=== PATIENT | male | born 1950 | race Caucasian/White ===

== ENCOUNTER → 2021-08-05 | Outpatient (CLI) | payer MEDICARE, OTHER, SELFPAY ==
--- NOTE | 2021-08-05 | IMM_PTH ---
PATIENT: CHRISTOPHER BAGLEY LOC: [facility] U#:[id number] AGE/SX: 71/M ROOM: RE08/05/[address]: Dr. Chi Lowery MD : 1950 BED: DIS: 08/05/2021 SPEC #: [id number] RECD: 08/07/21 13:48 STATUS: BELEN REQ #: [id number] AUBREE: 08/05/21 00:[address]: Chi Lowery DEPT: IMMUNOHISTOCHEMISTRY RECD BY: Heather Jacques ENTERED: 08/07/21 13:48 SP TYPE: IMMUNO OTHR DR: Dr. Corina Li MD Tissues: B - PROSTATE RIGHT C - PROSTATE RIGHT Procedures: 34BE12 (add) P40 (add) 34BE12 (initial) PHYSICIAN & INSTITUTION [place] [id number] SPECIMEN INFORMATION: Tissue Source: B - Right prostate, mid, core biopsy, C - Right prostate, base, core biopsy Clinical Info: Elevated PSA Specimen Number: [id number] B & C CPT code: 27041, 71710 x3 METHODOLOGY: Deparaffinized sections of prefer/formalin-fixed tissue or PAP/DQ stained slides are incubated with monoclonal/polyclonal antibodies/oligonucleotide probes. Localization is made via biotin free immunoperoxidase method. Appropriate controls are performed and reacted as expected. Results on target cell population are indicated in the following table: RESULTS: ANTIBODY / CLONE RESULT Block B P40 (BC28) negative 34BE12 (34BE12) negative Block C P40 (BC28) negative 34BE12 (34BE12) negative These tests were developed and their performance characteristics determined by [facility]. They may not have been cleared or approved by the [place]. Food and Drug Administration. The FDA has determined that such clearance or approval is not necessary. The above immunohistochemical/dualISH markers are ordered and reviewed by the Pathologist. INTERPRETATION: B. Right prostate, mid, core biopsy: Adenocarcinoma. C. Right prostate, base, core biopsy: A minute focus of adenocarcinoma. SJ:rosa 08/08/2021
--- NOTE | 2021-08-05 08:00 | PROSBIL_PTH ---
PATIENT: CHRISTOPHER BAGLEY LOC: [facility] U#:[id number] AGE/SX: 71/M ROOM: RE08/05/[address]: Dr. Chi Lowery MD : 1950 BED: DIS: 08/05/2021 SPEC #: [id number] RECD: 08/05/21 16:32 STATUS: BELEN LEONID #: [id number] AUBREE: 08/05/21 08:[address]: Chi Lowery DEPT: SURGICAL PATHOLOGY RECD BY: Ansley Antonio ENTERED: 08/06/21 09:49 SP TYPE: PROST BX VENESSA DR: Dr. Corina Li MD Tissues: A - PROSTATE RIGHT B - PROSTATE RIGHT C - PROSTATE RIGHT D - PROSTATE LEFT E - PROSTATE LEFT F - PROSTATE LEFT Procedures: PROSTATE BX HEADER OPERATION: Prostate biopsy PRE-OP DIAGNOSIS: Elevated PSA TISSUE SUBMITTED: A - Right apex, B - Right mid, C - Right base, D - Left apex, E - Left mid, F - Left base MICROSCOPIC DIAGNOSIS A. Right prostate, apex, core biopsy: Prostatic adenocarcinoma. [place] grade: 3+3=6 Number of cores involved: 1/2 Proportion of tissue involved: ~20% Perineural invasion: Not identified. Greatest tumor length: 0.8 cm, discontinuous B. Right prostate, mid, core biopsy: Prostatic adenocarcinoma. [place] grade: 3+3=6 Number of cores involved: 1/2 Proportion of tissue involved: ~5-10% Perineural invasion: Not identified. Greatest tumor length: 0.2 cm, discontinuous See comment. C. Right prostate, base, core biopsy: A minute focus of prostatic adenocarcinoma. [place] grade: 3+3=6 Number of cores involved: 1/2 Proportion of tissue involved: <5% Perineural invasion: Not identified. Greatest tumor length: <0.1 cm See comment. D. Left prostate, apex, core biopsy: Prostatic adenocarcinoma. [place] grade: 3+4=7 Number of cores involved: 2/2 Proportion of tissue involved: ~80% Perineural invasion: Not identified. Greatest tumor length: 0.5 cm E. Left prostate, mid, core biopsy: Prostatic adenocarcinoma. [place] grade: 3+3=6 Number of cores involved: 2/2 Proportion of tissue involved: ~40% Perineural invasion: Not identified. 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 F. Left prostate, base, core biopsy: A minute focus of prostatic adenocarcinoma. [place] grade: 3+3=6 Number of cores involved: 1/2 Proportion of tissue involved: ~15% Perineural invasion: Not identified. Greatest tumor length: 0.3 cm Chronic inflammation. SJ:rosa 08/07/2021 COMMENT B & C. Immunohistochemistry ([id number]) supports the above diagnosis. Case has been reviewed in consultation with Dr. Carmichael who concurs with the above diagnosis. IDC:AM MICROSCOPIC DESCRIPTION Slides are reviewed. GROSS DESCRIPTION A - Received is one container designated prostate, right apex. The specimen consists of two elongated fragments of light monte-white soft tissue measuring 0.8 and 1.5 cm in length and 0.1 cm in diameter. The specimen is totally submitted in one cassette. B - Received is one container designated prostate, right mid. The specimen consists of two elongated fragments of light monte-white soft tissue measuring 1 and 1.5 cm in length and 0.1 cm in diameter. The specimen is totally submitted in one cassette. C - Received is one container designated prostate, right base. The specimen consists of two elongated fragments of light monte-white soft tissue each measuring 1.5 cm in length and 0.1 cm in diameter. The specimen is totally submitted in one cassette. D - Received is one container designated prostate, left apex. The specimen consists of two elongated fragments of light monte-white soft tissue measuring 0.7 and 1 cm in length and 0.1 cm in diameter. The specimen is totally submitted in one cassette. E - Received is one container designated prostate, left mid. The specimen consists of two elongated fragments of light monte-white soft tissue measuring 1.5 and 1.8 cm in length and 0.1 cm in diameter. The specimen is totally submitted in one cassette. F - Received is one container designated prostate, left base. The specimen consists of two elongated fragments of light monte-white soft tissue each measuring 1.2 cm in length and 0.1 cm in diameter. The specimen is totally submitted in one cassette. / SJ:rosa 08/06/2021 TC:0 CPT: G0146
== END | disposition home or self-care (01) ==
LOC: LABSPEC 16:46
PROVIDERS: PCP Internal Medicine; Referring Provider Urology; Visit Provider Urology
DX: R97.20 Elevated prostate specific antigen [PSA] (principal)
CPT/HCPCS: 88305; 88341; 88342; G0416

== ENCOUNTER 2024-09-15 07:28 | Outpatient (CLI) | payer MEDICARE, OTHER, SELFPAY ==
--- OUTSIDE RECORDS SUMMARY | 2024-09-15 07:38 | XMS RPT_ITS | CCD ---
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 Alonso Bryan Unavailable GRANT Blackmon LPN Unavailable Unavailable Stuart Durand MD Unavailable Dr. Rohan Mahmood Unavailable Wilder Fitzgerald LPN Unavailable Unavailable Unavailable Unavailable Stuart Durand MD Primary Care Provider Chi Cool Unavailable Stuart Durand MD Primary Care Provider Chi Cool Unavailable Stuart Durand Primary Care Unavailable Chi Cool Attending Unavailable Chi Cool Referring Unavailable Chi Cool Attending Unavailable Stuart Durand Primary Care Unavailable Chi Cool Unavailable Jennifer DEPUTY SHERIFF LIEUTENANT, Marylu Unavailable Unavailable Robert LAMLupe Unavailable Stuart Durand MD Primary Care Provider Chi Cool MD Unavailable Robert LAMLupe Unavailable Stuart Durand MD Primary Care Provider [phone] Stuart Durand MD Attending Unavailable Stuart Durand MD Consulting Unavailable Slarb SILK SCREEN REPAIRER, Deisi Unavailable Unavailable Ticoras, Trevin Unavailable Jm SILK SCREEN REPAIRER, Shari Unavailable Unavailable Chi Cool MD Unavailable [phone] Stuart Durand MD Primary Care Provider [phone] Stuart Durand MD Primary Care Provider [phone] KARRI ENGEL Attending Unavailable BONEZZI, STUART M Primary Care Unavailable URADUKARRI Attending Unavailable BONEZZI, STUART M Primary Care Unavailable URADKARRI Mckeon Attending Unavailable BONEZZI, STUART M Primary Care Unavailable URKARRI ESCOBEDO Attending Unavailable MARTHA BANKS Primary Care Unavail able KARRI ENGEL Attending Unavailable BONEZZI, STUART M Primary Care Unavailable BONEZZI, STUART M Primary Care Unavailable DEVIN MARISCAL Attending Unavailable DEVIN MARISCAL Referring Unavailable DEVIN MARISCAL Referring Unavailable BONEZZI, STUART M Primary Care Unavailable RACHITSKAYA V, IVANNA Referring Unavai lable BONEERANI, STUART M Primary Care Unavailable RACGAMATSGWEN V, IVANNA Attending Unavai lable BONEANTHONY, STUART M Primary Care Unavailable DEVIN MARISCAL Attending Unavailable BONEZZI, STUART M Primary Care Unavailable RACHITSKAYA V, IVANNA Referring Unavai labRADHA Darden Attending Unavailable BONEZZI, STUART M Primary Care Unavailable SELF Referring Unavailable BONEZZI, STUART M Primary Care Unavailable RACHITSKAYA V, IVANNA Attending Unavai labIVANNA Nicholas Attending STUART Esquivel Primary Care Unavailable BONEANTHONY, STUART Mukherjee Primary Care Unavailable BONEANTHONY, STUART M Primary Care Unavailable HARRISON MASON Attending Unavailable BONEANTHONY, STUART Mukherjee Primary Care Unavailable IVANNA CALVERT Attending Salvador menchaca DAY, WENDY STEARNS Attending Unavailable BONEANTHONY, STUART Mukherjee Primary Care Unavailable RAFI ROLLINS Attending Unavailab le DAY, WENDY STEARNS Referring Unavailable DAY, WENDY STEARNS Admitting Unavailable BONEANTHONY, STUART M Primary Care Unavailable BONEANTHONY, STUART Mukherjee Primary Care Unavailable SOURAV HORTON Attending Unavailable BONESTUART CRUZ Primary Care Unavailable Allergies Allergy Classification Reported Allergen(s) Allergy Type Date of Onset Reaction(s) Facility (4 sources) Seasonal allergy; Translations: [SEASONAL ALLERGIES] Allergy to substance Other: See Comments [facility] Medications Current Medications Medication Drug Class(es) Dates Sig (Normalized) Sig (Original) acetaminophen 325 mg oral tablet (3 sources) Start: 11-24-2019 End: 12-04-2019 take 2 tablets by mouth every four hours as needed acetaminophen (TYLENOL) 325 MG tablet Take 2 (two) tablets (650 mg total) by mouth every 4 (four) hours as needed . 30 tablet 0 11/24/2019 12/04/2019 Active Start: 11-23-2019 End: 11-24-2019 take 1 tablet by mouth every four hours as needed 650 mg, Oral, Every 4 hours PRN, mild pain, Starting Elizabeth 11/23/19 at 1054 amLODIPine 10 mg oral tablet (20 sources) Dihydropyridine Calcium Channel Adriana Start: 06-14-2024 amLODIPine (NORVASC) 10 MG tablet Take 1 (one) tablet (10 mg total) by mouth . 06/14/2024 Active Start: 09-07-2022 take 1 tablet by leonora th in the morning amLODIPine 10 mg oral tablet 1 (one) Tablet in am for 0 days Quantity: 90 {Tablet} Refills: 3 Ordered: 07-Sep-2022 Stuart Durand MD, MD, Dana M Start : 07-Sep-2022 Active Start: 09-01-2021 take 1 tablet by leonora th in the morning amLODIPine Besylate 10 MG Oral Tablet 1 (one) Tablet in am for 0 days Quantity: 90 {Tablet} Refills: 3 Ordered: 01-Sep-2021 Guillermo CAPPS, Stuart Durand MD, Stuart Mukherjee Start : 01-Sep-2021 Active Start: 05-21-2020 End: 08-27-2020 take 1 tablet by mouth once daily amLODIPine 10 MG tablet Indications: Essential hypertension Take 1 tablet by mouth daily. 90 tablet 3 08/27/2020 Active Start: 11-23-2019 End: 11-24-2019 take 10 mg by mouth once daily 10 mg, Oral, Daily, Fir st dose on Elizabeth 11/23/19 at 1300 Start: 04-29-2019 End: 02-05-2020 take 1 tablet by mouth once daily amLODIPine 10 MG tablet Take 1 tablet by mouth daily. 90 tablet 2 11/07/2019 11/13/2019 Discontinued End: 09-01-2024 take 2 tablets by mouth once daily amLODIPine (NORVASC) 5 MG tablet Take 2 (two) tablets (10 mg total) by mouth daily . 09/01/2024 Discontinued (Dose adjustment) AMLODIPINE BESYL ATE (AMLODIPINE ORAL) Take by mouth. Active AMLODIPINE BESYL ATE (AMLODIPINE ORAL) Take by mouth. 0 Active End: 11-13-2019 take 5 mg by mouth once daily amLODIPine (NORVASC) 10 MG tablet Take 5 mg by mouth daily . 0 11/13/2019 Discontinued (Stop Taking at Discharge) Comment on above: Take by mouth. B-complex with vitamin C (VITAMIN B COMPLEX-C ORAL) (20 sources) Start: 07-29-2021 B-complex with vitamin C (VITAMIN B COMPLEX-C ORAL) Take by mouth q 24 HR. 07/29/2021 Active Start: 07-29-2021 B-complex with vitamin C (VITAMIN B COMPLEX-C ORAL) Take by mouth q 24 HR. 0 07/29/2021 Active Comment on above: Take by mouth q 24 H R. B-complex with vitamin C tablet (7 sources) Start: 07-29-2021 take 1 tablet by mouth every twenty-four hours B-complex with vitamin C tablet Take 1 Unspecified by mouth daily . 07/29/2021 Active Start: 07-29-2021 take 1 tablet by leonora th every twenty-four hours B-complex with vitamin C tablet Take 1 Unspecified by mouth daily . 0 07/29/2021 Active benazepril hydrochloride 40 mg oral tablet (20 sources) Angiotensin Converting Enzyme Inhibitor Start: 04-29-2019 End: 11-25-2020 take 1 tablet by mouth once daily benazepriL (LOTENSIN) 40 MG tablet Take 1 (one) tablet (40 mg total) by mouth daily . 11/22/2020 Active BENAZEPRIL HCL ( BENAZEPRIL ORAL) Take by mouth. Active BENAZEPRIL HCL ( BENAZEPRIL ORAL) Take by mouth. 0 Active End: 11-24-2019 benazepriL (LOTENSIN) 40 MG tablet Take 20 mg by mouth daily . 0 11/24/2019 Discontinued (Stop Taking at Discharge) Comment on above: Take by mouth. benoxinate hydrochloride 4 mg/ml / fluorescein sodium 3 mg/ml ophthalmic solution (10 sources) Diagnostic Dye Start: 07-07-2024 End: 07-07-2024 fluorescein-benoxinat e 0.3-0.4 % 1 drop (FLURESS) Start: 07-07-2024 End: 07-07-2024 1 drop, LEFT EYE, DIRECTE D, Starting on Wed07/07/24 at 0730, Until Wed07/07/24 at 1929, Administer for applanation tonometry. In the event of a Fluress shortage, administer [place]-Fluor 1 drop into the left eye as directed for applanation tonometry, [facility] MED ORDERS Start: 02-04-2024 End: 02-04-2024 fluorescein-benoxinate 0.3-0 .4 % 1 Drop (FLURESS) Start: 02-04-2024 End: 02-04-2024 1 Drop, BOTH EYES, DIRECT ED, Starting on Wed02/04/24 at 0730, Until Wed02/04/24 at 1929, Administer for applanation tonometry. In the event of a Fluress shortage, administer 1 drop of [place]-Fluor into both eyes as directed for applanation tonometry., [facility]HT [facility]INIC MED ORDERS Start: 11-05-2023 End: 11-06-2023 fluorescein-benoxinate 0.3-0 .4 % 1 Drop (FLURESS) Start: 09-22-2023 End: 09-23-2023 fluorescein-benoxinate 0.3-0 .4 % 1 Drop (FLURESS) Start: 09-14-2023 End: 09-15-2023 fluorescein-benoxinate 0.3-0 .4 % 1 Drop (FLURESS) cholecalciferol 0.025 mg ora l capsule (20 sources) Vitamin D cholecalciferol, vitamin D3, 25 mcg (1,000 unit) capsule Take by mouth daily . Active Cholecalciferol, Vitamin D3, 25 mcg (1,000 unit) cap Take by mouth every 24 hours. Active enteric contrast (will be provided with radiology test) (3 sources) Start: 09-10-2021 End: 09-11-2021 enteric contrast (will be provided with radiology test) For CT ABD/PEL W IVCON Routine order Administer, As Directed One Time Only, via Oral, Rectal, both Oral and Rectal, Enteric Tube, Stoma or Indwelling Catheter, Enteric Contrast as designated per enteric contrast guidelines 1 Each 0 09/10/2021 09/11/2021 Active Comment on above: For CT ABD/PEL W IVC ON Routine order Administer, As Directed One Time Only, via Oral, Rectal, both Oral and Rectal, Enteric Tube, Stoma or Indwelling Catheter, Enteric Contrast as designated per enteric contrast guidelines iv contrast (will be provided with radiology test) (6 sources) Start: 09-10-2021 End: 09-11-2021 iv contrast (will be provided with radiology test) MRI Prostate Inject, intravenously, once for 1 dose. No IV access, insert saline lock prior to the beginning of sedation, infusion, injection of imaging exam. Discontinue saline lock post exam. If Pt. has a central line or IVAD, may access for administration according to line specific nursing protocol. Once exam is complete flush line and de-access according to line specific nursing protocol in the MR contrast administration guidelines link. 1 Each 0 09/10/2021 09/11/2021 Active Start: 09-10-2021 End: 09-11-2021 iv contrast (will be provide d with radiology test) CT ABD/PEL -Inject, intravenously, once for 1 dose.No IV access, insert saline lock prior to the beginning of sedation, infusion, injection of imaging exam. Discontinue saline lock post exam. If Pt. has a central line or IVAD, may access for administration according to line specific nursing protocol. Once exam is complete flush line and de-access according to line specific nursing protocol in the CT contrast administration guidelines link. 1 Each 0 09/10/2021 09/11/2021 Active Comment on above: MRI Prostate Inject, intravenously, once for 1 dose. No IV access, insert saline lock prior to the beginning of sedation, infusion, injection of imaging exam. Discontinue saline lock post exam. If Pt. has a central line or IVAD, may access for administration according to line specific nursing protocol. Once exam is complete flush line and de-access according to line specific nursing protocol in the MR contrast administration guidelines link. CT ABD/PEL -Inject, intravenously, once for 1 dose.No IV access, insert saline lock prior to the beginning of sedation, infusion, injection of imaging exam. Discontinue saline lock post exam. If Pt. has a central line or IVAD, may access for administration according to line specific nursing protocol. Once exam is complete flush line and de-access according to line specific nursing protocol in the CT contrast administration guidelines link. Multiple Vitamin (Multi-Vitamin) tablet (1 source) take 1 tablet by mouth once daily Multiple Vitamin (Multi-Vitamin) tablet Take 1 tablet by mouth daily. 0 Active multivitamin (THERAGRAN) per tablet (18 sources) take 1 tablet by mouth once daily multivitamin (THERAGRAN) per tablet Take 1 (one) tablet by mouth daily . Active take 1 tablet by mouth once paulina y multivitamin (THERAGRAN) per tablet Take 1 (one) tablet by mouth daily . 0 Active take 1 tablet by mouth once paulina y multivitamin (THERAGRAN) per tablet Take 1 tablet by mouth daily . 0 Active phenylephrine hydrochloride 25 mg/ml ophthalmic solution (8 sources) alpha-1 Adrenergic Agonist Start: 07-07-2024 End: 07-07-2024 PHENYLephrine 2.5 % 1 drop (AK-DILATE, CRISTO-SYNEPHRINE) Start: 07-07-2024 End: 07-07-2024 1 drop, LEFT EYE, DIRECTE D, Starting on Wed07/07/24 at 0730, Until Wed07/07/24 at 1929, Administer for dilation PROT[facility] FROM LIGHT, [facility] Start: 02-04-2024 End: 02-04-2024 PHENYLephrine 2.5 % 1 Drop ( AK-DILATE, CRISTO-SYNEPHRINE) Start: 02-04-2024 End: 02-04-2024 1 Drop, BOTH EYES, DIRECT ED, Starting on Wed02/04/24 at 0730, Until Wed02/04/24 at 1929, Administer for dilation PROTECT FROM LIGHT, [facility] CLINIC MED ORDERS Start: 11-05-2023 End: 11-06-2023 PHENYLephrine 2.5 % 1 Drop ( AK-DILATE, CRISTO-SYNEPHRINE) Start: 09-22-2023 End: 09-23-2023 PHENYLephrine 2.5 % 1 Drop ( AK-DILATE, CRISTO-SYNEPHRINE) proparacaine hydrochloride 5 mg/ml ophthalmic solution (5 sources) Local Anesthetic Start: 07-07-2024 End: 07-07-2024 proparacaine 0.5 % 1 drop (ALCAINE) Start: 02-04-2024 End: 02-04-2024 proparacaine 0.5 % 1 Drop (A LCAINE) Start: 11-05-2023 End: 11-06-2023 proparacaine 0.5 % 1 Drop (A LCAINE) Start: 09-22-2023 End: 09-23-2023 proparacaine 0.5 % 1 Drop (A LCAINE) red yeast rice 600 mg oral capsule (20 sources) take 2 capsules by m outh every twenty-four hours red yeast rice 600 mg cap Take 2 (two) capsules (1,200 mg total) by mouth daily . Active take 2 capsules by m outh every twenty-four hours Red Yeast Rice Extract 600 mg cap Take 1,200 mg by mouth every 24 hours. Active relugolix (ORGOVYX) 120 mg tablet (4 sources) Start: 10-16-2021 End: 11-18-2021 relugolix (ORGOVYX) 120 mg tablet Indications: Malignant neoplasm of prostate (HCC) Take 1 tablet by mouth once daily. Take 3 pills day one and then one pill daily from day 2 onwards. 33 tablet 0 10/16/2021 11/18/2021 Active Comment on above: Take 1 tablet by leonora once daily. Take 3 pills day one and then one pill daily from day 2 onwards. rosuvastatin calcium 5 mg oral tablet (1 source) HMG-CoA Reductase Inhibitor Start: 08-30-2024 take 1 tablet by mouth once daily rosuvastatin (CRESTOR) 5 MG tablet Take 1 (one) tablet (5 mg total) by mouth daily . 08/30/2024 Active triamcinolone acetonide 1 mg/ml topical cream (1 source) Corticosteroid Start: 06-30-2024 triamcinolone acetonide (KENALOG) 0.1 % cream Apply to affected area. 06/30/2024 Active tropicamide 10 mg/ml ophthalmic solution (11 sources) Anticholinergic Start: 07-07-2024 End: 07-07-2024 tropicamide 1 % 1 drop (MYDRIACYL) Start: 07-07-2024 End: 07-07-2024 1 drop, LEFT EYE, DIRECTE D, Starting on Wed07/07/24 at 0730, Until Wed07/07/24 at 1929, Administer for dilation, [facility] MED ORDERS Start: 02-04-2024 End: 02-04-2024 tropicamide 1 % 1 Drop (MYDR IACYL) Start: 02-04-2024 End: 02-04-2024 1 Drop, BOTH EYES, DIRECT ED, Starting on Wed02/04/24 at 0730, Until Wed02/04/24 at 1929, Administer for dilation, [facility] MED ORDERS Start: 11-05-2023 End: 11-06-2023 tropicamide 1 % 1 Drop (MYDR IACYL) Start: 09-22-2023 End: 09-23-2023 tropicamide 1 % 1 Drop (MYDR IACYL) Start: 09-14-2023 End: 09-15-2023 tropicamide 1 % 1 Drop (MYDR IACYL) Completed/Discontinued Medications Medication Drug Class(es) Dates Sig (Normalized) Sig (Original) amoxicillin 875 mg / clavulanate 125 mg oral tablet (20 sources) Penicillin-class Antibacterial Start: 08-18-2021 End: 12-19-2021 take 1 tablet by mouth twice daily Amoxicillin-Pot Clavulanate 875-125 MG Oral Tablet 1 (one) Tablet bid for 0 days Quantity: 20 {Tablet} Refills: 0 Ordered: 19-Dec-2021 Wilder Fitzgerald LPN Start : 18-Aug-2021 End : 19-Dec-2021 Inactive Start: 11-13-2019 End: 11-24-2019 take 1 tablet by mouth twice daily amoxicillin-clavulanate (AUGMENTIN) 875-125 mg per tablet Take 1 (one) tablet by mouth 2 (two) times a day . 10 tablet 0 11/13/2019 11/24/2019 Discontinued (Stop Taking at Discharge) azithromycin 250 mg oral tablet (20 sources) Macrolide Antimicrobial Start: 08-12-2021 End: 12-19-2021 Zithromax Z-Ruddy 250 MG Oral Tablet 1 (one) Tablet uad for 0 days Quantity: 1 {Packet} Refills: 0 Ordered: 19-Dec-2021 Wilder Fitzgerald LPN Start : 12-Aug-2021 End : 19-Dec-2021 Inactive B-complex with vitamin C oral tablet (10 sources) Start: 12-19-2021 End: 08-18-2022 take 1 capsule by mouth once daily B-complex with vitamin C oral tablet 1 (one) Capsule daily for 0 days Quantity: 30 {Capsule} Refills: 2 Ordered: 18-Aug-2022 Shari Oneal LPN Start : 19-Dec-2021 End : 18-Aug-2022 Inactive Carboxymethylcellulose (20 sources) CARBOXYMETHYLCEL LULOSE SODIUM (REFRESH OPHTHALMIC) Use in eyes as directed. 0 Active Comment on above: Use in eyes as direc [place]. folic acid 1 mg oral tablet (20 sources) Start: 07-29-2021 End: 08-18-2022 take 1 tablet by mouth once daily folic acid 1 mg oral tablet 1 (one) Tablet daily for 0 days Quantity: 30 {Tablet} Refills: 3 Ordered: 18-Aug-2022 Shari Oneal LPN Start : 19-Dec-2021 End : 18-Aug-2022 Inactive Comment on above: TAKE 1 TABLET BY LEONORA TH EVERY DAY NOT COVERED 1 ml heparin sodium, porcine 5000 unt/ml injection (1 source) Unfractionated Heparin, Anti-coagulant Start: 11-11-2019 End: 11-13-2019 inject 5000 [IU] by subcutaneous injection every eight hours 5,000 Units, Subcutaneous, Every 8 hours scheduled, First dose on 11/11/19 at 2200 Notify physician if patient refuses. ammonium lactate 120 mg/ml topical lotion (20 sources) Start: 07-29-2021 End: 12-19-2021 Amlactin Daily 12 % External Lotion 1 (one) Application daily on trunk for 0 days Quantity: 1 {Each} Refills: 0 Ordered: 19-Dec-2021 Amilcar CORDONWilder Start : 29-Jul-2021 End : 19-Dec-2021 Inactive lisinopril 20 mg oral tablet (1 source) Angiotensin Converting Enzyme Inhibitor Start: 11-12-2019 End: 11-13-2019 take 40 mg by mouth once daily at lunch 40 mg, Oral, Daily with lunch, First dose on 11/12/19 at 1200 olopatadine 1 mg/ml ophthalmic solution (20 sources) Histamine-1 Receptor Inhibitor Start: 07-22-2016 take 1 drop(s) into the eye(s) twice daily olopatadine (PATANOL) 0.1 % ophthalmic solution Use 1 Drop in both eyes twice daily. 1 Bottle 0 07/22/2016 Active Start: 07-22-2016 take 1 drop(s) into the eye(s) twice daily olopatadine (PATANOL) 0.1 % ophthalmic solution Use 1 Drop in both eyes twice daily. 1 Bottle 0 07/22/2016 Active Comment on above: Use 1 Drop in both e yes twice daily. 2 ml ondansetron 2 mg/ml injection (2 sources) Serotonin-3 Receptor Antagonist Start: 0 End: 0 take 4 mg intravenous route every six hours as needed 4 mg, Intravenous, Every 6 hours PRN, nausea, Starting Elizabeth 11/23/19 at 1054 Start: 11-11-2019 End: 11-13-2019 take 4 mg intravenous route every six hours as needed 4 mg, Intravenous, Every 6 hours PRN, nausea, vomiting, Starting 11/11/19 at 1827 Orgovyx 120 MG Oral Tablet (6 sources) Start: 12-19-2021 take 1 tablet by mouth once daily Orgovyx 120 MG Oral Tablet 1 (one) Tablet daily for 0 days Quantity: 30 {Tablet} Refills: 0 Ordered: 19-Dec-2021 Guillermo CAPPS, Stuart Durand MD, Stuart Mukherjee Start : 19-Dec-2021 Active Comments: Rx by Dr Mariscal Comment on above: Rx by Dr Mariscal Orgovyx 120 mg oral tablet (10 sources) Start: 12-19-2021 End: 08-18-2022 take 1 tablet by mouth once daily Orgovyx 120 mg oral tablet 1 (one) Tablet daily for 0 days Quantity: 30 {Tablet} Refills: 0 Ordered: 18-Aug-2022 Jm CORDON Shari Start : 19-Dec-2021 End : 18-Aug-2022 Inactive Comments: Rx by Dr Mariscal Comment on above: Rx by Dr Mariscal perfluttoni lipid microspheres (DEFINITY) 0.143 mg/mL solution 0-10 mL of mixture (1 source) Start: 11-11-2019 End: 11-13-2019 0-10 mL of mixture, Intravenous, Once in imaging, contrast, IF suboptimal echo, Starting 11/11/19 at 1827, For 48 hours Prepare syringe by withdrawing 1.3 mL of perflutren (DEFINITY) from the 2ml vial. Further dilute the 1.3 mL of perflutren with Sodium Chloride (NS) 0.9% to total volume of 10 ml. Chart total ML OF MIXTURE given to patient. predniSONE 20 mg oral tablet (20 sources) Start: 08-12-2021 End: 12-19-2021 predniSONE 20 MG Oral Tablet 1 (one) Tablet bid for 3 days for 0 days Quantity: 6 {Tablet} Refills: 0 Ordered: 19-Dec-2021 Wilder Fitzgerald LPN Start : 12-Aug-2021 End : 19-Dec-2021 Inactive relugolix (ORGOVYX) 120 mg tablet (10 sources) Start: 12-19-2021 take 1 tablet by mouth every twenty-four hours relugolix (ORGOVYX) 120 mg tablet Take by mouth q 24 HR. 0 12/19/2021 Active Comment on above: Take by mouth q 24 H R. 1000 ml sodium chloride 9 mg/ml injection (1 source) Start: 11-23-2019 End: 11-23-2019 sodium chloride 0.9% (NS) tamsulosin hydrochloride 0.4 mg oral capsule (7 sources) alpha-Adrenergic Adriana Start: 02-02-2022 End: 05-03-2022 take 1 capsule by mouth once daily at bedtime tamsulosin (FLOMAX) 0.4 mg Indications: Malignant neoplasm of prostate (HCC) Take 1 capsule by mouth daily at bedtime. 30 capsule 2 02/02/2022 Active Comment on above: Take 1 capsule by mo uth daily at bedtime. 200 ml vancomycin 5 mg/ml injection (1 source) Glycopeptide Antibacterial Start: 11-23-2019 End: 11-23-2019 vancomycin (VANCOCIN) 1000 mg in sodium chloride 0.9% (NS) 200 mL IVPB vancomycin (VANCOCIN) 1,000 mg in sodium chloride (NS) 0.9 % 1,000 mL irrigation (Bottle) (1 source) Start: 11-23-2019 End: 11-23-2019 vancomycin (VANCOCIN) 1,000 mg in sodium chloride (NS) 0.9 % 1,000 mL irrigation (Bottle) Vitamin B Complex-C Oral Capsule (15 sources) Start: 12-19-2021 take 1 capsule by mouth once daily Vitamin B Complex-C Oral Capsule 1 (one) Capsule daily for 0 days Quantity: 30 {Capsule} Refills: 2 Ordered: 19-Dec-2021 Wilder Fitzgerald LPN Start : 19-Dec-2021 Active Start: 07-29-2021 take 1 capsule by mo ut once daily Vitamin B Complex-C Oral Capsule 1 (one) Capsule daily for 0 days Quantity: 30 {Capsule} Refills: 2 Ordered: 29-Jul-2021 Guillermo CAPPS, Stuart Durand MD, Stuart Mukherjee Start : 29-Jul-2021 Active vitamin B complex-vitamin C- folic acid 0.3mg-1 mg tablet (oral) (10 sources) vitamin B comple x-vitamin C-folic acid 0.3mg-1 mg tablet (oral) daily (0.3-1 mg) Active Problems Active Problems Problem Classification Problem Date Documented Date Episodic/Chronic Allergic reactions (20 sources) Environmental allergy; Translations: [Environmental allergies] 07-29-2021 Episodic Comment on above: OTC saline rinses an d flonse not antihistamine with dry eyes Cancer of prostate (20 sources) Malignant tumor of prostate; Translations: [Malignant neoplasm of prostate] Onset: 09-10-2021 Chronic Comment on above: Dr. cool, see Dr. lewis mariscal rad/onc Dr. cool, see Dr. lewis mariscal rad/onc doing well Cardiac dysrhythmias (20 sources) Bradycardia; Translations: [Sick sinus syndrome] Onset: 11-11-2019 11-11-2019 Chronic Comment on above: boy 10-[address] eleno stearns [facility] Cataract (8 sources) Pseudophakia of right eye; Translations: [Presence of intraocular lens] Onset: 11-23-2023 09-14-2023 Chronic Conduction disorders (12 sources) Complete atrioventricular block; Translations: [Heart block ] Onset: 04-18-2024 Chronic Developmental disorders (20 sources) Dyslexia; Translations: [Dyslexia] 07-29-2021 Chronic Diabetes mellitus without complication (20 sources) Abnormal glucose level; Translations: [Abnormal glucose] 06-02-2021 Episodic Comment on above: 6.4 5-19 was 180 t and down to 140 Disorders of lipid metabolism (20 sources) Hyperlipidemia; Translations: [Hyperlipidemia, unspecified] Chronic Comment on above: apo B92 with LDL 115 . he did red yeast rice and niacin and help. he was off it and will restart. Essential hypertension (20 sources) Essential hypertension; Translations: [Essential (primary) hypertension] Chronic Hyperplasia of prostate (1 source) Benign prostatic hyperplasia; Translations: [Benign prostatic hyperplasia without lower urinary tract symptoms] Chronic Immunizations and screening for infectious disease (20 sources) Patient encounter status; Translations: [Encounter for hepatitis C virus screening test for high risk patient] 07-29-2021 Episodic Other and unspecified benign neoplasm (20 sources) Melanocytic nevus; Translations: [Atypical mole] 07-29-2021 Episodic Comment on above: right inner calf wit h pigmented mole that is asymetrical Other eye disorders (1 source) Posterior vitreous detachment of left eye; Translations: [Vitreous degeneration, left eye] 09-14-2023 Chronic Other eye disorders (5 sources) Hemorrhage of left vitreous body; Translations: [Vitreous hemorrhage, left eye] 09-14-2023 Chronic Other eye disorders (1 source) Meibomian gland dysfunction of bilateral eyes; Translations: [Meibomian gland dysfunction right eye, upper and lower eyelids] 11-23-2023 Episodic Other eye disorders (1 source) Disorder of lacrimal gland; Translations: [Dry eye syndrome of bilateral lacrimal glands] 11-23-2023 Episodic Other hematologic conditions (20 sources) Erythrocytosis; Translations: [Polycythemia] 06-18-2020 Episodic Comment on above: felt related to WICHO by hematology. wear mask for months and not change. before pacer. testosterone good felt related to WICHO and before pacer and less bradycardia now by hematology. wear mask for months and not change. before pacer. testosterone good Other lower respiratory disease (2 sources) Bilateral lung opacities on chest X-ray; Translations: [Other nonspecific abnormal finding of lung field] Episodic Other lower respiratory disease (2 sources) Multiple nodules of lung; Translations: [Other nonspecific abnormal finding of lung field] Episodic Other nervous system disorders (6 sources) H/O: retinal detachment; Translations: [Personal history of other diseases of the nervous system and sense organs] 09-14-2023 Episodic Other non-epithelial cancer of skin (20 sources) History of malignant basal cell neoplasm of skin; Translations: [History of basal cell carcinoma] 06-02-2021 Episodic Comment on above: each forearm with wh at look like BCC will get back to derm. he willcall with the name of derm. Other nutritional; endocrine; and metabolic disorders (1 source) Weight loss; Translations: [Weight loss] Episodic Other nutritional; endocrine; and metabolic disorders (2 sources) Body mass index 25-29 - overweight; Translations: [BMI 25.0-25.9,adult] 12-19-2021 Episodic Other nutritional; endocrine; and metabolic disorders (20 sources) Overweight in adulthood with body mass index of 25 or more but less than 30; Translations: [BMI 25.0-25.9,adult] 12-19-2021 Episodic Other screening for suspected conditions (not mental disorders or infectious disease) (20 sources) ECG: bradycardia; Translations: [Raised prostate specific antigen] Onset: 09-08-2021 Resolved: 08-18-2022 06-02-2021 Episodic Comment on above: 6.8 5.5 5-19 Other skin disorders (20 sources) Eruption; Translations: [Rash] Resolved: 08-18-2022 07-29-2021 Episodic Comment on above: red raised on trunk mainly at follicles not folliculitis had for years. some itch Other upper respiratory infections (20 sources) Acute sinusitis; Translations: [Sinusitis, acute] 08-18-2021 Episodic Comment on above: post covid Residual codes; unclassified (20 sources) Obstructive sleep apnea syndrome; Translations: [WICHO (obstructive sleep apnea)] 06-18-2020 Chronic Comment on above: has nasal cpap but m outh open not get full face mask so not do anymore lost weight no have the hypersomnia signs and symptoms, now has pacemaker lost weight. consider redo sleep study if polycythemia is stillthere.has nasal cpap but mouth open not get full face mask so not do anymore lost weight no have the hypersomnia signs and symptoms, now has pacemaker lost weight. consider redo sleep study if polycythemia if worsen againhas nasal cpap but mouth open not get full face mask so not do anymore lost weight no have the hypersomnia signs and symptoms, now has pacemaker lost weight. consider redo sleep study if polycythemia if worsen again.has nasal cpap but mouth open not get full face mask so not do anymore Residual codes; unclassified (20 sources) Body mass index 20-24 - normal; Translations: [BMI 24.0-24.9, adult] 06-02-2021 Episodic Residual codes; unclassified (20 sources) Non-smoker; Translations: [Non-smoker] 06-02-2021 Episodic Residual codes; unclassified (20 sources) Disturbance in sleep behavior; Translations: [Sleep disturbance] 07-29-2021 Episodic Comment on above: sleep 8-3 am wake up dreaming has premature awakening. 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, bilateral] 09-14-2023 Chronic Retinal detachments; defects; vascular occlusion; and retinopathy (20 sources) Detachment of retina of right eye; Translations: [Retinal detachment, right] 06-02-2021 Episodic Comment on above: [facility] Unclassified (20 sources) Viral infection (20 sources) Disease caused by 2019-nCoV; Translations: [COVID] 08-12-2021 Episodic Past or Other Problems Problem Classification Problem Date Documented Date Episodic/Chronic Cardiac dysrhythmias (20 sources) Bradycardia; Translations: [Bradycardia, unspecified] Onset: 0 11-13-2019 Episodic Comment on above: he does pacer checks . not seen regular cardiology only 13 % of time.boy 9-20 dx of dizziness. he does pacer checks . not seen regular cardiology only 13 % of time. see [employer] at [facility] cardiology yearly.boy 9-20 dx of dizziness. Retinal detachments; defects; vascular occlusion; and retinopathy (1 source) Detachment of retina of right eye; Translations: [Retinal detachment, right] 06-18-2020 Comment on above: [facility] Unclassified (19 sources) Elevated PSA Unclassified (19 sources) Non-smoker Unclassified (19 sources) BMI 24.0-24.9, adult Unclassified (10 sources) Encounter for screening colonoscopy Unclassified (19 sources) History of basal cell carcinoma Unclassified (19 sources) Polycythemia Unclassified (19 sources) WICHO (obstructive sleep apnea) Unclassified (19 sources) Encounter for well adult exam with abnormal findings (Renamed from Encounter for general adult medical examination with abnormal findings) Unclassified (19 sources) Mild hypercholesterolemia Unclassified (9 sources) Environmental allergies Unclassified (9 sources) Sleep disturbance Unclassified (9 sources) Dyslexia Unclassified (9 sources) Elevated homocysteine Unclassified (9 sources) Skin cancer, basal cell Unclassified (9 sources) Atypical mole Unclassified (9 sources) Rash Unclassified (18 sources) Encounter for hepatitis C virus screening test for high risk patient Unclassified (12 sources) Hypertension, benign Unclassified (9 sources) Need for Tdap vaccination Unclassified (4 sources) Sinusitis, acute Viral infection (6 sources) Disease caused by 2019-nCoV Results Test Name Value Interpretation Reference Range Facility OCT MACULA CIRRUS OU (BOTH E YES)on 07-07-2024 [facility] Radiology Study observation (narrative) [facility] CARDIAC REMOTE DEVICE CHECKo n 06-20-2024 Remote Interrogation of Pacemaker Notes/Summary: Stable Device function Est. Battery: 5.5 years Presenting EGM: /VS rate 60s bpm WELT SLASHER: 0% AT/AF [place]: <1% since 03/20/2024 AHR: 78; available EGMs appears FFRW over-sensing VHR: 0 Histograms: Appropriate rate distribution Next remote: 09/19/2024, Next In-clinic due: 02/2025 Signature: Caitie BADILLO, RN I have reviewed the device function, programmed parameters, and heart rhythm. Patient will return to the Device Clinic &/or remote follow up and provider visit per protocol. Matthew Morris MD - 06/20/2024 Remote Interrogation of Pacemaker Notes/Summary: Stable Device function Est. Battery: 5.5 years Presenting EGM: /VS rate 60s bpm WELT SLASHER: 0% AT/AF [place]: <1% since 03/20/2024 AHR: 78; available EGMs appears FFRW over-sensing VHR: 0 Histograms: Appropriate rate distribution Next remote: 09/19/2024, Next In-clinic due: 02/2025 Signature: Caitie BADILLO, RN I have reviewed the device function, programmed parameters, and heart rhythm. Patient will return to the Device Clinic &/or remote follow up and provider visit per protocol. [facility] CARDIAC REMOTE DEVICE CHECKO rdered By: Matthew Colunga on 06-20-2024 [facility] Work Phone: CNOVon 06-07-2024 CNOV Office Visit (RADTMS ) -- CHRISTOPHER BAGLEY ([id number]) 1950 M Date Time Provider Department 06/07/24 10:00 AM DEVIN MARSICAL RADTMS During your visit today, we recorded the following information about you: Temperature Pulse Blood pressure Weight 97.7 degrees 66/minute 137/84 76.4 kg Devin Mariscal MD 06/07/2024 10:14 AM Signed Radiation Oncology - Follow Up Note PATIENT NAME: Christopher Bagley PATIENT DIAGNOSIS: 73 year old male with prostate adenocarcinoma, initial PSA 7.3 (06/02/2021), biopsy [place] score 3 + 4 = 7 (grade group 2), 8/12 cores involved, clinical stage T1c, N0, M0, stage IIB [T1-T2, N0, M0, PSA <20, GG 2] (AJCC 8th ed.) (AJCC 8th ed.), s/p TRUS Random biopsy 08/05/2021. He compleetd radiation treatment 7000 cGy in 28 fractions to prostate, SV, pelvic LN on 02/04/2022. On Relugolix since 11/02/2021, completed 6 months. INTERVAL HISTORY: The patient presents for routine follow-up 6 months after having last been seen. He denies or GI issues. PSA HISTORY: 05/31/2024: 0.1 ng/ml, T:422 11/25/2023: 0.21 ng/ml, T: 408 05/13/2023: 0.18 ng/ml, T:419 11/05/2022: 0.13 ng/ml, T:378 05/08/2022: <0.02 ng/ml, T: <12 11/02/2021-04/2022: 6 months of Relugolix, 02/04/2022: completed radiation tx : 8.01 ng/ml, T: 593 AUA: 7 today, nocturia: 2x. ALLERGIES Allergen Reactions Seasonal Allergies Other: See Comments Itchy eyes etc. Red Yeast Rice Extract 600 mg cap Take 1,200 mg by mouth every 24 hours. Cholecalciferol, Vitamin D3, 25 mcg (1,000 unit) cap Take by mouth every 24 hours. B-complex with vitamin C (VITAMIN B COMPLEX-C ORAL) Take by mouth q 24 HR. AMLODIPINE BESYLATE (AMLODIPINE ORAL) Take by mouth. BENAZEPRIL HCL (BENAZEPRIL ORAL) Take by mouth. REVIEW OF SYSTEMS: Hematuria: No Dysuria: No Incontinence: No Urgency: none Catheter use: No Medications to aid urination: N/A Bowel movement frequency: 1x/day Bowel movement quality: normal Blood per rectum: No Sexual activity: Not sexually active PHYSICAL EXAM: BP 137/84 (BP Position: Sitting) Pulse 66 Temp 36.5 ?C (97.7 ?F) Wt 76.4 kg (168 lb 6.9 oz) SpO2 97% BMI 24.17 kg/m? KPS: 100 General Appearance: Alert and oriented. No acute distress. ASSESSMENT/PLAN: Clinically doing well. Follow up in 6 months with a PSA level. Devin Mariscal MD cc: Stuart Durand ([facility]) [id number] [facility] [address] [place] [address] Referring Provider: DEVIN MARISCAL [[id number]] Allergies As of Date: 06/07/2024 Noted Allergy Reaction SEASONAL ALLERGIES 02/04/2024 14 - Other: See Comments Comments: Itchy eyes etc. Date Reviewed: 06/07/2024 Reviewed by: Devin Mariscal MD - Fully Assessed Reason for Visit: Recheck [92] Cmt: Malignant neoplasm of prostate (HCC) Primary Visit Diagnosis:Malignant neoplasm of prostate (HCC) [C61] Order(s):PROSTATE-SPECIFIC ANTIGEN DIAGNOSTIC [SQPSA] Order #: [id number] FUTURE Prescriptions as of 06/07/2024 - Red Yeast Rice Extract 600 mg cap Take 1,200 mg by mouth every 24 hours. - Cholecalciferol, Vitamin D3, 25 mcg (1,000 unit) cap Take by mouth every 24 hours. - B-complex with vitamin C (VITAMIN B COMPLEX-C ORAL) Take by mouth q 24 HR. - AMLODIPINE BESYLATE (AMLODIPINE ORAL) Take by mouth. - BENAZEPRIL HCL (BENAZEPRIL ORAL) Take by mouth. Problem List As Of Date 06/07/2024 Noted Resolved Malignant neoplasm of prostate (HCC) [C61] 09/10/2021 Disposition: Return in about 6 months (around 12/08/2024). Follow-up and Disposition History for Encounter Date Provider Department Center 06/07/2024 [id number], SHIB[facility] Encounter Status:Closed by DEVIN MARISCAL on 06/07/24 Normal [facility] PSA SerPl-mCncon 05-31-2024 Prostate specific Ag [Mass/Vol] 0.10 ng/mL Normal <2.60 [facility] Comment on above: Order Comment: Speci men Type: BLOOD SPECIMENOrdering Facility: [facility] Address: [address] [place] [id number] Result Comment: Tota l PSA test methodology used is the Electrochemiluminescence Immunoassay by [employer]. Total PSA values by differing methodologies cannot be interchanged. Performed By: #### 2 857-1 ####[facility] LABCLIA [id number] [place] [id number] [place] Testost Christl-mCncon 025 Testosterone [Mass/Vol] 442 ng/dL Normal 193-824 [facility] Comment on above: Order Comment: Speci men Type: BLOOD SPECIMENOrdering Facility: [facility] Address: [address] [place] [address] Result Comment: A te stosterone level in the 193-320 ng/dL range with associated clinical symptoms is considered low and may indicate hypogonadism (from [facility] 2010 363:123-135). Results >320 ng/dL are considered normal. Performed By: #### 2 986-8 ####[facility] LABIA [id number] [place] [id number] [place] ECG 12 Leadon 04-19-2024 Atrial Rate [facility] P Ursa [facility] P-R Interval [facility] Q-T Interval [facility] Q-T Interval (corrected) [facility] QRS Duration [facility] QTC Calculation (Bezet) [facility] R Ursa [facility] T Ursa [facility] Ventricular Rate [facility] Sinus Rhythm -MO prolongation -PACs -Atrially paced beats [facility] Result approved by Rafi Rollins DO on 04/19/24 [facility] OCT MACULA BAMS OU (BOTH E YES)on 02-04-2024 [facility] Radiology Study observation (narrative) [facility] CARDIAC REMOTE DEVICE CHECKo n 12-21-2023 Remote Interrogation of Pacemaker Notes/Summary: Stable Device function Presenting EGM: Ap/VS 60's bpm AT/AF [place]: <1% no true AF identified AHR: 15, review of egms appear as FFRW oversensing, no true AF identified VHR: 0 Histograms: 50-100 bpm Signature: Mariam LUGON RN I have reviewed the device function, programmed parameters, and heart rhythm. Patient will return to the Device Clinic &/or remote follow up and provider visit per protocol. Matthew Morris MD - 12/21/2023 Remote Interrogation of Pacemaker Notes/Summary: Stable Device function Presenting EGM: Ap/VS 60's bpm AT/AF [place]: <1% no true AF identified AHR: 15, review of egms appear as FFRW oversensing, no true AF identified VHR: 0 Histograms: 50-100 bpm Signature: Mariam LUGON RN I have reviewed the device function, programmed parameters, and heart rhythm. Patient will return to the Device Clinic &/or remote follow up and provider visit per protocol. [facility] Radiology Study observation (narrative) [facility] CARDIAC REMOTE DEVICE CHECKO rdered By: Matthew Colunga on 12-21-2023 [facility] Work Phone: CNOVon 12-17-2023 CNOV Office Visit (RADTMS ) -- CHRISTOPHER BAGLEY ([id number]) 1950 M Date Time Provider Department 12/17/23 10:00 AM DEVIN MARISCAL RADTMYane During your visit today, we recorded the following information about you: Temperature Pulse Blood pressure Weight 98.1 degrees 66/minute 138/73 77.5 kg Devin Mariscal MD 12/17/2023 10:23 AM Signed Radiation Oncology - Follow Up Note PATIENT NAME: Christopher Bagley PATIENT DIAGNOSIS: 73 year old male with prostate adenocarcinoma, initial PSA 7.3 (06/02/2021), biopsy [place] score 3 + 4 = 7 (grade group 2), 8/12 cores involved, clinical stage T1c, N0, M0, stage IIB [T1-T2, N0, M0, PSA <20, GG 2] (AJCC 8th ed.) (AJCC 8th ed.), s/p TRUS Random biopsy 08/05/2021. He compleetd radiation treatment 7000 cGy in 28 fractions to prostate, SV, pelvic LN on 02/04/2022. On Relugolix since 11/02/2021, completed 6 months. INTERVAL HISTORY: The patient presents for routine follow-up 6 months after having last been seen. He is doing well. No new or GI issues. He continues to work at the [employer] center in [place]. PSA HISTORY: 11/25/2023: 0.21 ng/ml, T: 408 05/13/2023: 0.18 ng/ml, T:419 11/05/2022: 0.13 ng/ml, T:378 05/08/2022: <0.02 ng/ml, T: <12 11/02/2021-04/2022: 6 months of Relugolix, 02/04/2022: completed radiation tx : 8.01 ng/ml, T: 593 AUA: 4 today. ALLERGIES No Known Allergies Cholecalciferol, Vitamin D3, 25 mcg (1,000 unit) cap Take by mouth every 24 hours. B-complex with vitamin C (VITAMIN B COMPLEX-C ORAL) Take by mouth q 24 HR. AMLODIPINE BESYLATE (AMLODIPINE ORAL) Take by mouth. BENAZEPRIL HCL (BENAZEPRIL ORAL) Take by mouth. REVIEW OF SYSTEMS: Hematuria: No Dysuria: No Incontinence: No Urgency: none Catheter use: No Medications to aid urination: none Bowel movement frequency: 1/day Bowel movement quality: normal Blood per rectum: No Sexual activity: Not sexually active PHYSICAL EXAM: BP 138/73 Pulse 66 Temp 36.7 ?C (98.1 ?F) (Temporal) Wt 77.5 kg (170 lb 13.7 oz) SpO2 98% BMI 24.52 kg/m? KPS: 100 General Appearance: Alert and oriented. No acute distress. ASSESSMENT/PLAN: Clinically doing well. Good PSA response. Follow up in 6 months with a PSA level. Devin Mariscal MD cc: Stuart Durand ([facility]) [address] [address] Allergies As of Date: 12/17/2023 (No Known Allergies) Date Reviewed: 12/17/2023 Reviewed by: Devin Mariscal MD - Fully Assessed Reason for Visit: Recheck [92] Cmt: Prostate Primary Visit Diagnosis:Malignant neoplasm of prostate (HCC) [C61] Order(s):PROSTATE-SPECIFIC ANTIGEN DIAGNOSTIC [SQPSA] Order #: [id number] FUTURE TESTOSTERONE, TOTAL [SQTESTO] Order #: [id number] FUTURE Prescriptions as of 12/17/2023 - Cholecalciferol, Vitamin D3, 25 mcg (1,000 unit) cap Take by mouth every 24 hours. - B-complex with vitamin C (VITAMIN B COMPLEX-C ORAL) Take by mouth q 24 HR. - AMLODIPINE BESYLATE (AMLODIPINE ORAL) Take by mouth. - BENAZEPRIL HCL (BENAZEPRIL ORAL) Take by mouth. Problem List As Of Date 12/17/2023 Noted Resolved Malignant neoplasm of prostate (HCC) [C61] 09/10/2021 Encounter Status:Closed by DEVIN MARISCAL on [facility]17[facility]23 [facility] C[facility] (OPHTCR) -- CHRISTOPHER BAGLEY ([id number]) 1950 M Date Time Provider Department 11/25/23 [facility] During your visit today, we recorded the following information about you: Malena Tracy 11/25/2023 2:00 PM Signed LM for patient to call me back to forward this information from Dr. Rosen: Can you please contact the pt and let him know I talked with his retina provider and they would prefer he have his surgery date set for after his 01/2024 retina appt to ensure he's safe to continue. He can still schedule with Lynnette, but make sure to pick a date AFTER his retina 01/2024 appt Malena Hairston November 25, 2023 1:59 PM Cherry Tracyfer Harsha 12/02/2023 10:02 AM Signed Patient called back and he will call Lynnette to set up an appointment some time after his Nov appt. Malena Hairston December 02, 2023 10:02 AM Allergies As of Date: 11/25/2023 (No Known Allergies) Date Reviewed: 11/23/2023 Reviewed by: Jose F Lagos COT - Fully Assessed Reason for Visit: Message for patient [Other] Prescriptions as of 12/02/2023 - Cholecalciferol, Vitamin D3, 25 mcg (1,000 unit) cap Take by mouth every 24 hours. - B-complex with vitamin C (VITAMIN B COMPLEX-C ORAL) Take by mouth q 24 HR. - AMLODIPINE BESYLATE (AMLODIPINE ORAL) Take by mouth. - BENAZEPRIL HCL (BENAZEPRIL ORAL) Take by mouth. Problem List As Of Date 11/25/2023 Noted Resolved Malignant neoplasm of prostate (HCC) [C61] 09/10/2021 Encounter Status:Closed by MALENA TRACY on 11/25/23 Normal [facility] PSA SerPl-ncon 11-25-2023 Prostate specific Ag [Mass/Vol] 0.21 ng/mL Normal <2.60 [facility] Comment on above: Order Comment: Speci men Type: BLOOD SPECIMENOrdering Facility: [facility] Address: [address] [place] [address] Result Comment: Tota l PSA test methodology used is the Electrochemiluminescence Immunoassay by [employer]. Total PSA values by differing methodologies cannot be interchanged. Performed By: #### 2 857-1 ####[facility] LABCLIA [id number] [facility] [id number] [place] Testost SerPl-mCncon 024 Testosterone [Mass/Vol] 408 ng/dL Normal 193-824 [facility] Comment on above: Order Comment: Speci men Type: BLOOD SPECIMENOrdering Facility: [facility] Address: [address] [place] [address] Result Comment: A te stosterone level in the 193-320 ng/dL range with associated clinical symptoms is considered low and may indicate hypogonadism (from [facility] 2010 363:123-135). Results >320 ng/dL are considered normal. Performed By: #### 2 986-8 ####[facility] LABCLIA [id number] [place] [address] [place] CORNEAL TOPOGRAPHY PENTACAM OU (BOTH EYES)on 11-23-2023 [facility] Radiology Study observation (narrative) [facility] OCT MACULA CIRRUS OU (BOTH E YES)on 11-23-2023 [facility] Radiology Study observation (narrative) [facility] OCT MACULA CIRRUS OU (BOTH E YES)on 11-05-2023 [facility] Radiology Study observation (narrative) [facility] CNCOon 11-03-2023 CNCO Letter Text Normal [facility] FUNDUS PHOTOS OU (BOTH EYES) on 09-22-2023 [facility] Radiology Study observation (narrative) [facility] OCT MACULA CIRRUS OU (BOTH E YES)on 09-22-2023 [facility] Radiology Study observation (narrative) [facility] RETINOPEXY LASER PROPHYLAXIS BREAK(S) OS (LEFT EYE)Ordered By: Ian Benítez on 09-22-2023 [facility] Work Phone: OCT MACULA CIRRUS OS (LEFT E YE)on 09-14-2023 [facility] Radiology Study observation (narrative) [facility] RETINOPEXY LASER PROPHYLAXIS BREAK(S) OS (LEFT EYE)on 09-14-2023 [facility] Homocysteine, Plasma ([id number]) Ordered By: Car Icer on 08-18-2022 Homocysteine [Moles/Vol] 11.6 umol/L Normal 0.0-19.2 [facility]; [facility] Work Phone: Comment on above: PATIENT NOT FASTINGP ERFORMED BY: [facility] [id number] [facility] [id number] PSA (PROSTATE SPECIFIC ANTIG EN) ([id number])Ordered By: Car Icer on 08-04-2022 Prostate specific Ag [Mass/Vol] 0.1 ng/mL Normal 0.0-4.0 [facility]; [facility] Work Phone: Comment on above: [employer] method[employer]. .According to the [place] [employer], Serum PSA shoulddecrease and remain at undetectable levels after radicalprostatectomy. The AUA defines biochemical recurrence as an initialPSA value 0.2 ng/mL or greater followed by a subsequent confirmatoryPSA value 0.2 ng/mL or greater.Values obtained with different assay methods or kits cannot be usedinterchangeably. Results cannot be interpreted as absolute evidenceof the presence or absence of malignant disease. PATIENT NOT FASTINGP ERFORMED BY: LORENA [facility] [id number] [place] [id number] CT Chest WO contraston 07-27 IMPRESSION: 1. Chronic in appearance bilateral areas of reticular opacities, mucous plugging, partially calcified reticular opacities, likely related to a postinfectious/postinflamm atory etiology. These findings are stable in appearance from prior study of 01/15/2022. 2. Subtle bilateral 7 mm or less pulmonary nodules are identified, several which appear improved, several appear stable, as above. 2. Mildly prominent mediastinal, AP window lymph node, stable. Transcribe Date/Time: Jul 27 2022 11:00A Dictated by: MOHINI CHICAS MD This examination was interpreted and the report reviewed and electronically signed by: MOHINI CHICAS MD on Jul 27 2022 11:16AM EST Thank you for allowing us to participate in the care of your patient. DIVISION OF RADIOLOGY * * *Final Report* * * DATE OF EXAM: Jul 27 2022 9:44AM OCC 0541 - CT CHEST WO IVCON / PROCEDURE REASON: Lung nodules * * * * Physician Interpretation * * * * RESULT: EXAMINATION: CHEST CT WITHOUT CONTRAST CLINICAL HISTORY: Prostate carcinoma, lung opacities Technique: Spiral CT acquisition of the chest from the thoracic inlet to the upper abdomen without contrast. MQ: CTCWO_6 CT Radiation dose: Integrated Dose-length product (DLP) for this visit = 344 mGy*cm CT Dose Reduction Employed: Automated exposure control (AEC) Comparison: CT chest 01/20/2022 RESULT: Limitations: None. Lines, tubes, and devices: Left-sided pacer device remains in place. Lung parenchyma , airways, and pleural space: No new consolidative process or pleural effusion is appreciated. Bilateral patchy opacities, right greater than left are again identified, stable. Subcentimeter nodularity and partially calcified reticular opacities are again appreciated, not substantially changed. Again, these findings are likely postinfectious/postinflamm atory in nature. 7 mm right middle lobe nodule, image 151, series 3, stable. 6 mm right upper lobe nodule described on the prior study is no longer appreciated. Several additional subcentimeter pulmonary nodules, either stable or less conspicuous, for example, within the posterior left lower lobe, image 168, series 3. No suspicious enlarging nodule is appreciated. Lower neck, lymph nodes, and mediastinum: The visualized thyroid gland is unremarkable. No substantial supraclavicular or axillary lymphadenopathy is identified. No substantial mediastinal or hilar adenopathy is appreciated. Mildly prominent AP window lymph node measuring approximately 1.2 x 1.1 cm, image 92, series 2 is stable. No substantial hilar adenopathy is appreciated on these unenhanced images. Heart, pericardium, and thoracic vessels: The thoracic aorta is normal in caliber. No substantial pericardial effusion. Bones/Soft Tissues: Mild degenerative change within the thoracic spine is again appreciated. No osseous destructive process is identified. Upper Abdomen: Limited unenhanced images through the upper abdomen are stable. Diffuse hepatic steatosis is again noted. No adrenal mass. Final Assembly And Packing Supervisor (topogram) images: No additional findings. DIVISION OF RADIOLOGY Provider, [facility] - 07/27/2022 * * *Final Report* * * DATE OF EXAM: Jul 27 2022 9:44AM [facility] 0541 - CT CHEST WO IVCON / PROCEDURE REASON: Lung nodules * * * * Physician Interpretation * * * * RESULT: EXAMINATION: CHEST CT WITHOUT CONTRAST CLINICAL HISTORY: Prostate carcinoma, lung opacities Technique: Spiral CT acquisition of the chest from the thoracic inlet to the upper abdomen without contrast. MQ: CTCWO_6 CT Radiation dose: Integrated Dose-length product (DLP) for this visit = 344 mGy*cm CT Dose Reduction Employed: Automated exposure control (AEC) Comparison: CT chest 01/20/2022 RESULT: Limitations: None. Lines, tubes, and devices: Left-sided pacer device remains in place. Lung parenchyma , airways, and pleural space: No new consolidative process or pleural effusion is appreciated. Bilateral patchy opacities, right greater than left are again identified, stable. Subcentimeter nodularity and partially calcified reticular opacities are again appreciated, not substantially changed. Again, these findings are likely postinfectious/postinflamm atory in nature. 7 mm right middle lobe nodule, image 151, series 3, stable. 6 mm right upper lobe nodule described on the prior study is no longer appreciated. Several additional subcentimeter pulmonary nodules, either stable or less conspicuous, for example, within the posterior left lower lobe, image 168, series 3. No suspicious enlarging nodule is appreciated. Lower neck, lymph nodes, and mediastinum: The visualized thyroid gland is unremarkable. No substantial supraclavicular or axillary lymphadenopathy is identified. No substantial mediastinal or hilar adenopathy is appreciated. Mildly prominent AP window lymph node measuring approximately 1.2 x 1.1 cm, image 92, series 2 is stable. No substantial hilar adenopathy is appreciated on these unenhanced images. Heart, pericardium, and thoracic vessels: The thoracic aorta is normal in caliber. No substantial pericardial effusion. Bones/Soft Tissues: Mild degenerative change within the thoracic spine is again appreciated. No osseous destructive process is identified. Upper Abdomen: Limited unenhanced images through the upper abdomen are stable. Diffuse hepatic steatosis is again noted. No adrenal mass. Final Assembly And Packing Supervisor (topogram) images: No additional findings. IMPRESSION IMPRESSION: 1. Chronic in appearance bilateral areas of reticular opacities, mucous plugging, partially calcified reticular opacities, likely related to a postinfectious/postinflamm atory etiology. These findings are stable in appearance from prior study of 01/15/2022. 2. Subtle bilateral 7 mm or less pulmonary nodules are identified, several which appear improved, several appear stable, as above. 2. Mildly prominent mediastinal, AP window lymph node, stable. Transcribe Date/Time: Jul 27 2022 11:00A Dictated by: MOHINI CHICAS MD This examination was interpreted and the report reviewed and electronically signed by: MOHINI CHICAS MD on Jul 27 2022 11:16AM EST Thank you for allowing us to participate in the care of your patient. [facility] Radiology Study observation (narrative) [facility] CT Chest WO contrastOrdered By: Ccf Provider on 07-27-2022 [facility] CT Chest WO contraston 01-20 IMPRESSION: 1. Bilateral calcified reticular opacities in the pulmonary parenchyma right greater than left. Differential considerations include chronic aspiration, post infectious/inflammatory, or idiopathic (dendritic ossification) in nature. 2. Chronic in appearance bilateral areas of reticular opacities and mucous plugging. 3. Several bilateral, 7 mm or less noncalcified pulmonary nodules are identified. Given the patient's history, correlation with follow-up examinations is recommended to assess for stability. 4. Minimally prominent AP window lymph node is appreciated within the mediastinum. This can also be further assessed on follow-up studies. Transcribe Date/Time: Jan 20 2022 3:09P Dictated by: MOHINI CHICAS MD This examination was interpreted and the report reviewed and electronically signed by: MOHINI CHICAS MD on Jan 20 2022 3:36PM EST Thank you for allowing us to participate in the care of your patient. DIVISION OF RADIOLOGY * * *Final Report* * * DATE OF EXAM: Jan 20 2022 9:57AM OCC 0541 - CT CHEST WO IVCON / PROCEDURE REASON: Opacities of both lungs present on chest x-ray * * * * Physician Interpretation * * * * RESULT: EXAMINATION: CHEST CT WITHOUT CONTRAST CLINICAL HISTORY: Prostate carcinoma, lung opacities Technique: Spiral CT acquisition of the chest from the thoracic inlet to the upper abdomen without contrast. MQ: CTCWOR_4 CT Dose-Length Product: 270.52 mGy*cm CT Dose Reduction Employed: Automated exposure control (AEC) Comparison: None. Correlation is made to prior CT abdominal examination dated 09/16/2021, prior chest x-ray dated 10/14/2021 RESULT: Limitations: None. Lines, tubes, and devices: None. Lung parenchyma , airways, and pleural space: No consolidative process or pleural effusion. The trachea and major airways appear patent. Bilateral scattered calcified granulomata are appreciated. Additional bilateral areas of partially calcified reticular opacities are appreciated, right greater than left, likely post infectious/inflammatory, related to chronic aspiration, or idiopathic in nature. Scattered bilateral areas of mucous plugging are noted. Numerous, 7 mm or less noncalcified pulmonary nodules are identified, nonspecific in appearance, however, several may relate to mucous plugging: For example, on the right, 79, 92, 123, 148, series 3. On the left, for example, images 164 and 196, series 3. Lower neck, lymph nodes, and mediastinum: The visualized thyroid gland appears unremarkable. No substantial supraclavicular or axillary lymphadenopathy. Minimally prominent AP window lymph node measures 1.3 x 0.8 cm. Additional subcentimeter mediastinal lymph nodes elsewhere. No substantial hilar adenopathy is definitively identified on these unenhanced images. Small hiatal hernia is noted. Heart, pericardium, and thoracic vessels: The thoracic aorta is normal in caliber. Coronary artery calcification is noted. No substantial pericardial effusion. Bones/Soft Tissues: Degenerative change involving the thoracic spine. No osseous destructive process is appreciated. Upper Abdomen: Limited unenhanced images through the upper abdomen appears stable. Mild, diffuse hepatic steatosis is suspected. Final Assembly And Packing Supervisor (topogram) images: No additional findings. DIVISION OF RADIOLOGY Provider, [facility] - 01/20/2022 * * *Final Report* * * DATE OF EXAM: Jan 20 2022 9:57AM OCC 0541 - CT CHEST WO IVCON / PROCEDURE REASON: Opacities of both lungs present on chest x-ray * * * * Physician Interpretation * * * * RESULT: EXAMINATION: CHEST CT WITHOUT CONTRAST CLINICAL HISTORY: Prostate carcinoma, lung opacities Technique: Spiral CT acquisition of the chest from the thoracic inlet to the upper abdomen without contrast. MQ: CTCWOR_4 CT Dose-Length Product: 270.52 mGy*cm CT Dose Reduction Employed: Automated exposure control (AEC) Comparison: None. Correlation is made to prior CT abdominal examination dated 09/16/2021, prior chest x-ray dated 10/14/2021 RESULT: Limitations: None. Lines, tubes, and devices: None. Lung parenchyma , airways, and pleural space: No consolidative process or pleural effusion. The trachea and major airways appear patent. Bilateral scattered calcified granulomata are appreciated. Additional bilateral areas of partially calcified reticular opacities are appreciated, right greater than left, likely post infectious/inflammatory, related to chronic aspiration, or idiopathic in nature. Scattered bilateral areas of mucous plugging are noted. Numerous, 7 mm or less noncalcified pulmonary nodules are identified, nonspecific in appearance, however, several may relate to mucous plugging: For example, on the right, 79, 92, 123, 148, series 3. On the left, for example, images 164 and 196, series 3. Lower neck, lymph nodes, and mediastinum: The visualized thyroid gland appears unremarkable. No substantial supraclavicular or axillary lymphadenopathy. Minimally prominent AP window lymph node measures 1.3 x 0.8 cm. Additional subcentimeter mediastinal lymph nodes elsewhere. No substantial hilar adenopathy is definitively identified on these unenhanced images. Small hiatal hernia is noted. Heart, pericardium, and thoracic vessels: The thoracic aorta is normal in caliber. Coronary artery calcification is noted. No substantial pericardial effusion. Bones/Soft Tissues: Degenerative change involving the thoracic spine. No osseous destructive process is appreciated. Upper Abdomen: Limited unenhanced images through the upper abdomen appears stable. Mild, diffuse hepatic steatosis is suspected. Final Assembly And Packing Supervisor (topogram) images: No additional findings. IMPRESSION IMPRESSION: 1. Bilateral calcified reticular opacities in the pulmonary parenchyma right greater than left. Differential considerations include chronic aspiration, post infectious/inflammatory, or idiopathic (dendritic ossification) in nature. 2. Chronic in appearance bilateral areas of reticular opacities and mucous plugging. 3. Several bilateral, 7 mm or less noncalcified pulmonary nodules are identified. Given the patient's history, correlation with follow-up examinations is recommended to assess for stability. 4. Minimally prominent AP window lymph node is appreciated within the mediastinum. This can also be further assessed on follow-up studies. Transcribe Date/Time: Jan 20 2022 3:09P Dictated by: MOHINI CHICAS MD This examination was interpreted and the report reviewed and electronically signed by: MOHINI CHICAS MD on Jan 20 2022 3:36PM EST Thank you for allowing us to participate in the care of your patient. [facility] Radiology Study observation (narrative) [facility] CT Chest WO contrastOrdered By: Ccf Provider on 01-20-2022 [facility] CBC with auto diff (10595)Or dered By: Car Icer on 12-19-2021 Basophils (Bld) [#/Vol] 0.1 10*3/uL Normal 0.0-0.2 [facility]; [facility] Work Phone: Comment on above: PATIENT WAS FASTINGP ERFORMED BY: LORENA I-lighting70 [facility] [id number] Basophils/100 WBC (Bld) 1 % Normal [facility]; [facility] Work Phone: Comment on above: PATIENT WAS FASTINGP ERFORMED BY: Showkicker Duong CodementorFormerly [facility] [id number] Eosinophils (Bld) [#/Vol] 0.3 10*3/uL Normal 0.0-0.4 [facility]; [facility] Work Phone: Comment on above: PATIENT WAS FASTINGP ERFORMED BY: LORENA Labcobushra RichardToibwu6572 Duong RoadDublin [place] [id number] Eosinophils/100 WBC (Bld) 3 % Normal [facility]; [facility] Work Phone: Comment on above: PATIENT WAS FASTINGP ERFORMED BY: CB [facility] Hibunn9376 [address] RoadAtrium Health Pinevillein [place] [id number] Erythrocyte distribution width (RBC) [Ratio] 12.2 % Normal 11.6-15.4 [facility]; [facility] Work Phone: Comment on above: PATIENT WAS FASTINGP ERFORMED BY: LORENA [facility] Qtyglf4412 [address] RoadAtrium Health Pinevillein [place] [id number] Hematocrit (Bld) [Volume fraction] 50.2 % Normal 37.5-51.0 [facility]; [facility] Work Phone: Comment on above: PATIENT WAS FASTINGP ERFORMED BY: LORENA [facility] Xumssr0565 Duong RoadDuin [place] [id number] Hemoglobin (Bld) [Mass/Vol] 16.8 g/dL Normal 13.0-17.7 [facility]; [facility] Work Phone: Comment on above: PATIENT WAS FASTINGP ERFORMED BY: CB [facility] Kfsihj3060 [address] RoadAtrium Health Pinevillein [place] [id number] Immature granulocytes (Bld) [#/Vol] 0.0 10*3/uL Normal 0.0-0.1 [facility]; [facility] Work Phone: Comment on above: PATIENT WAS FASTINGP ERFORMED BY: CB [facility] Iimevn9883 [address] RoadDublin [place] [id number] Immature granulocytes/100 WBC (Bld) 0 % Normal [facility]; [facility] Work Phone: Comment on above: PATIENT WAS FASTINGP ERFORMED BY: CB [facility] Fpmxad9827 [address] RoadDublin [place] [id number] Lymphocytes (Bld) [#/Vol] 1.1 10*3/uL Normal 0.7-3.1 [facility]; [facility] Work Phone: Comment on above: PATIENT WAS FASTINGP ERFORMED BY: LORENA Esadrian RichardYnzopo4559 [facility] [id number] Lymphocytes/100 WBC (Bld) 11 % Normal [facility]; [facility] Work Phone: Comment on above: PATIENT WAS FASTINGP ERFORMED BY: LORENA [facility] Ibbvtx6006 [facility] [id number] MCH (RBC) [Entitic mass] 29.6 pg Normal 26.6-33.0 [facility]; [facility] Work Phone: Comment on above: PATIENT WAS FASTINGP ERFORMED BY: LORENA [facility] Gfqbfi0002 [facility] [id number] MCHC (RBC) [Mass/Vol] 33.5 g/dL Normal 31.5-35.7 [facility]; [facility] Work Phone: Comment on above: PATIENT WAS FASTINGP ERFORMED BY: LORENA Richardlin6370 [facility] [id number] MCV (RBC) [Entitic vol] 88 fL Normal 79-97 [facility]; [facility] Work Phone: Comment on above: PATIENT WAS FASTINGP ERFORMED BY: [facility] Qirjak8758 [facility] [id number] Monocytes (Bld) [#/Vol] 0.8 10*3/uL Normal 0.1-0.9 [facility]; [facility] Work Phone: Comment on above: PATIENT WAS FASTINGP ERFORMED BY: LORENA [facility] Gesgfb[address] [facility] [id number] Monocytes/100 WBC (Bld) 9 % Normal [facility]; [facility] Work Phone: Comment on above: PATIENT WAS FASTINGP ERFORMED BY: LabUP Health System6370 [address] RoadDublin [place] [id number] Neutrophils (Bld) [#/Vol] 7.0 10*3/uL Normal 1.4-7.0 [facility]; [facility] Work Phone: Comment on above: PATIENT WAS FASTINGP ERFORMED BY: CB [facility] Tfgkyu8614 [address] RoadDublin [place] [id number] Neutrophils/100 WBC (Bld) 76 % Normal [facility]; [facility] Work Phone: Comment on above: PATIENT WAS FASTINGP ERFORMED BY: CB [facility] Zvqxpt5128 [address] RoadDublin [place] [id number] Platelets (Bld) [#/Vol] 133 10*3/uL Abnormal 150-450 [facility]; [facility] Work Phone: Comment on above: PATIENT WAS FASTINGP ERFORMED BY: CB [facility] Fxrrbk8284 [address] RoadDublin [place] [id number] RBC (Bld) [#/Vol] 5.68 10*6/uL Normal 4.14-5.80 [facility]pr [facility]; [facility] Work Phone: Comment on above: PATIENT WAS FASTINGP ERFORMED BY: CB [facility] Wrsrdx3830 [address] RoadDublin [place] [id number] WBC (Bld) [#/Vol] 9.3 10*3/uL Normal 3.4-10.8 Compre [facility]; [facility] Work Phone: Comment on above: PATIENT WAS FASTINGP ERFORMED BY: CB [facility] Cslhpf2542 [address] RoadDublin [place] [id number] HgA1C , Office ([id number])Ordere d By: Stuart Durand on 12-19-2021 HbA1c (Bld) [Mass fraction] 6.1 % Normal 4.6 - 7.1 [facility]; [facility] Work Phone: Homocysteine, Plasma (52341) Ordered By: Car Icer on 12-19-2021 Homocysteine [Moles/Vol] 11.0 umol/L Normal 0.0-19.2 [facility]; [facility] Work Phone: Comment on above: PATIENT WAS FASTINGP ERFORMED BY: LORENA [facility] Fzokce1537 [address] RoadDublin [place] [id number] LIPID PANEL (10649)Ordered B y: Car Icer on 12-19-2021 Cholesterol [Mass/Vol] 198 mg/dL Normal 100-199 [facility]; [facility] Work Phone: Comment on above: PATIENT WAS FASTINGP ERFORMED BY: LORENA [facility] Ftbrca8091 [address] RoadDublin [place] [id number] Cholesterol in HDL [Mass/Vol] 65 mg/dL Normal [facility]; [facility] Work Phone: Comment on above: PATIENT WAS FASTINGP ERFORMED BY: LORENA [facility] Znlgys2583 [address] RoadDublin [place] [id number] Triglyceride [Mass/Vol] 98 mg/dL Normal 0-149 [facility]; [facility] Work Phone: Comment on above: PATIENT WAS FASTINGP ERFORMED BY: LORENA [facility] Mysynd2684 [address] RoadDublin [place] [id number] LIPID PANEL (49326) 17 mg/dL Normal 5-40 [facility]; [facility] Work Phone: Comment on above: PATIENT WAS FASTINGP ERFORMED BY: LORENA [facility] Obqymq1688 [address] RoadDublin [place] [id number] LIPID PANEL (82211) 116 mg/dL Abnormal 0-99 [facility]; [facility] Work Phone: Comment on above: PATIENT WAS FASTINGP ERFORMED BY: CB [facility] Pltfly0206 [address] RoadDublin [place] [id number] LIPID PANEL (59405) 1.8 {ratio} Normal 0.0-3.6 [facility]; [facility] Work Phone: Comment on above: LDL/HDL Ratio Men Wo men 1/2 Avg.Risk 1.0 1.5 Avg.Risk 3.6 3.2 2X Avg.Risk 6.2 5.0 3X Avg.Risk 8.0 6.1 PATIENT WAS FASTINGP ERFORMED BY: CB [facility] Oiutxe0010 [address] RoadDublin [place] [id number] METABOLIC PANEL, COMPREHENSI VE ([id number])Ordered By: Car Icer on 12-19-2021 Albumin [Mass/Vol] 4.7 g/dL Normal 3.7-4.7 [facility] Internal [facility]; [facility] Work Phone: Comment on above: PATIENT WAS FASTINGP ERFORMED BY: CB [facility] Sooqqa8223 [address] RoadDublin [place] [id number] Albumin/Globulin [Mass ratio] 2.0 {ratio} Normal 1.2-2.2 [facility]; [facility] Work Phone: Comment on above: PATIENT WAS FASTINGP ERFORMED BY: CB [facility] Wxdrgs1348 [address] RoadDublin [place] [id number] ALP [Catalytic activity/Vol] 91 U/L Normal 44-121 [facility]; [facility] Work Phone: Comment on above: PATIENT WAS FASTINGP ERFORMED BY: CB [facility] Nhuuor0728 [address] RoadDublin [place] [id number] ALT [Catalytic activity/Vol] 32 U/L Normal 0-44 [facility]; [facility] Work Phone: Comment on above: PATIENT WAS FASTINGP ERFORMED BY: [facility] Pxwqyk8861 [address] RoadDublin [place] [id number] AST [Catalytic activity/Vol] 28 U/L Normal 0-40 [facility]; [facility] Work Phone: Comment on above: PATIENT WAS FASTINGP ERFORMED BY: CB [facility] Itqguy7476 [address] RoadDublin [place] [id number] Bilirubin [Mass/Vol] 0.4 mg/dL Normal 0.0-1.2 [facility]; [facility] Work Phone: Comment on above: PATIENT WAS FASTINGP ERFORMED BY: CB [facility] Cgxuei5201 [address] RoadDublin [place] [id number] Calcium [Mass/Vol] 10.0 mg/dL Normal 8.6-10.2 [facility]ive [facility]; [facility] Work Phone: Comment on above: PATIENT WAS FASTINGP ERFORMED BY: CB [facility] Vydkhb5361 [address] RoadDublin [place] [id number] Chloride [Moles/Vol] 99 mmol/L Normal 96-106 [facility]; [facility] Work Phone: Comment on above: PATIENT WAS FASTINGP ERFORMED BY: CB [facility] Pdbogb5273 [address] Roadblin [place] [id number] CO2 [Moles/Vol] 25 mmol/L Normal 20-29 [facility]pre[facility]; [facility] Work Phone: Comment on above: PATIENT WAS FASTINGP ERFORMED BY: CB [facility] Qhdkti[address] [facility] [id number] Creatinine [Mass/Vol] 1.08 mg/dL Normal 0.76-1.27 [facility]; [facility] Work Phone: Comment on above: PATIENT WAS FASTINGP ERFORMED BY: [facility] Wflsdi5588 [address] [facility]in [place] [id number] GFR/1.73 sq M.predicted among non-blacks MDRD (S/P/Bld) [Vol rate/Area] 72 mL/min/{1.73_m2} Normal Comprehensiv e Internal [facility]; [facility] Work Phone: Comment on above: PATIENT WAS FASTINGP ERFORMED BY: CB [facility] Xzqnki3450 [address] [facility]in [place] [id number] Globulin (S) [Mass/Vol] 2.3 g/dL Normal 1.5-4.5 [facility]; [facility] Work Phone: Comment on above: PATIENT WAS FASTINGP ERFORMED BY: CB [facility] Ixhpcf[address]67 [address] [facility] HospitalD[facility] [place] [id number] Glucose [Mass/Vol] 99 mg/dL Normal 65-99 [facility]; [facility] Work Phone: Comment on above: Effective Novembe r 2021 Glucose reference interval will be changing to: 70 - 99 PATIENT WAS FASTINGP ERFORMED BY: [facility] Qhivqz4555 [address] RoadDublin [place] [id number] Potassium [Moles/Vol] 5.0 mmol/L Normal 3.5-5.2 [facility]; [facility] Work Phone: Comment on above: PATIENT WAS FASTINGP ERFORMED BY: [facility] Pcgvuo9111 [address] [facility]blin [place] [id number] Protein [Mass/Vol] 7.0 g/dL Normal 6.0-8.5 [facility]; [facility] Work Phone: Comment on above: PATIENT WAS FASTINGP ERFORMED BY: [facility] Ubbztd3850 [address] Roadblin [place] [id number] Sodium [Moles/Vol] 137 mmol/L Normal 134-144 [facility]; [facility] Work Phone: Comment on above: PATIENT WAS FASTINGP ERFORMED BY: [facility] Xxkcaf7390 [facility] [place] [id number] Urea nitrogen [Mass/Vol] 24 mg/dL Normal 8-27 [facility]; [facility] Work Phone: Comment on above: PATIENT WAS FASTINGP ERFORMED BY: [facility] Evmogu9362 [facility] [place] [id number] Urea nitrogen/Creatinin e [Mass ratio] 22 mg/mg Normal 10-24 [facility]; [facility] Work Phone: Comment on above: PATIENT WAS FASTINGP ERFORMED BY: [facility] Xdrrnz4837 [facility] [place] [id number] No Panel Informationon 10-14 BLANK _ [facility] Implant Date 11/23/2019 [facility] PACEMAKER CLINIC CHECKon AV Delay Adaptive Paced Minimum (ms) [address] [facility] AV Delay Adaptive Sensed Minimum (ms) [address] [facility] AV Delay Paced (ms) [address] [facility] AV Delay Sensed (ms) [address] [facility] Balta RA Pacing Amplitude (volts) [address] [facility] Balta RA Pacing Polarity BI [facility] Balta RA Pacing Pulse Width (ms) 0.[address] [facility] Balta RA Sensing Amplitude (mvolts) 0.[address] [facility] Balta RA Sensing Polarity BI [facility] Balta RV Pacing Amplitude (volts) 2.[address] [facility] Balta RV Pacing Polarity BI [facility] Balta RV Pacing Pulse Width (ms) 0.[address] [facility] Balta RV Sensing Amplitude (mvolts) 0.[address] [facility] Balta RV Sensing Polarity BI [facility] Demand Interval (ms) 880 [facility] Lead1 Mfg BSX [facility] Lead2 Mfg BSX [facility] Location RV [facility] Location RA [facility] Lower Rate (bpm) 60 {beats}/min [facility] Max Sensor Rate (bmp) 130 {beats}/min [facility] Model L311 ACCOLADE MRI [facility] Model 7842 Ingevity + MRI [facility] Model 7841 Ingevity + MRI [facility] Pacemaker Dependent? NO [facility] Pacing Mode DDD [facility] PM-Device Mfg BSX [facility] PM-Percent Pacing (A) 11 % [facility] PM-Percent Pacing (V) 0 % [facility] RA Bipolar Impedance ohms [address] [facility] Rhythm Sinus Rhythm [facility] RV Bipolar Impedance ohms [address] [facility] Serial Number [id number] [facility] Serial Number [id number] [facility] Serial Number [id number] [facility] Thresh RA Capture Amplitude (volts) 0.[address] [facility] Thresh RA Capture Duration (ms) 0.[address] [facility] Thresh RA Sensing Amplitude (mvolts) 3.[address] [facility] Thresh RV Capture Amplitude (volts) 0.[address] [facility] Thresh RV Capture Duration (ms) 0.[address] [facility] Thresh RV Sensing Amplitude (mvolts) 22.[address] [facility] Tracking Rate (bpm) 130 {beats}/min [facility] WHOLE BODY SCAN INJECTIONon 09-22-2021 WHOLE BODY SCAN INJECTION Patient Name: CHRISTOPHER BAGLEY STUDY: WHOLE BODY SCAN INJECTION; BONE SCAN/ WHOLE BODY; 09/22/2021 10:55 am INDICATION: PROSTATE CA. COMPARISON: None. ACCESSION NUMBER(S): [id number]; [id number] ORDERING CLINICIAN: SHIBY DAVEY TECHNIQUE: DIVISION OF NUCLEAR MEDICINE BONE SCAN, WHOLE BODY plus REGIONAL VIEWS The patient received an intravenous dose of 27.5 mCi of Tc-99m MDP. Anterior and posterior images of the skeleton from skull vertex to feet were then acquired. Additional regional skeletal images were also obtained. FINDINGS: There is heterogeneous radiotracer uptake at the left sacroiliac joint, which is nonspecific and may represent degenerative changes. However, osseous metastatic involvement cannot be definitively excluded. There is increased radiotracer uptake at the right shoulder, left 1st carpometacarpal joint, bilateral elbows, and bilateral hips consistent with degenerative/arthritic changes. Note is made of the vague soft tissue activity in the region of the right chest wall/shoulder. There is physiologic radiotracer activity within the bilateral kidneys and urinary bladder. IMPRESSION: 1. Heterogeneous radiotracer uptake at the left sacroiliac joint, which is nonspecific and may represent degenerative changes. However, osseous metastatic involvement cannot be definitively excluded. Correlation with current anatomic imaging is recommended. 2. Note is made of the vague soft tissue activity in the region of the right chest wall/shoulder. Again, clinical correlation and/or correlation with current anatomic imaging may be of value. 3. Arthritic/degenerative changes described above. I personally reviewed the images/study and I agree with vice president client services Dr. Cha Rousseau's findings as stated. This study was interpreted at [facility], [place], [place]. Electronically signed by: UZMA MERCADO MD [facility] CT ABD/PEL W IVCONon 022 Radiology Result ACTIONABLE Abnormal [facility] - Chemistry and C hemistry - challengeon 09-10-2021 Creatinine [Mass/Vol] 0.97 mg/dL 0.73 - 1.22 mg/dL [facility] No Panel Informationon 09-10 Estimated Glomerular Filtration Rate 82 mL/min/1.73m >=60 mL/min/1.[address] [facility] 34BE12 (initial)on 2 34BE12 (initial) PHYSICIAN SUAD [place] [phone] SPECIMEN INFORMATION: Tissue Source: B - Right prostate, mid, core biopsy, C - Right prostate, base, core biopsy Clinical Info: Elevated PSA Specimen Number: [id number] B C CPT code: 32363, 19111 x3 METHODOLOGY: Deparaffinized sections of prefer/formalin-fixed tissue or PAP/DQ stained slides are incubated with monoclonal/polyclonal antibodies/oligonucleotide probes. Localization is made via biotin free immunoperoxidase method. Appropriate controls are performed and reacted as expected. Results on target cell population are indicated in the following table: RESULTS: ANTIBODY / CLONE RESULT Block B P40 (BC28) negative 34BE12 (34BE12) negative Block C P40 (BC28) negative 34BE12 (34BE12) negative These tests were developed and their performance characteristics determined by [facility]. They may not have been cleared or approved by the U.S. Food and Drug Administration. The FDA has determined that such clearance or approval is not necessary. The above immunohistochemical/dualIS H markers are ordered and reviewed by the Pathologist. INTERPRETATION: B. Right prostate, mid, core biopsy: Adenocarcinoma. C. Right prostate, base, core biopsy: A minute focus of adenocarcinoma. SJ:rosa 08/08/2021 Signed (signature on file) Dr. Pradip Abraham MD 08/08/21 1123 Normal [facility] Comment on above: Performed By: #### P 34BE12 #### [facility] [address] [place], [place], [address] PROSTATE BXon 08-05-2021 PROSTATE BX OPERATION: Prostate biopsy PRE-OP DIAGNOSIS: Elevated PSA TISSUE SUBMITTED: A - Right apex, B - Right mid, C - Right base, D - Left apex, E - Left mid, F - Left base A. Right prostate, apex, core biopsy: Prostatic adenocarcinoma. [place] grade: 3+3=6 Number of cores involved: 1/2 Proportion of tissue involved: 20% Perineural invasion: Not identified. Greatest tumor length: 0.8 cm, discontinuous B. Right prostate, mid, core biopsy: Prostatic adenocarcinoma. [place] grade: 3+3=6 Number of cores involved: 1/2 Proportion of tissue involved: 5-10% Perineural invasion: Not identified. Greatest tumor length: 0.2 cm, discontinuous See comment. C. Right prostate, base, core biopsy: A minute focus of prostatic adenocarcinoma. [place] grade: 3+3=6 Number of cores involved: 1/2 Proportion of tissue involved: <5% Perineural invasion: Not identified. Greatest tumor length: <0.1 cm See comment. D. Left prostate, apex, core biopsy: Prostatic adenocarcinoma. [place] grade: 3+4=7 Number of cores involved: 2/2 Proportion of tissue involved: 80% Perineural invasion: Not identified. Greatest tumor length: 0.5 cm E. Left prostate, mid, core biopsy: Prostatic adenocarcinoma. [place] grade: 3+3=6 Number of cores involved: 2/2 Proportion of tissue involved: 40% Perineural invasion: Not identified. 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 F. Left prostate, base, core biopsy: A minute focus of prostatic adenocarcinoma. [place] grade: 3+3=6 Number of cores involved: 1/2 Proportion of tissue involved: 15% Perineural invasion: Not identified. Greatest tumor length: 0.3 cm Chronic inflammation. SJ:rosa 08/07/2021 B C. Immunohistochemistry ([id number]) supports the above diagnosis. Case has been reviewed in consultation with Dr. Carmichael who concurs with the above diagnosis. IDC:AM Slides are reviewed. A - Received is one container designated prostate, right apex. The specimen consists of two elongated fragments of light monte-white soft tissue measuring 0.8 and 1.5 cm in length and 0.1 cm in diameter. The specimen is totally submitted in one cassette. B - Received is one container designated prostate, right mid. The specimen consists of two elongated fragments of light monte-white soft tissue measuring 1 and 1.5 cm in length and 0.1 cm in diameter. The specimen is totally submitted in one cassette. C - Received is one container designated prostate, right base. The specimen consists of two elongated fragments of light monte-white soft tissue each measuring 1.5 cm in length and 0.1 cm in diameter. The specimen is totally submitted in one cassette. D - Received is one container designated prostate, left apex. The specimen consists of two elongated fragments of light monte-white soft tissue measuring 0.7 and 1 cm in length and 0.1 cm in diameter. The specimen is totally submitted in one cassette. E - Received is one container designated prostate, left mid. The specimen consists of two elongated fragments of light monte-white soft tissue measuring 1.5 and 1.8 cm in length and 0.1 cm in diameter. The specimen is totally submitted in one cassette. F - Received is one container designated prostate, left base. The specimen consists of two elongated fragments of light monte-white soft tissue each measuring 1.2 cm in length and 0.1 cm in diameter. The specimen is totally submitted in one cassette. / SJ:rg 08/06/2021 TC:0 CPT: G0146 Signed (signature on file) Dr. Pradip Abraham MD 08/08/21 0925 [facility] Comment on above: Performed By: #### P PROSB #### [facility] [place], [address] CBC WITH MANUAL DIFF ([id number]) Ordered By: Car Icer on 07-08-2021 Basophils (Bld) [#/Vol] 0.1 10*3/uL Normal 0.0-0.2 [facility]; [facility] Work Phone: Comment on above: PATIENT WAS FASTINGP ERFORMED BY: LORENA [address] [id number] Information: NURSE DRAW Basophils/100 WBC (Bld) 1 % Normal [facility]; [facility] Work Phone: Comment on above: PATIENT WAS FASTINGP ERFORMED BY: [address] [id number] Information: NURSE DRAW Eosinophils (Bld) [#/Vol] 0.3 10*3/uL Normal 0.0-0.4 [facility]; [facility] Work Phone: Comment on above: PATIENT WAS FASTINGP ERFORMED BY: LORENA [address] [id number] Information: NURSE DRAW Eosinophils/100 WBC (Bld) 4 % Normal [facility]; [facility] Work Phone: Comment on above: PATIENT WAS FASTINGP ERFORMED BY: [address] [id number] Information: NURSE DRAW Erythrocyte distribution width (RBC) [Ratio] 12.8 % Normal 11.6-15.4 [facility]; [facility] Work Phone: Comment on above: PATIENT WAS FASTINGP ERFORMED BY: [address] [id number] Information: NURSE DRAW Hematocrit (Bld) [Volume fraction] 53.5 % Abnormal 37.5-51.0 [facility]; [facility] Work Phone: Comment on above: PATIENT WAS FASTINGP ERFORMED BY: [place] [id number] [facility] [id number] Information: NURSE DRAW Hemoglobin (Bld) [Mass/Vol] 17.4 g/dL Normal 13.0-17.7 [facility]; [facility] Work Phone: Comment on above: PATIENT WAS FASTINGP ERFORMED BY: [address] [id number] Information: NURSE DRAW Immature granulocytes (Bld) [#/Vol] 0.0 10*3/uL Normal 0.0-0.1 [facility]; [facility] Work Phone: Comment on above: PATIENT WAS FASTINGP ERFORMED BY: [address] [id number] Information: NURSE DRAW Immature granulocytes/100 WBC (Bld) 0 % Normal [facility]; [facility] Work Phone: Comment on above: PATIENT WAS FASTINGP ERFORMED BY: [address] [id number] Information: NURSE DRAW Lymphocytes (Bld) [#/Vol] 1.3 10*3/uL Normal 0.7-3.1 [facility]; [facility] Work Phone: Comment on above: PATIENT WAS FASTINGP ERFORMED BY: [address] [id number] Information: NURSE DRAW Lymphocytes/100 WBC (Bld) 17 % Normal [facility]; [facility] Work Phone: Comment on above: PATIENT WAS FASTINGP ERFORMED BY: [address] [id number] Information: NURSE DRAW MCH (RBC) [Entitic mass] 29.1 pg Normal 26.6-33.0 [facility]; [facility] Work Phone: Comment on above: PATIENT WAS FASTINGP ERFORMED BY: [address] [id number] Information: NURSE DRAW MCHC (RBC) [Mass/Vol] 32.5 g/dL Normal 31.5-35.7 [facility]; [facility] Work Phone: Comment on above: PATIENT WAS FASTINGP ERFORMED BY: LORENA Richardlin6370 [facility] [id number] Information: NURSE DRAW MCV (RBC) [Entitic vol] 90 fL Normal 79-97 [facility]; [facility] Work Phone: Comment on above: PATIENT WAS FASTINGP ERFORMED BY: [address] [id number] Information: NURSE DRAW Monocytes (Bld) [#/Vol] 0.6 10*3/uL Normal 0.1-0.9 [facility]; [facility] Work Phone: Comment on above: PATIENT WAS FASTINGP ERFORMED BY: Es[address] [id number] Information: NURSE DRAW Monocytes/100 WBC (Bld) 7 % Normal [facility]; [facility] Work Phone: Comment on above: PATIENT WAS FASTINGP ERFORMED BY: [facility] Etqqdz[address] [id number] Information: NURSE DRAW Neutrophils (Bld) [#/Vol] 5.5 10*3/uL Normal 1.4-7.0 [facility]; [facility] Work Phone: Comment on above: PATIENT WAS FASTINGP ERFORMED BY: [place] [id number] [facility] [id number] Information: NURSE DRAW Neutrophils/100 WBC (Bld) 71 % Normal [facility]; [facility] Work Phone: Comment on above: PATIENT WAS FASTINGP ERFORMED BY: [facility] Qceasx1187 [facility] [id number] Information: NURSE DRAW Platelets (Bld) [#/Vol] 173 10*3/uL Normal 150-450 [facility]; [facility] Work Phone: Comment on above: PATIENT WAS FASTINGP ERFORMED BY: [facility] Lluhwo1622 [facility] [id number] Information: NURSE DRAW RBC (Bld) [#/Vol] 5.97 10*6/uL Abnormal 4.14-5.80 [facility] Internal Medicine; [facility] Work Phone: Comment on above: PATIENT WAS FASTINGP ERFORMED BY: [facility]6370 [facility] [id number] Information: NURSE DRAW WBC (Bld) [#/Vol] 7.8 10*3/uL Normal 3.4-10.8 [facility]; [facility] Work Phone: Comment on above: PATIENT WAS FASTINGP ERFORMED BY: [facility]6370 [facility] [id number] Information: NURSE DRAW HEPATITIS C ANTIBODY (45780) Ordered By: Car Icer on 07-08-2021 HCV Ab Signal/Cutoff IA [Rel units/Vol] {ratio} Normal 0.0-0.9 [facility]; [facility] Work Phone: Comment on above: Negative: < 0.8 Inde terminate: 0.8 - 0.9 Positive: > 0.9 . The CDC recommends that a positive HCV antibody result be followed up with a HCV Nucleic Acid Amplification test (325648). PATIENT WAS FASTINGP ERFORMED BY: AdultSpaceUP [facility] System6370 [facility] [id number] HGB A1C (60647)Ordered By: S ystem Cash Grain Grower on 07-08-2021 HbA1c (Bld) [Mass fraction] 5.9 % Abnormal 4.8-5.6 [facility]; [facility] Work Phone: Comment on above: . Prediabetes: 5.7 - 6.4 Diabetes: >6.4 Glycemic control for adults with diabetes: <7.0 PATIENT WAS FASTINGP ERFORMED BY: [facility] Rhvyhr3414 [facility] [id number]; fu 5-3 db Metabolic Panel, Comprehensi ve (07174)Ordered By: Car Icer on 07-08-2021 Albumin [Mass/Vol] 4.6 g/dL Normal 3.7-4.7 [facility]; [facility] Work Phone: Comment on above: PATIENT WAS FASTINGP ERFORMED BY: CB [facility] Ybopnq4658 [address] RoadDublin [place] [id number] Albumin/Globulin [Mass ratio] 2.1 {ratio} Normal 1.2-2.2 [facility]; [facility] Work Phone: Comment on above: PATIENT WAS FASTINGP ERFORMED BY: CB [facility] Coykrh0856 [address] RoadDublin [place] [id number] ALP [Catalytic activity/Vol] 104 U/L Normal 44-121 [facility]; [facility] Work Phone: Comment on above: PATIENT WAS FASTINGP ERFORMED BY: CB [facility] Bukvnt9109 [address] RoadDublin [place] [id number] ALT [Catalytic activity/Vol] 22 U/L Normal 0-44 [facility]; [facility] Work Phone: Comment on above: PATIENT WAS FASTINGP ERFORMED BY: CB [facility] Ncgjyv0550 [address] RoadDublin [place] [id number] AST [Catalytic activity/Vol] 23 U/L Normal 0-40 [facility]; [facility] Work Phone: Comment on above: PATIENT WAS FASTINGP ERFORMED BY: CB [facility] Vwjulh9163 [address] RoadDublin [place] [id number] Bilirubin [Mass/Vol] 0.4 mg/dL Normal 0.0-1.2 [facility]; [facility] Work Phone: Comment on above: PATIENT WAS FASTINGP ERFORMED BY: CB [facility] Absahi7836 [address] RoadDublin [place] [id number] Calcium [Mass/Vol] 9.7 mg/dL Normal 8.6-10.2 [facility]; [facility] Work Phone: Comment on above: PATIENT WAS FASTINGP ERFORMED BY: LORENA [facility] Ivfeqo7394 [address] RoadDublin [place] [id number] Chloride [Moles/Vol] 102 mmol/L Normal 96-106 [facility]; [facility] Work Phone: Comment on above: PATIENT WAS FASTINGP ERFORMED BY: CB [facility] Qawgag6211 [address] RoadDublin [place] [id number] CO2 [Moles/Vol] 22 mmol/L Normal 20-29 [facility]; [facility] Work Phone: Comment on above: PATIENT WAS FASTINGP ERFORMED BY: [facility] Smyvov4205 [address] RoadDublin [place] [id number] Creatinine [Mass/Vol] 1.06 mg/dL Normal 0.76-1.27 [facility]; [facility] Work Phone: Comment on above: PATIENT WAS FASTINGP ERFORMED BY: [facility] Osnfnl6159 [address] Roadblin [place] [id number] GFR/1.73 sq M.predicted among non-blacks MDRD (S/P/Bld) [Vol rate/Area] 74 mL/min/{1.73_m2} Normal [facility]; [facility] Work Phone: Comment on above: PATIENT WAS FASTINGP ERFORMED BY: LORENA [facility] Ncvxak8503 [address] RoadDublin [place] [id number] Globulin (S) [Mass/Vol] 2.2 g/dL Normal 1.5-4.5 [facility]; [facility] Work Phone: Comment on above: PATIENT WAS FASTINGP ERFORMED BY: [facility] Nkuiol0022 [address] RoadDublin [place] [id number] Glucose [Mass/Vol] 95 mg/dL Normal 65-99 [facility]; [facility] Work Phone: Comment on above: PATIENT WAS FASTINGP ERFORMED BY: [facility] Oiqyvs4733 [address] RoadDublin [place] [id number] Potassium [Moles/Vol] 4.7 mmol/L Normal 3.5-5.2 [facility]; [facility] Work Phone: Comment on above: PATIENT WAS FASTINGP ERFORMED BY: LORENA [facility] Plfrgk4344 [address] RoadDublin [place] [id number] Protein [Mass/Vol] 6.8 g/dL Normal 6.0-8.5 [facility]; [facility] Work Phone: Comment on above: PATIENT WAS FASTINGP ERFORMED BY: [facility] Jlnemv6478 [address] Roadblin [place] [id number] Sodium [Moles/Vol] 140 mmol/L Normal 134-144 [facility]; [facility] Work Phone: Comment on above: PATIENT WAS FASTINGP ERFORMED BY: [facility] Xbalhm3122 [address] RoadDublin [place] [id number] Urea nitrogen [Mass/Vol] 20 mg/dL Normal 8-27 [facility]; [facility] Work Phone: Comment on above: PATIENT WAS FASTINGP ERFORMED BY: [facility] Cgtojm3801 [address] RoadAtrium Health Pinevillein [place] [id number] Urea nitrogen/Creatinin e [Mass ratio] 19 mg/mg Normal 10-24 [facility]; [facility] Work Phone: Comment on above: PATIENT WAS FASTINGP ERFORMED BY: [facility] Xqxayp3541 [facility] [place] [id number] PSA TOTAL +%FREE [id number] ([id number])Ordered By: Car Icer on 07-08-2021 Free PSA [Mass/Vol] 1.02 ng/mL Normal [facility]; [facility] Work Phone: Comment on above: [employer] ECLIA methodol ogy. PATIENT WAS FASTINGP ERFORMED BY: [facility] Jfkavj7273 [address] [facility] Hospitalblin [place] [id number] Information: NURSE DRAW Free PSA/Total PSA [Mass fraction] 14.0 % Normal [facility]; [facility] Work Phone: Comment on above: The table below list s the probability of prostate cancer formen with non-suspicious EVANGELINA results and total PSA between4 and 10 ng/mL, by patient age (Judi et al, LUIS 1998,279:1542). % Free PSA 50-64 yr 65-75 yr 0.00-10.00% 56% 55% 10.01-15.00% 24% 35% 15.01-20.00% 17% 23% 20.01-25.00% 10% 20% >25.00% 5% 9%Please note: Judi et al did not make specific recommendations regarding the use of percent free PSA for any other population of men. PATIENT WAS FASTINGP ERFORMED BY: [address] [place] [id number] Information: NURSE DRAW Prostate specific Ag [Mass/Vol] 7.3 ng/mL Abnormal 0.0-4.0 [facility]; [facility] Work Phone: Comment on above: [employer] ECLIA methodol ogy. .According to the [employer], Serum PSA shoulddecrease and remain at undetectable levels after radicalprostatectomy. The AUA defines biochemical recurrence as an initialPSA value 0.2 ng/mL or greater followed by a subsequent confirmatoryPSA value 0.2 ng/mL or greater.Values obtained with different assay methods or kits cannot be usedinterchangeably. Results cannot be interpreted as absolute evidenceof the presence or absence of malignant disease. PATIENT WAS FASTINGP ERFORMED BY: [employer]6370 [place] incNovant Health/[facility] [id number] Information: NURSE DRAW TSH ([id number])Ordered By: Syste m Cash Grain Grower on 07-08-2021 TSH Qn 1.480 {uIU/mL} Normal 0.450-4.500 Comprehen sive [facility]; [facility] Work Phone: Comment on above: PATIENT WAS FASTINGP ERFORMED BY: [employer]6370 ReclutecFormerly [facility] [id number] URINALYSIS ([id number])Ordered By : Car Icer on 07-08-2021 Appearance (U) Clear Normal Comprehens [facility]; [facility] Work Phone: Comment on above: PATIENT WAS FASTINGP ERFORMED BY: LORENA [facility] [id number] Duong RoadDublin [place] [id number] Bilirubin Ql (U) Negative Normal Comprehe nsive Internal Medicine; [facility] Work Phone: Comment on above: PATIENT WAS FASTINGP ERFORMED BY: LORENA [facility] Utgeax0290 Duong RoadDublin [place] [id number] Color (U) Yellow Normal [facility]; [facility] Work Phone: Comment on above: PATIENT WAS FASTINGP ERFORMED BY: LORENA [facility] [id number] Duong RoadDublin [place] [id number] Glucose Ql (U) Negative Normal Comprehens [facility]; [facility] Work Phone: Comment on above: PATIENT WAS FASTINGP ERFORMED BY: LORENA [facility] [id number] Duong RoadDublin [place] [id number] Hemoglobin Ql (U) Negative Normal Compreh ensive Internal Medicine; [facility] Work Phone: Comment on above: PATIENT WAS FASTINGP ERFORMED BY: LORENA [facility] [id number] [address]ong RoadDublin [place] [id number] Ketones Ql (U) Negative Normal Comprehens [facility]; [facility] Work Phone: Comment on above: PATIENT WAS FASTINGP ERFORMED BY: LORENA [facility] [id number] Duong RoadDublin [place] [id number] Leukocyte esterase Test strip Ql (U) Negative Normal [facility]; [facility] Work Phone: Comment on above: PATIENT WAS FASTINGP ERFORMED BY: LORENA [facility] Ayqsmh8639 Duong RoadDublin [place] [id number] Microscopic observation LM Nom (Urine sed) MICNIP Normal [facility]; [facility] Work Phone: Comment on above: Microscopic not talha cated and not performed. PATIENT WAS FASTINGP ERFORMED BY: LORENA [facility] [id number] Duong RoadDublin [place] [id number] Nitrite Ql (U) Negative Normal Comprehens [facility]; [facility] Work Phone: Comment on above: PATIENT WAS FASTINGP ERFORMED BY: LORENA [facility] [id number] [facility] [id number] pH (U) 6.5 [pH] Normal 5.0-7.5 [facility]; [facility] Work Phone: Comment on above: PATIENT WAS FASTINGP ERFORMED BY: [facility] [id number] [facility] [id number] Protein Ql (U) Negative Normal Comprehens [facility]; [facility] Work Phone: Comment on above: PATIENT WAS FASTINGP ERFORMED BY: [facility] [id number] [facility] [id number] Specific gravity (U) [Rel density] 1.013 1 Normal 1.005-1.030 [facility]; [facility] Work Phone: Comment on above: PATIENT WAS FASTINGP ERFORMED BY: [facility]6370 [facility] [id number] Urobilinogen (U) [Mass/Vol] 0.2 mg/dL Normal 0.2-1.0 [facility]; [facility] Work Phone: Comment on above: PATIENT WAS FASTINGP ERFORMED BY: [facility] [id number] [facility] [id number] ECG 12-LEADOrdered By: Arianne Shoulders on 12-25-2020 Atrial Rate [facility] P Ursa [facility] P-R Interval [facility] Q-T Interval [facility] Q-T Interval (corrected) [facility] QRS Duration [facility] QTC Calculation (Bezet) [facility] R Ursa [facility] T Ursa [facility] Ventricular Rate [facility] XR Chest 1 Viewon 11-24-2019 1. No pneumothorax. 2. Patchy density in the right lung base appears decreased. Workstation ID: [id number] [facility] EXAMINATION: XR CHES T PA/AP HISTORY: ORDERING SYSTEM PROVIDED HISTORY: pacemaker, TECHNOLOGIST PROVIDED HISTORY: Illness/Other Reason for exam: PACEMAKER Cancer History: u Surgery, RadiationHistory: u Encounter Type: Initial Additional signs and symptoms: . ORDERING SYSTEM PROVIDED DIAGNOSIS CODES: COMPARISON: 11/23/2019, 11/11/2019 TECHNIQUE: Portable AP upright view of the chest. FINDINGS: A left-sided cardiac device is noted. Mild patchy density in the right lung base appears decreased. The cardiomediastinal configuration is within normal limits. No acute bony abnormalities. [facility] Mariya, Rad In Haider ji Speechq - 11/24/2019 11:35 AM EDT EXAMINATION: XR CHEST PA/AP HISTORY: ORDERING SYSTEM PROVIDED HISTORY: pacemaker, TECHNOLOGIST PROVIDED HISTORY: Illness/Other Reason for exam: PACEMAKER Cancer History: u Surgery, RadiationHistory: u Encounter Type: Initial Additional signs and symptoms: . ORDERING SYSTEM PROVIDED DIAGNOSIS CODES: COMPARISON: 11/23/2019, 11/11/2019 TECHNIQUE: Portable AP upright view of the chest. FINDINGS: A left-sided cardiac device is noted. Mild patchy density in the right lung base appears decreased. The cardiomediastinal configuration is within normal limits. No acute bony abnormalities. IMPRESSION: 1. No pneumothorax. 2. Patchy density in the right lung base appears decreased. Workstation ID: [id number] [facility] EP - Deviceon 11-23-2019 Procedure: Dual Rhianna nevin Pacemaker Implantation Indication: sick sinus syndrome, tachybrady sydrome Comments: Follow-up in the device clinic Sedation: Moderate. Sedation plan completed and reviewed with team prior to sedation. ASA status unchanged immediately prior to sedation administration. Heart, lungs and airway assessed prior to sedation. ASA Classification: II Device Procedure Details: The patient received Vancomycin for antibiotic prophylaxis. A time out was called and the patient was properly identified. The left chest and neck were prepped and draped in the usual sterile fashion. The skin and subcutaneous tissue was anesthetized with 1% lidocaine. An incision was made inferior to the clavicle with a scalpel. Using Bovie, sharp and blunt dissection, the plane of incision was extended through the subcutaneous tissue until the pectoral fascia was visualized. A pocket was then created to accommodate the pulse generator. Subclavian venous access was obtained and two guidewires were fluoroscopically advanced into the right heart. A peel-away sheath was inserted into the vein over the a guidewire. A right ventricular ventricular lead was then placed on the right ventricular septum under fluoroscopic guidance. Ventricular lead impedance, electrogram amplitude, and pacing threshold were measured and found to be satisfactory. Pacing at 10V was performed to ensure no diaphragmatic capture and none was noted. The lead was then anchored to the prepectoral fascia with two ties. The atrial lead was then placed in the right atrial appendage under fluoroscopic guidance. Atrial lead impedance, electrogram amplitude, and pacing threshold were measured and found to be satisfactory. Pacing at 10V was performed to ensure no diaphragmatic capture and none was noted. The lead was then anchored to the prepectoral fascia with two ties. The leads were then connected to the pulse generator. The leads and pulse generator were placed in the pre-pectoral pocket. The pocket was then closed with three layers of 2-0 & 3-0 Vicryl suture. Estimated Blood Loss: <10ml Complications: No immediate complications. [facility] XR Chest 1 Viewon 11-23-2019 No pneumothorax foll owing a dual lead left pectoral transvenous pacer placement. Stable right lung base infiltrate. [facility] Workstation ID: [id number] [facility] EXAMINATION: XR CHES T PA/AP 11/23/2019 11:28 am HISTORY: ORDERING SYSTEM PROVIDED HISTORY: status post device implant, TECHNOLOGIST PROVIDED HISTORY: Illness/Other Reason for exam: s/p pacemaker Cancer History: u Surgery, RadiationHistory: u Encounter Type: Initial Additional signs and symptoms: . ORDERING SYSTEM PROVIDED DIAGNOSIS CODES: COMPARISON: Chest x-ray November 11, 2019. TECHNIQUE: Portable upright view of the chest. FINDINGS: There has been interval placement of a dual lead left pectoral transvenous pacer. No pneumothorax is visible. Cardiac silhouette and mediastinal contours are stable. Patient's hand overlies the right lung base partially obscuring the reticular airspace opacity in the right lung base on the prior study corresponding to bronchiolitis or aspiration on previous CT. This is grossly stable. No new airspace consolidation. [facility] Interface, Rad In Fu ji Speechq - 11/23/2019 1:31 PM EDT EXAMINATION: XR CHEST PA/AP 11/23/2019 11:28 am HISTORY: ORDERING SYSTEM PROVIDED HISTORY: status post device implant, TECHNOLOGIST PROVIDED HISTORY: Illness/Other Reason for exam: s/p pacemaker Cancer History: u Surgery, RadiationHistory: u Encounter Type: Initial Additional signs and symptoms: . ORDERING SYSTEM PROVIDED DIAGNOSIS CODES: COMPARISON: Chest x-ray November 11, 2019. TECHNIQUE: Portable upright view of the chest. FINDINGS: There has been interval placement of a dual lead left pectoral transvenous pacer. No pneumothorax is visible. Cardiac silhouette and mediastinal contours are stable. Patient's hand overlies the right lung base partially obscuring the reticular airspace opacity in the right lung base on the prior study corresponding to bronchiolitis or aspiration on previous CT. This is grossly stable. No new airspace consolidation. IMPRESSION: No pneumothorax following a dual lead left pectoral transvenous pacer placement. Stable right lung base infiltrate. [facility] Workstation ID: [id number] [facility] COVID-19, MOLECULARon 2019 SARS-COV-2 RNA (MINERVA) Not Detected Normal Not Detected [facility] Comment on above: Result Comment: This test was performed under the FDA's Emergency Use Authorization (EUA). Testing was performed using the Stacie SARS-CoV-2 assay on the Minerva Stacie 6800 System. This test has not been approved for use in asymptomatic patients and its performance in this patient population has not been evaluated. Negative results do not rule out the presence of SARS-CoV-2/COVID-19. Fact sheets for this EUA can be found at the following links: For Healthcare Providers: https://www.fda.gov/media/849202/download For Patients: https://www.fda.gov/media/798707/download Performed By: #### L [id number] #### [facility] [address] [place] [address] Abhinav Vazquez M.D. [id number] Basic Metabolic Panel 10-27 Anion gap [Moles/Vol] 11 mmol/L 10 - 20 mmol/L [facility] Calcium [Mass/Vol] 8.7 mg/dL 8.4 - 10. 2 mg/dL [facility] Chloride [Moles/Vol] 107 mmol/L 98 - 108 mmol/L [facility] Creatinine [Mass/Vol] 1.19 mg/dL 0.80 - 1.30 [facility] GFR/1.73 sq M predicted among non-blacks MDRD (S/P/Bld) [Vol rate/Area] The eGFR should be used for monitoring renal function only and not for medication dosing. [facility] GFR/1.73 sq M.predicted CKD-EPI (S/P/Bld) [Vol rate/Area] 61 >=60 mL/min/1.73 m2 [facility] Glucose [Mass/Vol] 103 mg/dL High 65 - 99 mg/dL [facility] HCO3 [Moles/Vol] 26 mmol/L 21 - 32 mmol/L [facility] Interpretation and review of laboratory results Abnormal [facility] Potassium [Moles/Vol] 4.8 mmol/L 3.5 - 5.1 mmol/L [facility] Sodium [Moles/Vol] 139 mmol/L 135 - 145 mmol/L [facility] Urea nitrogen [Mass/Vol] 26 mg/dL High 8 - 25 mg/dL [facility] Urea nitrogen/Creatinin e [Mass ratio] 21.8 mg/mg High [facility] CBC WITH AUTO DIFFERENTIALon 11-13-2019 Basophils (Bld) [#/Vol] 0.09 10*3/uL [facility] Basophils/100 WBC (Bld) 1.3 % [facility] Eosinophils (Bld) [#/Vol] 0.33 10*3/uL [facility] Eosinophils/100 WBC (Bld) 4.7 % [facility] Erythrocyte distribution width (RBC) [Entitic vol] 12.7 % 11.6 - 14.8 % [facility] Hematocrit (Bld) [Volume fraction] 51.0 % 41 - 53 % [facility] Hemoglobin (Bld) [Mass/Vol] 16.6 g/dL 13.5 - 17.5 g/dL [facility] Immature granulocytes (Bld) [#/Vol] 0.02 10*3/uL [facility] Immature granulocytes/100 WBC (Bld) 0.30 % [facility] Comment on above: The IG parameter is the percentage of metamyelocytes, myelocytes and promyelocytes. An immature granulocyte count (IG) of 1% or more suggests the possibility of infection, an IG count of 3% is very likely related to an infection. Lymphocytes (Bld) [#/Vol] 1.25 10*3/uL [facility] Lymphocytes/100 WBC (Bld) 17.9 % [facility] MCH (RBC) [Entitic mass] 29.9 pg 26 - 34 pg [facility] MCHC (RBC) [Mass/Vol] 32.5 g/dL 31 - 37 g/dL [facility] MCV (RBC) [Entitic vol] 91.9 fL 80 - 100 fL [facility] Monocytes (Bld) [#/Vol] 0.50 10*3/uL [facility] Monocytes/100 WBC (Bld) 7.2 % [facility] Neutrophils (Bld) [#/Vol] 4.80 10*3/uL [facility] Neutrophils/100 WBC (Bld) 68.6 % [facility] Nucleated RBC (Bld) [#/Vol] 0.00 10*3/uL [facility] Nucleated RBC/100 WBC (Bld) [Ratio] 0.0 % [facility] Platelet mean volume (Bld) [Entitic vol] 11.0 fL 9.4 - 12.4 fL [facility] Platelets (Bld) [#/Vol] 151 10*3/uL [facility] RBC (Bld) [#/Vol] 5.55 10*6/uL [facility] WBC (Bld) [#/Vol] 6.99 10*3/uL [facility] CT ANGIOGRAM CHESTon 020 1. Thoracic aorta an d branch vessels have a normal appearance. 2. No acute PE is identified. Main pulmonary artery is normal caliber size. Normal heart size. 3. Infectious bronchiolitis in the lower lobes bilaterally, right greater than left and to less extent in the right middle lobe and right upper lobe. 4. Some pleural-parenchymal scarring or linear atelectasis seen in the lower lobes bilaterally, right greater than left. Some distal mucoid impaction is also suspected in the posterior basal segment of the right lower lobe. No pleural effusion. GJT/r Workstation ID: [id number] [facility] EXAMINATION: CT SCAN OF THE CHEST WITHOUT AND WITH CONTRAST FOR CT ANGIOGRAPHY, 11/13/2019 COMPARISON: Chest radiograph, 11/11/2019. HISTORY: Dx: I44.2 (Third degree AV block (HCC)) Having intermittent thoracic spine pain radiating to left axilla Injury/Trauma or Illness?:Illness/Other Pectus excavatum TECHNIQUE: 2.5 mm mm axial images performed through the chest upper abdomen without contrast. Following the intravenous administration of 75 mL of Isovue-370, 2.5 mm axial images were repeated through the same location during early arterial enhancement of the aorta. 3 mm coronal and sagittal MPR reconstructions and 10 mm sagittal and coronal MIP CTA reconstructions preformed. 3-D coronal reconstructions performed on a separate workstation for CT angiography. Dose reduction techniques were achieved by using automated exposure control and/or adjustment of mA and/or kV according to patient size and/or use of iterative reconstruction technique. FINDINGS: THORACIC AORTIC CTA FINDINGS Thoracic aorta is normal in caliber size with no dissection identified. Great vessels of the aortic arch and celiac artery and superior mesenteric artery have a normal patent appearance. CHEST CT FINDINGS Normal heart size with no pericardial effusion. The main pulmonary artery is normal caliber size with no acute PE identified. No adenopathy identified. Some infectious bronchiolitis seen in the lower lobes bilaterally, right greater than left to less extent in the right middle lobe and right upper lobe. Some pleural-parenchymal scarring or linear atelectasis also seen in the right lower lobe and to less extent in the left lower lobe. Some mild distal mucoid impaction posterior basal segment of the right lower lobe is also suspected. No pleural effusion. Visualized upper abdomen is unremarkable. No acute osseous abnormality. Mild degenerative changes of the thoracic spine. [facility] Interface, Rad In Fu ji Speechq - 11/13/2019 5:13 PM EDT EXAMINATION: CT SCAN OF THE CHEST WITHOUT AND WITH CONTRAST FOR CT ANGIOGRAPHY, 11/13/2019 COMPARISON: Chest radiograph, 11/11/2019. HISTORY: Dx: I44.2 (Third degree AV block (HCC)) Having intermittent thoracic spine pain radiating to left axilla Injury/Trauma or Illness?:Illness/Other Pectus excavatum TECHNIQUE: 2.5 mm mm axial images performed through the chest upper abdomen without contrast. Following the intravenous administration of 75 mL of Isovue-370, 2.5 mm axial images were repeated through the same location during early arterial enhancement of the aorta. 3 mm coronal and sagittal MPR reconstructions and 10 mm sagittal and coronal MIP CTA reconstructions preformed. 3-D coronal reconstructions performed on a separate workstation for CT angiography. Dose reduction techniques were achieved by using automated exposure control and/or adjustment of mA and/or kV according to patient size and/or use of iterative reconstruction technique. FINDINGS: THORACIC AORTIC CTA FINDINGS Thoracic aorta is normal in caliber size with no dissection identified. Great vessels of the aortic arch and celiac artery and superior mesenteric artery have a normal patent appearance. CHEST CT FINDINGS Normal heart size with no pericardial effusion. The main pulmonary artery is normal caliber size with no acute PE identified. No adenopathy identified. Some infectious bronchiolitis seen in the lower lobes bilaterally, right greater than left to less extent in the right middle lobe and right upper lobe. Some pleural-parenchymal scarring or linear atelectasis also seen in the right lower lobe and to less extent in the left lower lobe. Some mild distal mucoid impaction posterior basal segment of the right lower lobe is also suspected. No pleural effusion. Visualized upper abdomen is unremarkable. No acute osseous abnormality. Mild degenerative changes of the thoracic spine. IMPRESSION: 1. Thoracic aorta and branch vessels have a normal appearance. 2. No acute PE is identified. Main pulmonary artery is normal caliber size. Normal heart size. 3. Infectious bronchiolitis in the lower lobes bilaterally, right greater than left and to less extent in the right middle lobe and right upper lobe. 4. Some pleural-parenchymal scarring or linear atelectasis seen in the lower lobes bilaterally, right greater than left. Some distal mucoid impaction is also suspected in the posterior basal segment of the right lower lobe. No pleural effusion. GJT/mjr Workstation ID: [id number] [facility] ECG 12-LEADon 11-13-2019 Atrial Rate 92 BPM [facility] P-R Interval 288 ms [facility] Q-T Interval 348 ms [facility] QRS Duration 84 ms [facility] QTC Calculation (Bezet) 430 ms [facility] R Ursa -4 degrees [facility] T Ursa 68 degrees [facility] Ventricular Rate 92 BPM [facility] th possible junctional rhythm Nonspecific ST abnormality Abnormal ECG Confirmed by MARI CAPPS JEANNINE ([id number]) on 11/13/2019 9:04:02 AM [facility] ECHOCARDIOGRAM COMPLETEon Patient Info Name: Markus BAGLEY Age: 69 years : 1950 Gender: Male Ht: 178 cm Wt: 64 kg BSA: 1.78 m2 HR: 79 bpm BP: 140 / 80 mmHg Heart Rhythm: Sinus Rhythm Technical Quality: Limited views., Fair quality study; technically difficult due to pectus excavatum. Exam Date: 11/12/2019 7:02 AM Patient Status: Inpatient Finish Saw Operator: Nuria Fields RCDS Exam Type: ECHOCARDIOGRAM COMPLETE Study Info Indications - Abnormal electrocardiogram [ECG] [EKG] Referring Physician: BLADIMIR Jean; [id number] BMI: 20.37 kg/m2 Summary 1. Apical views off axis and nondiagnostic due to pectus excavatum.. 2. No obvious wall motion abnormalities are identified. Ejection fraction approximately 55% based on available views. 3. No obvious valvular heart disease is identified. History/Risk Factors Hypertension: Yes Tobacco Use: Never Procedure(s): Complete two-dimensional, color flow and Doppler transthoracic echocardiogram is performed. Left Ventricle Cannot assess diastole. Normal left ventricular size. No obvious wall motion abnormalities are identified. Ejection fraction approximately 55% based on available views. Right Ventricle Not sufficiently visualized. Left Atria Left atrium was not well visualized. Right Atria Right atrium was not well visualized. Chiari network. Aortic Valve Probably trileaflet, nonrestricted with mild thickening present. No obvious insufficiency is identified. Pulmonic Valve Grossly normal. Mitral Valve No obvious insufficiency identified. Normal-appearing. Tricuspid Valve Probably normal appearance no obvious insufficiency identified. Pericardium/Pleural Pericardium is normal in appearance with no evidence for significant pericardial effusion. Inferior Vena Cava Normal inferior vena cava with <50% collapse upon inspiration consistent with normal right atrial pressure. Aorta Aortic root size 3.6 cm borderline enlarged. Left Ventricular Outflow Tract Name Value Normal LVOT 2D LVOT Diameter 2.02 cm Pulmonic Valve Name Value Normal PV Doppler PV Peak Velocity 1.03 m/s PV Peak Gradient 4 mmHg Mitral Valve Name Value Normal MV Doppler MV Peak Velocity 1.21 m/s MV Peak Gradient 6 mmHg MV Mean Gradient 1 mmHg MV VTI 22.17 cm MV Decel Lajas 493.19 cm/s2 MV PHT 44 ms MV Area (PHT) 5.05 cm2 4.00-5.00 MV Diastolic Function MV E Peak Velocity 0.74 m/s MV A Peak Velocity 0.45 m/s MV E/A 1.64 MV Decel Time 150 ms MV Annular TDI MV Septal e' Velocity 18.02 cm/s >=8.00 MV E/e' (Septal) 4.11 <=8.00 MV Lateral e' Velocity 16.85 cm/s >=10.00 MV E/e' (Lateral) 4.40 <=8.00 MV e' Average 17.44 MV E/e' (Average) 4.25 Tricuspid Valve Name Value Normal Estimated PAP/RSVP RA Pressure 3 mmHg <=5 Aorta Name Value Normal Ascending Aorta Ao Root Diameter (2D) 3.61 cm 3.10-3.70 Ao Root Diam Index (2D) 2.03 cm/m2 1.50-1.90 Venous Name Value Normal IVC/SVC IVC Diameter (Exp 2D) 1.23 cm <=2.10 Aortic Valve Name Value Normal AV Regurgitation 2D LVOT Area 3.22 cm2 Ventricles Name Value Normal LV Dimensions 2D/MM IVS Diastolic Thickness (2D) 0.89 cm 0.60-1.00 LVID Diastole (2D) 4.41 cm 4.20-5.80 LVIW Diastolic Thickness (2D) 0.88 cm 0.60-1.00 LVID Systole (2D) 2.93 cm 2.50-4.00 LVOT Diameter 2.02 cm LV Mass (2D Cubed) 126 g 88-224 LV Mass Index (2D Cubed) 71 g/m2 49-115 Relative Wall Thickness (2D) 0.40 <=0.42 LV Fractional Shortening/Ejection Fraction 2D/MM LV Fractional Shortening (2D) 34 % 25-43 LV EF (2D Teicholz) 63 % 52-72 LV Diastolic Volume (4C MOD) 103 ml LV Systolic Volume (4C MOD) 50 ml LV EF (4C MOD) 51 % LV Diastolic Length (4C) 8.94 cm LV Systolic Length (4C) 6.73 cm LV Stroke Volume (4C MOD) 52.32 ml Report Signatures Finalized by Jeannine Gee MD on 11/13/2019 07:33 AM [facility], Rad In He [employer] [facility] [employer] - 11/13/2019 7:33 AM EDT Patient Info Name: CHRISTOPHER BAGLEY Age: 69 years : 1950 Gender: Male Ht: 178 cm Wt: 64 kg BSA: 1.78 m2 HR: 79 bpm BP: 140 / 80 mmHg Heart Rhythm: Sinus Rhythm Technical Quality: Limited views., Fair quality study; technically difficult due to pectus excavatum. Exam Date: 11/12/2019 7:02 AM Patient Status: Inpatient Finish Saw Operator: Nuria Fields RCDS Exam Type: ECHOCARDIOGRAM COMPLETE Study Info Indications - Abnormal electrocardiogram [ECG] [EKG] Referring Physician: BLADIMIR Jean; [id number] BMI: 20.37 kg/m2 Summary 1. Apical views off axis and nondiagnostic due to pectus excavatum.. 2. No obvious wall motion abnormalities are identified. Ejection fraction approximately 55% based on available views. 3. No obvious valvular heart disease is identified. History/Risk Factors Hypertension: Yes Tobacco Use: Never Procedure(s): Complete two-dimensional, color flow and Doppler transthoracic echocardiogram is performed. Left Ventricle Cannot assess diastole. Normal left ventricular size. No obvious wall motion abnormalities are identified. Ejection fraction approximately 55% based on available views. Right Ventricle Not sufficiently visualized. Left Atria Left atrium was not well visualized. Right Atria Right atrium was not well visualized. Chiari network. Aortic Valve Probably trileaflet, nonrestricted with mild thickening present. No obvious insufficiency is identified. Pulmonic Valve Grossly normal. Mitral Valve No obvious insufficiency identified. Normal-appearing. Tricuspid Valve Probably normal appearance no obvious insufficiency identified. Pericardium/Pleural Pericardium is normal in appearance with no evidence for significant pericardial effusion. Inferior Vena Cava Normal inferior vena cava with <50% collapse upon inspiration consistent with normal right atrial pressure. Aorta Aortic root size 3.6 cm borderline enlarged. Left Ventricular Outflow Tract Name Value Normal LVOT 2D LVOT Diameter 2.02 cm Pulmonic Valve Name Value Normal PV Doppler PV Peak Velocity 1.03 m/s PV Peak Gradient 4 mmHg Mitral Valve Name Value Normal MV Doppler MV Peak Velocity 1.21 m/s MV Peak Gradient 6 mmHg MV Mean Gradient 1 mmHg MV VTI 22.17 cm MV Decel Lajas 493.19 cm/s2 MV PHT 44 ms MV Area (PHT) 5.05 cm2 4.00-5.00 MV Diastolic Function MV E Peak Velocity 0.74 m/s MV A Peak Velocity 0.45 m/s MV E/A 1.64 MV Decel Time 150 ms MV Annular TDI MV Septal e' Velocity 18.02 cm/s >=8.00 MV E/e' (Septal) 4.11 <=8.00 MV Lateral e' Velocity 16.85 cm/s >=10.00 MV E/e' (Lateral) 4.40 <=8.00 MV e' Average 17.44 MV E/e' (Average) 4.25 Tricuspid Valve Name Value Normal Estimated PAP/RSVP RA Pressure 3 mmHg <=5 Aorta Name Value Normal Ascending Aorta Ao Root Diameter (2D) 3.61 cm 3.10-3.70 Ao Root Diam Index (2D) 2.03 cm/m2 1.50-1.90 Venous Name Value Normal IVC/SVC IVC Diameter (Exp 2D) 1.23 cm <=2.10 Aortic Valve Name Value Normal AV Regurgitation 2D LVOT Area 3.22 cm2 Ventricles Name Value Normal LV Dimensions 2D/MM IVS Diastolic Thickness (2D) 0.89 cm 0.60-1.00 LVID Diastole (2D) 4.41 cm 4.20-5.80 LVIW Diastolic Thickness (2D) 0.88 cm 0.60-1.00 LVID Systole (2D) 2.93 cm 2.50-4.00 LVOT Diameter 2.02 cm LV Mass (2D Cubed) 126 g 88-224 LV Mass Index (2D Cubed) 71 g/m2 49-115 Relative Wall Thickness (2D) 0.40 <=0.42 LV Fractional Shortening/Ejection Fraction 2D/MM LV Fractional Shortening (2D) 34 % 25-43 LV EF (2D Teicholz) 63 % 52-72 LV Diastolic Volume (4C MOD) 103 ml LV Systolic Volume (4C MOD) 50 ml LV EF (4C MOD) 51 % LV Diastolic Length (4C) 8.94 cm LV Systolic Length (4C) 6.73 cm LV Stroke Volume (4C MOD) 52.32 ml Report Signatures Finalized by Jeannine Gee MD on 11/13/2019 07:33 AM [facility] EKGon 11-13-2019 Ordered by an unspec ified provider. [facility] Magnesium Levelon 11-13-2019 Interpretation and review of laboratory results Normal [facility] Magnesium [Mass/Vol] 2.3 mg/dL 1.6 - 2.4 mg/dL [facility] CBC WITH AUTO DIFFERENTIALon 11-12-2019 Basophils (Bld) [#/Vol] 0.10 10*3/uL [facility] Basophils/100 WBC (Bld) 1.4 % [facility] Eosinophils (Bld) [#/Vol] 0.30 10*3/uL [facility] Eosinophils/100 WBC (Bld) 4.1 % [facility] Erythrocyte distribution width (RBC) [Entitic vol] 12.9 % 11.6 - 14.8 % [facility] Hematocrit (Bld) [Volume fraction] 49.2 % 41 - 53 % [facility] Hemoglobin (Bld) [Mass/Vol] 16.2 g/dL 13.5 - 17.5 g/dL [facility] Immature granulocytes (Bld) [#/Vol] 0.01 10*3/uL [facility] Immature granulocytes/100 WBC (Bld) 0.10 % [facility] Comment on above: The IG parameter is the percentage of metamyelocytes, myelocytes and promyelocytes. An immature granulocyte count (IG) of 1% or more suggests the possibility of infection, an IG count of 3% is very likely related to an infection. Lymphocytes (Bld) [#/Vol] 1.31 10*3/uL [facility] Lymphocytes/100 WBC (Bld) 17.7 % [facility] MCH (RBC) [Entitic mass] 30.1 pg 26 - 34 pg [facility] MCHC (RBC) [Mass/Vol] 32.9 g/dL 31 - 37 g/dL [facility] MCV (RBC) [Entitic vol] 91.3 fL 80 - 100 fL [facility] Monocytes (Bld) [#/Vol] 0.61 10*3/uL [facility] Monocytes/100 WBC (Bld) 8.2 % [facility] Neutrophils (Bld) [#/Vol] 5.07 10*3/uL [facility] Neutrophils/100 WBC (Bld) 68.5 % [facility] Nucleated RBC (Bld) [#/Vol] 0.00 10*3/uL [facility] Nucleated RBC/100 WBC (Bld) [Ratio] 0.0 % [facility] Platelet mean volume (Bld) [Entitic vol] 11.2 fL 9.4 - 12.4 fL [facility] Platelets (Bld) [#/Vol] 161 10*3/uL [facility] RBC (Bld) [#/Vol] 5.39 10*6/uL [facility] WBC (Bld) [#/Vol] 7.40 10*3/uL [facility] Hemoglobin A1con 11-12-2019 Average glucose Estimated from glycated hemoglobin mass conc (Bld) 111 mg/dL 68 - 114 mg/dL [facility] HbA1c (Bld) [Mass fraction] 5.5 % 4 - 5.6 % [facility] Interpretation and review of laboratory results Normal [facility] Normal: 4.0% - 5.6% Increased risk for diabetes: 5.7% - 6.4% Diabetes: >= 6.5% Pediatrics: No established reference range Estimated average glucose: 68-114 mg/dL [facility] LYME DISEASE ANTIBODY, BLOOD on 11-12-2019 B. burgdorferi Ab Ql (S) Negative Negative [facility] Interpretation and review of laboratory results Normal [facility] Assay performed usin g [employer] CLIA methodology. [facility] Lipid Panelon 11-12-2019 Cholesterol [Mass/Vol] 163 mg/dL 100 - 199 mg/dL [facility] Comment on above: National Cholesterol Education Program Guidelines: Cholesterol Desirable: <200 mg/dL Borderline High: 200-239 mg/dL High: greater than or equal to 240 mg/dL Cholesterol in HDL [Mass/Vol] 60 mg/dL 40 - 59 [facility] Comment on above: National Cholesterol Education Program Guidelines: HDL Cholesterol Low: <40 mg/dL Near Optimal: 40-59 mg/dL High: greater than or equal to 60 mg/dL Cholesterol in LDL [Mass/Vol] 82 mg/dL 10 - 130 mg/dL [facility] Comment on above: National Cholesterol Education Program Guidelines: LDL Cholesterol Optimal: <100 mg/dL Near Optimal/above Optimal: 100-129 mg/dL Borderline High: 130-159 mg/dL High: 160-189 mg/dL Very High: greater than or equal to 190 mg/dL Cholesterol non HDL [Mass/Vol] 103 mg/dL [facility] Comment on above: National Cholesterol Education Program Guidelines: NON HDL Cholesterol Desirable: <130 mg/dL Borderline High: 130-159 mg/dL High: 160-189 mg/dL Very High: > or = 190 mg/dL Cholesterol.total/ Cholesterol in HDL [Mass ratio] 2.7 {ratio} ratio [facility] Comment on above: Males Cholesterol/HD L Ratio: Average risk: 5.0 1/2 average risk: 3.4 2 x average risk: 9.6 Triglyceride [Mass/Vol] 103 mg/dL 30 - 150 mg/dL [facility] Comment on above: National Cholesterol Education Program Guidelines: Triglyceride Normal: <150 mg/dL Borderline High: 150-199 mg/dL High: 200-499 mg/dL Very High: greater than or equal to 500 mg/dL Magnesiumon 11-12-2019 Magnesium [Mass/Vol] 2.4 mg/dL 1.6 - 2.4 mg/dL [facility] Other 11-12-2019 Interpretation and review of laboratory results Normal [facility] Renal Function Panelon 11-11 Albumin [Mass/Vol] 3.4 g/dL 3.2 - 5.2 g/dL [facility] Anion gap [Moles/Vol] 12 mmol/L 10 - 20 mmol/L [facility] Calcium [Mass/Vol] 8.8 mg/dL 8.4 - 10. 2 mg/dL [facility] Chloride [Moles/Vol] 109 mmol/L High 98 - 108 mmol/L [facility] Creatinine [Mass/Vol] 1.03 mg/dL 0.80 - 1.30 [facility] GFR/1.73 sq M predicted among non-blacks MDRD (S/P/Bld) [Vol rate/Area] The eGFR should be used for monitoring renal function only and not for medication dosing. [facility] GFR/1.73 sq M.predicted CKD-EPI (S/P/Bld) [Vol rate/Area] 73 >=60 mL/min/1.73 m2 [facility] Glucose [Mass/Vol] 100 mg/dL High 65 - 99 mg/dL [facility] HCO3 [Moles/Vol] 25 mmol/L 21 - 32 mmol/L [facility] Interpretation and review of laboratory results Abnormal [facility] Phosphate [Mass/Vol] 4.0 mg/dL High 2.3 - 3.7 mg/dL [facility] Potassium [Moles/Vol] 4.5 mmol/L 3.5 - 5.1 mmol/L [facility] Sodium [Moles/Vol] 141 mmol/L 135 - 145 mmol/L [facility] Urea nitrogen [Mass/Vol] 18 mg/dL 8 - 25 mg/dL [facility] Urea nitrogen/Creatinin e [Mass ratio] 17.5 mg/mg [facility] TSHon 11-12-2019 TSH Qn 0.90 m[IU]/L [facility] CBC WITH AUTO DIFFERENTIALon 11-11-2019 Basophils (Bld) [#/Vol] 0.11 10*3/uL [facility] Basophils/100 WBC (Bld) 1.2 % [facility] Eosinophils (Bld) [#/Vol] 0.20 10*3/uL [facility] Eosinophils/100 WBC (Bld) 2.3 % [facility] Erythrocyte distribution width (RBC) [Entitic vol] 12.8 % 11.6 - 14.8 % [facility] Hematocrit (Bld) [Volume fraction] 54.6 % High 41 - 53 % [facility] Hemoglobin (Bld) [Mass/Vol] 18.0 g/dL High 13.5 - 17.5 g/dL [facility] Immature granulocytes (Bld) [#/Vol] 0.03 10*3/uL [facility] Immature granulocytes/100 WBC (Bld) 0.30 % [facility] Comment on above: The IG parameter is the percentage of metamyelocytes, myelocytes and promyelocytes. An immature granulocyte count (IG) of 1% or more suggests the possibility of infection, an IG count of 3% is very likely related to an infection. Interpretation and review of laboratory results Abnormal [facility] Lymphocytes (Bld) [#/Vol] 1.30 10*3/uL [facility] Lymphocytes/100 WBC (Bld) 14.7 % [facility] MCH (RBC) [Entitic mass] 30.1 pg 26 - 34 pg [facility] MCHC (RBC) [Mass/Vol] 33.0 g/dL 31 - 37 g/dL [facility] MCV (RBC) [Entitic vol] 91.3 fL 80 - 100 fL [facility] Monocytes (Bld) [#/Vol] 0.62 10*3/uL [facility] Monocytes/100 WBC (Bld) 7.0 % [facility] Neutrophils (Bld) [#/Vol] 6.56 10*3/uL [facility] Neutrophils/100 WBC (Bld) 74.5 % [facility] Nucleated RBC (Bld) [#/Vol] 0.00 10*3/uL [facility] Nucleated RBC/100 WBC (Bld) [Ratio] 0.0 % [facility] Platelet mean volume (Bld) [Entitic vol] 11.2 fL 9.4 - 12.4 fL [facility] Platelets (Bld) [#/Vol] 165 10*3/uL [facility] RBC (Bld) [#/Vol] 5.98 10*6/uL High [facility] WBC (Bld) [#/Vol] 8.82 10*3/uL [facility] CMPon 11-11-2019 Albumin [Mass/Vol] 4.5 g/dL 3.2 - 5.2 g/dL [facility] ALP [Catalytic activity/Vol] 98 U/L 40 - 150 U/L [facility] ALT [Catalytic activity/Vol] 25 U/L 14 - 65 U/L [facility] Anion gap [Moles/Vol] 13 mmol/L 10 - 20 mmol/L [facility] AST [Catalytic activity/Vol] 20 U/L 0 - 45 U/L [facility] Bilirubin [Mass/Vol] 0.6 mg/dL 0 - 1.3 mg/dL [facility] Calcium [Mass/Vol] 9.7 mg/dL 8.4 - 10. 2 mg/dL [facility] Chloride [Moles/Vol] 103 mmol/L 98 - 108 mmol/L [facility] Creatinine [Mass/Vol] 1.17 mg/dL 0.80 - 1.30 [facility] GFR/1.73 sq M predicted among non-blacks MDRD (S/P/Bld) [Vol rate/Area] The eGFR should be used for monitoring renal function only and not for medication dosing. [facility] GFR/1.73 sq M.predicted CKD-EPI (S/P/Bld) [Vol rate/Area] 62 >=60 mL/min/1.73 m2 [facility] Glucose [Mass/Vol] 110 mg/dL High 65 - 99 mg/dL [facility] HCO3 [Moles/Vol] 27 mmol/L 21 - 32 mmol/L [facility] Interpretation and review of laboratory results Abnormal [facility] Potassium [Moles/Vol] 4.0 mmol/L 3.5 - 5.1 mmol/L [facility] Protein [Mass/Vol] 8.3 g/dL High 6 - 8 g/dL [facility] Sodium [Moles/Vol] 139 mmol/L 135 - 145 mmol/L [facility] Urea nitrogen [Mass/Vol] 19 mg/dL 8 - 25 mg/dL [facility] Urea nitrogen/Creatinin e [Mass ratio] 16.2 mg/mg [facility] COVID-19, Molecularon 2019 Interpretation and review of laboratory results Normal [facility] SARS-CoV-2 Not Detected Not Detected [facility] Comment on above: This test was perfor med under the FDA's Emergency Use Authorization (EUA). Testing was performed using the [employer] ID NOW COVID-19 assay on the ID NOW platform. This test has not been approved for use in asymptomatic patients and its performance in this patient population has not been evaluated. Negative results do not rule out the presence of SARS-CoV-2/COVID-19. Fact sheets for the EUA can be found at the following links: For Healthcare Providers: https://www.fda.gov/media/124438/download For Patients: https://www.fda.gov/media/934083/download ECG 12-LEADon 11-11-2019 Atrial Rate 79 BPM [facility] P Ursa 67 degrees [facility] Q-T Interval 446 ms [facility] QRS Duration 98 ms [facility] QTC Calculation (Bezet) 367 ms [facility] R Ursa -18 degrees [facility] T Ursa 54 degrees [facility] Ventricular Rate 41 BPM [facility] Sinus rhythm with 2n d degree AV block with 2:1 AV conduction with Premature supraventricular complexes Abnormal ECG ECG Cart Interpretation see physician note for interpretation. Confirmed by Betzy Espinal ([id number]) on 11/11/2019 5:15:33 PM [facility] Atrial Rate 37 BPM [facility] P Ursa 69 degrees [facility] Q-T Interval 460 ms [facility] QRS Duration 102 ms [facility] QTC Calculation (Bezet) 361 ms [facility] R Ursa -33 degrees [facility] T Ursa 49 degrees [facility] Ventricular Rate 37 BPM [facility] Marked sinus bradyca rdia with AV dissociation and Junctional bradycardia with Sinus/atrial capture Left axis deviation Incomplete right bundle branch block Abnormal ECG ECG Cart Interpretation see physician note for interpretation. Confirmed by Betzy Espinal ([id number]) on 11/11/2019 5:14:22 PM [facility] Magnesium Levelon 11-11-2019 Magnesium [Mass/Vol] 2.4 mg/dL 1.6 - 2.4 mg/dL [facility] Otheron 11-11-2019 Interpretation and review of laboratory results Normal [facility] PT/INRon 11-11-2019 INR Coag (PPP) [Relative time] 1.1 {INR} [facility] Interpretation and review of laboratory results Normal [facility] PT Coag (PPP) [Time] 13.7 s [facility] During the induction phase of oral anticoagulation, the INR may not reflect the anticoagulation status of the patient. Therapeutic ranges for INR's are: Most clinical situations: INR 2.0-3.0 Mechanical Prosthetic Valve: INR 2.5-3.5 Critical: INR >5.0 [facility] TROPONINon 11-11-2019 Troponin I.cardiac [Mass/Vol] No biomarker evidence of cardiac injury. [facility] Troponin I.cardiac [Mass/Vol] ng/mL <=45 ng/L [facility] Troponin I.cardiac [Mass/Vol] ng/mL <=45 ng/L [facility] Troponin I.cardiac [Mass/Vol] No biomarker evidence of cardiac injury. [facility] Troponin I.cardiac [Mass/Vol] Normal [facility] Troponin I.cardiac [Mass/Vol] ng/mL <=45 ng/L [facility] TSH with Reflex Free T4on TSH Qn 1.52 m[IU]/L [facility] XR Chest 1 Viewon 11-11-2019 Findings are concern ing for right lower lung zone pneumonia. [email or web address] Workstation ID: [id number] [facility] EXAMINATION: XR CHES T PA/AP 11/11/2019 12:37 PM HISTORY: ORDERING SYSTEM PROVIDED HISTORY: bradycardia, TECHNOLOGIST PROVIDED HISTORY: Illness/Other Reason for exam: bradycardia Cancer History: u Surgery, RadiationHistory: u Encounter Type: Initial Additional signs and symptoms: . ORDERING SYSTEM PROVIDED DIAGNOSIS CODES: I44.1 AV block, Mobitz 1 COMPARISON: None. FINDINGS: Portable AP upright chest radiograph. The cardiomediastinal contour is within normal limits. There are moderate upper zone predominant emphysematous changes. There are ill-defined reticulonodular opacities in the right lower lung zone. No pleural effusion. No pneumothorax. No gross abnormalities of the visualized osseous structures. [facility] Interface, Rad In Fu ji Speechq - 11/11/2019 4:20 PM EDT EXAMINATION: XR CHEST PA/AP 11/11/2019 12:37 PM HISTORY: ORDERING SYSTEM PROVIDED HISTORY: bradycardia, TECHNOLOGIST PROVIDED HISTORY: Illness/Other Reason for exam: bradycardia Cancer History: u Surgery, RadiationHistory: u Encounter Type: Initial Additional signs and symptoms: . ORDERING SYSTEM PROVIDED DIAGNOSIS CODES: I44.1 AV block, Mobitz 1 COMPARISON: None. FINDINGS: Portable AP upright chest radiograph. The cardiomediastinal contour is within normal limits. There are moderate upper zone predominant emphysematous changes. There are ill-defined reticulonodular opacities in the right lower lung zone. No pleural effusion. No pneumothorax. No gross abnormalities of the visualized osseous structures. IMPRESSION: Findings are concerning for right lower lung zone pneumonia. [employer] Workstation ID: [id number] [facility] SURGon 01-05-2018 SURG Name: CHRISTOPHER BAGLEY A. Skin, Left Medial Cheek, excision B. Skin, Central Chest Clinical History A. BCC and B. SCC ([place]) Diagnosis A. Basal cell carcinoma, nodular type. Deep and peripheral margins clear in the planes of examined sections. B. Invasive squamous cell carcinoma, moderately-differentiated. Deep margin extensively positive for carcinoma. Peripheral margin negative for carcinoma. Gross Description A. The specimen received in formalin is a monte fragment measuring 1.8 x 0.8 x 0.7 cm. There is a raised, monte lesion measuring 0.7 cm in the greatest dimension. A suture vargas the inferior tip which is further designated as 12 o'clock. The 12-6 o'clock edge is tagged with red ink and the 6-12 o'clock edge is tagged with blue ink. The deep margin is tagged with black ink. Serially sectioned and totally submitted in one block. B. The specimen received in formalin is a monte-brown fragment, already inked blue on the surface, measuring 1.4 x 1.2 x 0.4 cm. There is a raised, monte-brown lesion measuring 0.9 cm in the greatest dimension. Margins are inked black. Serially sectioned. Totally submitted in one cassette. LM/arj (ICT/arj) Electronically Signed By Cruz Hickman DO , Pathologist (Case signed 01/07/2018) Normal [facility] Vital Signs Date Time Vital Sign Value Performing Clinician Facility 09-01-2024 09:27-0400 Body height 177.8 cm Wendy Diop MD Work Phone: [place] [id number] 09:27-0400 Body mass index (BMI) [Ratio] 23.96 kg/m2 Wendy Diop MD Work Phone: [facility] 09-01-2024 09:27-0400 Body weight 75.75 kg Wendy Diop MD Work Phone: [facility] 09-01-2024 09:27-0400 Diastolic blood pressure 73 mm[Hg] Wendy Diop MD Work Phone: [facility] 09-01-2024 09:27-0400 Heart rate 63 /min Wendy Diop MD Work Phone: [facility] 09-01-2024 09:27-0400 SaO2% (BldA) [Mass fraction] 95 % Wendy Diop MD Work Phone: [facility] 09-01-2024 09:27-0400 Systolic blood pressure 130 mm[Hg] Wendy Diop MD Work Phone: [facility] 06-07-2024 09:46-0400 Body mass index (BMI) [Ratio] 24.17 kg/m2 Devin Mariscal MD Work Phone: [facility] 06-07-2024 09:46-0400 Body temperature 97.7 [degF] Devin Mariscal MD Work Phone: [facility] 06-07-2024 09:46-0400 Body weight 76.4 kg Devin Mariscal MD Work Phone: [facility] 06-07-2024 09:46-0400 Diastolic blood pressure 84 mm[Hg] Devin Mariscal MD Work Phone: [facility] 06-07-2024 09:46-0400 Heart rate 66 /min Devin Mariscal MD Work Phone: [facility] 06-07-2024 09:46-0400 SaO2% (BldA) [Mass fraction] 97 % Devin Mariscal MD Work Phone: [facility] 06-07-2024 09:46-0400 Systolic blood pressure 137 mm[Hg] Devin Mariscal MD Work Phone: [facility] 04-18-2024 08:55-0500 Diastolic blood pressure 80 mm[Hg] Rafi Stelzer DO Work Phone: [facility] 04-18-2024 08:55-0500 Heart rate 63 /min Rafi Stelzer DO Work Phone: [facility] 04-18-2024 08:55-0500 Systolic blood pressure 142 mm[Hg] Rafi Stelzer DO Work Phone: [facility] 04-18-2024 08:45-0500 Body height 177.8 cm Rafi Stelzer DO Work Phone: [facility] 04-18-2024 08:45-0500 Body mass index (BMI) [Ratio] 24.68 kg/m2 Rafi Stelzer DO Work Phone: [facility] 04-18-2024 08:45-0500 Body weight 78.02 kg Rafi Stelzer DO Work Phone: [facility] 04-18-2024 08:45-0500 SaO2% (BldA) [Mass fraction] 96 % Rafi Stelzer DO Work Phone: [facility] 12-17-2023 09:55-0400 Body mass index (BMI) [Ratio] 24.52 kg/m2 Devin Mariscal MD Work Phone: [facility] 12-17-2023 09:55-0400 Body temperature 98.1 [degF] Devin Mariscal MD Work Phone: [facility] 12-17-2023 09:55-0400 Body weight 77.5 kg Devin Mariscal MD Work Phone: [facility] 12-17-2023 09:55-0400 Diastolic blood pressure 73 mm[Hg] Devin Mariscal MD Work Phone: [facility] 12-17-2023 09:55-0400 Heart rate 66 /min Devin Mariscal MD Work Phone: [facility] 12-17-2023 09:55-0400 SaO2% (BldA) [Mass fraction] 98 % Devin Mariscal MD Work Phone: [facility] 12-17-2023 09:55-0400 Systolic blood pressure 138 mm[Hg] Devin Mariscal MD Work Phone: [facility] 12-11-2022 09:20-0400 Diastolic blood pressure 76 mm[Hg] Wendy Diop MD Work Phone: [facility] 12-11-2022 09:20-0400 Heart rate 59 /min Wendy Diop MD Work Phone: [facility] 12-11-2022 09:20-0400 SaO2% (BldA) [Mass fraction] 97 % Wendy Diop MD Work Phone: [facility] 12-11-2022 09:20-0400 Systolic blood pressure 138 mm[Hg] Wendy Diop MD Work Phone: [facility] 12-11-2022 09:09-0400 Body height 177.8 cm Wendy Diop MD Work Phone: [facility] 12-11-2022 09:09-0400 Body mass index (BMI) [Ratio] 25.25 kg/m2 Wendy Diop MD Work Phone: [facility] 12-11-2022 09:09-0400 Body weight 79.83 kg Wendy Diop MD Work Phone: [facility] 11-11-2022 09:24-0400 Body temperature 97.39 [degF] Devin Mariscal MD Work Phone: [facility] 11-11-2022 09:24-0400 Body weight 78.65 kg Devin Mariscal MD Work Phone: [facility] 11-11-2022 09:24-0400 Diastolic blood pressure 89 mm[Hg] Devin Mariscal MD Work Phone: [facility] 11-11-2022 09:24-0400 Heart rate 67 /min Devin Mariscal MD Work Phone: [facility] 11-11-2022 09:24-0400 SaO2% (BldA) [Mass fraction] 99 % Devin Mariscal MD Work Phone: [facility] 11-11-2022 09:24-0400 Systolic blood pressure 142 mm[Hg] Devin Mariscal MD Work Phone: [facility] 08-18-2022 08:14-0400 Body height 176.02 cm Shari Oneal LPN [facility] Work Phone: 08-18-2022 08:14-0400 Body mass index (BMI) [Ratio] 26.15 kg/m2 Shari Oneal LPN [facility]; [facility] Work Phone: 08-18-2022 08:14-0400 Body surface area Derived from formula 1.98 m2 Shari Oneal LPN [facility]; [facility] Work Phone: 08-18-2022 08:14-0400 Body temperature 98.1 [degF] Shari Oneal LPN [facility]; [facility] Work Phone: 08-18-2022 08:14-0400 Body weight 81.01 kg Shari Oneal LPN [facility]; [facility] Work Phone: 08-18-2022 08:14-0400 Diastolic blood pressure 62 mm[Hg] Shari Oneal LPN [facility]; [facility] Work Phone: Comment on above: Patient Position: Sitting; Cuff Location : Left Arm; Cuff Size: Standard 08-18-2022 08:14-0400 Heart rate 64 /min Shari Oneal LPN [facility]; [facility] Work Phone: Comment on above: Pattern: Regular 08-18-2022 08:14-0400 Respiratory rate 16 /min Shari Oneal LPN [facility]; [facility] Work Phone: Comment on above: Pattern: Unlabored 08-18-2022 08:14-0400 SaO2% (BldA) [Mass fraction] 96 % Shari Oneal LPN [facility]; [facility] Work Phone: Comment on above: Room air 08-18-2022 08:14-0400 Systolic blood pressure 130 mm[Hg] Shari Oneal BRAVO [facility]; [facility] Work Phone: Comment on above: Patient Position: Sitting; Cuff Location : Left Arm; Cuff Size: Standard 05-14-2022 08:48-0500 Body temperature 97.59 [degF] Devin Mariscal MD Work Phone: [facility] 05-14-2022 08:48-0500 Body weight 78.34 kg Devin Mariscal MD Work Phone: [facility] 05-14-2022 08:48-0500 Diastolic blood pressure 68 mm[Hg] Devin Mariscal MD Work Phone: [facility] 05-14-2022 08:48-0500 Heart rate 67 /min Devin Mariscal MD Work Phone: [facility] 05-14-2022 08:48-0500 SaO2% (BldA) [Mass fraction] 97 % Devin Mariscal MD Work Phone: [facility] 05-14-2022 08:48-0500 Systolic blood pressure 127 mm[Hg] Devin Mariscal MD Work Phone: [facility] 02-02-2022 10:02-0500 Body temperature 97.81 [degF] Devin Mariscal MD Work Phone: [facility] 02-02-2022 10:02-0500 Body weight 76.97 kg Devin Mariscal MD Work Phone: [facility] 02-02-2022 10:02-0500 Diastolic blood pressure 68 mm[Hg] Devin Mariscal MD Work Phone: [facility] 02-02-2022 10:02-0500 Heart rate 65 /min Devin Mariscal MD Work Phone: [facility] 02-02-2022 10:02-0500 SaO2% (BldA) [Mass fraction] 98 % Devin Mariscal MD Work Phone: [facility] 02-02-2022 10:02-0500 Systolic blood pressure 143 mm[Hg] Devin Mariscal MD Work Phone: [facility] 01-26-2022 09:46-0400 Body temperature 97.59 [degF] Devin Mariscal MD Work Phone: [facility] 01-26-2022 09:46-0400 Body weight 78.43 kg Devin Mariscal MD Work Phone: [facility] 01-26-2022 09:46-0400 Diastolic blood pressure 76 mm[Hg] Devin Mariscal MD Work Phone: [facility] 01-26-2022 09:46-0400 Heart rate 68 /min Devin Mariscal MD Work Phone: [facility] 01-26-2022 09:46-0400 SaO2% (BldA) [Mass fraction] 98 % Devin Mariscal MD Work Phone: [facility] 01-26-2022 09:46-0400 Systolic blood pressure 148 mm[Hg] Devin Mariscal MD Work Phone: [facility] 01-19-2022 10:13-0400 Body temperature 97.7 [degF] Devin Mariscal MD Work Phone: [facility] 01-19-2022 10:13-0400 Body weight 77.56 kg Devin Mariscal MD Work Phone: [facility] 01-19-2022 10:13-0400 Diastolic blood pressure 73 mm[Hg] Devin Mariscal MD Work Phone: [facility] 01-19-2022 10:13-0400 Heart rate 67 /min Devin Mariscal MD Work Phone: [facility] 01-19-2022 10:13-0400 Respiratory rate 16 /min Devin Mariscal MD Work Phone: [facility] 01-19-2022 10:13-0400 SaO2% (BldA) [Mass fraction] 98 % Devin Mariscal MD Work Phone: [facility] 01-19-2022 10:13-0400 Systolic blood pressure 132 mm[Hg] Devin Mariscal MD Work Phone: [facility] 01-12-2022 09:52-0400 Body temperature 97.9 [degF] Devin Mariscal MD Work Phone: [facility] 01-12-2022 09:52-0400 Body weight 79.11 kg Devin Mariscal MD Work Phone: [facility] 01-12-2022 09:52-0400 Diastolic blood pressure 74 mm[Hg] Devin Mariscal MD Work Phone: [facility] 01-12-2022 09:52-0400 Heart rate 70 /min Devin Mariscal MD Work Phone: [facility] 01-12-2022 09:52-0400 SaO2% (BldA) [Mass fraction] 97 % Devin Mariscal MD Work Phone: [facility] 01-12-2022 09:52-0400 Systolic blood pressure 154 mm[Hg] Devin Mariscal MD Work Phone: [facility] 01-05-2022 09:51-0400 Body temperature 97.59 [degF] Devin Mariscal MD Work Phone: [facility] 01-05-2022 09:51-0400 Body weight 79.88 kg Devin Mariscal MD Work Phone: [facility] 01-05-2022 09:51-0400 Diastolic blood pressure 77 mm[Hg] Devin Mariscal MD Work Phone: [facility] 01-05-2022 09:51-0400 Heart rate 65 /min Devin Mariscal MD Work Phone: [facility] 01-05-2022 09:51-0400 Respiratory rate 16 /min Devin Mariscal MD Work Phone: [facility] 01-05-2022 09:51-0400 SaO2% (BldA) [Mass fraction] 96 % Devin Mariscal MD Work Phone: [facility] 01-05-2022 09:51-0400 Systolic blood pressure 165 mm[Hg] Devin Mariscal MD Work Phone: [facility] 12-29-2021 13:41-0400 Body temperature 97.7 [degF] Devin Mariscal MD Work Phone: [facility] 12-29-2021 13:41-0400 Body weight 78.61 kg Devin Mariscal MD Work Phone: [facility] 12-29-2021 13:41-0400 Diastolic blood pressure 74 mm[Hg] Devin Mariscal MD Work Phone: [facility] 12-29-2021 13:41-0400 Heart rate 64 /min Devin Mariscal MD Work Phone: [facility] 12-29-2021 13:41-0400 SaO2% (BldA) [Mass fraction] 98 % Devin Mariscal MD Work Phone: [facility] 12-29-2021 13:41-0400 Systolic blood pressure 152 mm[Hg] Devin Mariscal MD Work Phone: [facility] 12-19-2021 07:34-0400 Body height 176.02 cm Wilder Fitzgerald LPN [facility]; [facility] Work Phone: 12-19-2021 07:34-0400 Body mass index (BMI) [Ratio] 25.12 kg/m2 Wilder Fitzgerald LPN [facility]; [facility] Work Phone: 12-19-2021 07:34-0400 Body surface area Derived from formula 1.94 m2 Wilder Fitzgerald LPN [facility]; [facility] Work Phone: 12-19-2021 07:34-0400 Body temperature 96.9 [degF] Wilder Fitzgerald LPN [facility]; [facility] Work Phone: Comment on above: Method: Infrared 12-19-2021 07:34-0400 Body weight 77.84 kg Wilder Fitzgerald LPN [facility]; [facility] Work Phone: 12-19-2021 07:34-0400 Diastolic blood pressure 78 mm[Hg] Wilder Fitzgerald LPN [facility]; [facility] Work Phone: Comment on above: Patient Position: Sitting; Cuff Location : Left Arm; Cuff Size: Standard 12-19-2021 07:34-0400 Heart rate 61 /min Wilder Fitzgerald LPN [facility]; [facility] Work Phone: Comment on above: Pattern: Regular 12-19-2021 07:34-0400 Respiratory rate 17 /min Wilder Fitzgerald LPN [facility]; [facility] Work Phone: Comment on above: Pattern: Unlabored 12-19-2021 07:34-0400 SaO2% (BldA) [Mass fraction] 97 % Wilder Fitzgerald LPN [facility]; [facility] Work Phone: Comment on above: Room air 12-19-2021 07:34-0400 Systolic blood pressure 118 mm[Hg] Wilder Fitzgerald LPN [facility]; [facility] Work Phone: Comment on above: Patient Position: Sitting; Cuff Location : Left Arm; Cuff Size: Standard 10-14-2021 16:37-0400 Diastolic blood pressure 71 mm[Hg] Mri (I-Stat/1.5t/3t) Work Phone: [facility] 10-14-2021 16:37-0400 Heart rate 64 /min Mri (I-Stat/1.5t/3t) Work Phone: [facility] 10-14-2021 16:37-0400 SaO2% (BldA) [Mass fraction] 96 % Mri (I-Stat/1.5t/3t) Work Phone: [facility] 10-14-2021 16:37-0400 Systolic blood pressure 147 mm[Hg] Mri (I-Stat/1.5t/3t) Work Phone: [facility] 10-14-2021 15:30-0400 Respiratory rate 18 /min Mri (I-Stat/1.5t/3t) Work Phone: [facility] 09-10-2021 10:04-0400 Body height 177.8 cm Devin Mariscal MD Work Phone: [facility] 09-10-2021 10:04-0400 Body temperature 98.2 [degF] Devin Mariscal MD Work Phone: [facility] 09-10-2021 10:04-0400 Body weight 75.12 kg Devin Mariscal MD Work Phone: [facility] 09-10-2021 10:04-0400 Diastolic blood pressure 77 mm[Hg] Devin Mariscal MD Work Phone: [facility] 09-10-2021 10:04-0400 Heart rate 61 /min Devin Mariscal MD Work Phone: [facility] 09-10-2021 10:04-0400 SaO2% (BldA) [Mass fraction] 95 % Devin Mariscal MD Work Phone: [facility] 09-10-2021 10:04-0400 Systolic blood pressure 136 mm[Hg] Devin Mariscal MD Work Phone: [facility] 07-29-2021 07:09-0400 Body height 176.02 cm GRANT Blackmon LPN [facility]; [facility] Work Phone: 07-29-2021 07:09-0400 Body mass index (BMI) [Ratio] 23.77 kg/m2 GRANT Blackmon LPN [facility]; [facility] Work Phone: 07-29-2021 07:09-0400 Body surface area Derived from formula 1.9 m2 GRANT Blackmon LPN [facility]; [facility] Work Phone: 07-29-2021 07:09-0400 Body temperature 97.9 [degF] GRANT Blackmon LPN [facility]; [facility] Work Phone: Comment on above: Method: Temporal 07-29-2021 07:09-0400 Body weight 73.66 kg GRANT Blackmon BRAVO [facility]; [facility] Work Phone: 07-29-2021 07:09-0400 Diastolic blood pressure 70 mm[Hg] GRANT Blackmon BRAVO [facility]; [facility] Work Phone: Comment on above: Patient Position: Sitting; Cuff Location : Left Arm; Cuff Size: Standard 07-29-2021 07:09-0400 Heart rate 69 /min GRANT Blackmon BRAVO [facility]; [facility] Work Phone: Comment on above: Pattern: Regular 07-29-2021 07:09-0400 Respiratory rate 18 /min GRANT Blackmon BRAVO [facility]; [facility] Work Phone: Comment on above: Pattern: Unlabored 07-29-2021 07:09-0400 SaO2% (BldA) [Mass fraction] 97 % GRANT Blackmon BRAVO [facility]; [facility] Work Phone: Comment on above: Room air 07-29-2021 07:09-0400 Systolic blood pressure 114 mm[Hg] GRANT Blackmon BRAVO [facility]; [facility] Work Phone: Comment on above: Patient Position: Sitting; Cuff Location : Left Arm; Cuff Size: Standard 06-02-2021 11:42-0500 Body height 175.9 cm GRANT Blackmon BRAVO [facility]; [facility] Work Phone: 06-02-2021 11:42-0500 Body mass index (BMI) [Ratio] 23.9 kg/m2 GRANT Blackmon BRAVO [facility]; [facility] Work Phone: 06-02-2021 11:42-0500 Body surface area Derived from formula 1.9 m2 GRANTWILLEM Blackmon LPN [facility]; [facility] Work Phone: 06-02-2021 11:42-0500 Body temperature 97.9 [degF] GRANT Blackmon BRAVO [facility]; [facility] Work Phone: Comment on above: Method: Temporal 06-02-2021 11:42-0500 Body weight 73.94 kg GRANT Blackmon LPN [facility]; [facility] Work Phone: 06-02-2021 11:42-0500 Diastolic blood pressure 70 mm[Hg] GRANT Blackmon LPN [facility]; [facility] Work Phone: Comment on above: Patient Position: Sitting; Cuff Location : Left Arm; Cuff Size: Standard 06-02-2021 11:42-0500 Heart rate 74 /min GRANT Blackmon LPN [facility]; [facility] Work Phone: Comment on above: Pattern: Regular 06-02-2021 11:42-0500 Respiratory rate 20 /min GRANT Blackmon LPN [facility]; [facility] Work Phone: Comment on above: Pattern: Unlabored 06-02-2021 11:42-0500 SaO2% (BldA) [Mass fraction] 98 % GRANT Blackmon LPN [facility]; [facility] Work Phone: Comment on above: Room air 06-02-2021 11:42-0500 Systolic blood pressure 114 mm[Hg] GRANTWILLEM Blackmon LPN [facility]; [facility] Work Phone: Comment on above: Patient Position: Sitting; Cuff Location : Left Arm; Cuff Size: Standard 12-25-2020 10:29-0400 Body height 177.8 cm [facility] Work Phone: [facility] 12-25-2020 10:29-0400 Body mass index (BMI) [Ratio] 23.57 kg/m2 [facility] Work Phone: [facility] 12-25-2020 10:29-0400 Body weight 74.53 kg [facility] Work Phone: [facility] 12-25-2020 10:29-0400 Diastolic blood pressure 84 mm[Hg] [facility] Work Phone: [facility] 12-25-2020 10:29-0400 Heart rate 71 /min [facility] Work Phone: [facility] 12-25-2020 10:29-0400 SaO2% (BldA) [Mass fraction] 95 % Kierra Hernandez [employer] Work Phone: [facility] 12-25-2020 10:29-0400 Systolic blood pressure 155 mm[Hg] Kierra Hernandez CNP Work Phone: [facility] 08-27-2020 15:06-0400 Body temperature 97 [degF] Martha Banks MD Work Phone: [facility] 08-27-2020 15:06-0400 Body weight 72.67 kg Martha Banks MD Work Phone: [facility] 08-27-2020 15:06-0400 Diastolic blood pressure 81 mm[Hg] Martha Banks MD Work Phone: [facility] 08-27-2020 15:06-0400 Heart rate 63 /min Martha Banks MD Work Phone: [facility] 08-27-2020 15:06-0400 SaO2% (BldA) [Mass fraction] 97 % Martha Banks MD Work Phone: [facility] 08-27-2020 15:06-0400 Systolic blood pressure 147 mm[Hg] Martha Banks MD Work Phone: [facility] 11-24-2019 08:00-0400 Respiratory Rate 16 /min [facility] 11-24-2019 05:00-0400 Body Temperature 97.59 [degF] [facility] 11-24-2019 05:00-0400 BP Diastolic 66 mm[Hg] [facility] Damiont[facility] 11-24-2019 05:00-0400 BP Systolic 108 mm[Hg] [facility] 11-24-2019 05:00-0400 Pulse (Heart Rate) 60 /min [facility] 11-24-2019 05:00-0400 Pulse Oximetry 96 % [facility] 11-23-2019 06:35-0400 BMI (Body Mass Index) 20.37 kg/m2 [facility] 11-23-2019 06:35-0400 Body weight 64.41 kg [facility] 11-23-2019 06:35-0400 Height 177.8 cm [facility] 11-13-2019 11:52-0400 Body Temperature 98.49 [degF] [facility] 11-13-2019 11:52-0400 Pulse Oximetry 96 % [facility] 11-13-2019 11:52-0400 Respiratory Rate 14 /min [facility] 11-13-2019 07:59-0400 BP Diastolic 72 mm[Hg] [facility] 11-13-2019 07:59-0400 BP Systolic 117 mm[Hg] [facility] 11-13-2019 07:59-0400 Pulse (Heart Rate) 65 /min [facility] 11-12-2019 23:55-0400 BMI (Body Mass Index) 20.21 kg/m2 [facility] 11-12-2019 23:55-0400 Body weight 64.8 kg [facility] 11-11-2019 18:46-0400 Height 179.1 cm [facility] 11-10-2019 13:04-0400 Body Temperature 97.7 [degF] [facility] 11-10-2019 13:04-0400 Body weight 67.59 kg [facility] 11-10-2019 13:04-0400 BP Diastolic 64 mm[Hg] [facility] 11-10-2019 13:04-0400 BP Systolic 142 mm[Hg] [facility] 11-10-2019 13:04-0400 Pulse (Heart Rate) 47 /min [facility] 11-10-2019 13:04-0400 Pulse Oximetry 96 % [facility] 11-10-2019 13:04-0400 Respiratory Rate 16 /min [facility] 11-07-2019 08:43-0400 Body Temperature 98.4 [degF] [facility] 11-07-2019 08:43-0400 Body weight 67.86 kg [facility] 11-07-2019 08:43-0400 BP Diastolic 80 mm[Hg] Martha [facility] 11-07-2019 08:43-0400 BP Systolic 136 mm[Hg] Martha [facility] 11-07-2019 08:43-0400 Pulse (Heart Rate) 69 /min Martha [facility] [employer] [facility] 06-06-2019 14:40-0400 Body Temperature 97.39 [degF] [facility] 06-06-2019 14:40-0400 Body weight 75.3 kg [facility] 06-06-2019 14:40-0400 BP Diastolic 78 mm[Hg] [facility] 06-06-2019 14:40-0400 BP Systolic 141 mm[Hg] [facility] 06-06-2019 14:40-0400 Pulse (Heart Rate) 76 /min [facility] 06-06-2019 14:40-0400 Pulse Oximetry 96 % [facility] 06-06-2019 14:40-0400 Respiratory Rate 16 /min [facility] Encounters Encounter Date Encounter Type Care Provider Facility Start: 09-04-2024 ambulatory SOURAV HORTON [facility] Ambulatory Start: 09-01-2024 End: 09-01-2024 ambulatory WENDY DIOP [facility] Ambulato ry Start: 09-01-2024 End: 09-01-2024 Office outpatient visit 25 minutes Wendy Diop MD Work Phone: [facility] Comment on above: History of cardiac p acemaker in situ (Primary Dx); Dyslipidemia Start: 07-07-2024 End: 07-07-2024 ambulatory STUART DURAND Facility:[facility] Start: 07-07-2024 End: 07-07-2024 Patient encounter procedure Ivanna Garduno MD Work Phone: Ophthalmology Comment on above: History of retinal d etachment; Lattice degeneration of retina, left eye; Combined forms of age-related cataract of left eye; Pseudophakia of right eye Start: 06-20-2024 End: 06-20-2024 Cardiac Device Check Wendy Diop MD Work Phone: [facility] Start: 06-20-2024 End: 06-20-2024 Cardiac Device Check Wendy Diop MD Work Phone: [facility] Start: 06-07-2024 End: 06-07-2024 ambulatory [facility] Facility:[facility] Start: 06-07-2024 End: 06-07-2024 Patient encounter procedure Devin Mariscal MD Work Phone: Radiation Oncology Comment on above: Malignant neoplasm o f prostate (HCC) (Primary Dx) Start: 05-31-2024 End: 05-31-2024 ambulatory DEVIN MARISCAL Facility:[facility] Start: 04-18-2024 End: 04-18-2024 Office outpatient new 45 minutes Wendy Diop MD Work Phone: [facility] Comment on above: History of cardiac p acemaker in situ; Bradycardia; Sick sinus syndrome (HCC) Start: 04-18-2024 End: 04-18-2024 ambulatory RAFI ROLLINS [facility] Ambulatory Start: 04-14-2024 End: 04-14-2024 Orders Only Rafi Rollins DO Work Phone: [facility] Comment on above: History of cardiac p acemaker in situ (Primary Dx); Bradycardia Start: 03-20-2024 End: [facility] Start: 03-08-2024 End: 03-08-2024 Orders Only Bren Rutherford RN [facility] Comment on above: Sick sinus syndrome (HCC) (Primary Dx); History of cardiac pacemaker in situ Start: 02-04-2024 End: 02-04-2024 ambulatory IVANNA GARDUNO V Facility:[facility] Start: 02-04-2024 End: 02-04-2024 Patient encounter procedure Ivanna Garduno MD Work Phone: Ophthalmology Comment on above: History of retinal d etachment (Primary Dx); Vitreous hemorrhage of left eye (HCC); Lattice degeneration of retina, left eye; Horseshoe retinal tear of left eye; Combined forms of age-related cataract of left eye; Pseudophakia of right eye Start: 12-21-2023 End: 12-21-2023 Cardiac Device Check Wendy Diop MD Work Phone: [facility] Start: 12-21-2023 End: 12-21-2023 Cardiac Device Check Wendy Diop MD Work Phone: [facility] Start: 12-17-2023 End: 12-17-2023 Patient encounter procedure Devin Mariscal MD Work Phone: Radiation Oncology Comment on above: Malignant neoplasm o f prostate (HCC) (Primary Dx) Start: 12-17-2023 End: 12-17-2023 ambulatory [facility] Facility:[facility] Start: 11-25-2023 End: 11-25-2023 Telephone encounter Radha Rosen MD Work Phone: Ophthalmology Comment on above: Message for patient Start: 11-25-2023 End: 11-[facility] Start: 11-23-2023 End: 11-23-2023 ambulatory IVANNA GARDUNO V Facility:[facility] Start: 11-23-2023 End: 11-23-2023 Patient encounter procedure Radha Rosen MD Work Phone: Ophthalmology Comment on above: Combined forms of ag e-related cataract of left eye (Primary Dx); 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 eyes; Dry eye syndrome of bilateral lacrimal glands Start: 11-05-2023 End: 11-05-2023 ambulatory SELF Facility:[facility] Start: 11-05-2023 End: 11-05-2023 Patient encounter procedure Ivanna Garduno MD Work Phone: Ophthalmology Comment on above: History of retinal d etachment; Vitreous hemorrhage of left eye (HCC); Lattice degeneration of retina, left eye; Horseshoe retinal tear of left eye Start: 09-22-2023 End: 09-22-2023 ambulatory IVANNA GARDUNO V Facility:[facility] Start: 09-22-2023 End: 09-22-2023 Patient encounter procedure Ivanna Garduno MD Work Phone: Ophthalmology Comment on above: Vitreous hemorrhage of left eye (HCC) (Primary Dx); History of retinal detachment; Lattice degeneration of retina, left eye; Horseshoe retinal tear of left eye Start: 09-21-2023 Orders Only Arianna Crowe art Research Coordinator Ophthalmology Comment on above: Vitreous hemorrhage of left eye (HCC) (Primary Dx); Lattice degeneration of retina, left eye; Horseshoe retinal tear of left eye Start: 09-20-2023 End: 09-21-2023 [facility] Start: 09-14-2023 End: 09-14-2023 Office outpatient visit 15 minutes Jennifer Fuentes MD Work Phone: Ophthalmology Comment on above: Vitreous hemorrhage of left eye (HCC) (Primary Dx); History of retinal detachment; Lattice degeneration of retina, left eye; Horseshoe retinal tear of left eye Start: 09-14-2023 End: 09-14-2023 ambulatory STUART DURAND Facility:[facility] Start: 09-14-2023 End: 09-14-2023 Patient encounter procedure Harrison Mason OD Work Phone: Ophthalmology Comment on above: Posterior vitreous d etachment of left eye (Primary Dx); History of retinal detachment; Horseshoe retinal tear of left eye; Retinal hole, left; Lattice degeneration of retina, bilateral; Pseudophakia of right eye; Combined forms of age-related cataract of left eye Start: 06-14-2023 End: 06-15-2023 ambulatory [facility] Start: 05-12-2023 Telephone encounter Devin Mariscal MD Work Phone: Radiation Oncology Start: 03-08-2023 End: 03-09-2023 ambulatory [facility] Start: 12-29-2022 End: 12-29-2022 Historical Summary Stuart Durand MD Work Phone: [facility] Start: 12-11-2022 Documentation procedure Latanya vazquez RN [facility] Start: 12-11-2022 End: 12-11-2022 Office outpatient visit 25 minutes Wendy Diop MD Work Phone: [facility] Comment on above: Sick sinus syndrome (HCC) (Primary Dx); History of cardiac pacemaker in situ Start: 12-11-2022 End: 12-11-2022 ambulatory [facility] Start: 11-27-2022 End: 11-27-2022 ambulatory [facility] Start: 11-11-2022 End: 11-11-2022 Patient encounter procedure Devin Mariscal MD Work Phone: Radiation Oncology Comment on above: Malignant neoplasm o f prostate (HCC) (Primary Dx) Start: 08-18-2022 End: 08-18-2022 Patient encounter procedure Stuart Durand MD Work Phone: [facility] Start: 08-18-2022 End: 08-18-2022 Patient encounter status Stuart Durand MD Work Phone: [facility]; [facility] Work Phone: Comment on above: 08-18-22 [facility]: PSA , colonscopy 08-17 Dr Irvin MAC , cognivue sees dentist see eye doctor at [facility] [place] Start: 07-31-2022 End: 07-31-2022 Lab Order Stuart Durand MD Work Phone: [facility] Start: 07-28-2022 Telephone encounter Devin Mariscal MD Work Phone: Radiation Oncology Comment on above: Results Start: 07-27-2022 End: 07-27-2022 Subsequent hospital visit by physician Radio Pet [facility] Work Phone: Radiology Pet CT Comment on above: Lung nodules [R91.8] Start: 05-18-2022 ambulatory Stuart Durand MD [facility] Internal Med Start: 05-14-2022 End: 05-14-2022 Patient encounter procedure Devin Mariscal MD Work Phone: Radiation Oncology Comment on above: Malignant neoplasm o f prostate (HCC) (Primary Dx) Start: 03-04-2022 Telephone encounter Devin Mariscal MD Work Phone: Radiation Oncology Comment on above: Recheck Start: 02-06-2022 Patient encounter procedure Devin Mariscal MD Work Phone: [facility] Start: 02-06-2022 Radiation Oncology Note Devin Mariscal MD Work Phone: Radiation Oncology Comment on above: Completion Note Start: 02-02-2022 End: 02-02-2022 Patient encounter procedure Devin Mariscal MD Work Phone: Radiation Oncology Comment on above: Malignant neoplasm o f prostate (HCC) (Primary Dx) Start: 01-26-2022 End: 01-26-2022 Patient encounter procedure Devin Mariscal MD Work Phone: Radiation Oncology Comment on above: Malignant neoplasm o f prostate (HCC) (Primary Dx); Lung nodules Start: 01-20-2022 End: 01-20-2022 Subsequent hospital visit by physician Radio [facility] Work Phone: Radiology Pet CT Comment on above: Opacities of both linda ngs present on chest x-ray [R91.8] Start: 01-19-2022 End: 01-19-2022 Patient encounter procedure Devin Mariscal MD Work Phone: Radiation Oncology Comment on above: Malignant neoplasm o f prostate (HCC) (Primary Dx) Start: 01-12-2022 End: 01-12-2022 Patient encounter procedure Devin Mariscal MD Work Phone: Radiation Oncology Comment on above: Malignant neoplasm o f prostate (HCC) (Primary Dx) Start: 01-05-2022 End: 01-05-2022 Patient encounter procedure Devin Mariscal MD Work Phone: Radiation Oncology Comment on above: Opacities of both linda ngs present on chest x-ray (Primary Dx); Malignant neoplasm of prostate (HCC) Start: 12-29-2021 End: 12-29-2021 Patient encounter procedure Devin Mariscal MD Work Phone: Radiation Oncology Comment on above: Malignant neoplasm o f prostate (HCC) (Primary Dx) Start: 12-22-2021 End: 02-09-2022 Phone Encounter Stuart Durand MD Work Phone: [facility] Start: 12-22-2021 Review Stuart Melton Work Phone: [facility] Start: 12-19-2021 End: 12-19-2021 Office outpatient visit 25 minutes Stuart Durand MD Work Phone: [facility] Start: 12-17-2021 Patient encounter procedure Devin Mariscal MD Work Phone: [facility] Start: 12-17-2021 Radiation Oncology Note Devin Mariscal MD Work Phone: Radiation Oncology Comment on above: Simulation Note Treatment Planning Start: 12-17-2021 Telephone encounter Devin Mariscal MD Work Phone: Radiation Oncology Comment on above: Orders (Labs needed ) Start: 12-17-2021 End: 12-17-2021 Subsequent hospital visit by physician Devin Mariscal MD Work Phone: Radiology Pet CT Start: 12-03-2021 ambulatory Chi Cool [facility] lity:[facility] Start: 11-04-2021 Telephone encounter Devin Mariscal MD Work Phone: Radiation Oncology Comment on above: Patient Update Start: 10-30-2021 Telephone encounter Devin Mariscal MD Work Phone: Radiation Oncology Comment on above: Consult (spoke with Dr Cool's office. Patient is scheduled for Spacer OAR -Prisca 11/19/21) Start: 10-17-2021 ambulatory Denisse Vegas [facility] Hemato logy/Oncology Comment on above: Medication Authoriza tion (Orgovyx Prior Auth) Start: 10-16-2021 Orders Only Devin Mariscal MD Work Phone: Radiation Oncology Comment on above: Malignant neoplasm o f prostate (HCC) (Primary Dx) Start: 10-14-2021 End: 10-14-2021 Subsequent hospital visit by physician Mri 2 Radio Main Q (I-Stat/1.5t/3t) Work Phone: MRI Q Comment on above: Malignant neoplasm o f prostate (HCC) [C61] Start: 10-14-2021 Follow-up encounter Justus rehman MD Work Phone: [facility] Start: 10-14-2021 Patient encounter procedure Justus Jewell MD Work Phone: [facility] Department Start: 09-25-2021 End: 09-25-2021 Office outpatient visit 25 minutes Stuart Durand MD Work Phone: [facility] Start: 09-16-2021 End: 09-16-2021 Subsequent hospital visit by physician Arrival Time Radiology Work Phone: Radiology Pet CT Comment on above: Malignant neoplasm o f prostate (HCC) [C61] Start: 09-11-2021 Orders Only Devin Mariscal MD Work Phone: Radiation Oncology Comment on above: Malignant neoplasm o f prostate (HCC) (Primary Dx) Start: 09-10-2021 Telephone encounter Devin Mariscal MD Work Phone: Radiation Oncology Comment on above: Future Appointment ( called to schedule MRI prosate at [facility]. patient has a pace maker so a message was sent to the team and they will review his information and call patient to set up appt) Start: 09-10-2021 End: 09-10-2021 Nursing evaluation of patient and report Nurse Fantasma Galloway Work Phone: Radiation Oncology Comment on above: Malignant neoplasm o f prostate (HCC) Start: 09-10-2021 End: 09-10-2021 Patient encounter procedure Devin Mariscal MD Work Phone: Radiation Oncology Comment on above: Malignant neoplasm o f prostate (HCC) (Primary Dx) Start: 09-01-2021 End: 09-01-2021 Phone Encounter Stuart Durand MD Work Phone: [facility] Start: 08-18-2021 End: 08-18-2021 Office outpatient visit 15 minutes Stuart Durand MD Work Phone: [facility] Start: 08-12-2021 End: 08-12-2021 Office outpatient visit 25 minutes Stuart Durand MD Work Phone: [facility] Start: 08-05-2021 End: 08-05-2021 ambulatory Stuart Durand Facility:[facility] Start: 07-29-2021 End: 07-29-2021 Office outpatient visit 5 minutes Stuart Durand MD Work Phone: [facility] Start: 07-29-2021 End: 07-29-2021 Patient encounter status Stuart Durand MD Work Phone: [facility] Start: 07-04-2021 End: 07-04-2021 Lab Order Stuart Durand MD Work Phone: [facility] Start: 06-10-2021 End: 06-12-2021 Phone Encounter Stuart Durand MD Work Phone: [facility] Start: 06-02-2021 End: 06-02-2021 Office outpatient visit 15 minutes Stuart Durand MD Work Phone: [facility] Start: 06-02-2021 End: 06-02-2021 Patient encounter status Stuart Durand MD Work Phone: [facility]; [facility] Work Phone: Comment on above: sees dentist see eye doctor at [facility] [place] needs colonscopy needs prostate rechecked Start: 12-25-2020 Documentation procedure Davida cheema RN [facility] Start: 12-25-2020 End: 12-25-2020 Office outpatient visit 25 minutes Kierra Hernandez CNP Work Phone: [facility] Comment on above: Sick sinus syndrome (HCC) (Primary Dx); History of cardiac pacemaker in situ Start: 12-16-2020 Orders Only Stephanie Guthrie RN [facility] Comment on above: Sick sinus syndrome (HCC) (Primary Dx) Start: 08-27-2020 End: 08-27-2020 Office outpatient visit 15 minutes Martha Banks MD Work Phone: [facility] Internal Medicine [place] Comment on above: Essential hypertensi on (Primary Dx); Hyperlipidemia, unspecified hyperlipidemia type Start: 06-18-2020 End: 06-18-2020 Office outpatient visit 15 minutes Stuart Durand [facility] Internal Medicine Start: 05-16-2020 End: 05-16-2020 Orders Only Crys Gay Work Phone: [facility] Start: 02-27-2020 End: 02-27-2020 Subsequent hospital visit by physician Zeke Cruz Work Phone: [facility] Comment on above: Arrived Start: 12-01-2019 End: 12-01-2019 Subsequent hospital visit by physician Zeke Cruz Work Phone: [facility] Start: 11-30-2019 End: 11-30-2019 Clinical Support Dyllan Curry [facility] Comment on above: Arrived Start: 11-23-2019 End: 11-24-2019 Subsequent hospital visit by physician Zeke Cruz Work Phone: [facility] Cardiovascular ICU Start: 11-20-2019 End: 11-20-2019 Patient encounter procedure ZEKE CRUZ [facility] Start: 11-14-2019 End: 11-14-2019 Subsequent hospital visit by physician Zeke Cruz Work Phone: [facility] Comment on above: Bradycardia Start: 11-11-2019 End: 11-13-2019 Evaluation and management of inpatient Aris Martinez Work Phone: [facility] Cardiovascular ICU Comment on above: 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) Start: 11-10-2019 End: 11-10-2019 Subsequent hospital visit by physician Martha Banks Work Phone: [facility] Comment on above: Arrived Start: 11-10-2019 End: 11-10-2019 Office outpatient visit 40 minutes Denisse Patterson Work Phone: [facility] Comment on above: Heart block (Primary Dx); Bradycardia on ECG Start: 11-07-2019 End: 11-07-2019 Office outpatient visit 15 minutes Martha Banks Work Phone: [facility] Comment on above: Essential hypertensi on (Primary Dx); Hyperlipidemia, unspecified hyperlipidemia type; Weight loss; Benign prostatic hyperplasia without lower urinary tract symptoms Start: 06-06-2019 End: 06-06-2019 Office outpatient new 30 minutes Denisse Patterson Work Phone: [facility] Comment on above: CPAP (continuous pos itive airway pressure) dependence (Primary Dx) Start: 01-05-2018 Patient encounter Zuhair English Fac ility:[place] Start: 01-05-2018 End: 01-05-2018 Patient encounter Zuhair Adam English Work Phone: [facility] Start: 12-04-2016 End: 12-04-2016 Patient encounter procedure Zuhairrosa maria English Work Phone: [facility] Patient encounter status Stuart Durand MD Work Phone: [facility]; [facility] Work Phone: Comment on above: 07-29-21 [facility]: PSA 4- 12 Beverley, MOCA 26/30, cognivue 84sees dentist see eye doctor at [facility] [place] needs colonscopy needs prostate rechecked Patient encounter status Wilder Fitzgerald LPN [facility]; [facility] Work Phone: Comment on above: 07-29-21 [facility]: PSA 4- 12 Beverley, MOCA 26/30, cognivue 84sees dentist see eye doctor at [facility] [place] needs colonscopy needs prostate rechecked Procedures Date Procedure Procedure Detail Performing Clinician Start: 09-01-2024 Follow-up visit Follow-up WENDY DIOP Start: 07-07-2024 Computerized ophthalmic imaging retina Ivanna Garduno MD Work Phone: Start: 06-20-2024 CARDIAC REMOTE DEVICE CHECK Wendy Diop MD Work Phone: Start: 04-19-2024 Ecg routine ecg w/least 12 lds w/i&r Rafi Marcus Rollins DO Work Phone: Start: 02-04-2024 Computerized ophthalmic imaging retina Ivanna Garduno MD Work Phone: Start: 12-21-2023 CARDIAC REMOTE DEVICE CHECK Wendy Diop MD Work Phone: Start: 11-23-2023 End: 11-23-2023 Computerized ophthalmic imaging retina Radha Rosen MD Work Phone: Start: 11-05-2023 Computerized ophthalmic imaging retina Ivanna Garduno MD Work Phone: Start: 09-22-2023 Proph rta dtchmnt w/o drg 1/> sess Ivanna Garduno MD Work Phone: Start: 09-22-2023 End: 09-22-2023 Computerized ophthalmic imaging retina Ivanna Garduno MD Work Phone: Start: 09-14-2023 Proph rta dtchmnt w/o drg 1/> sess Jennifer Fuentes MD Work Phone: Start: 09-14-2023 Computerized ophthalmic imaging retina Jennifer Fuentes MD Work Phone: Start: 07-27-2022 Ct thorax w/o contrast material Devin Mariscal MD Work Phone: Start: 01-20-2022 Ct thorax w/o contrast material Devin Mariscal MD Work Phone: Start: 12-17-2021 Adult depression screening assessment Devin Mariscal MD Work Phone: Start: 10-14-2021 Mri pelvis w/o & w/contrast material Devin Mariscal MD Work Phone: Start: 10-14-2021 PACEMAKER CLINIC CHECK Justus Jewell MD Work Phone: Start: 09-16-2021 Ct abdomen & pelvis w/contrast material Devin Mariscal MD Work Phone: Start: 09-10-2021 Creatinine blood Devin Mariscal MD Work Phone: Start: 12-25-2020 Ecg routine ecg w/least 12 lds w/i&r Karri Engel MD Work Phone: Start: 11-24-2019 Radiologic exam chest single view [facility] Work Phone: Start: 11-23-2019 Radiologic exam chest single view Zeke Brunotrey Work Phone: Start: 11-23-2019 Ins new/rplcmt prm pm w/transv eltrd atrial&vent [facility] Work Phone: Start: 11-13-2019 CT angiography of thorax [facility] Work Phone: Start: 11-13-2019 Electrocardiogram Provider Not In Syst em Start: 11-13-2019 Basic metabolic 2000 panel - Serum or Plasma Rama Velásquez Work Phone: Start: 11-13-2019 Complete blood count with white cell differential, automated Rama Velásquez Work Phone: Start: 11-13-2019 Complete blood count with white cell differential, manual Rama Velásquez Work Phone: Start: 11-13-2019 Magnesium [Mass/volume] in Serum or Plasma Rama Velásquez Work Phone: Start: 11-12-2019 Echocardiography Yaniv Avendanoa [facility] Work Phone: Start: 11-12-2019 12 lead ECG Michelecary Martinez Work Phone: Start: 11-12-2019 Complete blood count with white cell differential, automated Sole Junior Work Phone: Start: 11-12-2019 Complete blood count with white cell differential, manual Sole Junior Work Phone: Start: 11-12-2019 Hemoglobin A1c/Hemoglobin.total in Blood Sole Junior Work Phone: Start: 11-12-2019 End: 11-12-2019 Lipid 1996 panel - Serum or Plasma Rama Velásquez Work Phone: Start: 11-12-2019 Magnesium [Mass/volume] in Serum or Plasma Sole Junior Work Phone: Start: 11-12-2019 Renal function 2000 panel - Serum or Plasma Sole Junior Work Phone: Start: 11-12-2019 Thyrotropin [Units/volume] in Serum or Plasma by Detection limit <= 0.005 mIU/L Sole Junior Work Phone: Start: 11-11-2019 Troponin measurement Sole evangelista Work Phone: Start: 11-11-2019 Troponin measurement Sole evangelista Work Phone: Start: 11-11-2019 Measurement of Borrelia burgdorferi antibody Rama Velásquez Work Phone: Start: 11-11-2019 12 lead ECG Rama Velásquez Work Phone: Start: 11-11-2019 COVID-19, MOLECULAR Delbert Jose Egal Work Phone: Start: 11-11-2019 RAINBOW DRAW Delbert Jose Egal Work Phone: Start: 11-11-2019 URINE CONTAINER Delbert Jose Egal Work Phone: Start: 11-11-2019 Radiologic exam chest single view Delbert Jose Egal Work Phone: Start: 11-11-2019 Complete blood count with white cell differential, automated Delbert Reynolds Work Phone: Start: 11-11-2019 Complete blood count with white cell differential, manual Delbert Reynolds Work Phone: Start: 11-11-2019 Comprehensive metabolic 2000 panel - Serum or Plasma Delbert Reynolds Work Phone: Start: 11-11-2019 INR in Platelet poor plasma by Coagulation assay Delbert Reynolds Work Phone: Start: 11-11-2019 Magnesium [Mass/volume] in Serum or Plasma Rama Betzy Didier Work Phone: Start: 11-11-2019 Thyrotropin [Units/volume] in Serum or Plasma by Detection limit <= 0.005 mIU/L Rama Velásquez Work Phone: Start: 11-11-2019 Troponin measurement Delbert trejo Work Phone: Start: 11-11-2019 12 lead ECG Aris Martinez Work Phone: Start: 11-10-2019 Standard ECG Martha Banks Work Phone: Plan of Treatment Date Care Activity Detail Author Start: 07-22-2025 End: 12-29-2025 OCT MACULA CIRRUS OU (BOTH EYES) OCT MACULA CIRRUS OU (BOTH EYES) [facility] Imaging Routine History of retinal detachment Lattice degeneration of retina, 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 eye Pseudophakia of right eye Expected: 07/22/2025, Expires: 12/29/2025 [facility] Work Phone: Comment on above: Expected: 07/22/2025, Expires: Start: 02-18-2025 End: 07-28-2025 OCT MACULA CIRRUS OS (LEFT EYE) OCT MACULA CIRRUS OS (LEFT EYE) [facility] Imaging Routine History of retinal detachment Vitreous hemorrhage of left eye (HCC) Lattice degeneration of retina, 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 eye Pseudophakia of right eye Expected: 02/18/2025, Expires: 07/28/2025 [facility] Work Phone: Comment on above: Expected: 02/18/2025, Expires: Start: 12-08-2024 End: 03-09-2025 Prostate specific Ag [Mass/volume] in Serum or Plasma PROSTATE-SPECIFIC ANTIGEN DIAGNOSTIC Lab Routine Malignant neoplasm of prostate (HCC) Expected: 12/08/2024, Expires: 03/09/2025 [facility] Work Phone: Comment on above: Expected: 12/08/2024, Expires: Start: 12-06-2024 End: 12-06-2024 Patient encounter procedure 12/06/2024 10:00 AM EDT Office Visit Radiation Oncology [address] [place] [address] Devin Mariscal MD [address] [place] [address] 6 month follow up Radiation Oncology Comment on above: 6 month follow up Start: 11-29-2024 End: 11-29-2024 ambulatory 11/29/2024 9:00 AM EDT Results Only [facility] [address] [place] [address] labs [facility] Comment on above: labs Start: 11-27-2024 Influenza vaccination Influenza Vaccine (Season Ended) [facility] Start: 11-19-2024 End: 04-28-2025 OCT MACULA CIRRUS OU (BOTH EYES) OCT MACULA CIRRUS OU (BOTH EYES) [facility] Imaging Routine History of retinal detachment Vitreous hemorrhage of left eye (HCC) Lattice degeneration of retina, 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 Expected: 10/06/2024, Expires: 03/15/2025 [facility] Work Phone: Comment on above: Expected: 10/06/2024, Expires: Start: 10-05-2024 End: 03-14-2025 Camera fundoscopy FUNDUS PHOTOS OU (BOTH EYES) [facility] Imaging Routine Vitreous hemorrhage of left eye (HCC) Horseshoe retinal tear of left eye Expected: 10/05/2024, Expires: 03/14/2025 [facility] Work Phone: Comment on above: Expected: 10/05/2024, Expires: Start: 10-05-2024 End: 03-14-2025 OCT MACULA CIRRUS OU (BOTH EYES) OCT MACULA CIRRUS OU (BOTH EYES) [facility] Imaging Routine Vitreous hemorrhage of left eye (HCC) Horseshoe retinal tear of left eye Expected: 10/05/2024, Expires: 03/14/2025 [facility] Comment on above: Expected: 10/05/2024, Expires: Start: 09-01-2024 End: 09-01-2024 Patient encounter procedure [facility] Start: 07-07-2024 End: 07-07-2024 Patient encounter procedure Ophthalmology Comment on above: Return in about 6 months (around ). ( per patient request to come back in june) Start: 06-07-2024 End: 09-06-2024 Prostate specific Ag [Mass/volume] in Serum or Plasma PROSTATE-SPECIFIC ANTIGEN DIAGNOSTIC Lab Routine Malignant neoplasm of prostate (HCC) Expected: 06/07/2024, Expires: 09/06/2024 [facility] Work Phone: Comment on above: Expected: 06/07/2024, Expires: Start: 06-07-2024 End: 09-06-2024 Testosterone [Mass/volume] in Serum or Plasma TESTOSTERONE, TOTAL Lab Routine Malignant neoplasm of prostate (HCC) Expected: 06/07/2024, Expires: 09/06/2024 [facility] Comment on above: Expected: 06/07/2024, Expires: Start: 06-07-2024 End: 06-07-2024 Patient encounter procedure 06/07/2024 10:00 AM EDT Office Visit Radiation Oncology [address] [place] [address] Devin Mariscal MD [address] [place] [address] 6 month f/u Radiation Oncology Comment on above: 6 month f/u Start: 05-31-2024 End: 05-31-2024 ambulatory 05/31/2024 11:00 AM EST Results Only [facility] [address] [place] [address] labs [facility] Comment on above: labs Start: 04-18-2024 End: 04-18-2024 Patient encounter procedure 04/18/2024 8:40 AM EST Office Visit [facility] [address] [place] [address] DayWendy MD [address] [place] [address] Rafi Rollins DO [address] [place], [place] [id number] [facility] Start: 04-11-2024 End: 04-11-2024 Patient encounter procedure 04/11/2024 9:50 AM EST Office Visit [facility] [address] [facility] [place] [address] Wendy Diop MD [address] [place] [address] Rafi Rollins DO [address] [place] [address] [facility] Start: 03-29-2024 Advance Directive Discussion Advance Directive Discussion [facility] Start: 03-10-2024 End: 03-10-2024 ambulatory 03/10/2024 10:00 AM EST Device Check OP [facility] [address] 3rd [place] [address] [facility] Start: 02-04-2024 End: 02-04-2024 Patient encounter procedure 02/04/2024 7:30 AM EST Office Visit [facility] Ophthalmology [address] [address] Ivanna Garduno V, MD [address] [place] [address] Return in about 3 months (around 02/05/2024) for marissa Ophthalmology Comment on above: Return in about 3 months (around 02/05/20) for marissa Start: 12-17-2023 End: 12-17-2023 Patient encounter procedure 12/17/2023 10:00 AM EDT Office Visit Radiation Oncology [address] [place] [address] Devin Mariscal MD [address] [place] [address] 6 mo fu -moved x1 -11/22- left message about move from 11/30 Radiation Oncology Comment on above: 6 mo fu -moved x1 -11/22- left message ab out move from 11/30 Start: 12-02-2023 End: 12-02-2023 Patient encounter procedure 12/02/2023 9:30 AM EDT Office Visit Radiation Oncology [address] [place] [address] Devin Mariscal MD [address] [place] [address] 6 mo fu Radiation Oncology Comment on above: 6 mo fu Start: 11-28-2023 Covid-19 Vaccine ( season) Covid-19 Vaccine ( season) [facility] Start: 11-28-2023 Covid-19 Vaccine ( season) Covid-19 Vaccine () [facility] Start: 11-28-[address] [facility] Start: 11-25-2023 End: 11-25-2023 ambulatory 11/25/2023 9:30 AM EDT Results Only [facility] [address] [place] [address] psa [facility] Comment on above: psa Start: 11-23-2023 End: 11-23-2023 Patient encounter procedure 11/23/2023 9:45 AM EDT Office Visit [facility] Ophthalmology [address] [facility] [address] [place] [id number] Radha Rosen MD [address] [place] [address] radha rosen for cat eval. Ophthalmology Comment on above: radha rosen for cat eval. Start: 11-03-2023 End: 11-03-2023 Patient encounter procedure 11/03/2023 10:15 AM EDT Office Visit [facility] Ophthalmology [address] [address] Ivnana Garduno V, MD [address] [place] [address] Return for 4-6 weeks any open slot. Ophthalmology Comment on above: Return for 4-6 weeks any open slot. Start: 09-22-2023 End: 09-22-2023 Patient encounter procedure 09/22/2023 1:00 PM EDT Office Visit [facility] Ophthalmology [address] [address] Ivanna Garduno V, MD [address] [place] [address] FADUMO with AR 2018/HST OS - s/p laser by Dr. Fuentes; Dilate OU, OCT OU, Optos photos OU Ophthalmology Comment on above: FADUMO with AR 2018/HST OS - s/p laser by Geronimo Fuentes; Dilate OU, OCT OU, Optos photos OU Start: 06-25-2023 Respiratory Syncytial Virus Immunization: Risk, 60-74 Risk, or 75+ (1 - 1-dose 75+ series) Respiratory Syncytial Virus Immunization: Risk, 60-74 Risk, or 75+ (1 - 1-dose 75+ series) [facility] Start: 06-25-2023 RSV Vaccine (1 - 1-dose 75+ series) RSV Vaccine (1 - 1-dose 75+ series) [facility] Start: 05-06-2023 End: 07-06-2023 Prostate specific Ag [Mass/volume] in Serum or Plasma PSA/PROSTSPECAG DIAG Lab Routine Malignant neoplasm of prostate (HCC) Expected: 05/06/2023, Expires: 07/06/2023 [facility] Work Phone: Comment on above: Expected: 05/06/2023, Expires: 4 Start: 05-06-2023 End: 07-06-2023 Testosterone [Mass/volume] in Serum or Plasma TESTOSTERONE TOTAL Lab Routine Malignant neoplasm of prostate (HCC) Expected: 05/06/2023, Expires: 07/06/2023 [facility] Work Phone: Comment on above: Expected: 05/06/2023, Expires: 4 Start: 03-29-2023 Advance Directive Discussion Advance Directive Discussion [facility] Start: 03-29-2023 Behavioral Health Screening Behavioral Health Screening [facility] Start: 03-29-2023 Depression Assessment Depression Assessment [facility] Start: 03-08-2023 End: 03-08-2023 Patient encounter procedure 03/08/2023 5:30 AM EST Appointment [facility] [address] [facility] [place] [address] Karri Engel MD [address] [place] [id number] [facility] Start: 12-17-2022 Adult depression screening assessment DEPRESSION SCREENING [facility] Start: 11-27-2022 Covid-19 Vaccine ( season) Covid-19 Vaccine () [facility] Start: 11-27-[address] [facility] Start: 11-12-2022 Diabetes Screening Diabetes Screening [facility] Start: 11-11-2022 End: 01-11-2023 Prostate specific Ag [Mass/volume] in Serum or Plasma PSA/PROSTSPECAG DIAG Lab Routine Malignant neoplasm of prostate (HCC) Expected: 11/11/2022, Expires: 01/11/2023 [facility] Work Phone: Comment on above: Expected: 11/11/2022, Expires: 3 Start: 11-11-2022 End: 01-11-2023 Testosterone [Mass/volume] in Serum or Plasma TESTOSTERONE TOTAL Lab Routine Malignant neoplasm of prostate (HCC) Expected: 11/11/2022, Expires: 01/11/2023 [facility] Work Phone: Comment on above: Expected: 11/11/2022, Expires: 3 Start: 08-18-2022 Procedure Education Eprescribed prescriptions (G8553) [facility] Work Phone: Start: 07-31-2022 Assay of prostate specific antigen total PSA (PROSTATE SPECIFIC ANTIGEN) ([id number]) [facility] Work Phone: Start: 07-26-2022 End: 02-25-2023 Ct thorax w/o contrast material CT CHEST WO IVCON Radiology Routine Lung nodules Expected: 07/26/2022, Expires: 02/25/2023 [facility] Work Phone: Comment on above: Expected: 07/26/2022, Expires: 3 Start: 05-05-2022 End: 07-05-2022 Prostate specific Ag [Mass/volume] in Serum or Plasma PSA/PROSTSPECAG DIAG Lab Routine Malignant neoplasm of prostate (HCC) Expected: 05/05/2022, Expires: 07/05/2022 [facility] Work Phone: Comment on above: Expected: 05/05/2022, Expires: 3 Start: 05-05-2022 End: 07-05-2022 Testosterone [Mass/volume] in Serum or Plasma TESTOSTERONE TOTAL Lab Routine Malignant neoplasm of prostate (HCC) Expected: 05/05/2022, Expires: 07/05/2022 [facility] Work Phone: Comment on above: Expected: 05/05/2022, Expires: 3 Start: 03-29-2022 ADVANCE DIRECTIVE DISCUSSION ADVANCE DIRECTIVE DISCUSSION [facility] Start: 03-29-2022 DEPRESSION ASSESSMENT DEPRESSION ASSESSMENT [facility] Start: 01-20-2022 End: 02-04-2023 Ct thorax w/o contrast material CT CHEST WO IVCON Radiology Routine Opacities of both lungs present on chest x-ray Expected: 01/20/2022, Expires: 02/04/2023 [facility] Work Phone: Comment on above: Expected: 01/20/2022, Expires: 3 Start: 12-29-2021 End: 02-28-2022 Prostate specific Ag [Mass/volume] in Serum or Plasma PSA/PROSTSPECAG DIAG Lab Routine Malignant neoplasm of prostate (HCC) Expected: 12/29/2021, Expires: 02/28/2022 [facility] Work Phone: Comment on above: Expected: 12/29/2021, Expires: 2 Start: 12-29-2021 End: 02-28-2022 Testosterone [Mass/volume] in Serum or Plasma TESTOSTERONE TOTAL Lab Routine Malignant neoplasm of prostate (HCC) Expected: 12/29/2021, Expires: 02/28/2022 [facility] Work Phone: Comment on above: Expected: 12/29/2021, Expires: 2 Start: 12-22-2021 Assay of prostate specific antigen total PSA, TOTAL - DIAGNOSTIC (74204) [facility]; [facility] Work Phone: Start: 12-19-2021 Procedure Education Eprescribed prescriptions ([id number]) [facility]; [facility] Work Phone: Start: 11-27-[address] [facility] Start: 09-10-2021 End: 11-10-2021 Prostate specific Ag [Mass/volume] in Serum or Plasma [facility] Work Phone: Comment on above: Expected: 09/10/2021, Expires: 2 Start: 09-10-2021 End: 11-10-2021 Testosterone [Mass/volume] in Serum or Plasma [facility] Work Phone: Comment on above: Expected: 09/10/2021, Expires: 2 Start: 07-29-2021 Provider Instructions for Treatment Punch Biopsy with Epi [facility]; [facility] Work Phone: Start: 07-29-2021 Urine albumin quantitative MICROALBUMIN: CREATININE RATIO (32717) AND (96039) [facility]; [facility] Work Phone: Start: 07-29-2021 Comprehensive metabolic panel METABOLIC PANEL, COMPREHENSIVE (49497) [facility]; [facility] Work Phone: Start: 07-29-2021 Lipid panel LIPID PANEL (06622) [facility]; [facility] Work Phone: Start: 07-29-2021 Blood count manual cell count each CBC with auto diff (21445) [facility]; [facility] Work Phone: Start: 07-29-2021 Cyanocobalamin vitamin b-12 VITAMIN B12 AND FOLATES (66631) [facility]; [facility] Work Phone: Start: 07-29-2021 Assay of homocysteine Homocysteine, Plasma (69202) [facility]; [facility] Work Phone: Start: 06-02-2021 PSA TOTAL +%FREE 316325 (09634) PSA TOTAL +%FREE 451986 (47390) [facility]; [facility] Work Phone: Start: 06-02-2021 Blood count manual cell count each CBC with auto diff (00171) [facility]; [facility] Work Phone: Start: 05-02-2021 COVID-19 VACCINE (4 - Booster for Pfizer series) COVID-19 VACCINE (4 - Booster for Pfizer series) [facility] Start: 03-31-2021 End: 03-31-2021 Patient encounter procedure 03/31/2021 Appointment Cardiology Karri Engel MD [address] [place] [address] [facility] Start: 03-29-2021 ADVANCE DIRECTIVE DISCUSSION ADVANCE DIRECTIVE DISCUSSION [facility] Start: 03-29-2021 DEPRESSION ASSESSMENT DEPRESSION ASSESSMENT [facility] Start: 02-24-2021 COVID-19 VACCINE (4 - Booster for Pfizer series) COVID-19 VACCINE (4 - Booster for Pfizer series) [facility] Start: 02-24-2021 COVID-19 VACCINE (4 - Pfizer series) COVID-19 VACCINE (4 - Pfizer series) [facility] Start: 12-25-2020 End: 12-25-2020 Patient encounter procedure [facility] Start: 12-23-2020 End: 12-23-2020 Patient encounter procedure 12/23/2020 Appointment Cardiology Zeke Cruz MD [address] [place] [address] [facility] Start: 11-27-2020 Influenza vaccination [facility] Start: 11-12-2020 Pneumococcal vaccination Pneumococcal Vaccine Age 65+ (2 of 2 - PPSV23) [facility] Start: 11-12-2020 Pneumococcal Vaccine: 50+ (2 of 2 - PPSV23) Pneumococcal Vaccine: 50+ (2 of 2 - PPSV23) [facility] Start: 11-12-2020 Pneumococcal Vaccine: 65+ (2 of 2 - PPSV23 or PCV20) Pneumococcal Vaccine: 65+ (2 of 2 - PPSV23 or PCV20) [facility] Start: 11-12-2020 Pneumococcal Vaccine: Age 50+ (2 of 2 - PCV20 or PCV21) Pneumococcal Vaccine: Age 50+ (2 of 2 - PCV20 or PCV21) [facility] Start: 11-12-2020 Pneumococcal Vaccine: Age 50+ (2 of 2 - PPSV23) Pneumococcal Vaccine: Age 50+ (2 of 2 - PPSV23) [facility] Start: 11-12-2020 Pneumococcal Vaccine: Age 65+ (2 - PPSV23 or PCV20) Pneumococcal Vaccine: Age 65+ (2 - PPSV23 or PCV20) [facility] Start: 11-12-2020 Pneumococcal Vaccine: Age 65+ (2 of 2 - PPSV23 or PCV20) Pneumococcal Vaccine: Age 65+ (2 of 2 - PPSV23 or PCV20) [facility] Start: 11-12-2020 Pneumococcal Vaccine: Age 65+ (2 of 2 - PPSV23) Pneumococcal Vaccine: Age 65+ (2 of 2 - PPSV23) [facility] Start: 06-04-2020 End: 06-04-2020 Appointment 06/04/2020 Appointment Cardiology Zeke Cruz MD [address] [facility] [place] [address] [phone] [facility] Start: 03-18-2020 End: 03-18-2020 Appointment 03/18/2020 Appointment Cardiology Zeke Cruz MD [address] [facility] [place] [address] [phone] [facility] Start: 02-27-2020 End: 02-27-2020 Appointment 02/27/2020 Appointment Cardiology [facility] Start: 12-12-2019 End: 12-12-2019 Office Visit 12/12/2019 Office Visit Cardiology Zeke Cruz MD [address] [facility] [place] [address] [phone] [facility] Start: 11-30-2019 End: 11-30-2019 Clinical Support 11/30/2019 Clinical Support Cardiology [facility] Start: 11-28-2019 Influenza vaccination INFLUENZA VACCINE (#1) [facility] Start: 11-28-2019 Influenza vaccination given Sequential Influenza Vaccine (#1) [facility] Start: 11-19-2019 End: 11-19-2019 Office Visit 11/19/2019 Office Visit Lab Zeke Cruz MD [address] [place] [address] [phone] [facility] Start: 11-14-2019 End: 11-14-2019 Clinical Support Encounter [facility] [place] Start: 11-10-2019 End: 11-09-2020 Standard ECG ECG ECG Routine Bradycardia on ECG Heart block Expected: 11/10/2019, Expires: 11/09/2020 [facility] Comment on above: Expected: 11/10/2019, Expires: 1 Start: 11-07-2019 End: 11-06-2020 ALT [Catalytic activity/Vol] ALT Lab Routine Hyperlipidemia, unspecified hyperlipidemia type Expected: 11/07/2019, Expires: 11/06/2020 [facility] Comment on above: Expected: 11/07/2019, Expires: 1 Start: 11-07-2019 End: 11-06-2020 Basic metabolic 2000 panel BASIC METABOLIC PANEL Lab Routine Essential hypertension Expected: 11/07/2019, Expires: 11/06/2020 [facility] Comment on above: Expected: 11/07/2019, Expires: 1 Start: 11-07-2019 End: 11-06-2020 CBC,PLATELETS CBC,PLATELETS Lab Routine Essential hypertension Expected: 11/07/2019, Expires: 11/06/2020 [facility] Comment on above: Expected: 11/07/2019, Expires: Start: 11-07-2019 End: 11-06-2020 LIPID PANEL W CALCULATED LDL LIPID PANEL W CALCULATED LDL Lab Routine Hyperlipidemia, unspecified hyperlipidemia type Expected: 11/07/2019, Expires: 11/06/2020 [facility] Comment on above: Expected: 11/07/2019, Expires: Start: 11-07-2019 End: 11-06-2020 PSA - DIAGNOSTIC/TUMOR MARKER PSA - DIAGNOSTIC/TUMOR MARKER Lab Routine Benign prostatic hyperplasia without lower urinary tract symptoms Expected: 11/07/2019, Expires: 11/06/2020 [facility] Comment on above: Expected: 11/07/2019, Expires: 1 Start: 11-07-2019 End: 11-06-2020 TSH Qn TSH Lab Routine Weight loss Expected: 11/07/2019, Expires: 11/06/2020 [facility] Comment on above: Expected: 11/07/2019, Expires: 1 Start: 11-27-2018 Influenza vaccination INFLUENZA VACCINE (#1) [facility] Start: 2013 Abdominal aortic aneurysm screening ABDOMINAL AORTIC ANEURYSM HIGH RISK SCREEN [facility] Start: 2013 Fall risk assessment Falls Risk Assessment [facility] Start: 2013 Pneumococcal vaccination [facility] Start: 2013 PNEUMOCOCCAL: 65+ (1 - PCV) PNEUMOCOCCAL: 65+ (1 - PCV) [facility] Start: 2008 RSV Vaccine (1 - 1-dose 60+ series) RSV Vaccine (1 - 1-dose 60+ series) [facility] Start: 05-12-2008 Urine microalbumin profile DTaP,Tdap,Td Vaccine (1 - Tdap) [facility] Start: 1998 Administration of herpes zoster vaccine Zoster Vaccines (1 of 2) [facility] Start: 1998 Colonoscopy COLORECTAL CANCER SCREENING DISCUSSION [facility] Start: 1998 Prostate specific antigen measurement PROSTATE CANCER SCREENING DISCUSSION [facility] Start: 1998 Screening for malignant neoplasm of colon [facility] Start: 1998 SHINGRIX VACCINE (1 of 2) SHINGRIX VACCINE (1 of 2) [facility] Start: 1998 Zoster vaccine hzv live for subcutaneous use ZOSTER (SHINGLES) VACCINE (1 of 2) [facility] Start: 1993 COLOGUARD (FIT-DNA) COLOGUARD (FIT-DNA) [facility] Start: [address] [facility] Start: 1993 COLORECTAL CANCER SCREENING COLORECTAL CANCER SCREENING [facility] Start: [address] [facility] Start: 1993 DIABETES SCREEN DIABETES SCREEN [facility] Start: 1993 FECAL OCCULT BLOOD FECAL OCCULT BLOOD [facility] Start: 1993 Screening for malignant neoplasm of colon [facility] Start: [address] [facility] Start: 1988 Fasting lipid profile LIPID SCREENING [facility] Start: 06-25-1983 LIPID SCREEN LIPID SCREEN [facility] Start: 06-25-1967 SHINGRIX VACCINE (1 of 2) SHINGRIX VACCINE (1 of 2) [facility] Start: 06-25-1967 Third diphtheria, tetanus and acellular pertussis (DTaP) vaccination TDAP (ADULT) [facility] Start: 06-25-1967 Urine microalbumin profile DTAP,TDAP,TD (1 - Tdap) [facility] Start: 1966 Anxiety Screening Anxiety Screening [facility] Start: 1966 Depression Screening Depression Screening [facility] Start: 1966 Hepatitis C antibody, confirmatory test Hepatitis C Screening [facility] Start: 1966 Hepatitis C screening Hepatitis C Screening [facility] Start: 1966 HEPATITIS C SCREENING HEPATITIS C SCREENING [facility] Start: 1966 Tetanus vaccination TETANUS [facility] Start: 1964 COVID-19 Vaccine (1 of 2) COVID-19 Vaccine (1 of 2) [facility] Start: 1960 Adolescent depression screening assessment [facility] Start: 1960 COVID-19 VACCINE (1) COVID-19 VACCINE (1) [facility] Start: 1960 Depression screening using PHQ-9 (Patient Health Questionnaire 9) score [facility] Start: 1954 PNEUMOCOCCAL: 65+ (1 - PCV) PNEUMOCOCCAL: 65+ (1 - PCV) [facility] Start: 06-25-1951 History and physical examination, annual for health maintenance Wellness Visit [facility] Start: 06-25-1951 Medicare Wellness Visit Medicare Wellness Visit [facility] Start: 1948 Fall risk assessment Falls Risk Assessment [facility] Start: 1948 Hepatitis C antibody, confirmatory test HEPATITIS C VIRUS SCREENING [facility] Start: 1948 Prostate specific antigen measurement PSA Level [facility] Start: 1948 Screening for malignant neoplasm of colon [facility] Start: 1948 Tetanus vaccination Tetanus: Every 10yrs [facility] End: 12-16-2021 12 lead ECG ECG 12 Lead ECG Routine Sick sinus syndrome (HCC) 15 Occurrences starting 12/16/2020 until 12/16/2021 [employer] Work Phone: Comment on above: 15 Occurrences starting 12/16/2020 until 12/16/2021 12 lead ECG ECG 12 Lead ECG Routine Sick sinus syndrome (HCC) 12/25/2020 10:55 AM EDT [facility] Work Phone: End: 04-14-2026 12 lead ECG ECG 12 Lead ECG Routine History of cardiac pacemaker in situ Bradycardia 4 Occurrences starting 04/14/2024 until 04/14/2026 [facility] Work Phone: Comment on above: 4 Occurrences starting 04/14/2024 until 04/14/2026 End: 10-10-2022 Bone &/joint imaging whole body NM BONE WHOLE BODY Radiology Routine Malignant neoplasm of prostate (HCC) 1 Occurrences starting 09/10/2021 until 10/10/2022 [facility] Work Phone: Comment on above: 1 Occurrences starting 09/10/2021 until 10/10/2022 End: 10-10-2022 Ct abdomen & pelvis w/contrast material CT ABD/PEL W IVCON Radiology Routine Malignant neoplasm of prostate (HCC) 1 Occurrences starting 09/10/2021 until 10/10/2022 [facility] Work Phone: Comment on above: 1 Occurrences starting 09/10/2021 until 10/10/2022 CT SIM PLANNING RADIATION ONCOLOGY CT SIM PLANNING RADIATION ONCOLOGY Radiology Routine Malignant neoplasm of prostate (HCC) Ordered: 09/10/2021 [facility] Work Phone: Comment on above: Ordered: 09/10/2021 End: 05-16-2025 IOL BIOMETRY W/ IOL CALC OU (BOTH EYES) IOL BIOMETRY W/ IOL CALC OU (BOTH EYES) [facility] Imaging Routine Combined forms of age-related cataract of left eye 1 Occurrences starting 11/23/2023 until 05/16/2025 [facility] Work Phone: Comment on above: 1 Occurrences starting 11/23/2023 until 05/16/2025 End: 11-14-2019 MCT-Cardiac Event Monitor MCT-Cardiac Event Monitor Cardiac Services Routine Bradycardia Once for 1 Occurrences starting 11/14/2019 until 11/14/2019 [facility] Comment on above: Once for 1 Occurrences starting 11/14/19 20 until 11/14/2019 End: 10-10-2022 Mri pelvis w/o & w/contrast material MRI PROSTATE WO/W IVCON Radiology Routine Malignant neoplasm of prostate (HCC) 1 Occurrences starting 09/10/2021 until 10/10/2022 [facility] Work Phone: Comment on above: 1 Occurrences starting 09/10/2021 until 10/10/2022 Mri pelvis w/o & w/contrast material MRI PROSTATE WO/W IVCON Radiology Routine Malignant neoplasm of prostate (HCC) 10/14/2021 4:31 PM EDT [facility] Work Phone: Oph bmtry prtl coher intrfrmtry io lens pwr rich OPHTHALMIC BIOMETRY BY PARTIAL COHERENCE INTERFEROMETRY W/INTRAOCULAR LENS POWER CALCULATION Combined forms of age-related cataract of left eye [facility] End: 10-11-2022 Radiologic exam chest 2 views XR CHEST 2V FRONTAL/LAT Radiology Routine Malignant neoplasm of prostate (HCC) 1 Occurrences starting 09/11/2021 until 10/11/2022 [facility] Work Phone: Comment on above: 1 Occurrences starting 09/11/2021 until 10/11/2022 Xcapsl ctrc rmvl ins j io lens prosth w/o ecp PHACOEMULSIFICATION CATARACT IMPLANT INTRAOCULAR LENS W/O ENDOSCOPIC CYCLOPHOTOCOAGULATION Combined forms of age-related cataract of left eye [facility] Work Phone: [facility] Work Phone: [facility] Immunizations Immunization Date Immunization Notes Care Provider [facility] 12-27-2020 COVID-Pfizer (30 MCG/0.3 ML) Stuart Durand MD Work Phone: [facility]; [facility] Work Phone: 11-13-2019 pneumococcal conjuga te vaccine, 13 valent Aris Martinez [facility] 11-11-2019 pneumococcal vaccine , unspecified formulation Aris Martinez [facility] 01-08-2014 influenza virus vaccine, unspecified formulation Devin Mariscal MD Work Phone: [facility] Payers Date Payer Category Payer Self-pay 2019 Unknown GENERIC PAYOR ME DICARE SUPPLEMENT [id number] 2019-Present [id number] 2019 Private Health Insurance [facility] GENERIC xxxxxxxxx 2019-2019 xxxxxxxxx [id number] 2019 Managed Care (unspecified) [employer] OTHER AFTER MEDICARE [id number] 2019 Private Health Insurance [id number] 2019 Unknown [id number] 2013 Private Health Insurance [id number] 2013 Private Health Insurance [id number] 2013 Medicare MEDICARE MEDICAR E A AND B xxxxxxxxxxx 2013-Present [place], [place] xxxxxxxxxxx [id number] 2013 Medicare [id number] 2013 Medicare [id number] 2013 Medicare [id number] 1948 Unknown [id number] .900 1948 Unknown [id number] .716 1948 Unknown [id number] .903 1948 Unknown [id number] .903 1948 Unknown [id number] [id number] .903 1948 Unknown [id number] [id number] .903 1948 Unknown [id number] [id number] .903 1948 Unknown [id number] [id number] .903 1948 Unknown [id number] [id number] .903 1948 Unknown [id number] [id number] .903 1948 Unknown [id number] [id number] .903 Unknown Unknown [id number] .462 Unknown [id number] .462 Social History Date Type Detail Facility Tobacco smoking stat [facility] Unknown if ever smoked [facility] Start: 1950 Sex Assigned At Not on file [facility] Work Phone: Start: 12-05-2016 Tobacco [facility] [facility] Unknown if ever smoked [facility] Work Phone: Start: 06-06-2019 End: 12-11-2022 Tobacco smoking status NHIS Never smoker [facility] Start: 06-06-2019 End: 07-07-2024 Alcohol intake Current drinker of alcohol (finding) [facility] Start: 06-06-2019 End: 11-10-2019 History SDOH Alcohol Frequency 3 [facility] Start: 11-07-2019 End: 12-11-2022 Tobacco use and exposure Never used [facility] Start: 11-13-2019 End: 09-01-2024 Alcohol intake Lifetime non-drinker (finding) [facility] Start: 11-11-2019 End: 11-23-2019 History SDOH Alcohol Frequency 1 [facility] Start: 08-31-2021 End: 02-03-2022 Exposure to SARS-CoV-2 (event) Not sure [facility] Alcohol Use: Alcohol Use: [facility] Work Phone: Start: 11-11-2022 End: 09-01-2024 Caffeine Use Caffeine Use [facility]; [facility] Work Phone: 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 Start: 09-10-[address] [facility] Start: 03-29-1951 Sex Assigned At [facility] Start: 11-11-2022 End: 09-01-[address] [facility] Adult Depression Screening Assessment 0 [facility] Start: 09-10-2021 Gender identity Identifies as male gender (finding) [facility] Start: 09-10-2021 Sexual orientation Heterosexual (norman lucero) [facility] How often to you hav e a drink containing alcohol? Never [facility] Medical Equipment Procedure Code Equipment Code Equipment Origin al Text Equipment Identifier Dates Pacer Mri L[address] Self [id number] FDA Start: 11-23-2019 Lead Pacing 7842 Mri Ingevity Plus - [id number] FDA Start: 11-23-2019 Lead Pacing 7841 Mri Ingevity Plus - [id number] FDA Start: 11-23-2019 Biomet Sport L31 1 Accolade Mri [id number] Start: 11-22-2019 Biomet Sport 784 1 Ingevity+ [id number] Start: 11-22-2019 Biomet Sport 784 2 Ingevity+ [id number] Start: 11-22-2019 Gas Io Ispan Vsn Sys 125gm Sf6 - [id number] Start: 01-11-2015 Gas Io Ispan Bilingual Customer Service tl 125gm C3f8 - [id number] Start: 01-26-2015 Lens Iol +15.5 D iop 13mm 6mm - [id number] Start: 01-26-2015 Biomet Spo 7842 Ingevity + Mri [id number] Start: 11-22-2019 Pacemaker-L311 Accolade [id number] Start: 11-23-2019 Biomet Spo 7841 Ingevity + Mri [id number] Start: 11-22-2019 Clinical Notes 08-27-2020 to 09-01-2024 Patient InstructionsWendy Diop MD - 09/01/2024 9:20 AM EDTRaIvanna taveras V, MD - 07/07/2024 8:01 AM EDTPatient Devin Bynum MD - 06/07/2024 9:42 AM EDT Note Date & Type Note Facility 09-01-2024 Instructions Sourav Horton MA - 09/01/2024 9:27 AM EDT How to Contact your Care Team: Provider: Dr. Wendy Diop MD Clinic Nurse: [facility] MA: BERKLEY Rosenthal REFILLS: When in need for refills please call your care team or the office at [phone]. Please include medication name, pharmacy name, and specify 30-day or 90-day supply. Please check with your pharmacy within 24 hours of request for your refill. You must follow up as directed to continue current refills. Thank you! documented in this encounter [facility] 09-01-2024 History of Present illness Narrative General Cardiology Returning Patient Clinic Visit [facility] Physician [facility], Heart & Vascular 09/01/2024 Wendy Diop MD [address] [place] [address] 3rd Floor Medical Office [facility] [address] [facility] Heart and Vascular Physician Group, physician's office 09/01/2024 Patient: Christopher Bagley Date of : 1950 (74 y.o.) PCP: Stuart Durand MD Chief Complaint: Follow-up (Overdue/ No cardiac symptoms ) Date of Service: 09/01/2024 Assessment and Plan: Sick sinus syndrome (HCC) History of cardiac pacemaker in situ Pacemaker functioning appropriately was having some increased interference and was seen by Dr. Rollins in February 2025 Dyslipidemia Primary care physician has put him on actual statin rather than red yeast rice, we are awaiting blood work It has been a pleasure caring for this patient. Please don't hesitate to reach out to my office directly with any questions or concerns. Follow-up: Return in about 1 year (around 09/01/2025). Wendy Diop MD, [facility] Non-Invasive Cardiology [facility] V[facility] Physician [facility] P:[phone] F:[phone] History of Present Illness: Christopher Bagley is a 74 y.o. man with a past medical history of Pacemaker implantation for symptomatic bradycardia and intermittent complete heart block. He presents today for follow-up. Recent device interrogation showed some interference on the lead, was seen by Dr. Rollins. Overall doing quite well. Denies any exertional chest pain or pressure or shortness of breath. Very active running the [employer]. 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 Blood pressures are well controlled. CT abdomen pelvis from 2019 was reviewed showing no plaque. Objective Review of Systems: All systems were reviewed and noted to be negative unless otherwise stated in HPI. 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 All of the above information has been reviewed at today's visit and modified if necessary. Home Medications: Current Outpatient Medications: amLODIPine (NORVASC) 10 MG tablet, Take 1 (one) tablet (10 mg total) by mouth ., Disp: , Rfl: B-complex with vitamin C tablet, Take 1 Unspecified by mouth daily ., Disp: , Rfl: benazepriL (LOTENSIN) 40 MG tablet, Take 1 (one) tablet (40 mg total) by mouth daily ., Disp: , Rfl: cholecalciferol, vitamin D3, 25 mcg (1,000 unit) capsule, Take by mouth daily ., Disp: , Rfl: multivitamin (THERAGRAN) per tablet, Take 1 (one) tablet by mouth daily ., Disp: , Rfl: rosuvastatin (CRESTOR) 5 MG tablet, Take 1 (one) tablet (5 mg total) by mouth daily ., Disp: , Rfl: red yeast rice 600 mg cap, Take 2 (two) capsules (1,200 mg total) by mouth daily . (Patient not taking: Reported on 09/01/2024 .), Disp: , Rfl: Physical Exam: BP 130/73 (BP Location: Left arm, Patient Position: Sitting, BP Cuff Size: Adult) Pulse 63 Ht 5' 10 Wt 75.8 kg (167 lb) SpO2 95% BMI 23.96 kg/m Constitutional: Well appearing male, no acute distress Head: Normocephalic and atraumatic. Eyes: Conjunctivae are normal, no scleral icterus, no corneal arcus Neck: No acanthosis nigricans, no elevated jugular venous distension, no hepatojugular reflux Cardiovascular: Regular rate and rhythm, no murmurs appreciated on today's exam, normal S1 and S2, no rubs or gallops, PMI is midline Pulses: +2 dorsalis pedis pulses bilaterally Musculoskeletal: Normal range of motion. No cyanosis. No peripheral Edema Neurological: AOx3, moving all extremities normally Skin: Skin is warm and dry, normal hair pattern Psychiatric: Normal mood and affect, appropriate conversation Cardiovascular Studies: Pacemaker report reviewed, atrial far field sensing, otherwise normal Labs: Obtained via PCP Awaiting copy for review documented in this encounter [facility] 09-01-2024 Note General Cardiology R eturning Patient Clinic Visit [facility], Heart & Vascular 09/01/2024 Wendy Diop MD [address] [place] [address], 3rd Floor Medical Office [facility] [address] [facility] Heart [facility] Vascular Physician Group, physician's office 09/01/2024 Patient: Christopher Bagley Date of : 1950 (74 y.o.) PCP: Stuart Durand MD Chief Complaint: Follow-up (Overdue/ No cardiac symptoms ) Date of Service: 09/01/2024 Assessment and Plan: Sick sinus syndrome (HCC) History of cardiac pacemaker in situ Pacemaker functioning appropriately was having some increased interference and was seen by Dr. Rollins in February 2025 Dyslipidemia Primary care physician has put him on actual statin rather than red yeast rice, we are awaiting blood work It has been a pleasure caring for this patient. Please don't hesitate to reach out to my office directly with any questions or concerns. Follow-up: Return in about 1 year (around 09/01/2025). Wendy Diop MD, [facility] Non-Invasive Cardiology [facility] P:[phone] F:[phone] ----- History of Present Illness: Christopher Bagley is a 74 y.o. man with a past medical history of Pacemaker implantation for symptomatic bradycardia and intermittent complete heart block. He presents today for follow-up. Recent device interrogation showed some interference on the lead, was seen by Dr. Rollins. Overall doing quite well. Denies any exertional chest pain or pressure or shortness of breath. Very active running the [employer]. 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 Blood pressures are well controlled. CT abdomen pelvis from 2019 was reviewed showing no plaque. Objective Review of Systems: All systems were reviewed and noted to be negative unless otherwise stated in HPI. 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 All of the above information has been reviewed at today's visit and modified if necessary. Home Medications: Current Outpatient Medications: amLODIPine (NORVASC) 10 MG tablet, Take 1 (one) tablet (10 mg total) by mouth ., Disp: , Rfl: B-complex with vitamin C tablet, Take 1 Unspecified by mouth daily ., Disp: , Rfl: benazepriL (LOTENSIN) 40 MG tablet, Take 1 (one) tablet (40 mg total) by mouth daily ., Disp: , Rfl: cholecalciferol, vitamin D3, 25 mcg (1,000 unit) capsule, Take by mouth daily ., Disp: , Rfl: multivitamin (THERAGRAN) per tablet, Take 1 (one) tablet by mouth daily ., Disp: , Rfl: rosuvastatin (CRESTOR) 5 MG tablet, Take 1 (one) tablet (5 mg total) by mouth daily ., Disp: , Rfl: red yeast rice 600 mg cap, Take 2 (two) capsules (1,200 mg total) by mouth daily . (Patient not taking: Reported on 09/01/2024 .), Disp: , Rfl: Physical Exam: BP 130/73 (BP Location: Left arm, Patient Position: Sitting, BP Cuff Size: Adult) Pulse 63 Ht 5' 10 Wt 75.8 kg (167 lb) SpO2 95% BMI 23.96 kg/m Constitutional: Well appearing male, no acute distress Head: Normocephalic and atraumatic. Eyes: Conjunctivae are normal, no scleral icterus, no corneal arcus Neck: No acanthosis nigricans, no elevated jugular venous distension, no hepatojugular reflux Cardiovascular: Regular rate and rhythm, no murmurs appreciated on today's exam, normal S1 and S2, no rubs or gallops, PMI is midline Pulses: +2 dorsalis pedis pulses bilaterally Musculoskeletal: Normal range of motion. No cyanosis. No peripheral Edema Neurological: AOx3, moving all extremities normally Skin: Skin is warm and dry, normal hair pattern Psychiatric: Normal mood and affect, appropriate conversation Cardiovascular Studies: Pacemaker report reviewed, atrial far field sensing, otherwise normal Labs: Obtained via PCP Awaiting copy for review AUTHENTICATED BY WENDY DIOP, ON 09/01/2024 09:52:42 [facility] 07-07-2024 Note Date of Procedure 07/07/2024. OCT Macula Interpretation Right Eye Findings include Negative for Intraretinal fluid, Subretinal fluid. Left Eye Findings include Negative for Intraretinal fluid, Subretinal fluid. Interval Change Right Eye Stable. Left Eye Stable. [facility] 07-07-2024 Note HNO ID: [id number] Author: IVANNA GARDUNO MD Service: ? Author Type: Physician Type: Progress Notes Filed: 07/07/2024 08:05 Note Text: LTFU Hazy viion OS 1. Horseshoe retinal tear, left eye 2. Hemorrhagic Acute, HST, lattice PVD OS - symptoms of new flashing lights mid-08/2023 - Laser retinopexy left eye 09/19 - stable - RD warning signs reviewed 3. H/o Recurrent Rhegmatogenous retinal detachment right eye: - s/p PPV/EL/AFX/24%SF6 (01/12/15) for RRD and superotemporal breaks (unable to do SB d/t sign scleral thinning) - Patient presented with redetachment and cat with post capsule feathering - s/p CE/IOL/PPV/14% C3F8 01/26/15 - remains attached - Observe 4. 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 Pseudophakia right eye - stable 7. Cataract left eye - ok to proceed I have confirmed and edited as necessary the relevant ophthalmic history, ROS, and the neuro exam findings as obtained by others. I have seen and examined Christopher Bagley. I have discussed the case and the management of this patient's care with the Resident/Fellow, if applicable. I also have reviewed and agree with the assessment and plan as stated above and agree with all of its relevant components. Ivanna Garduno MD [facility] 07-07-2024 History of Present illness Narrative LTFU [id number] Hazy viion OS 1. Horseshoe retinal tear, left eye 2. Hemorrhagic Acute, HST, lattice PVD OS - symptoms of new flashing lights mid-08/2023 - Laser retinopexy left eye 09/19 - stable - RD warning signs reviewed 3. H/o Recurrent Rhegmatogenous retinal detachment right eye: - s/p PPV/EL/AFX/24%SF6 (01/12/15) for RRD and superotemporal breaks (unable to do SB d/t sign scleral thinning) - Patient presented with redetachment and cat with post capsule feathering - s/p CE/IOL/PPV/14% C3F8 01/26/15 - remains attached - Observe 4. 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 Pseudophakia right eye - stable 7. Cataract left eye - ok to proceed I have confirmed and edited as necessary the relevant ophthalmic history, ROS, and the neuro exam findings as obtained by others. I have seen and examined Christopher Bagley. I have discussed the case and the management of this patient's care with the Resident/Fellow, if applicable. I also have reviewed and agree with the assessment and plan as stated above and agree with all of its relevant components. Ivanna Garduno MD documented in this encounter [facility] 07-07-2024 Instructions Ivanna Garduno V, MD - 07/07/2024 7:20 AM EDT Please follow-up with Dr. Garduno for your next eye exam if you have been advised to do so. If you notice any sudden changes to your vision, eye pain, eye redness or irritation, please do not hesitate to call our office to schedule an earlier appointment. To schedule during office hours, call [phone] After office hours you may call [phone] and ask to speak with the foundation relations director investment officer. Flashes and Floaters OFFICE NUMBER [phone] (Regular business hours) If you notice increased floaters and/or flashing lights or a dark curtain coming over the vision from any direction, please call Dr. Garduno's office to come in to be seen. DRY TRANSFER WORKER DOCTOR [phone] (Evening, weekends, holidays) Evenings, weekends and holidays If you are calling after regular business hours, please call and ask to speak to the on-call investment officer. Please follow-up with Dr. Garduno for your next eye exam if you have been advised to do so. If you notice any sudden changes to your vision, eye pain, eye redness or irritation, please do not hesitate to call our office to schedule an earlier appointment. To schedule during office hours, call [phone] After office hours you may call [phone] and ask to speak with the foundation relations director investment officer. documented in this encounter [facility] 06-07-2024 Note HNO ID: [id number] Author: DEVIN MARISCAL MD Service: ? Author Type: Physician Type: Progress Notes Filed: 06/07/2024 10:14 Note Text: Radiation Oncology - Follow Up Note PATIENT NAME: Christopher Bagley PATIENT DIAGNOSIS: 73 year old male with prostate adenocarcinoma, initial PSA 7.3 (06/02/2021), biopsy Marissa score 3 + 4 = 7 (grade group 2), 8/12 cores involved, clinical stage T1c, N0, M0, stage IIB [T1-T2, N0, M0, PSA <20, GG 2] (AJCC 8th ed.) (AJCC 8th ed.), s/p TRUS Random biopsy 08/05/2021. He compleetd radiation treatment 7000 cGy in 28 fractions to prostate, SV, pelvic LN on 02/04/2022. On Relugolix since 11/02/2021, completed 6 months. INTERVAL HISTORY: The patient presents for routine follow-up 6 months after having last been seen. He denies or GI issues. PSA HISTORY: 05/31/2024: 0.1 ng/ml, T:422 11/25/2023: 0.21 ng/ml, T: 408 05/13/2023: 0.18 ng/ml, T:419 11/05/2022: 0.13 ng/ml, T:378 05/08/2022: <0.02 ng/ml, T: <12 11/02/2021-04/2022: 6 months of Relugolix, 02/04/2022: completed radiation tx : 8.01 ng/ml, T: 593 AUA: 7 today, nocturia: 2x. ALLERGIES Allergen Reactions Seasonal Allergies Other: See Comments Itchy eyes etc. Red Yeast Rice Extract 600 mg cap Take 1,200 mg by mouth every 24 hours. Cholecalciferol, Vitamin D3, 25 mcg (1,000 unit) cap Take by mouth every 24 hours. B-complex with vitamin C (VITAMIN B COMPLEX-C ORAL) Take by mouth q 24 HR. AMLODIPINE BESYLATE (AMLODIPINE ORAL) Take by mouth. BENAZEPRIL HCL (BENAZEPRIL ORAL) Take by mouth. REVIEW OF SYSTEMS: Hematuria: No Dysuria: No Incontinence: No Urgency: none Catheter use: No Medications to aid urination: N/A Bowel movement frequency: 1x/day Bowel movement quality: normal Blood per rectum: No Sexual activity: Not sexually active PHYSICAL EXAM: BP 137/84 (BP Position: Sitting) Pulse 66 Temp 36.5 ?C (97.7 ?F) Wt 76.4 kg (168 lb 6.9 oz) SpO2 97% BMI 24.17 kg/m? KPS: 100 General Appearance: Alert and oriented. No acute distress. ASSESSMENT/PLAN: Clinically doing well. Follow up in 6 months with a PSA level. Devin Mariscal MD cc: Stuart Durand ([facility]) [address] [address] [facility] 06-07-2024 History of Present illness Narrative Radiation Oncology - Follow Up Note PATIENT NAME: Christopher Bagley PATIENT DIAGNOSIS: 73 year old male with prostate adenocarcinoma, initial PSA 7.3 (06/02/2021), biopsy Marissa score 3 + 4 = 7 (grade group 2), 8/12 cores involved, clinical stage T1c, N0, M0, stage IIB [T1-T2, N0, M0, PSA <20, GG 2] (AJCC 8th ed.) (AJCC 8th ed.), s/p TRUS Random biopsy 08/05/2021. He compleetd radiation treatment 7000 cGy in 28 fractions to prostate, SV, pelvic LN on 02/04/2022. On Relugolix since 11/02/2021, completed 6 months. INTERVAL HISTORY: The patient presents for routine follow-up 6 months after having last been seen. He denies or GI issues. PSA HISTORY: 05/31/2024: 0.1 ng/ml, T:422 11/25/2023: 0.21 ng/ml, T: 408 05/13/2023: 0.18 ng/ml, T:419 11/05/2022: 0.13 ng/ml, T:378 05/08/2022: <0.02 ng/ml, T: <12 11/02/2021-04/2022: 6 months of Relugolix, 02/04/2022: completed radiation tx : 8.01 ng/ml, T: 593 AUA: 7 today, nocturia: 2x. ALLERGIES Allergen Reactions Seasonal Allergies Other: See Comments Itchy eyes etc. Red Yeast Rice Extract 600 mg cap Take 1,200 mg by mouth every 24 hours. Cholecalciferol, Vitamin D3, 25 mcg (1,000 unit) cap Take by mouth every 24 hours. B-complex with vitamin C (VITAMIN B COMPLEX-C ORAL) Take by mouth q 24 HR. AMLODIPINE BESYLATE (AMLODIPINE ORAL) Take by mouth. BENAZEPRIL HCL (BENAZEPRIL ORAL) Take by mouth. REVIEW OF SYSTEMS: Hematuria: No Dysuria: No Incontinence: No Urgency: none Catheter use: No Medications to aid urination: N/A Bowel movement frequency: 1x/day Bowel movement quality: normal Blood per rectum: No Sexual activity: Not sexually active PHYSICAL EXAM: BP 137/84 (BP Position: Sitting) Pulse 66 Temp 36.5 C (97.7 F) Wt 76.4 kg (168 lb 6.9 oz) SpO2 97% BMI 24.17 kg/m KPS: 100 General Appearance: Alert and oriented. No acute distress. ASSESSMENT/PLAN: Clinically doing well. Follow up in 6 months with a PSA level. Devin Mariscal MD cc: Stuart Durand ([facility]) [address] [place] [phone] documented in this encounter [facility] 04-18-2024 Note Heart & Vascular Cli ashish Note [facility] Visit Date: 04/18/2024 Patient Name: Christopher Bagley : 1950 Reason for Visit: Annual device check ASSESSMENT/PLAN: Sick sinus syndrome s/p dual-chamber pacemaker implant (11/23/2019) Patient been doing well with device. She is here today for annual device check. -No changes to be made at this time -All episodes of AT/AF on monitor has been oversensing -We will continue to follow yearly in arrhythmia clinic, otherwise with regular remote device interrogations -Please feel free to contact if you have any further arrhythmia related questions or concerns HPI: Christopher Bagley is a 73 y.o. male who presents today for follow-up regarding sick sinus syndrome and intermittent heart block status post dual-chamber pacemaker implant. We discussed that the device has been functioning appropriately. Patient has no real complaints at this time. There are some oversensing episodes, but no true atrial fibrillation. Patient denies significant symptoms. He has no cardiac complaints at this time. At this time we will continue to follow annually for arrhythmia clinic visit and regularly for device interrogation. Histories Past Medical History: Diagnosis Date Basal cell carcinoma (BCC) of canthus of right eye 07/2009 Hypertension Prostate cancer (HCC) Finished with treatments Right retinal detachment twice requring surgery Past Surgical History: Procedure Laterality Date EP - DEVICE N/A 11/23/2019 Procedure: Pacemaker Implant - MDT Dual Chamber arrive 6:00 - procedure 8:00; Surgeon: Zeke Cruz MD; Location: [facility]; Service: Cardiovascular HERNIA REPAIR Right 07/2009 inguinal hernia RETINAL DETACHMENT SURGERY Right twice SKIN SURGERY basal cell removal on right ear Family History Problem Relation Age of Onset Stroke Mother Hypertension Mother Stroke Father Glaucoma Father Crohn's disease Sister Glaucoma Sister Basal cell carcinoma Sister Social History Socioeconomic History Marital status: Number of children: 0 Tobacco Use Smoking status: Never Smokeless tobacco: Never Vaping Use Vaping status: Never Used Substance and Sexual Activity Alcohol use: Never Drug use: Never Sexual activity: Yes Partners: Female control/protection: None Patient has no known allergies. Patient's Medications New Prescriptions No medications on file Previous Medications AMLODIPINE (NORVASC) 5 MG TABLET Take 2 (two) tablets (10 mg total) by mouth daily . B-COMPLEX WITH VITAMIN C TABLET Take 1 Unspecified by mouth daily . BENAZEPRIL (LOTENSIN) 40 MG TABLET Take 1 (one) tablet (40 mg total) by mouth daily . CHOLECALCIFEROL, VITAMIN D3, 25 MCG (1,000 UNIT) CAPSULE Take by mouth daily . MULTIVITAMIN (THERAGRAN) PER TABLET Take 1 (one) tablet by mouth daily . RED YEAST RICE 600 MG CAP Take 2 (two) capsules (1,200 mg total) by mouth daily . Modified Medications No medications on file Discontinued Medications No medications on file No Known Allergies Review of Systems Constitutional: Negative for chills and fever. HENT: Negative for nosebleeds. Cardiovascular: Negative for chest pain, dyspnea on exertion, irregular heartbeat, leg swelling, near-syncope, orthopnea, palpitations and syncope. Respiratory: Negative for shortness of breath. Hematologic/Lymphatic: Negative for bleeding problem. Musculoskeletal: Negative for falls and muscle weakness. Gastrointestinal: Negative for abdominal pain, diarrhea and vomiting. Genitourinary: Negative for hematuria. Neurological: Negative for dizziness and light-headedness. Psychiatric/Behavioral: Negative for altered mental status and substance abuse. All other systems reviewed and are negative. PACU Vitals 04/18/24 0855 BP: (!) 142/80 Pulse: 63 SpO2: Physical Exam Vitals reviewed. Constitutional: Appearance: He is well-developed. HENT: Head: Normocephalic. Eyes: General: Lids are normal. Conjunctiva/sclera: Conjunctivae normal. Neck: Vascular: No JVD. Cardiovascular: Rate and Rhythm: Normal rate and regular rhythm. Pulses: Normal pulses. Heart sounds: Normal heart sounds. Pulmonary: Effort: Pulmonary effort is normal. Breath sounds: Normal breath sounds. Abdominal: General: Abdomen is flat. There is no distension. Palpations: Abdomen is soft. There is no mass. Musculoskeletal: General: Normal range of motion. Skin: General: Skin is warm. Findings: No rash. Neurological: Mental Status: He is alert and oriented to person, place, and time. Gait: Gait normal. Psychiatric: Behavior: Behavior normal. Lab Results Component Value Date GLUCOSE 103 (H) 11/13/2019 (more content not included)... [facility] 04-18-2024 History of Present illness Narrative Heart & Vascular Clinic Note [facility] Visit Date: 04/18/2024 Patient Name: Christopher Bagley : 1950 Reason for Visit: Annual device check ASSESSMENT/PLAN: Sick sinus syndrome s/p dual-chamber pacemaker implant (11/23/2019) Patient been doing well with device. She is here today for annual device check. -No changes to be made at this time -All episodes of AT/AF on monitor has been oversensing -We will continue to follow yearly in arrhythmia clinic, otherwise with regular remote device interrogations -Please feel free to contact if you have any further arrhythmia related questions or concerns HPI: Christopher Bagley is a 73 y.o. male who presents today for follow-up regarding sick sinus syndrome and intermittent heart block status post dual-chamber pacemaker implant. We discussed that the device has been functioning appropriately. Patient has no real complaints at this time. There are some oversensing episodes, but no true atrial fibrillation. Patient denies significant symptoms. He has no cardiac complaints at this time. At this time we will continue to follow annually for arrhythmia clinic visit and regularly for device interrogation. Histories Past Medical History: Diagnosis Date Basal cell carcinoma (BCC) of cant[place] of right eye 07/2009 Hypertension Prostate cancer (HCC) Finished with treatments Right retinal detachment twice requring surgery Past Surgical History: Procedure Laterality Date EP - DEVICE N/A 11/23/2019 Procedure: Pacemaker Implant - MDT Dual Chamber arrive 6:00 - procedure 8:00; Surgeon: Zeke Cruz MD; Location: EP LAB; Service: Cardiovascular HERNIA REPAIR Right 07/2009 inguinal hernia RETINAL DETACHMENT SURGERY Right twice SKIN SURGERY basal cell removal on right ear Family History Problem Relation Age of Onset Stroke Mother Hypertension Mother Stroke Father Glaucoma Father Crohn's disease Sister Glaucoma Sister Basal cell carcinoma Sister Social History Socioeconomic History Marital status: Number of children: 0 Tobacco Use Smoking status: Never Smokeless tobacco: Never Vaping Use Vaping status: Never Used Substance and Sexual Activity Alcohol use: Never Drug use: Never Sexual activity: Yes Partners: Female control/protection: None Patient has no known allergies. Patient's Medications New Prescriptions No medications on file Previous Medications AMLODIPINE (NORVASC) 5 MG TABLET Take 2 (two) tablets (10 mg total) by mouth daily . B-COMPLEX WITH VITAMIN C TABLET Take 1 Unspecified by mouth daily . BENAZEPRIL (LOTENSIN) 40 MG TABLET Take 1 (one) tablet (40 mg total) by mouth daily . CHOLECALCIFEROL, VITAMIN D3, 25 MCG (1,000 UNIT) CAPSULE Take by mouth daily . MULTIVITAMIN (THERAGRAN) PER TABLET Take 1 (one) tablet by mouth daily . RED YEAST RICE 600 MG CAP Take 2 (two) capsules (1,200 mg total) by mouth daily . Modified Medications No medications on file Discontinued Medications No medications on file No Known Allergies Review of Systems Constitutional: Negative for chills and fever. HENT: Negative for nosebleeds. Cardiovascular: Negative for chest pain, dyspnea on exertion, irregular heartbeat, leg swelling, near-syncope, orthopnea, palpitations and syncope. Respiratory: Negative for shortness of breath. Hematologic/Lymphatic: Negative for bleeding problem. Musculoskeletal: Negative for falls and muscle weakness. Gastrointestinal: Negative for abdominal pain, diarrhea and vomiting. Genitourinary: Negative for hematuria. Neurological: Negative for dizziness and light-headedness. Psychiatric/Behavioral: Negative for altered mental status and substance abuse. All other systems reviewed and are negative. PACU Vitals 04/18/24 0855 BP: (!) 142/80 Pulse: 63 SpO2: Physical Exam Vitals reviewed. Constitutional: Appearance: He is well-developed. HENT: Head: Normocephalic. Eyes: General: Lids are normal. Conjunctiva/sclera: Conjunctivae normal. Neck: Vascular: No JVD. Cardiovascular: Rate and Rhythm: Normal rate and regular rhythm. Pulses: Normal pulses. Heart sounds: Normal heart sounds. Pulmonary: Effort: Pulmonary effort is normal. Breath sounds: Normal breath sounds. Abdominal: General: Abdomen is flat. There is no distension. Palpations: Abdomen is soft. There is no mass. Musculoskeletal: General: Normal range of motion. Skin: General: Skin is warm. Findings: No rash. Neurological: Mental Status: He is alert and oriented to person, place, and time. Gait: Gait normal. Psychiatric: Behavior: Behavior normal. Lab Results Component Value Date GLUCOSE 103 (H) 11/13/2019 CALCIUM 8.7 11/13/2019 NA 139 11/13/2019 K 4.8 11/13/2019 CL 107 11/13/2019 BUN 26 (H) 11/13/2019 CREATININE 1.19 11/13/2019 Lab Results Component Value Date INR 1.1 11/11/2019 PROTIME 13.7 11/11/2019 ECG reviewed: Sinus Rhythm -MO prolongation -PACs -Atrially paced beats Echocardiogram: reviewed Other workup reviewed ASSESSMENT & PLAN: See above Rafi Rollins DO, MPH [facility] Clinical Cardiac Solar Energy Technician Please feel free to contact if you have any questions or concerns. ROS Denies cardiac concerns today documented in this encounter [facility] 04-06-[address] MA - 04/06/2024 9:05 AM EST Testing Ordered: none Medication Changes: none Lab Work Ordered: none Referrals: none If you have any medical questions or concerns, please call Yoli BHATT at [phone]. If you need to schedule/reschedule testing or your next appointment, please call [phone]. documented in this encounter [facility] 02-04-2024 Instructions Ivanna Garduno V, MD - 02/04/2024 8:14 AM EST [facility] OFFICE NUMBER [phone] (Regular business hours) If you notice increased floaters and/or flashing lights or a dark curtain coming over the vision from any direction, please call Dr. Garduno's office to come in to be seen. DRY TRANSFER WORKER DOCTOR [phone] (Evening, weekends, holidays) Evenings, weekends and holidays If you are calling after regular business hours, please call and ask to speak to the on-call investment officer. Please follow-up with Dr. Garduno for your next eye exam if you have been advised to do so. If you notice any sudden changes to your vision, eye pain, eye redness or irritation, please do not hesitate to call our office to schedule an earlier appointment. To schedule during office hours, call [phone] After office hours you may call [phone] and ask to speak with the foundation relations director investment officer. documented in this encounter [facility] 02-04-2024 Note Date of Procedure 02/04/2024. Addiction Therapist Information Cull Grader: CHEIKH. Start time: 8:05 AM. Interpretation Right Eye Findings include Epiretinal membrane. Left Eye Findings include Negative for Intraretinal fluid, Subretinal fluid. Interval Change Right Eye Stable. Left Eye Stable. [facility] 02-04-2024 Note HNO ID: [id number] Author: IVANNA GARDUNO MD Service: ? Author Type: Physician Type: Progress Notes Filed: 02/04/2024 08:14 Note Text: LTFU [id number] No changes in the last week 1. Horseshoe retinal tear, left eye 2. Hemorrhagic Acute, HST, lattice PVD OS - symptoms of new flashing lights mid-08/2023 - Laser retinopexy left eye 09/19 - stable - RD warning signs reviewed 3. H/o Recurrent Rhegmatogenous retinal detachment right eye: - s/p PPV/EL/AFX/24%SF6 (01/12/15) for RRD and superotemporal breaks (unable to do SB d/t sign scleral thinning) - Patient presented with redetachment and cat with post capsule feathering - s/p CE/IOL/PPV/14% C3F8 01/26/15 - remains attached - Observe 4. 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 Pseudophakia right eye - stable 7. Cataract left eye - ok to proceed I have confirmed and edited as necessary the relevant ophthalmic history, ROS, and the neuro exam findings as obtained by others. I have seen and examined Christopher Bagley. I have discussed the case and the management of this patient's care with the Resident/Fellow, if applicable. I also have reviewed and agree with the assessment and plan as stated above and agree with all of its relevant components. Ivanna Garduno MD [facility] 02-04-2024 History of Present illness Narrative LTFU [id number] No changes in the last week 1. Horseshoe retinal tear, left eye 2. Hemorrhagic Acute, HST, lattice PVD OS - symptoms of new flashing lights mid-08/2023 - Laser retinopexy left eye 09/19 - stable - RD warning signs reviewed 3. H/o Recurrent Rhegmatogenous retinal detachment right eye: - s/p PPV/EL/AFX/24%SF6 (01/12/15) for RRD and superotemporal breaks (unable to do SB d/t sign scleral thinning) - Patient presented with redetachment and cat with post capsule feathering - s/p CE/IOL/PPV/14% C3F8 01/26/15 - remains attached - Observe 4. 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 Pseudophakia right eye - stable 7. Cataract left eye - ok to proceed I have confirmed and edited as necessary the relevant ophthalmic history, ROS, and the neuro exam findings as obtained by others. I have seen and examined Christopher Bagley. I have discussed the case and the management of this patient's care with the Resident/Fellow, if applicable. I also have reviewed and agree with the assessment and plan as stated above and agree with all of its relevant components. Ivanna Garduno MD documented in this encounter [facility] 12-17-2023 Note HNO ID: [id number] Author: DEVIN MARISCAL MD Service: ? Author Type: Physician Type: Progress Notes Filed: 12/17/2023 10:23 Note Text: Radiation Oncology - Follow Up Note PATIENT NAME: Christopher Bagley PATIENT DIAGNOSIS: 73 year old male with prostate adenocarcinoma, initial PSA 7.3 (06/02/2021), biopsy [place] score 3 + 4 = 7 (grade group 2), 8/12 cores involved, clinical stage T1c, N0, M0, stage IIB [T1-T2, N0, M0, PSA <20, GG 2] (AJCC 8th ed.) (AJCC 8th ed.), s/p TRUS Random biopsy 08/05/2021. He compleetd radiation treatment 7000 cGy in 28 fractions to prostate, SV, pelvic LN on 02/04/2022. On Relugolix since 11/02/2021, completed 6 months. INTERVAL HISTORY: The patient presents for routine follow-up 6 months after having last been seen. He is doing well. No new or GI issues. He continues to work at the [employer] in [place]. PSA HISTORY: 11/25/2023: 0.21 ng/ml, T: 408 05/13/2023: 0.18 ng/ml, T:419 11/05/2022: 0.13 ng/ml, T:378 05/08/2022: <0.02 ng/ml, T: <12 11/02/2021-04/2022: 6 months of Relugolix, 02/04/2022: completed radiation tx : 8.01 ng/ml, T: 593 AUA: 4 today. ALLERGIES No Known Allergies Cholecalciferol, Vitamin D3, 25 mcg (1,000 unit) cap Take by mouth every 24 hours. B-complex with vitamin C (VITAMIN B COMPLEX-C ORAL) Take by mouth q 24 HR. AMLODIPINE BESYLATE (AMLODIPINE ORAL) Take by mouth. BENAZEPRIL HCL (BENAZEPRIL ORAL) Take by mouth. REVIEW OF SYSTEMS: Hematuria: No Dysuria: No Incontinence: No Urgency: none Catheter use: No Medications to aid urination: none Bowel movement frequency: 1/day Bowel movement quality: normal Blood per rectum: No Sexual activity: Not sexually active PHYSICAL EXAM: BP 138/73 Pulse 66 Temp 36.7 ?C (98.1 ?F) (Temporal) Wt 77.5 kg (170 lb 13.7 oz) SpO2 98% BMI 24.52 kg/m? KPS: 100 General Appearance: Alert and oriented. No acute distress. ASSESSMENT/PLAN: Clinically doing well. Good PSA response. Follow up in 6 months with a PSA level. Devin Mariscal MD cc: Stuart Durand ([facility]) [address] [address] [facility] 12-17-2023 History of Present illness Narrative Radiation Oncology - Follow Up Note PATIENT NAME: Christopher Bagley PATIENT DIAGNOSIS: 73 year old male with prostate adenocarcinoma, initial PSA 7.3 (06/02/2021), biopsy [place] score 3 + 4 = 7 (grade group 2), 8/12 cores involved, clinical stage T1c, N0, M0, stage IIB [T1-T2, N0, M0, PSA <20, GG 2] (AJCC 8th ed.) (AJCC 8th ed.), s/p TRUS Random biopsy 08/05/2021. He compleetd radiation treatment 7000 cGy in 28 fractions to prostate, SV, pelvic LN on 02/04/2022. On Relugolix since 11/02/2021, completed 6 months. INTERVAL HISTORY: The patient presents for routine follow-up 6 months after having last been seen. He is doing well. No new or GI issues. He continues to work at the [employer] in [place]. PSA HISTORY: 11/25/2023: 0.21 ng/ml, T: 408 05/13/2023: 0.18 ng/ml, T:419 11/05/2022: 0.13 ng/ml, T:378 05/08/2022: <0.02 ng/ml, T: <12 11/02/2021-04/2022: 6 months of Relugolix, 02/04/2022: completed radiation tx : 8.01 ng/ml, T: 593 AUA: 4 today. ALLERGIES No Known Allergies Cholecalciferol, Vitamin D3, 25 mcg (1,000 unit) cap Take by mouth every 24 hours. B-complex with vitamin C (VITAMIN B COMPLEX-C ORAL) Take by mouth q 24 HR. AMLODIPINE BESYLATE (AMLODIPINE ORAL) Take by mouth. BENAZEPRIL HCL (BENAZEPRIL ORAL) Take by mouth. REVIEW OF SYSTEMS: Hematuria: No Dysuria: No Incontinence: No Urgency: none Catheter use: No Medications to aid urination: none Bowel movement frequency: 1/day Bowel movement quality: normal Blood per rectum: No Sexual activity: Not sexually active PHYSICAL EXAM: BP 138/73 Pulse 66 Temp 36.7 C (98.1 F) (Temporal) Wt 77.5 kg (170 lb 13.7 oz) SpO2 98% BMI 24.52 kg/m KPS: 100 General Appearance: Alert and oriented. No acute distress. ASSESSMENT/PLAN: Clinically doing well. Good PSA response. Follow up in 6 months with a PSA level. Devin Mariscal MD cc: Stuart Durand ([facility]) [address] [id number] documented in this encounter [facility] 11-25-2023 Telephone encounter Note LM for patient to call me back to forward this information from Dr. Rosen: Can you please contact the pt and let him know I talked with his retina provider and they would prefer he have his surgery date set for after his 01/2024 retina appt to ensure he's safe to continue. He can still schedule with Lynnette, but make sure to pick a date AFTER his retina 01/2024 appt Malena [facility] [place] [facility] November 25, 2023 1:[address] [facility] 11-25-2023 Miscellaneous Notes LM for patient to call me back to forward this information from Dr. Rosen: Can you please contact the pt and let him know I talked with his retina provider and they would prefer he have his surgery date set for after his 01/2024 retina appt to ensure he's safe to continue. He can still schedule with Lynnette, but make sure to pick a date AFTER his retina 01/2024 appt Malena Miller [facility] November 25, 2023 1:59 PM documented in this encounter [facility] 11-23-2023 Note Date of Procedure 11/23/2023. Addiction Therapist Information Cull Grader: Start time: 10:06 AM. Stop time: 10:06 AM. [facility] 11-23-2023 Note Date of Procedure 11/23/2023. Addiction Therapist Information Cull Grader: sc. Start time: 10:06 AM. Stop time: 10:06 AM. [facility] 11-23-2023 Note HNO ID: [id number] Author: RADHA ROSEN MD Service: ? Author Type: Physician Type: Progress Notes Filed: 11/23/2023 10:45 Note Text: HRT, left eye Hemorrhagic Acute, HST, lattice PVD OS - symptoms of new flashing lights mid-08/2023 - Laser retinopexy left eye 09/14/23 - recommend re-enforcement of the HST and treatment of lattice - RD warning signs reviewed - follows with Dr. 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 Christopher Bagley has confirmed that he is no longer able to function adequately on a day-to-day basis because of his current visual condition. Further, it is my medical opinion that the cataract is the primary cause, or at least a significantly contributory cause of his visual dysfunction. With uncomplicated cataract surgery and lens implantation, it is my expectation that his visual function and quality of life will improve, significantly. The risks, benefits, alternatives, personnel and complications of cataract surgery with lens implantation were discussed with Christopher Bagley in detail. he appeared to understand and asked that I proceed with plans for surgery. Assessment: Visually significant cataract LEFT EYE. Discussed IOL options - patient elects monofocal IOL IMAGING: Tomography: 1.0 oblique Macula OCT : compact Preoperative Refraction (11/23/2023) Manifest Refraction Sphere Cylinder Ursa Dist VA Right Left -1.75 +1.25 139 20/30 Edited by: Jose F Lagos COT HISTORY/EXAM Dilation: mod Flomax/alpha-adriana? Yes Diabetes Mellitus No Contact lens use No History of LASIK/PRK/RK No Pertinent allergies: - Other: artist Intraocular lens options: Is not a candidate due to Macular changes Multifocal Toric - may need (will discuss if recommended) not interested Premium intraocular lens SURGICAL PLAN: Phaco/IOL LEFT EYE LEFT EYE: [id number] - may need (will discuss if recommended) Target Thelma [facility] needs: Phenylephrine 1.5% Discussed optimizing ocular surface for biometry/surgery. Lengthy discussion: Patient understands that refractive target is a goal and not a guarantee. Patient understands potential needs for both distance and reading glasses after surgery to achieve best corrected visual acuity. Patient to be scheduled for preoperative biometry. B Scan ustrasound not needed I have confirmed and edited as necessary the relevant HPI, ophthalmic history, ROS, and the neuro exam findings as obtained by others. I have seen and examined Christopher Bagley. I have discussed the case and the management of this patient's care with the Resident/Fellow, if applicable. I also have reviewed and agree with the assessment and plan as stated above and agree with all of its relevant components. [facility] 11-23-2023 History of Present illness Narrative HRT, left eye Hemorrhagic Acute, HST, lattice PVD OS - symptoms of new flashing lights mid-08/2023 - Laser retinopexy left eye 09/14/23 - recommend re-enforcement of the HST and treatment of lattice - RD warning signs reviewed - follows with Dr. 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 Christopher Bagley has confirmed that he is no longer able to function adequately on a day-to-day basis because of his current visual condition. Further, it is my medical opinion that the cataract is the primary cause, or at least a significantly contributory cause of his visual dysfunction. With uncomplicated cataract surgery and lens implantation, it is my expectation that his visual function and quality of life will improve, significantly. The risks, benefits, alternatives, personnel and complications of cataract surgery with lens implantation were discussed with Christopher Bagley in detail. he appeared to understand and asked that I proceed with plans for surgery. Assessment: Visually significant cataract LEFT EYE. Discussed IOL options - patient elects monofocal IOL IMAGING: Tomography: 1.0 oblique Macula OCT : compact Preoperative Refraction (11/23/2023) Manifest Refraction Sphere Cylinder [place] [facility] Right Left -1.75 +1.25 139 20/30 Edited by: Jose F Lagos COT HISTORY/EXAM Dilation: mod Flomax/alpha-adriana? Yes Diabetes Mellitus No Contact lens use No History of LASIK/PRK/RK No Pertinent allergies: - Other: artist Intraocular lens options: Is not a candidate due to Macular changes Multifocal Toric - may need (will discuss if recommended) not interested Premium intraocular lens SURGICAL PLAN: Phaco/IOL LEFT EYE LEFT EYE: [id number] - may need (will discuss if recommended) Target Thelma Special Surgical needs: Phenylephrine 1.5% Discussed optimizing ocular surface for biometry/surgery. Lengthy discussion: Patient understands that refractive target is a goal and not a guarantee. Patient understands potential needs for both distance and reading glasses after surgery to achieve best corrected visual acuity. Patient to be scheduled for preoperative biometry. B Scan ustrasound not needed I have confirmed and edited as necessary the relevant HPI, ophthalmic history, ROS, and the neuro exam findings as obtained by others. I have seen and examined Christopher Bagley. I have discussed the case and the management of this patient's care with the Resident/Fellow, if applicable. I also have reviewed and agree with the assessment and plan as stated above and agree with all of its relevant components. documented in this encounter [facility] 11-05-2023 Instructions Ivanna Garduno V, MD - 11/05/2023 4:43 PM EDT Please follow-up with Dr. Garduno for your next eye exam if you have been advised to do so. If you notice any sudden changes to your vision, eye pain, eye redness or irritation, please do not hesitate to call our office to schedule an earlier appointment. To schedule during office hours, call [phone] After office hours you may call [phone] and ask to speak with the foundation relations director investment officer. [facility] OFFICE NUMBER [phone] (Regular business hours) If you notice increased floaters and/or flashing lights or a dark curtain coming over the vision from any direction, please call Dr. Garduno's office to come in to be seen. DRY TRANSFER WORKER DOCTOR [phone] (Evenings, weekends, holidays) Evenings, weekends and holidays If you are calling after regular business hours please call and ask to speak to the on-call investment officer. Please follow-up with Dr. Garduno for your next eye exam if you have been advised to do so. If you notice any sudden changes to your vision, eye pain, eye redness or irritation, please do not hesitate to call our office to schedule an earlier appointment. To schedule during office hours, call [phone] After office hours you may call [phone] and ask to speak with the foundation relations director investment officer. documented in this encounter [facility] 11-05-2023 Note Date of Procedure 11/05/2023. Addiction Therapist Information Cull Grader: af. Stop time: 3:17 PM. DIETER Baxter . Interpretation Right Eye Findings include Epiretinal membrane. Left Eye Findings include Epiretinal membrane. Interval Change Right Eye Stable. Left Eye Stable. [facility] 11-05-2023 Note HNO ID: [id number] Author: IVANNA GARDUNO MD Service: ? Author Type: Physician Type: Progress Notes Filed: 11/05/2023 16:46 Note Text: LTFU [id number] Returned 2023 with new Horseshoe tear left eye No changes in the last week 1. Horseshoe retinal tear, left eye 2. Hemorrhagic Acute, HST, lattice PVD OS - symptoms of new flashing lights mid-08/2023 - Laser retinopexy left eye 09/14/23 - recommend re-enforcement of the HST and treatment of lattice - RD warning signs reviewed 3. H/o Recurrent Rhegmatogenous retinal detachment right eye: - s/p PPV/EL/AFX/24%SF6 (01/12/15) for RRD and superotemporal breaks (unable to do SB d/t sign scleral thinning) - Patient presented with redetachment and cat with post capsule feathering - s/p CE/IOL/PPV/14% C3F8 01/26/15 - remains attached - Observe 4. 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 Pseudophakia right eye - stable 7. 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 I have seen and examined Christopher Wiggins Yudi. I have discussed the case and the management of this patient's care with the Resident/Fellow, if applicable. I also have reviewed and agree with the assessment and plan as stated above and agree with all of its relevant components. Ivanna Garduon MD [facility] 11-05-2023 History of Present illness Narrative LTFU [id number] Returned 2023 with new Horseshoe tear left eye No changes in the last week 1. Horseshoe retinal tear, left eye 2. Hemorrhagic Acute, HST, lattice PVD OS - symptoms of new flashing lights mid-08/2023 - Laser retinopexy left eye 09/14/23 - recommend re-enforcement of the HST and treatment of lattice - RD warning signs reviewed 3. H/o Recurrent Rhegmatogenous retinal detachment right eye: - s/p PPV/EL/AFX/24%SF6 (01/12/15) for RRD and superotemporal breaks (unable to do SB d/t sign scleral thinning) - Patient presented with redetachment and cat with post capsule feathering - s/p CE/IOL/PPV/14% C3F8 01/26/15 - remains attached - Observe 4. 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 Pseudophakia right eye - stable 7. 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 I have seen and examined Christopher Bagley. I have discussed the case and the management of this patient's care with the Resident/Fellow, if applicable. I also have reviewed and agree with the assessment and plan as stated above and agree with all of its relevant components. Ivanna Garduno MD documented in this encounter [facility] 09-22-2023 Note Date of Procedure 09/22/2023 [place] Protocol Safety Checklist Sign In: Patient name, date of , allergies and intended procedure verified. Provider Confirms: Consent documented and matches the intended procedure. Relevant labs, photos, and/or imaging studies have been reviewed. Medications required for procedure verified. Fire risk assessed and interventions discussed. No implants. Anesthesia 1-2 drops Tetracaine 0.5%. Laser Paramters Laser: Yellow-Green Argon. Duration: 0.1 seconds. Power: 220-260. Total Spots: 483. Sign Out Sign out discussion completed. No specimens. Notes 28 HONG - filled in temp gap and treated sup-temp lattice [facility] 09-22-2023 Instructions Ivanna Garduno V, MD - 09/22/2023 1:56 PM EDT [facility] OFFICE NUMBER [phone] (Regular business hours) If you notice increased floaters and/or flashing lights or a dark curtain coming over the vision from any direction, please call Dr. Garduno's office to come in to be seen. DRY TRANSFER WORKER DOCTOR [phone] (Evening, weekends, holidays) Evenings, weekends and holidays If you are calling after regular business hours, please call and ask to speak to the on-call investment officer. Please follow-up with Dr. Garduno for your next eye exam if you have been advised to do so. If you notice any sudden changes to your vision, eye pain, eye redness or irritation, please do not hesitate to call our office to schedule an earlier appointment. To schedule during office hours, call [phone] After office hours you may call [phone] and ask to speak with the foundation relations director investment officer. documented in this encounter [facility] 09-22-2023 Note Date of Procedure 09/22/2023. Addiction Therapist Information Cull Grader: af. Stop time: 1:13 PM. DIETER Baxter Disc Right Eye Normal. Left Eye Normal. Macula Right Eye Epiretinal membrane. Left Eye Epiretinal membrane. Periphery Right Eye Laser scars, Pigmentation. Left Eye Pigmentation, Laser scars. [facility] 09-22-2023 Note Date of Procedure 09/22/2023. Addiction Therapist Information Cull Grader: af. Stop time: 1:13 PM. DIETER Baxter . Interpretation Right Eye Findings include Epiretinal membrane; Negative for Intraretinal fluid, Subretinal fluid. Left Eye Findings include Epiretinal membrane; Negative for Intraretinal fluid, Subretinal fluid. Interval Change Right Eye Stable. Left Eye Stable. [facility] 09-22-2023 Note HNO ID: [id number] Author: IVANNA GARDUNO MD Service: ? Author Type: Physician Type: Progress Notes Filed: 09/22/2023 13:56 Note Text: LTFU Returned 2023 with new Horseshoe tear left eye No changes in the last week 1. Horseshoe retinal tear, left eye 2. Hemorrhagic Acute, HST, lattice PVD OS - symptoms of new flashing lights mid-08/2023 - Laser retinopexy left eye 09/14/23 - recommend re-enforcement of the HST and treatment of lattice - RD warning signs reviewed 3. H/o Recurrent Rhegmatogenous retinal detachment right eye: - s/p PPV/EL/AFX/24%SF6 (01/12/15) for RRD and superotemporal breaks (unable to do SB d/t sign scleral thinning) - Patient presented with redetachment and cat with post capsule feathering - s/p CE/IOL/PPV/14% C3F8 01/26/15 - remains attached - Observe 4. 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 Pseudophakia right eye - stable 7. 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 I have seen and examined Christopher Bagley. I have discussed the case and the management of this patient's care with the Resident/Fellow, if applicable. I also have reviewed and agree with the assessment and plan as stated above and agree with all of its relevant components. Ivanna Garduno MD [facility] 09-22-2023 History of Present illness Narrative LTFU [id number] Returned 2023 with new Horseshoe tear left eye No changes in the last week 1. Horseshoe retinal tear, left eye 2. Hemorrhagic Acute, HST, lattice PVD OS - symptoms of new flashing lights mid-08/2023 - Laser retinopexy left eye 09/14/23 - recommend re-enforcement of the HST and treatment of lattice - RD warning signs reviewed 3. H/o Recurrent Rhegmatogenous retinal detachment right eye: - s/p PPV/EL/AFX/24%SF6 (01/12/15) for RRD and superotemporal breaks (unable to do SB d/t sign scleral thinning) - Patient presented with redetachment and cat with post capsule feathering - s/p CE/IOL/PPV/14% C3F8 01/26/15 - remains attached - Observe 4. 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 Pseudophakia right eye - stable 7. 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 I have seen and examined Christopher Bagley. I have discussed the case and the management of this patient's care with the Resident/Fellow, if applicable. I also have reviewed and agree with the assessment and plan as stated above and agree with all of its relevant components. Ivanna Garduno MD documented in this encounter [facility] 09-21-2023 Instructions Arianna Vidales, Research Coordinator - 09/21/2023 11:29 AM EDT Please follow-up with Dr. Garduno for your next eye exam if you have been advised to do so. If you notice any sudden changes to your vision, eye pain, eye redness or irritation, please do not hesitate to call our office to schedule an earlier appointment. To schedule during office hours, call [phone] After office hours you may call [phone] and ask to speak with the foundation relations director investment officer. documented in this encounter [facility] 09-14-2023 Note Date of Procedure 09/14/2023 [place] Protocol Safety Checklist Sign In: A moment to CARE completed, Patient name, date of , allergies and intended procedure verified, Special equipment verified, Appropriate PPE verified. Provider Confirms: Intended patient and procedure match the source document, Consent documented and matches the intended procedure, Correct side/site marked visible. Relevant labs, photos, and/or imaging studies have been reviewed. Medications required for procedure verified. No fire risk. No implants. Anesthesia 1-2 drops Tetracaine 0.5%. Laser Paramters Laser: Yellow-Green Argon. Duration: 0.15 seconds. Spot Size: HONG microns. Power: 250-300. Total Spots: 450. Sign Out Sign out discussion completed, Post-procedure follow up management communicated, All instruments, equipment, and/or possible retained foreign bodies accounted for. No specimens. Notes Spots applied around thin HST at 0300 [address] and to ora [facility] 09-14-2023 Note Date of Procedure 09/14/2023. Addiction Therapist Information Poor view. Interpretation Findings include PVD. [facility] 09-14-2023 Note HNO ID: [id number] Author: JENNIFER FUENTES MD Service: ? Author Type: Fellow Type: Progress Notes Filed: 09/14/2023 18:06 Note Text: Sent over from Dr. Mango Wren OD, for hemorrhagic retinal tear OS Horseshoe retinal tear, left eye Hemorrhagic Acute PVD OS - symptoms of new flashing lights since last night, resolved today - operculated retinal noted on prior exam 2018 - today with mild surrounding VH and intraretinal hemorrhage - given symptoms and new hemorrhage, as well as hx of RD OD, recommend laser retinopexy to the area - follow up with Dr. Garduno in 2 weeks - Laser retinopexy today - r/b/a explained and patient agrees to proceed - good uptake - RD warning signs reviewed History of retinal detachment, right eye - follwoed Dr. 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 I have discussed the case and the management of this patient's care with the Resident/Fellow, if applicable. I also have reviewed and agree with the assessment and plan as stated above and agree with all of its relevant components. Jennifer Fuentes MD Vitreoretinal Surgery Fellow [facility], [facility] 09-14-2023 History of Present illness Narrative Sent over from Dr. Mango Wren OD, for hemorrhagic retinal tear OS Horseshoe retinal tear, left eye Hemorrhagic Acute PVD OS - symptoms of new flashing lights since last night, resolved today - operculated retinal noted on prior exam 2018 - today with mild surrounding VH and intraretinal hemorrhage - given symptoms and new hemorrhage, as well as hx of RD OD, recommend laser retinopexy to the area - follow up with Dr. Garduno in 2 weeks - Laser retinopexy today - r/b/a explained and patient agrees to proceed - good uptake - RD warning signs reviewed History of retinal detachment, right eye - lorrainewdonal Garduno (last in 2018) - s/p PPV/EL/AFX/24%SF6 (01/12/15) for RRD and superotemporal breaks (unable to do SB d/t sign scleral thinning) - Patient presented with redetachment and cat with post capsule feathering s/p CE/IOL/PPV/14% C3F8 01/26/15 Lattice degeneration, left eye - observe other areas of lattice/ pigmentation for now - RD precautions given as above Age related cataract, left eye - not VS at this time but does notice diminished color in the left eye compared to the right - 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 I have discussed the case and the management of this patient's care with the Resident/Fellow, if applicable. I also have reviewed and agree with the assessment and plan as stated above and agree with all of its relevant components. Jennifer Fuentes MD Vitreoretinal Surgery Fellow [facility], [facility] documented in this encounter [facility] 09-14-2023 Note HNO ID: [id number] Author: HARRISON MASON, IDALIA Service: ? Author Type: TAILING HAND Type: Progress Notes Filed: 09/14/2023 15:48 Note Text: Encounter Diagnosis ICD-10-CM 1. Posterior vitreous detachment of left eye H43.812 2. History of retinal detachment Z86.69 3. Horseshoe retinal tear of left eye H33.312 4. Retinal hole, left H33.322 5. 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 Pseudophakia of right eye Z96.1 7. Combined forms of age-related cataract of left eye H25.812 Plan: History of RD repair OD New PVD OS with heme, HST temporal with hemorrhage Schedule with retina for eval I have confirmed and edited as necessary the relevant ophthalmic history, ROS, and the exam findings as obtained by others. I have seen and examined this patient. I have discussed the case and the management of this patient's care with the resident/fellow, if applicable. I also have reviewed and agree with the assessment and plan as stated above and agree with all of its relevant components. Harrison Mason, IDALIA September 14, 2023 3:46 PM [facility] 09-14-2023 History of Present illness Narrative Encounter Diagnosis ICD-10-CM 1. Posterior vitreous detachment of left eye H43.812 2. History of retinal detachment Z86.69 3. Horseshoe retinal tear of left eye H33.312 4. Retinal hole, left H33.322 5. 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 Pseudophakia of right eye Z96.1 7. Combined forms of age-related cataract of left eye H25.812 Plan: History of RD repair OD New PVD OS with heme, HST temporal with hemorrhage Schedule with retina for eval I have confirmed and edited as necessary the relevant ophthalmic history, ROS, and the exam findings as obtained by others. I have seen and examined this patient. I have discussed the case and the management of this patient's care with the resident/fellow, if applicable. I also have reviewed and agree with the assessment and plan as stated above and agree with all of its relevant components. 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 Garduno today (09/14/2023) History of retinal detachment, right eye - follwoed Dr. 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 09-14-2023 Note HNO ID: [id number] Author: IAN SMITH MD Service: ? 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 Garduno today (09/14/2023) History of retinal detachment, right eye - follwoed Dr. 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 Informed of Dr. Davey prater next week. Advised to come for lab today or call back to R/S. documented in this encounter [facility] 12-11-2022 Instructions Wendy Diop MD - 12/11/2022 9:09 AM EDT How to Contact your Care Team: Provider: Dr. Wendy Diop MD Clinic Nurse: Bren Rutherford RN REFILLS: When in need for refills please call your care team or the office at [phone]. Please include medication name, pharmacy name, and specify 30-day or 90-day supply. Please check with your pharmacy within 24 hours of request for your refill. You must follow up as directed to continue current refills. Thank you! Patient Instructions So great to see you today! Please do not hesitate to call me if you have any questions! Here are the things we talked about... Call with anything suspicious documented in this encounter [facility] 12-11-2022 History of Present illness Narrative General Cardiology Returning Patient Clinic Visit [facility] 12/11/2022 Wendy Diop MD [address] [place] [address] Medical Office [facility] [phone] [facility], physician's office 12/11/2022 Patient: Christopher Bagley Date of : 1950 (72 y.o.) PCP: Stuart Durand MD Chief Complaint: Follow-up (No cardiac symptoms ) Date of Service: 12/11/2022 Assessment and Plan: 1. Sick sinus syndrome (HCC) 2. History of cardiac pacemaker in situ Pacemaker functioning appropriately Currently on red yeast rice, very reasonable considering no coronary atherosclerosis noted on CT abdomen pelvis LDL reasonable Patient would prefer to avoid any additional medications including statin therapy Continue annual checks It has been a pleasure caring for this patient. Please don't hesitate to reach out to my office directly with any questions or concerns. Follow-up: Return in about 1 year (around 12/12/2023). Wendy Diop MD, [facility] Non-Invasive Cardiology [facility] P:[phone] F:[phone] History of Present Illness: Christopher Bagley is a 72 y.o. man with a past medical history of Pacemaker implantation for symptomatic bradycardia and intermittent complete heart block. He presents today to establish care with myself. Overall doing quite well, denies any exertional chest pain or pressure or shortness of breath. Very active running the [employer]. 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 Blood pressures are well controlled. CT abdomen pelvis from 2019 was reviewed showing no plaque. Objective Review of Systems: All systems were reviewed and noted to be negative unless otherwise stated in HPI. 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 All of the above information has been reviewed at today's visit and modified if necessary. Home Medications: Current Outpatient Medications: amLODIPine (NORVASC) 5 MG tablet, Take 2 (two) tablets (10 mg total) by mouth daily ., Disp: , Rfl: B-complex with vitamin C tablet, Take 1 Unspecified by mouth daily ., Disp: , Rfl: benazepriL (LOTENSIN) 40 MG tablet, Take 1 (one) tablet (40 mg total) by mouth daily ., Disp: , Rfl: cholecalciferol, vitamin D3, 25 mcg (1,000 unit) capsule, Take by mouth daily ., Disp: , Rfl: multivitamin (THERAGRAN) per tablet, Take 1 (one) tablet by mouth daily ., Disp: , Rfl: red yeast rice 600 mg cap, Take 2 (two) capsules (1,200 mg total) by mouth daily ., Disp: , Rfl: Physical Exam: BP 138/76 (BP Location: Right arm, Patient Position: Sitting, BP Cuff Size: X-large Adult) Pulse (!) 59 Ht 5' 10 Wt 79.8 kg (176 lb) SpO2 97% BMI 25.25 kg/m Constitutional: Well appearing male, no acute distress Head: Normocephalic and atraumatic. Eyes: Conjunctivae are normal, no scleral icterus, no corneal arcus Neck: No acanthosis nigricans, no elevated jugular venous distension, no hepatojugular reflux Cardiovascular: Regular rate and rhythm, no murmurs appreciated on today's exam, normal S1 and S2, no rubs or gallops, PMI is midline Pulses: +2 dorsalis pedis pulses bilaterally Musculoskeletal: Normal range of motion. No cyanosis. No peripheral Edema Neurological: AOx3, moving all extremities normally Skin: Skin is warm and dry, normal hair pattern Psychiatric: Normal mood and affect, appropriate conversation Cardiovascular Studies: Pacemaker report reviewed, atrial far field sensing, otherwise normal Labs: Lab Results Component Value Date GLUCOSE 103 (H) 11/13/2019 CALCIUM 8.7 11/13/2019 NA 139 11/13/2019 K 4.8 11/13/2019 CL 107 11/13/2019 BUN 26 (H) 11/13/2019 CREATININE 1.19 11/13/2019 Lab Results Component Value Date ALT 25 11/11/2019 AST 20 11/11/2019 ALKPHOS 98 11/11/2019 BILITOT 0.6 11/11/2019 Lab Results Component Value Date WBC 6.99 11/13/2019 HGB 16.6 11/13/2019 HCT 51.0 11/13/2019 MCV 91.9 11/13/2019 PLT 151 11/13/2019 RBC 5.55 11/13/2019 Lab Results Component Value Date CHOL 163 11/12/2019 LDLCALC 82 11/12/2019 TRIG 103 11/12/2019 HDL 60 11/12/2019 Lab Results Component Value Date HGBA1C 5.5 11/12/2019 Lab Results Component Value Date ALT 25 11/11/2019 AST 20 11/11/2019 ALKPHOS 98 11/11/2019 BILITOT 0.6 11/11/2019 The ASCVD Risk score (Low GIBBS, et al., 2019) failed to calculate for the following reasons: Cannot find a previous HDL lab Cannot find a previous total cholesterol lab documented in this encounter [facility] 12-11-2022 History of Present illness Narrative Images from the original note were not included. PRELIMINARY REVIEW: Routed to EP for review/signature: CHRISTOPHER BAGLEY was seen at [facility] on Sunday, December 11, 2022. The patient's underlying rhythm was Sinus. This evaluation showed the patient was not pacing dependent. The evaluation results are as follows: Pacemaker - [employer] [id number] ACCOLADE MRI (On Alert). This device was implanted on 11/23/2019 and is 36 months old. Atrial Lead - [employer] 7841 Ingevity + MRI. This lead was implanted on 11/23/2019. A pacing threshold of 0.6000 V @ 0.4 ms was determined during today's evaluation. The P wave was sensed at 2.7 mV. The lead impedance was 611.0 ?. Right Ventricular Lead - [employer] 7842 Ingevity + MRI. This lead was implanted on 11/23/2019. A pacing threshold of 0.6000 V @ 0.4 ms was determined during today's evaluation. The R wave was sensed at 22.6 mV. The lead impedance was 814.0 ?. [employer] dual chamber PPM routine In Clinic Device Check and OV with Dr. Diop Full Interrogation with Iterative adjustment completed Device Site: left chest without signs or symptoms of infection or erosion. Est. Battery: 7 years Underlying Rhythm: Sinus Presenting EGM: AP/VS rate 60s with occasional PAC AP: 13% RVP: <1% AFib [place]: <1% AHR Episodes: 203 listed since 12/25/2020; available EGMs appear as FFRW oversensing and not true AF. Those listed all lasting <2 min VHR Episodes: 1 (occurred June 2021; reviewed on previous remote) Sensing, Thresholds, Impedances: stable Histograms: 60-100 bpm Medications per EPIC: Norvasc, Lotensin Notes/Summary: 2019 Echo EF=55% Signature: Charan BADILLO, RN ___I have reviewed the device function, programmed parameters and heart rhythm. ___Pt will return to the Device Clinic per protocol or as directed. ___No changes made. documented in this encounter [facility] 11-11-2022 History of Present illness Narrative Radiation Oncology - Follow Up Note PATIENT NAME: Christopher Bagley PATIENT DIAGNOSIS: 71 year old male with prostate adenocarcinoma, initial PSA 7.3 (06/02/2021), biopsy [place] score 3 + 4 = 7 (grade group 2), 8/12 cores involved, clinical stage T1c, N0, M0, stage IIB [T1-T2, N0, M0, PSA <20, GG 2] (AJCC 8th ed.) (AJCC 8th ed.), s/p TRUS Random biopsy 08/05/2021. He compleetd radiation treatment 7000 cGy in 28 fractions to prostate, SV, pelvic LN on 02/04/2022. On Relugolix since 11/02/2021, completed 6 months. INTERVAL HISTORY: The patient presents for routine follow-up 6 months after having last been seen. He is doing overall well. Denies any new GI issues or issues. AUA: 6 today. No hot flashes (was resolved pretty soon after being done with Orgovyx). PSA HISTORY: 11/05/2022: 0.13 ng/ml, T:378 05/08/2022: <0.02 ng/ml, T: <12 11/02/2021-04/2022: 6 months of Relugolix, 02/04/2022: completed radiation tx : 8.01 ng/ml, T: 593 ALLERGIES No Known Allergies tamsulosin (FLOMAX) 0.4 mg Take 1 capsule by mouth daily at bedtime. relugolix (ORGOVYX) 120 mg tablet Take by mouth q 24 HR. B-complex with vitamin C (VITAMIN B COMPLEX-C ORAL) Take by mouth q 24 HR. folic acid 1 mg tablet TAKE 1 TABLET BY MOUTH EVERY DAY NOT COVERED olopatadine (PATANOL) 0.1 % ophthalmic solution Use 1 Drop in both eyes twice daily. (Patient not taking: Reported on 08/18/2017 ) CARBOXYMETHYLCELLULOSE SODIUM (REFRESH OPHTHALMIC) Use in eyes as directed. (Patient not taking: Reported on 09/10/2021 ) AMLODIPINE BESYLATE (AMLODIPINE ORAL) Take by mouth. BENAZEPRIL HCL (BENAZEPRIL ORAL) Take by mouth. REVIEW OF SYSTEMS: Hematuria: No Dysuria: No Incontinence: No Urgency: mild Catheter use: No Medications to aid urination: None Flomax was prescribed but never filled - AUA Questionnaire (symptoms within the past 1 month) Incomplete emptyin (not at all) Frequency (within 2 hours): 1(less than 1 in 5 times) Intermittency: 1 (less than 1 time in 5) Urgency: 0 (not at all) Weak stream: 1 (less than 1 time in 5) Strainin (not at all) Nocturia: 3x per night - Total AUA Score: 6 Bowel movement frequency: 1-2/day Bowel movement quality: normal Blood per rectum: No Last colonoscopy: 2020 Sexual activity: Not sexually active Sexual Health Inventory (CHLOÉ) score: 0/25 Androgen deprivation: Never. PHYSICAL EXAM: BP 142/89 Pulse 67 Temp 36.3 C (97.4 F) (Temporal) Wt 78.7 kg (173 lb 6.4 oz) SpO2 99% BMI 24.88 kg/m KPS: 100 General Appearance: Alert and oriented. No acute distress. Rectal exam is deferred. ASSESSMENT/PLAN: Clinically doing well. We will see him again in 6 months with a PSA and testosterone level. Is not planning to routinely follow up with Dr. Cool. Devin Mariscal MD Cc: Stuart Durand MD documented in this encounter [facility] 07-28-2022 Miscellaneous Notes Called and reviewed CT chest results from 07/27/2022. CT chest (07/27/2022): IMPRESSION: 1. Chronic in appearance bilateral areas of reticular opacities, mucous plugging, partially calcified reticular opacities, likely related to a postinfectious/postinflammatory etiology. These findings are stable in appearance from prior study of 01/15/2022. 2. Subtle bilateral 7 mm or less pulmonary nodules are identified, several which appear improved, several appear stable, as above. 2. Mildly prominent mediastinal, AP window lymph node, stable. Plan: Follow up with us in 10/2022 as scheduled, will repeat CT chest in 6-7 months, if that is stable as prior will consider no more CT chest followup versus yearly scans. documented in this encounter [facility] 07-27-2022 History of Present illness Narrative Radiology Service Progress Note PATIENT NAME: Christopher Bagley DATE OF SERVICE: July 27, 2022 TIME: 9:44 AM PATIENT IDENTITY VERIFICATION COMPLETED USING TWO (2) IDENTIFIERS: Name and Date of confirmed by patient verbally. FALL SCREENING: Has the patient had 2 falls in the last year or 1 fall with injury or currently using an Ambulatory Assistive Device (Walker, Cane, Wheelchair, Crutches, etc.)? No PATIENT GENDER DATA: Male PATIENT RELEVANT IMPLANT DATA REVIEWED: Not Applicable RADIOLOGY DEPARTMENT: CT; Exam(s) Completed: Chest PERIPHERAL IV DATA: Not applicable SIGNED BY: RT Briana(R) July 27, 2022 9:44 AM documented in this encounter [facility] 05-14-2022 History of Present illness Narrative Radiation Oncology - Follow Up Note PATIENT NAME: Christopher Bagley PATIENT DIAGNOSIS: 71 year old male with prostate adenocarcinoma, initial PSA 7.3 (06/02/2021), biopsy Marissa score 3 + 4 = 7 (grade group 2), 8/12 cores involved, clinical stage T1c, N0, M0, stage IIB [T1-T2, N0, M0, PSA <20, GG 2] (AJCC 8th ed.) (AJCC 8th ed.), s/p TRUS Random biopsy 08/05/2021. He compleetd radiation treatment 7000 cGy in 28 fractions to prostate, SV, pelvic LN on 02/04/2022. On Relugolix since 11/02/2021, completed 6 months. INTERVAL HISTORY: The patient presents for routine follow-up 3 months after having last been seen. He is doing overall well. Denies abdominal pain, change in bowel habits, rectal bleeding, proctitis. No hematuria or dysuria. AUA: 5 today. Hot flashes improving after completing Orgovyx. PSA history: PSA (ng/ml) 05/08/2022: <0.02 ng/ml 09/10/2021: 8.01 ng/ml 06/02/2021: 7.3 ng/ml 11/29/2020: 6.8 ng/ml Testosterone: 05/08/2022: <12 09/10/2022: 593 ALLERGIES No Known Allergies tamsulosin (FLOMAX) 0.4 mg Take 1 capsule by mouth daily at bedtime. relugolix (ORGOVYX) 120 mg tablet Take by mouth q 24 HR. B-complex with vitamin C (VITAMIN B COMPLEX-C ORAL) Take by mouth q 24 HR. folic acid 1 mg tablet TAKE 1 TABLET BY MOUTH EVERY DAY NOT COVERED olopatadine (PATANOL) 0.1 % ophthalmic solution Use 1 Drop in both eyes twice daily. (Patient not taking: Reported on 08/18/2017 ) CARBOXYMETHYLCELLULOSE SODIUM (REFRESH OPHTHALMIC) Use in eyes as directed. (Patient not taking: Reported on 09/10/2021 ) AMLODIPINE BESYLATE (AMLODIPINE ORAL) Take by mouth. BENAZEPRIL HCL (BENAZEPRIL ORAL) Take by mouth. REVIEW OF SYSTEMS: Hematuria: No Dysuria: No Incontinence: No Urgency: none Catheter use: No Medications to aid urination: none - AUA Questionnaire (symptoms within the past 1 month) Incomplete emptyin (not at all) Frequency (within 2 hours): 0 (not at all) Intermittency: 1 (less than 1 time in 5) Urgency: 0 (not at all) Weak stream: 1 (less than 1 time in 5) Strainin (not at all) Nocturia: 3x per night - Total AUA Score: 5 Bowel movement frequency: 1-2/day Bowel movement quality: normal Blood per rectum: No Last colonoscopy: 2021 Sexual activity: Not sexually active Sexual Health Inventory (CHLOÉ) score: 04/22 Androgen deprivation: Never. PHYSICAL EXAM: BP 127/68 Pulse 67 Temp 36.4 C (97.6 F) (Oral) Wt 78.3 kg (172 lb 11.2 oz) SpO2 97% BMI 24.78 kg/m KPS: 100 General Appearance: Alert and oriented. No acute distress. Rectal exam is deferred. ASSESSMENT/PLAN: Clinically doing well, good PSA response. We will see him again in 6 months with a PSA level. Devin Mariscal MD CC: Dr. Stuart Cool documented in this encounter [facility] 03-04-2022 Miscellaneous Notes RADIATION POST TREATMENT CALL BACK Today's date: March 04, 2022 Patient's final treatment on 02/04/22. Treatment site Prostate Called patient to follow-up on symptom management and follow-up appointments. Spoke with Patient. Focused Toxicity Assessment: Pelvis--Male Fatigue: none Urinary Frequency: 8 times per day and 4 times per night Urinary Incontinence: No Dysuria: mild Hematuria: no Urinary Retention: No Use of Straight Catheterization: No Bowel Function: normal bowel movements Rectal Pain/Pressure: none Rectal Bleeding: no Hot Flashes: moderate Does not interfere with daily function and mood Erectile Dysfunction: Patient hasn't tried Erythema/Hyperpigmentation:none Desquamation:none Rash:none Skin Care: None Skin Sensation: Within Normal Limits Patient is on ADT: No Psychosocial Risk Factors: None Does the patient need interventions, referrals or same day appointment:No Reinforced CURRENT treatment education based on current and anticipated symptoms. Patient instructed to contact [place] office with questions or concerns or Hematology Oncology Fellow [employer] after 5pm and on weekends for urgent issues. Patient verbalized understanding of when to seek medical attention and after hours number protocol. Follow up appointment: Reminded patient of face to face visit on May 14 with Vincent Beltran LPN documented in this encounter [facility] 02-06-2022 History of Present illness Narrative CHRISTOPHER BAGLEY [id number] 02/06/2022 [facility] Radiation Oncology Department RADIATION ONCOLOGY - COMPLETION NOTE DATES OF TREATMENT: 12/29/2021 to 02/04/2022 TREATMENT MACHINE: [employer] TREATMENT AREA: Prostate, SV, LN DIAGNOSIS: 71 year old male with prostate adenocarcinoma, initial PSA 7.3 (06/02/2021), biopsy [place] score 3 + 4 = 7 (grade group 2), 8/12 cores involved, clinical stage T1c, N0, M0, stage IIB [T1-T2, N0, M0, PSA <20, GG 2] (AJCC 8th ed.) (AJCC 8th ed.), s/p TRUS Random biopsy 08/05/2021. On Relugolix since 11/02/2021 (plan for 6 months). CONCURRENT THERAPY: Relugolix DELIVERED DOSE: The Prostate, SV, LN PTV received a total dose of 7000 cGy in 28 fractions at 250 cGy/fraction prescribed to PTV mean at 98.0% IDL using 10 MV photons with VMAT Coplanar technique. ELAPSED DAYS: 37 TOLERANCE: Mr. Bagley has tolerated radiation treatment well. RESPONSE: To be assessed in outpatient clinic. REMARKS: We will call Mr. Bagley in 2 weeks to evaluate for acute toxicity, otherwise we will see him for follow up in 3 months. Staff Physician Devin Mariscal M.D. / SP :36 PM Electronically Signed cc: Dr. Stuart Cool documented in this encounter [facility] 02-02-2022 History of Present illness Narrative Radiation Oncology - On Treatment Review (OTR) Note PATIENT NAME: Christopher Bagley PATIENT DIAGNOSIS: 71 year old male with prostate adenocarcinoma, initial PSA 7.3 (06/02/2021), biopsy Marissa score 3 + 4 = 7 (grade group 2), 8/12 cores involved, clinical stage T1c, N0, M0, stage IIB [T1-T2, N0, M0, PSA <20, GG 2] (AJCC 8th ed.) (AJCC 8th ed.), s/p TRUS Random biopsy 08/05/2021. On Relugolix since 11/02/2021. COURSE: definitive Current dose: 6500cGy in 26 fx Planned dose: 7000 cGy in 28 fx SUBJECTIVE: Mr. Bagley had an episode of increased gas with bowel movements that lasted for 3 hours. It self resolved. He remembers that he had an apple juice before that. He also has increased urinary frequency. Not on flomax. He states that the appetite has not been the best. PHYSICAL EXAM: KPS: 100 General Appearance: Alert and oriented. No acute distress. IMAGING/LAB RESULTS: None TOXICITY ASSESSMENT (CTC v4.0): Fatigue:grade 1 - Fatigue relieved by rest Radiation Dermatitis: grade 0 - No symptoms Diarrhea:grade 0 - No symptoms Proctitis: grade 1 - Rectal discomfort, intervention not indicated Urinary frequency: grade 1 - present Dysuria: grade 1 - Microscopic hematuria; minimal increase in frequency, urgency, dysuria, or nocturia; new onset of incontinence Urinary incontinence: grade 0 (No symptoms) Urinary retention: grade 1 - Urinary, suprapubic or intermittent catheter placement not indicated; able to void with some residual Nocturia: 4-5x Treatment chart checked: Yes Patient treatment site reviewed and verified:Yes Port films reviewed and current:Yes Medications started: None ASSESSMENT/PLAN: Clinically stable. Toxicity within expected parameters. Continue radiation treatment as planned. Flomax rxed. Devin Mariscal MD documented in this encounter [facility] 01-26-2022 History of Present illness Narrative Radiation Oncology - On Treatment Review (OTR) Note PATIENT NAME: Christopher Bagley PATIENT DIAGNOSIS: 71 year old male with prostate adenocarcinoma, initial PSA 7.3 (06/02/2021), biopsy Marissa score 3 + 4 = 7 (grade group 2), 8/12 cores involved, clinical stage T1c, N0, M0, stage IIB [T1-T2, N0, M0, PSA <20, GG 2] (AJCC 8th ed.) (AJCC 8th ed.), s/p TRUS Random biopsy 08/05/2021. On Relugolix since 11/02/2021. COURSE: definitive Current dose: 5250 cGy in 21 fx Planned dose: 7000 cGy in 28 fx SUBJECTIVE: Mr. Bagley is tolerating radiation treatment well. He had some diarrhea over the weekend controlled with imodium. PHYSICAL EXAM: KPS: 100 General Appearance: Alert and oriented. No acute distress. IMAGING/LAB RESULTS: CT chest (01/20/2022): 1. Bilateral calcified reticular opacities in the pulmonary parenchyma right greater than left. Differential considerations include chronic aspiration, post infectious/inflammatory, or idiopathic (dendritic ossification) in nature. 2. Chronic in appearance bilateral areas of reticular opacities and mucous plugging. 3. Several bilateral, 7 mm or less noncalcified pulmonary nodules are identified. Given the patient's history, correlation with follow-up examinations is recommended to assess for stability. 4. Minimally prominent AP window lymph node is appreciated within the mediastinum. This can also be further assessed on follow-up studies. TOXICITY ASSESSMENT (CTC v4.0): Fatigue:grade 1 - Fatigue relieved by rest Radiation Dermatitis: grade 1 - Faint erythema or dry desquamation Diarrhea:grade 1 - Increase to >4 stools per day over baseline; mild increase in ostomy output compared to baseline Proctitis: grade 1 - Rectal discomfort, intervention not indicated just with diarrhea Urinary frequency: grade 1 - present Dysuria: grade 0 - No symptoms states sometimes hard to get going Urinary incontinence: grade 0 (No symptoms) Urinary retention: grade 0 - No symptoms Nocturia: 3x Treatment chart checked: Yes Patient treatment site reviewed and verified:Yes Port films reviewed and current:Yes Medications started: None ASSESSMENT/PLAN: Clinically stable. Toxicity within expected parameters. Continue radiation treatment as planned. Follow up CT chest in 6 months. Devin Mariscal MD documented in this encounter [facility] 01-20-2022 History of Present illness Narrative Radiology Service Progress Note PATIENT NAME: Christopher Bagley DATE OF SERVICE: January 20, 2022 TIME: 9:59 AM PATIENT IDENTITY VERIFICATION COMPLETED USING TWO (2) IDENTIFIERS: Name and Date of confirmed by patient verbally. FALL SCREENING: Has the patient had 2 falls in the last year or 1 fall with injury or currently using an Ambulatory Assistive Device (Walker, Cane, Wheelchair, Crutches, etc.)? No PATIENT GENDER DATA: Male PATIENT RELEVANT IMPLANT DATA REVIEWED: Not Applicable RADIOLOGY DEPARTMENT: CT; Exam(s) Completed: Chest PERIPHERAL IV DATA: Not applicable SIGNED BY: Joselin Chang RT(R) January 20, 2022 9:59 AM documented in this encounter [facility] 01-19-2022 History of Present illness Narrative Radiation Oncology - On Treatment Review (OTR) Note PATIENT NAME: Christopher Bagley PATIENT DIAGNOSIS: 71 year old male with prostate adenocarcinoma, initial PSA 7.3 (06/02/2021), biopsy [place] score 3 + 4 = 7 (grade group 2), 8/12 cores involved, clinical stage T1c, N0, M0, stage IIB [T1-T2, N0, M0, PSA <20, GG 2] (AJCC 8th ed.) (AJCC 8th ed.), s/p TRUS Random biopsy 08/05/2021. On Relugolix since 11/02/2021. COURSE: definitive Current dose: 4000 cGy in 16 fx Planned dose: 7000 cGy in 28 fx SUBJECTIVE: Mr. Bagley is tolerating radiation treatments well. Has hot flashes from relugolix. PHYSICAL EXAM: KPS: 100 General Appearance: Alert and oriented. No acute distress. Abdomen: soft. Non-tender IMAGING/LAB RESULTS: None TOXICITY ASSESSMENT (CTC v4.0): Fatigue:grade 1 - Fatigue relieved by rest Radiation Dermatitis: grade 0 - No symptoms Diarrhea:grade 1 - Increase to >4 stools per day over baseline; mild increase in ostomy output compared to baseline Proctitis: grade 1 - Rectal discomfort, intervention not indicated Urinary frequency: grade 1 - present Dysuria: grade 0 - No symptoms Urinary incontinence: grade 0 (No symptoms) Urinary retention: grade 0 - No symptoms Nocturia: 4x Treatment chart checked: Yes Patient treatment site reviewed and verified:Yes Port films reviewed and current:Yes Medications started: None ASSESSMENT/PLAN: Clinically stable. Toxicity within expected parameters. Continue radiation treatment as planned. Devin Mariscal MD documented in this encounter [facility] 01-12-2022 History of Present illness Narrative Radiation Oncology - On Treatment Review (OTR) Note PATIENT NAME: Christopher Bagley PATIENT DIAGNOSIS: 71 year old male with prostate adenocarcinoma, initial PSA 7.3 (06/02/2021), biopsy Marissa score 3 + 4 = 7 (grade group 2), 8/12 cores involved, clinical stage T1c, N0, M0, stage IIB [T1-T2, N0, M0, PSA <20, GG 2] (AJCC 8th ed.) (AJCC 8th ed.), s/p TRUS Random biopsy 08/05/2021. On Relugolix since 11/02/2021. COURSE: definitive Current dose: 2750 cGy in 11fx Planned dose: 7000 cGy in 28 fx SUBJECTIVE: Mr. Bagley is doing overall well. He states that he had labs with his PCP, and sugars and cholesterol are slightly elevated. I do not have the lab results with me (needs them faxed over from Dr. Durand's office). However, he also had change in his diet recently and eating more from outside. PHYSICAL EXAM: KPS: 100 General Appearance: Alert and oriented. No acute distress. Abdomen: soft, non-tender IMAGING/LAB RESULTS: None TOXICITY ASSESSMENT (CTC v4.0): Fatigue:grade 1 - Fatigue relieved by rest Radiation Dermatitis: grade 0 - No symptoms Diarrhea:grade 0 - No symptoms Proctitis: grade 0 - No symptoms Urinary frequency: grade 0 - No symptoms Dysuria: grade 0 - No symptoms Urinary incontinence: grade 0 (No symptoms) Urinary retention: grade 0 - No symptoms Nocturia: 3-4x Treatment chart checked: Yes Patient treatment site reviewed and verified:Yes Port films reviewed and current:Yes Medications started: None ASSESSMENT/PLAN: Clinically stable. Toxicity within expected parameters. Continue radiation treatment as planned. Devin Mariscal MD documented in this encounter [facility] 01-05-2022 History of Present illness Narrative Radiation Oncology - On Treatment Review (OTR) Note PATIENT NAME: Christopher Bagley PATIENT DIAGNOSIS: 71 year old male with prostate adenocarcinoma, initial PSA 7.3 (06/02/2021), biopsy Marissa score 3 + 4 = 7 (grade group 2), 8/12 cores involved, clinical stage T1c, N0, M0, stage IIB [T1-T2, N0, M0, PSA <20, GG 2] (AJCC 8th ed.) (AJCC 8th ed.), s/p TRUS Random biopsy 08/05/2021. On Relugolix since 11/02/2021. COURSE: definitive Current dose: 1500 cGy in 6 fx Planned dose: 7000 cGy in 28 fx SUBJECTIVE: Mr. Bagley is tolerating radiation treatment well. Denies diarrhea, dysuria, abdominal pain, rectal bleeding., proctitis. PHYSICAL EXAM: KPS: 100 General Appearance: Alert and oriented. No acute distress. Abdomen: soft, non-tender IMAGING/LAB RESULTS: None TOXICITY ASSESSMENT (CTC v4.0): Fatigue:grade 0 - No symptoms Radiation Dermatitis: grade 0 - No symptoms Diarrhea:grade 0 - No symptoms Proctitis: grade 0 - No symptoms Urinary frequency: grade 1 - present Dysuria: grade 0 - No symptoms Urinary incontinence: grade 0 (No symptoms) Urinary retention: grade 0 - No symptoms Nocturia: 3-4 x (states he does not sleep through the night well. Treatment chart checked: Yes Patient treatment site reviewed and verified:Yes Port films reviewed and current:Yes Medications started: None ASSESSMENT/PLAN: Clinically stable. Toxicity within expected parameters. Continue radiation treatment as planned. CT chest as recommended by CT abdomen/pelvis in 08/2021 due to bibasilar opacities. Devin Mariscal MD documented in this encounter [facility] 12-29-2021 History of Present illness Narrative Radiation Oncology - On Treatment Review (OTR) Note PATIENT NAME: Christopher Bagley PATIENT DIAGNOSIS: 71 year old male with prostate adenocarcinoma, initial PSA 7.3 (06/02/2021), biopsy Marissa score 3 + 4 = 7 (grade group 2), clinical stage T1c, N0, M0, stage IIB [T1-T2, N0, M0, PSA <20, GG 2] (AJCC 8th ed.) (AJCC 8th ed.), s/p TRUS Random biopsy 08/05/2021. COURSE: definitive Current dose: 250 cGy in 1 fx Planned dose: 7000 cGy in 28 fx SUBJECTIVE: Mr. Bagley is tolerating radiation treatments well. PHYSICAL EXAM: KPS: 100 General Appearance: Alert and oriented. No acute distress. IMAGING/LAB RESULTS: None TOXICITY ASSESSMENT (CTC v4.0): Fatigue:grade 0 - No symptoms Radiation Dermatitis: grade 0 - No symptoms Diarrhea:grade 0 - No symptoms Proctitis: grade 0 - No symptoms Urinary frequency: grade 0 - No symptoms Dysuria: grade 0 - No symptoms Urinary incontinence: grade 0 (No symptoms) Urinary retention: grade 0 - No symptoms Nocturia: 3x Treatment chart checked: Yes Patient treatment site reviewed and verified:Yes Port films reviewed and current:Yes Medications started: None ASSESSMENT/PLAN: Clinically stable. Toxicity within expected parameters. Continue radiation treatment as planned. Devin Mariscal MD documented in this encounter [facility] 12-17-2021 History of Present illness Narrative CHRISTOPHER BAGLEY [id number] 12/17/2021 [facility] Radiation Oncology Department RADIATION ONCOLOGY SIMULATION NOTE DATE OF SIMULATION: 12/17/2021 MACHINE: [employer]iyon Simulator DIAGNOSIS/DISEASE: 71 year old male with prostate adenocarcinoma, initial PSA 7.3 (06/02/2021), biopsy [place] score 3 + 4 = 7 (grade group 2), clinical stage T1c, N0, M0, stage IIB [T1-T2, N0, M0, PSA <20, GG 2] (AJCC 8th ed.) (AJCC 8th ed.), s/p TRUS Random biopsy 08/05/2021. AREA:Pelvis PROTOCOL: None CONTRAST: None BlOCKS: none PATIENT POSITION: Supine, hands holding ring on chest, positioned with orfit system. FIXATION DEVICE: In order to achieve accurate and reproducible treatments, the patient is immobilized with none. A time-out was conducted and recorded by the therapist. CT scan was completed for target localization and planning. Tumor loc was performed, followed by an iso verification scan, and the patient was marked with tattoos. Field arrangement will be determined after plan has been completed. The patient is scheduled for a verification simulation on the treatment machine to ensure proper set-up and field arrangement is correct prior to the first treatment of primary and boost roldan if applicable. Patient education will be completed per nursing. Electronically Signed Devin Mariscal M.D. / JOJO 24:21 PM documented in this encounter [facility] 12-17-2021 History of Present illness Narrative CHRISTOPHER BAGLEY [id number] 12/17/2021 [facility] Department of Radiation Oncology Treatment Planning Note For reasons stated in the consult note, Christopher Bagley is a candidate for radiation therapy. Based on review and interpretation of the relevant diagnostic studies together with the exam findings, Christopher Bagley was simulated on 12/17/2021 at which time the target volume and/or requisite roldan were delineated, as indicated in the simulation note, to be treated according to the prescription. The treatment target and organs at risk were contoured on the simulation scan. After reviewing multiple treatment plans with dosimetry, the best plan was approved to deliver the prescribed course of radiation to the target area using inverse planning to allow for the best isodose distribution, treating to the 98% isodose line with 10MV and 3 roldan. Custom MLC for IMRT were the treatment device used to shape/modify the beams. Limiting dose to normal tissue was confirmed upon review of the calculated dose volume histogram. IMRT planning was used because it best met the dose/volume constraints for the organs at risk for this patient, better than what could be achieved using conventional or 3D planning. The specific dose requirements for the PTV, organs at risk and dose-volume histograms are contained in this treatment plan and/or elsewhere in the medical record. A completed summary of this plan dated 12-26-21 incorporated herein by reference includes dose, beam arrangements, energy, blocking, isodose distribution, and/or ports and DVH. Electronically Signed Devin Mariscal M.D. 25:13 PM documented in this encounter [facility] 11-04-2021 Miscellaneous Notes Patient called in stating he started the Orgovyx 3 days ago and is scheduled for spacer oar on December [address] Mariscal notified. documented in this encounter [facility] 10-30-[address] Mariscal state that the medication he needs to start is on back order so she has asked that I call Dr Cool's office back and see if they can put the procedure back 3 weeks to give enough time for the medication to come in. Left message with his office to all me back documented in this encounter [facility] 10-17-2021 History of Present illness Narrative Ambulatory Pharmacy Prior Authorization Note Provider Intervention Required?: No- Pharmacy completed on your behalf. Drug: Orgovyx Cover My Meds [place]: [id number] Determination: Approved Prior Authorization/Case #: n/a Prior Authorization Expiration: 03/28/22 Time to PA Submission in CMM: 30 min Time to PA Determination in CMM: 1 day Additional Information: Copay is $900 Searching for co-pay shelia None open for Prostate Will apply to exhauster for free drug For questions relating to this submission, please contact [facility] at [phone] documented in this encounter [facility] 10-14-2021 History of Present illness Narrative Radiology Service Progress Note PATIENT NAME: Christopher Bagley DATE OF SERVICE: October 14, 2021 TIME: 3:42 PM PATIENT IDENTITY VERIFICATION COMPLETED USING TWO (2) IDENTIFIERS: Name and Date of confirmed by patient verbally. FALL SCREENING: Has the patient had 2 falls in the last year or 1 fall with injury or currently using an Ambulatory Assistive Device (Walker, Cane, Wheelchair, Crutches, etc.)? No PATIENT GENDER DATA: Male PATIENT RELEVANT IMPLANT DATA REVIEWED: Yes Pt with BSX PM L311, all safety precautions followed RADIOLOGY DEPARTMENT: MR; Exam(s) Completed: Body: Prostate PERIPHERAL IV DATA: Site assessment: Clean,Dry and Intact, Site disposition Discontinued SIGNED BY: RT Joyce(R) October 14, 2021 3:42 PM Radiology Service Progress Note PATIENT NAME: Christopher Bagley DATE OF SERVICE: October 14, 2021 TIME: 3:09 PM PATIENT IDENTITY VERIFICATION COMPLETED USING TWO (2) STANDARD IDENTIFIERS: Name and Date of confirmed by patient verbally and Name and Date of confirmed by identification band. PATIENT GENDER DATA: Male PATIENT RELEVANT IMPLANT DATA REVIEWED: Yes ALLERGIES: Reviewed and unchanged MEDICATIONS REVIEWED: NO PROCEDURE: MRI - Conditional Pacemaker; settings to off for pacing By [employer] Rep - returned to previous settings post scan by BS Rep. IV SITE: see prior RN note PERIPHERAL IV ACCESS: Discontinued PATIENT TOLERATED PROCEDURE: Without incident. No ectopy noted during MRI. PATIENT DISCHARGED TO: Home/Self Care SIGNED BY: Susan Marcos RN October 14, 2021 3:09 PM Radiology Service Progress Note DATE OF SERVICE: October 14, 2021 TIME: 2:59 PM PATIENT WEIGHT: 165LBS PATIENT IDENTITY VERIFICATION COMPLETED USING TWO (2) STANDARD IDENTIFIERS: Name and Date of confirmed by patient verbally and Name and Date of confirmed by identification band. FALL SCREENING: Has the patient had 2 falls in the last year or 1 fall with injury or currently using an Ambulatory Assistive Device (Walker, Cane, Wheelchair, Crutches, etc.)? No PATIENT GENDER DATA: Male ALLERGIES: Reviewed and unchanged CONTRAST ALLERGY: No EXAM: MRI - CONTRAST TYPE: GROUP II IV SITE: Ambulatory: A peripheral IV was started in the Right antecubital site with a Angio cath: 22 gauge. IV SITE APPEARANCE: Clean,Dry and Intact SIGNATURE: Kirstin Romero RN PATIENT NAME: Christopher Bagley DATE: October 14, 2021 TIME: 2:59 PM documented in this encounter [facility] 09-16-2021 History of Present illness Narrative Radiology Service Progress Note PATIENT NAME: Christopher Bagley DATE OF SERVICE: September 16, 2021 TIME: 9:43 AM PATIENT IDENTITY VERIFICATION COMPLETED USING TWO (2) IDENTIFIERS: Name and Date of confirmed by patient verbally. FALL SCREENING: Has the patient had 2 falls in the last year or 1 fall with injury or currently using an Ambulatory Assistive Device (Walker, Cane, Wheelchair, Crutches, etc.)? No PATIENT GENDER DATA: Male PATIENT RELEVANT IMPLANT DATA REVIEWED: Not Applicable RADIOLOGY DEPARTMENT: CT; Exam(s) Completed: Abdomen/Pelvis PERIPHERAL IV DATA: 22g right cephalic SIGNED BY: RT Briana(Mirian) September 16, 2021 9:43 AM documented in this encounter [facility] 09-10-2021 History of Present illness Narrative Radiation Therapy - Patient Education Note PATIENT NAME: Christopher Bagley PATIENT September 10, 2021 [facility] FACILITY/LOCATION: [place] READINESS TO LEARN Cognitive Ability: Alert and oriented Motivation to learn: Eager Family Support: Unable to assess - Family not present Instruction provide to: Patient Patient learns best by: Written Instruction - Hand-outs Verbal Instruction Factors effecting learning: None Physical limitations effecting learning: None LEARNING RESPONSE Diagnosis: Pt simulated today for radiation therapy to prostate. Education Topic/Teaching Points: Radiation therapy, Side effects and OTV: Method of instruction: Written instruction - handouts Verbal instruction Patient /Family response: Patient verbalized understanding of radiation treatments, side effects, OTV, and transportation. Follow-up plan: Patient instructed to call with any further issues Supplemental material: Informational handouts on Prostate external beam. Referral (recommendation): None, Pt denied need for social work, van service, and flame hardening machine setter. Was approved? No Signed by: Penny Fall LPN documented in this encounter [facility] 09-10-2021 History of Present illness Narrative Radiation Oncology - Prostate Cancer New Patient/Consult Note PATIENT NAME: Christopher Bagley PATIENT REQUESTING PROVIDER: Chi Cool MD DIAGNOSIS: 71 year old male with prostate adenocarcinoma, initial PSA 7.3 (06/02/2021), biopsy [place] score 3 + 4 = 7 (grade group 2), clinical stage T1c, N0, M0, stage IIB [T1-T2, N0, M0, PSA <20, GG 2] (AJCC 8th ed.) (AJCC 8th ed.), s/p TRUS Random biopsy 08/05/2021. Cancer Staging No matching staging information was found for the patient. HPI: 71 year old male with prostate adenocarcinoma who presents for an opinion regarding the role of radiation therapy in the management of the patient's disease. Final recommendations will be communicated back to the requesting physician by way of the shared medical record, or letter to requesting physician via US mail. PSA history: PSA (ng/ml) 06/02/2021: 7.3 11/29/2020: 6.8 Prostate biopsy on 08/05/2021 revealed: GS 3+4 in 2/12 cores (left apex)involving 80% tissue, GS 3+3 in 6/12 cores involving 40% tissue Total # of positive biopsy cores: 8 Total # of biopsy cores sampled: 12 Greatest % cancer in any single core: 80% Staging Studies: none Previous Treatment for Prostate Cancer: None Genomic Testing: None The patient reports the following pertinent history: Dysuria: No Incontinence: 1- No pads Hematuria: No - AUA Questionnaire (symptoms within the past 1 month) Incomplete Emptyin (less than 1 time in 5) Frequency (within 2 hours of previous void): 1 (less than 1 time in 5) Intermittency: 1 (less than 1 time in 5) Urgency (difficulty postponing urination): 1 (less than 1 time in 5) Weak Stream: 1 (less than 1 time in 5) Strainin (not at all) Nocturia: 3x per night - Total AUA Score: 8 Bowel Movement Frequency: 1/day Bowel Movement Quality: Normal Blood per Rectum: No Last Colonoscopy: 2021 (diverticulosis) Baseline Erectile Function: 4- Diminished but unsatisfactory for intercourse Sexual Health Inventory (CHLOÉ) score: 07/21 Androgen Deprivation: No Prior Radiation Therapy, Collagen Vascular Disease, or Inflammatory Bowel Disease: No Currently on Anticoagulation: No History of Hip Replacement: No History of Prior TURP: No Pacemaker: yes (11/23/2019) helps with bradycardia ALLERGIES No Known Allergies B-complex with vitamin C (VITAMIN B COMPLEX-C ORAL) Take by mouth q 24 HR. AMLODIPINE BESYLATE (AMLODIPINE ORAL) Take by mouth. BENAZEPRIL HCL (BENAZEPRIL ORAL) Take by mouth. folic acid 1 mg tablet TAKE 1 TABLET BY MOUTH EVERY DAY NOT COVERED olopatadine (PATANOL) 0.1 % ophthalmic solution Use 1 Drop in both eyes twice daily. CARBOXYMETHYLCELLULOSE SODIUM (REFRESH OPHTHALMIC) Use in eyes as directed. PAST MEDICAL HISTORY Diagnosis Date Basal cell carcinoma History of High blood pressure Keratitis Filamentary od Nuclear sclerotic cataract of both eyes Retinal detachment of right eye with multiple breaks Rosacea PAST SURGICAL HISTORY Procedure Laterality Date ANESTH,PACEMAKER INSERTION Keeps heart rate above 60 HERNIA REPAIR HX PAST SURGICAL HISTORY OF Basal Cell Carcinoma PAST SURGICAL HISTORY OF 01/11/2015 PPV/EL/AFX/24%SF6 right eye VITRECTOMY MECHANICAL PARS PLANA 01/26/2015 s/p CE/IOL/PPV/ C3F8 FAMILY HISTORY Problem Relation Age of Onset Stroke Mother Diabetes Mother Glaucoma Father Stroke Father Hypertension Father Glaucoma Sister Crohn's Disease Sister Hypertension Sister other (basal cell carcinoma) Sister Hypertension Sister Glaucoma Brother Cataract Brother Social History Tobacco Use Smoking status: Never Smoker Smokeless tobacco: Never Used Substance Use Topics Alcohol use: Yes Comment: 2 drink per week Drug use: Not Currently 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 [employer] Residence: home REVIEW OF SYSTEMS: GENERAL: feeling well without fatigue, no recent change in weight HEENT: denies BRUNO, change in hearing or vision, no other ENT complaints NECK: denies swelling or pain in neck RESPIRATORY: no cough, no wheezing or shortness of breath CARDIOVASCULAR: no chest pain, no palpitations GI: normal appetite, tolerating PO well, BMs normal and no abdominal pain : see HPI MUSCULOSKELETAL: denies any painful or swollen joints, no muscle aches SKIN: no rash PSYCH: denies depressed or anxious mood, sleep is normal HEMATOLOGY/LYMPHOLOGY: negative for prolonged bleeding, no swollen lymph nodes NEURO: no numbness or paresthesias and no weakness of the extremities All other ROS: negative As noted in HPI PHYSICAL EXAM: VS: BP 136/77 (BP Site: Left Arm, BP Position: Sitting, BP Cuff Size: Regular Adult) Pulse 61 Temp 36.8 C (98.2 F) (Temporal) Ht 177.8 cm (5' 10) Wt 75.1 kg (165 lb 9.6 oz) SpO2 95% BMI 23.76 kg/m Pain 0/10 KARNOFSKY PERFORMANCE STATUS: 100 General Appearance: Alert and oriented. No acute distress. HEENT: NCAT. Sclera anicteric. PERRL. EOMI. Neck: Normal ROM. No palpable cervical or supraclavicular adenopathy. Chest: No respiratory distress. Abdomen: Soft. Nontender. Nondistended. Musculoskeletal: No edema. Normal ROM in extremities. No bone or spine tenderness. Neuro: Speech fluent. Gait normal. No focal deficits. Skin: No rashes noted Lymphatics: No palpable lymphadenopathy. GENITOURINARY: Deferred exam RECTAL: Deferred exam RADIOLOGY/LABORATORY DATA: Pathology (prosatate biopsy): A. Right prostate, apex, core biopsy: Prostatic adenocarcinoma. [place] grade: 3+3=6 Number of cores involved: 1/2 Proportion of tissue involved: 20% Perineural invasion: Not identified. Greatest tumor length: 0.8 cm, discontinuous B. Right prostate, mid, core biopsy: Prostatic adenocarcinoma. Marissa grade: 3+3=6 Number of cores involved: 1/2 Proportion of tissue involved: 5-10% Perineural invasion: Not identified. Greatest tumor length: 0.2 cm, discontinuous See comment. C. Right prostate, base, core biopsy: A minute focus of prostatic adenocarcinoma. Marissa grade: 3+3=6 Number of cores involved: 1/2 Proportion of tissue involved: <5% Perineural invasion: Not identified. Greatest tumor length: <0.1 cm See comment. D. Left prostate, apex, core biopsy: Prostatic adenocarcinoma. [place] grade: 3+4=7 Number of cores involved: 2/2 Proportion of tissue involved: 80% Perineural invasion: Not identified. Greatest tumor length: 0.5 cm E. Left prostate, mid, core biopsy: Prostatic adenocarcinoma. Marissa grade: 3+3=6 Number of cores involved: 2/2 Proportion of tissue involved: 40% Perineural invasion: Not identified. 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 F. Left prostate, base, core biopsy: A minute focus of prostatic adenocarcinoma. [place] grade: 3+3=6 Number of cores involved: 1/2 Proportion of tissue involved: 15% Perineural invasion: Not identified. Greatest tumor length: 0.3 cm Chronic inflammation. HgB (07/08/2021): 17.4 ASSESSMENT/PLAN: Prostate cancer (C61), 2019 NCCN Risk Group: Unfavorable Intermediate Risk Group Clinical State: Localized Cancer - New Diagnosis There is no problem list on file for this patient. There are no comorbidities requiring further evaluation. The treatment options for prostate cancer including radical prostatectomy, brachytherapy, external beam radiation and androgen deprivation therapy were reviewed with the patient. He desires to proceed with the plan outlined below. EXTERNAL BEAM RADIATION MANAGEMENT: Mr. Bagley has decided to undergo external beam radiation, and understands the potential risks and benefits of this procedure. ANDROGEN DEPRIVATION THERAPY: Mr. Bagley has decided to undergo androgen deprivation therapy, and understands the potential risks and benefits of this procedure. ORDERS: 1. MR Prostate ordered for radiation planning and plan for spacer OAR for radiation, MRI prostate to rule out extraprosttatic extension posteriorly 2. CT Scan ordered for staging evaluation 3. Bone Scan ordered for staging evaluation 4. Follow-up: Return following tests/procedures, will get PSA and testosterone 5. Plan for EBRT+ ADT (4-6 months)-consider Relugolix for ADT pending insurance approval 6. Follow up on CBC while on ADT- PCP gets them (HgB 17.4 on 07/08/2021). Signed by: Devin Mariscal MD CC: Dr. Stuart Cool documented in this encounter [facility] 12-25-2020 History of Present illness Narrative Heart & Vascular Clinic Note [facility] Visit Date: 12/25/2020 Patient Name: Christopher Bagley : 1950 Reason for Visit: Follow-up (Patient is here for a follow up appt, he denies any concerns for todays OV. ) Christopher Bagley is a 70 y.o. male who presents today 12/25/2020 for his yearly EP follow up for his pacemaker that was placed 11/23/2019 for symptomatic bradycardia and intermittent complete heart block . Today he report he notices his heart beat at times (not irreg or fast), just harder than a Normal beat. He denies any cardiac concerns at this time. He is no longer having trouble with daytime sleepiness since his HR is improved. He has hx of sleep apnea, but he has not been wearing his CPAP. His sleep apnea seems to have improved since he has the Pacemaker. His HR used to drop to 24 bpm at night. Current rate controlling medication/Antiarrhythmic: N/A Current oral anticoagulation: N/A Histories Past Medical History: Diagnosis Date Basal cell carcinoma (BCC) of cant[place] of right eye 07/2009 Hypertension Right retinal detachment twice requring surgery Past Surgical History: Procedure Laterality Date EP - DEVICE N/A 11/23/2019 Procedure: Pacemaker Implant - MDT Dual Chamber arrive 6:00 - procedure 8:00; Surgeon: Zeke Cruz MD; Location: EP LAB; Service: Cardiovascular HERNIA REPAIR Right 07/2009 inguinal hernia RETINAL DETACHMENT SURGERY Right twice Family History Problem Relation Age of Onset Stroke Mother Hypertension Mother Stroke Father Glaucoma Father Crohn's disease Sister Glaucoma Sister Basal cell carcinoma Sister Social History Socioeconomic History Marital status: Spouse name: Not on file Number of children: 0 Years of education: Not on file Highest education level: Not on file Occupational History Not on file Tobacco Use Smoking status: Never Smoker Smokeless tobacco: Never Used Vaping Use Vaping Use: Never used Substance and Sexual Activity Alcohol use: Never Drug use: Never Sexual activity: Yes Partners: Female control/protection: None Other Topics Concern Not on file Social History Narrative Not on file Social Determinants of Health Financial Resource Strain: Difficulty of Paying Living Expenses: Not on file Food Insecurity: Worried About Running Out of Food in the Last Year: Not on file Ran Out of Food in the Last Year: Not on file Transportation Needs: Lack of Transportation (Medical): Not on file Lack of Transportation (Non-Medical): Not on file Physical Activity: Days of Exercise per Week: Not on file Minutes of Exercise per Session: Not on file Stress: Feeling of Stress : Not on file Social Connections: Frequency of Communication with Friends and Family: Not on file Frequency of Social Gatherings with Friends and Family: Not on file Attends [employer] Services: Not on file Active Member of Clubs or Organizations: Not on file Attends Club or Organization Meetings: Not on file Marital Status: Not on file Housing Stability: Unable to Pay for Housing in the Last Year: Not on file Number of Places Lived in the Last Year: Not on file Unstable Housing in the Last Year: Not on file Allergies: Patient has no known allergies. Patient's Medications New Prescriptions No medications on file Previous Medications AMLODIPINE (NORVASC) 5 MG TABLET Take 10 mg by mouth daily . MULTIVITAMIN (THERAGRAN) PER TABLET Take 1 tablet by mouth daily . Modified Medications No medications on file Discontinued Medications No medications on file Allergies reviewed/updated Review of Systems All system(s) were reviewed. Pertinent positive and negative findings are noted in the HPI. All system negative unless otherwise noted in the HPI BP (!) 155/84 Pulse 71 Ht 5' 10 Wt 74.5 kg (164 lb 4.8 oz) SpO2 95% BMI 23.57 kg/m Pulse Readings from Last 3 Encounters: 12/25/20 71 11/24/19 60 11/13/19 65 BP Readings from Last 3 Encounters: 12/25/20 (!) 155/84 11/24/19 108/66 11/13/19 117/72 Wt Readings from Last 3 Encounters: 12/25/20 74.5 kg (164 lb 4.8 oz) 11/23/19 64.4 kg (142 lb) 11/12/19 64.8 kg (142 lb 13.7 oz) PHYSICAL EXAM: Constitutional Alert and oriented X3 in no acute distress. Head: normocephalic. Neck: No masses noted HEENT Anicteric Heart:. Normal Intensity S1 and S2. No murmurs. Lungs: Clear to auscultation. Good air movement. No crackles noted. Abdomen is soft and nontender. Extremities: Extremities are warm. No peripheral edema. Skin: warm, dry, intact Neuro: nonfocal Psych not suicidal or homicidal , pleasant, cooperative LABS: Lab Results Component Value Date GLUCOSE 103 (H) 11/13/2019 CALCIUM 8.7 11/13/2019 NA 139 11/13/2019 K 4.8 11/13/2019 CL 107 11/13/2019 BUN 26 (H) 11/13/2019 CREATININE 1.19 11/13/2019 EGFR 61 11/13/2019 Lab Results Component Value Date MG 2.3 11/13/2019 Lab Results Component Value Date INR 1.1 11/11/2019 PROTIME 13.7 11/11/2019 Imaging: I independently reviewed the EKG and pacemaker checks and agree with the interpretation(s) with the following comments. ECG 12 Lead Final Result by Interface, Lab Results In [facility] (11/13/2019 0904) Echocardiogram complete Final Result by Jeannine Gee MD (11/13/2019 0733) Dual Chamber pacemaker placed 11/23/2019 for symptomatic bradycardia and intermittent complete heart block ([employer]) [employer] dual chamber pacemaker remote: routine 09/10/2020 Est. Battery Time: 9 years Presenting EGM: /VS AP: 11 % RVP: 0 % AFib [place]: <1 % AHR Episodes: 1; EGM reviewed showed intermittent farfield signals on the atrial channel VHR Episodes: 0 Sensing, Thresholds, Impedances: stable Histograms: 60-100 bpm Medications per EPIC: norvasc NOV: recall with EP and PPM October 2020 (letter sent requesting he schedule) Notes/Summary: 2019 Echo EF=55% In Clinic Dual chamber pacemaker check 12/25/2020: Device Site: left chest without s/s of infection or erosion Est. Battery: 8.5 years Underlying Rhythm: sinus AP: 12% WELT SLASHER: < 1% AFib [place]: <1% AHR Episodes: 8, available EGMs show farfield VHR Episodes: 0 Sensing, Thresholds, Impedances: stable Histograms: 60-110 bpm Medications per EPIC: no beta blockers or OAC listed Notes/Summary: 2019 Echo EF=55% EKG 12/25/2020: NSR 68 bpm, pr 214, qrs 106, qtcb 390 ASSESSMENT: Christopher Bagley is a 70 y.o. 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 He did not take his morning meds. Will take the when he gets home today. Yearly follow up with EP Device check per device clinic, they will notify EP of any atrial fib noted. Weight is increased 20# over the past year. Pt does not believe this is correct. He had been around 150's and may have gone up 10# . Will watch this. He still has a BMI of 23.6. documented in this encounter [facility] 12-25-2020 Instructions Stephanie Guthrie RN - 12/25/2020 10:30 AM EDT It was our pleasure to see you in EP Clinic today. Please contact NOVA Mijares at [phone] or NOVA Brown at [phone] with questions, concerns, or if you need prescription refills before your next appointment. documented in this encounter [facility] 12-25-2020 History of Present illness Narrative Images from the original note were not included. PRELIMINARY REVIEW: Routed to EP for review/signature. CHRISTOPHER BAGLEY was seen at [facility] on Wednesday, December 25, 2020. The patient's underlying rhythm was sinus. This evaluation showed the patient was not pacing dependent. The evaluation results are as follows: Pacemaker - [employer] L311 ACCOLADE MRI (On Alert). This device was implanted on 11/23/2019 and is 13 months old. Atrial Lead - [employer] 7841 INGEVITY+. This lead was implanted on 11/23/2019. A pacing threshold of 0.5000 V @ 0.4 ms was determined during today's evaluation. The P wave was sensed at 2.9 mV. The lead impedance was 640.0 ?. Right Ventricular Lead - [employer] 7842 INGEVITY+. This lead was implanted on 11/23/2019. A pacing threshold of 0.6000 V @ 0.4 ms was determined during today's evaluation. The R wave was sensed at 23.8 mV. The lead impedance was 817.0 ?. In Clinic dual chamber [employer] pacemaker, seeing Kierra Hernandez CNP in clinic today Device Site: left chest without s/s of infection or erosion Est. Battery: 8.5 years Underlying Rhythm: sinus AP: 12% WELT SLASHER: < 1% AFib [place]: <1% AHR Episodes: 8, available EGMs show [facility] VHR Episodes: 0 Sensing, Thresholds, Impedances: stable Histograms: 60-110 bpm Medications per EPIC: no beta blockers or OAC listed Notes/Summary: 2019 Echo EF=55% Signature: CPericardo BHATT ___I have reviewed the device function, programmed parameters and heart rhythm. ___Pt will return to the Device Clinic per protocol or as directed. ___No changes made. documented in this encounter [facility] 08-27-2020 History of Present illness Narrative Christopher Bagley is a 70 y.o. male Present in office today for 1 year f/u HTN. HLD, BPH. Patient did have pacemaker placed November 2019. Patient does need medication refills. No other concerns at this time. Review of Systems Constitutional: Negative. HENT: Negative. Respiratory: Negative. Cardiovascular: He has had a pacemaker implanted since we last saw him All other systems reviewed and are negative. Physical Exam Constitutional: Appearance: Normal appearance. Cardiovascular: Rate and Rhythm: Normal rate and regular rhythm. Pulses: Normal pulses. Heart sounds: Normal heart sounds. Pulmonary: Effort: Pulmonary effort is normal. Breath sounds: Normal breath sounds. Musculoskeletal: Cervical back: Normal range of motion and neck supple. Neurological: Mental Status: He is alert. Vitals: 08/27/20 1506 BP: 147/81 Pulse: 63 Temp: 97 F (36.1 C) No Known Allergies Family History Problem Relation Age of Onset No known problems Mother Past Surgical History: Procedure Laterality Date PACEMAKER PLACEMENT 11/2019 HERNIA REPAIR RETINAL DETACHMENT REPAIR Social History Socioeconomic History Marital status: Spouse name: Not on file Number of children: Not on file Years of education: Not on file Highest education level: Not on file Occupational History Not on file Tobacco Use Smoking status: Never Smoker Smokeless tobacco: Never Used Vaping Use Vaping Use: Never used Substance and Sexual Activity Alcohol use: Yes Drug use: Not Currently Sexual activity: Not Currently Other Topics Concern Service Not Asked Blood Transfusions Not Asked Caffeine Concern Not Asked Occupational Exposure Not Asked Hobby Hazards Not Asked Sleep Concern Not Asked Stress Concern Not Asked Weight Concern Not Asked Special Diet Not Asked Back Care Not Asked Exercise Not Asked Bike Helmet Not Asked Seat Belt Not Asked Domestic Violence No Social History Narrative Not on file Social Determinants of Health Financial Resource Strain: Difficulty of Paying Living Expenses: Food Insecurity: Worried About Running Out of Food in the Last Year: Ran Out of Food in the Last Year: Transportation Needs: Lack of Transportation (Medical): Lack of Transportation (Non-Medical): Physical Activity: Days of Exercise per Week: Minutes of Exercise per Session: Stress: Feeling of Stress : Social Connections: Frequency of Communication with Friends and Family: Frequency of Social Gatherings with Friends and Family: Attends [employer] Services: Active Member of Clubs or Organizations: Attends Club or Organization Meetings: Marital Status: Intimate Partner Violence: Fear of Current or Ex-Partner: Emotionally Abused: Physically Abused: Sexually Abused: Past Medical History: Diagnosis Date Sleep apnea Current Outpatient Medications: amLODIPine 10 MG tablet, Take 10 mg by mouth daily., Disp: , Rfl: benazepril 40 MG tablet, Take 1 tablet by mouth daily., Disp: 90 tablet, Rfl: 2 Multiple Vitamin (Multi-Vitamin) tablet, Take 1 tablet by mouth daily., Disp: , Rfl: Labs: All recent labs/test reviewed. Assessment & Plan ICD-10-CM 1. Essential hypertension I10 amLODIPine 10 MG tablet benazepril 40 MG tablet 2. Hyperlipidemia, unspecified hyperlipidemia type E78.5 Orders Placed This Encounter amLODIPine 10 MG tablet Multiple Vitamin (Multi-Vitamin) tablet Medications are to be taken as directed. Martha Banks MD 08/27/2020 Christopher Bagley is a 70 y.o. male Present in office today for 1 year f/u HTN. HLD, BPH. Patient did have pacemaker placed November 2019. Patient does need medication refills. No other concerns at this time. documented in this encounter [facility] Evaluation note Diagnosis Essential hypertension- Primary Unspecified essential hypertension Hyperlipidemia, unspecified hyperlipidemia type [facility] Diagnosis Sick sinus syndrome (HCC)- Primary Sinoatrial node dysfunction [facility] Diagnosis Sick sinus syndrome (HCC)- Primary Sinoatrial node dysfunction History of cardiac pacemaker in situ documented in this encounter [facility] note* Diagnosis Malignant neoplasm of prostate (HCC) Malignant neoplasm of prostate [facility] Diagnosis Malignant neoplasm of prostate (HCC)- Primary Malignant neoplasm of prostate [facility] Diagnosis Malignant neoplasm of prostate (HCC)- Primary Malignant neoplasm of prostate [facility]* Diagnosis Malignant neoplasm of prostate (HCC) Malignant neoplasm of prostate [facility] Diagnosis Malignant neoplasm of prostate (HCC) Malignant neoplasm of prostate [facility] Diagnosis Malignant neoplasm of prostate (HCC)- Primary Malignant neoplasm of prostate [facility] Diagnosis Malignant neoplasm of prostate (HCC)- Primary Malignant neoplasm of prostate [facility] Diagnosis Malignant neoplasm of prostate (HCC)- Primary Malignant neoplasm of prostate [facility] Diagnosis Opacities of both lungs present on chest x-ray- Primary Malignant neoplasm of prostate (HCC) Malignant neoplasm of prostate [facility] Diagnosis Malignant neoplasm of prostate (HCC)- Primary Malignant neoplasm of prostate [facility] Diagnosis Malignant neoplasm of prostate (HCC)- Primary Malignant neoplasm of prostate [facility] Diagnosis Malignant neoplasm of prostate (HCC)- Primary Malignant neoplasm of prostate Lung nodules Other nonspecific abnormal finding of lung field [facility] Diagnosis Malignant neoplasm of prostate (HCC)- Primary Malignant neoplasm of prostate [facility] Diagnosis Malignant neoplasm of prostate (HCC)- Primary Malignant neoplasm of prostate documented in this encounter [facility] note* Diagnosis Malignant neoplasm of prostate (HCC)- Primary Malignant neoplasm of prostate [facility] Diagnosis Malignant neoplasm of prostate (HCC)- Primary Malignant neoplasm of prostate documented in this encounter [facility] note* Diagnosis Sick sinus syndrome (HCC)- Primary Sinoatrial node dysfunction History of cardiac pacemaker in situ documented in this encounter [facility] note* Diagnosis Posterior vitreous detachment of left eye- Primary Vitreous degeneration History of retinal detachment Personal history of other disorders of nervous system and sense organs Horseshoe retinal tear of left eye Horseshoe tear of retina without detachment Retinal hole, left Lattice degeneration of retina, bilateral Lattice degeneration of peripheral retina Pseudophakia of right eye Lens replaced by other means Combined forms of age-related cataract of left eye Other and combined forms of senile cataract documented in this encounter [facility] note* Diagnosis Vitreous hemorrhage of left eye (HCC)- Primary Vitreous hemorrhage History of retinal detachment Personal history of other disorders of nervous system and sense organs Lattice degeneration of retina, 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 Horseshoe tear of retina without detachment [facility] Diagnosis Vitreous hemorrhage of left eye (HCC)- Primary Vitreous hemorrhage Lattice degeneration of retina, 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 Horseshoe tear of retina without detachment [facility] Diagnosis Vitreous hemorrhage of left eye (HCC)- Primary Vitreous hemorrhage History of retinal detachment Personal history of other disorders of nervous system and sense organs Lattice degeneration of retina, 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 Horseshoe tear of retina without detachment [facility] Diagnosis History of retinal detachment Personal history of other disorders of nervous system and sense organs Vitreous hemorrhage of left eye (HCC) Vitreous hemorrhage Lattice degeneration of retina, 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 Horseshoe tear of retina without detachment [facility] this 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 Diagnosis Malignant neoplasm of prostate (HCC)- Primary Malignant neoplasm of prostate [facility]* Diagnosis Lung nodules Other nonspecific abnormal finding of lung field [facility] this [facility] Diagnosis Opacities of both lungs present on chest x-ray [facility] Diagnosis History of retinal detachment- Primary Personal history of other disorders of nervous system and sense organs Vitreous hemorrhage of left eye (HCC) Vitreous hemorrhage Lattice degeneration of retina, 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 Horseshoe tear of retina without detachment Combined forms of age-related cataract of left eye Other and combined forms of senile cataract Pseudophakia of right eye Lens replaced by other means [facility] this [facility] Diagnosis Third degree AV block (HCC)- Primary Atrioventricular block, complete Bradycardia Other specified cardiac dysrhythmias Sick sinus syndrome (HCC)- Primary Sinoatrial node dysfunction History of cardiac pacemaker in situ [facility] Diagnosis Third degree AV block (HCC)- Primary Atrioventricular block, complete Bradycardia Other specified cardiac dysrhythmias History of cardiac pacemaker in situ- Primary Bradycardia Other specified cardiac dysrhythmias [facility] Diagnosis Third degree AV block (HCC)- Primary Atrioventricular block, complete Bradycardia Other specified cardiac dysrhythmias History of cardiac pacemaker in situ Bradycardia Other specified cardiac dysrhythmias Sick sinus syndrome (HCC) Sinoatrial node dysfunction [facility] Diagnosis History of retinal detachment Personal history of other disorders of nervous system and sense organs Lattice degeneration of retina, 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 eye Other and combined forms of senile cataract Pseudophakia of right eye Lens replaced by other means [facility] Diagnosis Third degree AV block (HCC)- Primary Atrioventricular block, complete Bradycardia Other specified cardiac dysrhythmias History of cardiac pacemaker in situ- Primary Dyslipidemia Other and unspecified hyperlipidemia [facility] Name Dates Details Patient Instructions Indication:Encounter for well adult exam with abnormal findings (Renamed from Encounter for general adult medical examination with abnormal findings) Start:29-Jul-2021 Instruction Type:Provider Instructions for Treatment How to Access Health Informa tion Online using Patient Portal and [employer] Indication:Encounter for well adult exam with abnormal findings (Renamed from Encounter for general adult medical examination with abnormal findings) Start:29-Jul-2021 Instruction Type:Patient Edu cation [facility]; [facility] Work Phone: [employer]* Name Dates Details Patient Instructions Indication:Encounter for well adult exam with abnormal findings (Renamed from Encounter for general adult medical examination with abnormal findings) Start:29-Jul-2021 Instruction Type:Provider Instructions for Treatment How to Access Health Informa tion Online using Patient Portal and [employer] Indication:Encounter for well adult exam with abnormal findings (Renamed from Encounter for general adult medical examination with abnormal findings) Start:29-Jul-2021 Instruction Type:Patient Edu [facility]; [facility] Work Phone: ins[employer]* Name Dates Details Patient Instructions Indication:Encounter for well adult exam with abnormal findings (Renamed from Encounter for general adult medical examination with abnormal findings) Start:29-Jul-2021 Instruction Type:Provider Instructions for Treatment How to Access Health Informa tion Online using Patient Portal and [employer] Indication:Encounter for well adult exam with abnormal findings (Renamed from Encounter for general adult medical examination with abnormal findings) Start:29-Jul-2021 Instruction Type:Patient Edu cation [facility]; [facility] Work Phone: [email or web address]* Name Dates Details Patient Instructions Indication:Encounter for well adult exam with abnormal findings (Renamed from Encounter for general adult medical examination with abnormal findings) Start:29-Jul-2021 Instruction Type:Provider Instructions for Treatment How to Access Health Informa tion Online using Patient Portal and [employer] Indication:Encounter for well adult exam with abnormal findings (Renamed from Encounter for general adult medical examination with abnormal findings) Start:29-Jul-2021 Instruction Type:Patient Edu cation [facility]; [facility] Work Phone: instructions* Name Dates Details Patient Instructions Indication:Encounter for well adult exam with abnormal findings (Renamed from Encounter for general adult medical examination with abnormal findings) Start:29-Jul-2021 Instruction Type:Provider Instructions for Treatment How to Access Health Informa tion Online using Patient Portal and [employer] Indication:Encounter for well adult exam with abnormal findings (Renamed from Encounter for general adult medical examination with abnormal findings) Start:29-Jul-2021 Instruction Type:Patient Edu cation [facility]; [facility] Work Phone: instructions* Name Dates Details Patient Instructions Indication:Prostate cancer Start:19-Dec-2021 Instruction Type:Provider Instructions for Treatment How to Access Health Informa tion Online using Patient Portal and [employer] Indication:Prostate cancer Start:19-Dec-2021 Instruction Type:Patient Education Patient Instructions Indication:Encounter for well adult exam with abnormal findings (Renamed from Encounter for general adult medical examination with abnormal findings) Start:29-Jul-2021 Instruction Type:Provider Instructions for Treatment How to Access Health Informa tion Online using Patient Instant API and [employer] Indication:Encounter for well adult exam with abnormal findings (Renamed from Encounter for general adult medical examination with abnormal findings) Start:29-Jul-2021 Instruction Type:Patient Education [facility]; [facility] Work Phone: instructions* Name Dates Details Patient Instructions Indication:Prostate cancer Start:19-Dec-2021 Instruction Type:Provider Instructions for Treatment How to Access Health Informa tion Online using Patient Portal and [employer] Indication:Prostate cancer Start:19-Dec-2021 Instruction Type:Patient Education Patient Instructions Indication:Encounter for well adult exam with abnormal findings (Renamed from Encounter for general adult medical examination with abnormal findings) Start:29-Jul-2021 Instruction Type:Provider Instructions for Treatment How to Access Health Informa tion Online using Patient Portal and [employer] Indication:Encounter for well adult exam with abnormal findings (Renamed from Encounter for general adult medical examination with abnormal findings) Start:29-Jul-2021 Instruction Type:Patient Education [facility]; [facility] Work Phone: instructions* Name Dates Details Patient Instructions Indication:Prostate cancer Start:19-Dec-2021 Instruction Type:Provider Instructions for Treatment How to Access Health Informa tion Online using Patient Portal and [employer] Indication:Prostate cancer Start:19-Dec-2021 Instruction Type:Patient Education Patient Instructions Indication:Encounter for well adult exam with abnormal findings (Renamed from Encounter for general adult medical examination with abnormal findings) Start:29-Jul-2021 Instruction Type:Provider Instructions for Treatment How to Access Health Informa tion Online using Patient Portal and [employer] Indication:Encounter for well adult exam with abnormal findings (Renamed from Encounter for general adult medical examination with abnormal findings) Start:29-Jul-2021 Instruction Type:Patient Education [facility]; [facility] Work Phone: instructions* Name Dates Details Patient Instructions Indication:Prostate cancer Start:19-Dec-2021 Instruction Type:Provider Instructions for Treatment How to Access Health Informa tion Online using Patient Portal and [employer] Indication:Prostate cancer Start:19-Dec-2021 Instruction Type:Patient Education Patient Instructions Indication:Encounter for well adult exam with abnormal findings (Renamed from Encounter for general adult medical examination with abnormal findings) Start:29-Jul-2021 Instruction Type:Provider Instructions for Treatment How to Access Health Informa tion Online using Patient Portal and [employer] Indication:Encounter for well adult exam with abnormal findings (Renamed from Encounter for general adult medical examination with abnormal findings) Start:29-Jul-2021 Instruction Type:Patient Education [facility]; [facility] Work Phone: instructions* Name Dates Details Patient Instructions Indication:Prostate cancer Start:19-Dec-2021 Instruction Type:Provider Instructions for Treatment How to Access Health Informa tion Online using Patient Portal and [employer] Indication:Prostate cancer Start:19-Dec-2021 Instruction Type:Patient Education Patient Instructions Indication:Encounter for well adult exam with abnormal findings (Renamed from Encounter for general adult medical examination with abnormal findings) Start:29-Jul-2021 Instruction Type:Provider Instructions for Treatment How to Access Health Informa tion Online using Patient Portal and [employer] Indication:Encounter for well adult exam with abnormal findings (Renamed from Encounter for general adult medical examination with abnormal findings) Start:29-Jul-2021 Instruction Type:Patient Education [facility]; [facility] Work Phone: instructions* Name Dates Details Patient Instructions Indication:BMI 25.0-25.9,adult Start:18-Aug-2022 Instruction Type:Provider Instructions for Treatment How to Access Health Informa tion Online using Patient Portal and [employer] Indication:BMI 25.0-25.9,adult Start:18-Aug-2022 Instruction Type:Patient Education Patient Instructions Indication:Prostate cancer Start:19-Dec-2021 Instruction Type:Provider Instructions for Treatment How to Access Health Informa tion Online using Patient Portal and [employer] Indication:Prostate cancer Start:19-Dec-2021 Instruction Type:Patient Education Patient Instructions Indication:Encounter for well adult exam with abnormal findings (Renamed from Encounter for general adult medical examination with abnormal findings) Start:29-Jul-2021 Instruction Type:Provider Instructions for Treatment How to Access Health Informa tion Online using Patient Portal and [employer] Indication:Encounter for well adult exam with abnormal findings (Renamed from Encounter for general adult medical examination with abnormal findings) Start:29-Jul-2021 Instruction Type:Patient Education [facility]; [facility] Work Phone: instructions* Name Dates Details Patient Instructions Indication:BMI 25.0-25.9,adult Start:18-Aug-2022 Instruction Type:Provider Instructions for Treatment How to Access Health Informa tion Online using Patient Portal and [employer] Indication:BMI 25.0-25.9,adult Start:18-Aug-2022 Instruction Type:Patient Education Patient Instructions Indication:Prostate cancer Start:19-Dec-2021 Instruction Type:Provider Instructions for Treatment How to Access Health Informa tion Online using Patient Portal and [employer] Indication:Prostate cancer Start:19-Dec-2021 Instruction Type:Patient Education Patient Instructions Indication:Encounter for well adult exam with abnormal findings (Renamed from Encounter for general adult medical examination with abnormal findings) Start:29-Jul-2021 Instruction Type:Provider Instructions for Treatment How to Access Health Informa tion Online using Patient Portal and [employer] Indication:Encounter for well adult exam with abnormal findings (Renamed from Encounter for general adult medical examination with abnormal findings) Start:29-Jul-2021 Instruction Type:Patient Education [facility]; [facility] Work Phone: reason for referral (narrative)* Diagnostic Procedure Only (Routine) - Pending Review Specialty Diagnoses / Procedures [facility] Referred To Contact MOLECULAR & FUNCTIONAL IMAGING Diagnoses Malignant neoplasm of prostate (HCC) Procedures NM BONE WHOLE BODY BONE &/JOINT IMAGING WHOLE BODY Devin Mariscal MD [address] [place] [address] Molecular & Functional Imaging [address] [place] [address] Referral ID Status Reason Start Date Expiration Date Visits Requested Visits Authorized [id number] Pending Review Auto-Generat ed Referral 09/10/2021 10/10/2022 1 1 * MRI/CT (Routine) - Authorized Specialty Diagnoses / Procedures [facility] CT IMAGING Diagnoses Malignant neoplasm of prostate (HCC) Procedures CT ABD/PEL W IVCON CT ABD & PELVIS W/CONTRAST Devin Mariscal MD [address] [place] [address] Ct Imaging Referral ID Status Reason Start Date Expiration Date Visits Requested Visits Authorized [id number] Authorized Auto-Generat ed Referral 09/10/2021 10/10/2022 1 1 * MRI/CT (Routine) - Pending Review Specialty Diagnoses / Procedures [facility] Referred To Contact MR IMAGING Diagnoses Malignant neoplasm of prostate (HCC) Procedures MRI PROSTATE WO/W IVCON MRI PELVIS W/O & W/CONTRAST MATERIAL Devin Mariscal MD [address] [place] [address] Mr Imaging Referral ID Status Reason Start Date Expiration Date Visits Requested Visits Authorized [id number] Pending Review Auto-Generat ed Referral 09/10/2021 10/10/2022 1 1 [facility] for visit Narrative* Evaluate and Treat (Routine) - Closed Specialty Diagnoses / Procedures Referred By May schaffer Referred To Contact Cardiology Diagnoses Sick sinus syndrome (HCC) History of cardiac pacemaker in situ Wendy Diop MD [address] [place] [address] Phone: tel: fax: [facility] [address], 3rd [place] [address] Phone: tel: fax: Referral ID Status Reason Start Date Expiration Date Visits Re quested Visits Authorized [id number] Closed 03/08/2024 03/08/2025 1 1 [facility] Summary Purpose Family History No Family History Records FoundUnknown Family Member Name Dates Details Brother 1 Comments:HTN glaucoma Status:Active Father Comments:glaucoma and c va AT 73 YO Status:Active Mother Comments:DM II of strok e 70's Status:Active Paternal Grandfather Comments:had PR and in 50's Status:Active Paternal Grandmother Comments:psychosis and menta l issues, syphillis Status:Active Sister 1 Comments: of infection a nd Crohn's disease 65yo Status:Active Sister 2 Status:Active Sister 3 Status:Active Sister 4 Status:Active Unknown Family Member Name Dates Details Brother 1 Comments:HTN glaucoma Status:Active Father Comments:glaucoma and c va AT 73 YO Status:Active Mother Comments:DM II of strok e 70's Status:Active Paternal Grandfather Comments:had PR and in 50's Status:Active Paternal Grandmother Comments:psychosis and menta l issues, syphillis Status:Active Sister 1 Comments: of infection a nd Crohn's disease 65yo Status:Active Sister 2 Status:Active Sister 3 Status:Active Sister 4 Status:Active Unknown Family Member Name Dates Details Brother 1 Comments:HTN glaucoma Status:Active Father Comments:glaucoma and c va AT 73 YO Status:Active Mother Comments:DM II of strok e 70's Status:Active Paternal Grandfather Comments:had PR and in 50's Status:Active Paternal Grandmother Comments:psychosis and menta l issues, syphillis Status:Active Sister 1 Comments: of infection a nd Crohn's disease 65yo Status:Active Sister 2 Status:Active Sister 3 Status:Active Sister 4 Status:Active Unknown Family Member Name Dates Details Brother 1 Comments:HTN glaucoma Status:Active Father Comments:glaucoma and c va AT 73 YO Status:Active Mother Comments:DM II of strok e 70's Status:Active Paternal Grandfather Comments:had PR and in 50's Status:Active Paternal Grandmother Comments:psychosis and menta l issues, syphillis Status:Active Sister 1 Comments: of infection a nd Crohn's disease 65yo Status:Active Sister 2 Status:Active Sister 3 Status:Active Sister 4 Status:Active Unknown Family Member Name Dates Details Brother 1 Comments:HTN glaucoma Status:Active Father Comments:glaucoma and c va AT 73 YO Status:Active Mother Comments:DM II of strok e 70's Status:Active Paternal Grandfather Comments:had PR and in 50's Status:Active Paternal Grandmother Comments:psychosis and menta l issues, syphillis Status:Active Sister 1 Comments: of infection a nd Crohn's disease 65yo Status:Active Sister 2 Status:Active Sister 3 Status:Active Sister 4 Status:Active Unknown Family Member Name Dates Details Brother 1 Comments:HTN glaucoma Status:Active Father Comments:glaucoma and c va AT 73 YO Status:Active Mother Comments:DM II of strok e 70's Status:Active Paternal Grandfather Comments:had PR and in 50's Status:Active Paternal Grandmother Comments:psychosis and menta l issues, syphillis Status:Active Sister 1 Comments: of infection a nd Crohn's disease 65yo Status:Active Sister 2 Status:Active Sister 3 Status:Active Sister 4 Status:Active Unknown Family Member Name Dates Details Brother 1 Comments:HTN glaucoma Status:Active Father Comments:glaucoma and c va AT 73 YO Status:Active Mother Comments:DM II of strok e 70's Status:Active Paternal Grandfather Comments:had PR and in 50's Status:Active Paternal Grandmother Comments:psychosis and menta l issues, syphillis Status:Active Sister 1 Comments: of infection a nd Crohn's disease 65yo Status:Active Sister 2 Status:Active Sister 3 Status:Active Sister 4 Status:Active Unknown Family Member Name Dates Details Brother 1 Comments:HTN glaucoma Status:Active Father Comments:glaucoma and c va AT 73 YO Status:Active Mother Comments:DM II of strok e 70's Status:Active Paternal Grandfather Comments:had PR and in 50's Status:Active Paternal Grandmother Comments:psychosis and menta l issues, syphillis Status:Active Sister 1 Comments: of infection a nd Crohn's disease 65yo Status:Active Sister 2 Status:Active Sister 3 Status:Active Sister 4 Status:Active Unknown Family Member Name Dates Details Brother 1 Comments:HTN glaucoma Status:Active Father Comments:glaucoma and c va AT 73 YO Status:Active Mother Comments:DM II of strok e 70's Status:Active Paternal Grandfather Comments:had PR and in 50's Status:Active Paternal Grandmother Comments:psychosis and menta l issues, syphillis Status:Active Sister 1 Comments: of infection a nd Crohn's disease 65yo Status:Active Sister 2 Status:Active Sister 3 Status:Active Sister 4 Status:Active Unknown Family Member Name Dates Details Brother 1 Comments:HTN glaucoma Status:Active Father Comments:glaucoma and c va AT 73 YO Status:Active Mother Comments:DM II of strok e 70's Status:Active Paternal Grandfather Comments:had PR and in 50's Status:Active Paternal Grandmother Comments:psychosis and menta l issues, syphillis Status:Active Sister 1 Comments: of infection a nd Crohn's disease 65yo Status:Active Sister 2 Status:Active Sister 3 Status:Active Sister 4 Status:Active Unknown Family Member Name Dates Details Brother 1 Comments:HTN glaucoma Status:Active Father Comments:glaucoma and c va AT 73 YO Status:Active Mother Comments:DM II of strok e 70's Status:Active Paternal Grandfather Comments:had PR and in 50's Status:Active Paternal Grandmother Comments:psychosis and menta l issues, syphillis Status:Active Sister 1 Comments: of infection a nd Crohn's disease 65yo Status:Active Sister 2 Status:Active Sister 3 Status:Active Sister 4 Status:Active Unknown Family Member Name Dates Details Brother 1 Comments:HTN glaucoma Status:Active Father Comments:glaucoma and c va AT 73 YO Status:Active Mother Comments:DM II of strok e 70's Status:Active Paternal Grandfather Comments:had PR and in 50's Status:Active Paternal Grandmother Comments:psychosis and menta l issues, syphillis Status:Active Sister 1 Comments: of infection a nd Crohn's disease 65yo Status:Active Sister 2 Status:Active Sister 3 Status:Active Sister 4 Status:Active Unknown Family Member Name Dates Details Brother 1 Comments:HTN glaucoma Status:Active Father Comments:glaucoma and c va AT 73 YO Status:Active Mother Comments:DM II of strok e 70's Status:Active Paternal Grandfather Comments:had PR and in 50's Status:Active Paternal Grandmother Comments:psychosis and menta l issues, syphillis Status:Active Sister 1 Comments: of infection a nd Crohn's disease 65yo Status:Active Sister 2 Status:Active Sister 3 Status:Active Sister 4 Status:Active Advance Directives No Advanced Directives Records FoundDocuments on File Type Date Recorded Patient Digital Measurement Advisor Expl anation Advance Directives and Livin g Will 11/11/2019 12:51 PM Latest Code Status on File Code Status Date Activated Date Inactivated Comments Full Code - Unverified 11/11/2019 4:51 PM 11/13/2019 6:5 6 PM Documents on File Type Date Recorded Patient Digital Measurement Advisor Expl anation Advance Directives and Livin g Will 11/23/2019 12:51 PM Latest Code Status on File Code Status Date Activated Date Inactivated Comments Full Code 11/23/2019 10:31 AM 11/24/2019 4:17 PM Full Code 11/15/2019 9:03 AM 11/23/2019 6:01 AM Full Code - Unverified 11/11/2019 4:51 PM 11/13/2019 6:5 6 PM Documents on File Type Date Recorded Patient Digital Measurement Advisor Expl anation Advance Directives and Livin g Will 12/01/2019 12:51 PM Documents on File Type Date Recorded Patient Digital Measurement Advisor Expl anation Advance Directives and Livin g Will 02/27/2020 1:25 PM Documents on File Type Date Recorded Patient Digital Measurement Advisor Expl anation Advance Directives and Livin g Will 11/11/2019 12:51 PM Latest Code Status on File Code Status Date Activated Date Inactivated Comments Full Code - Unverified 11/11/2019 4:51 PM 11/13/2019 6:5 6 PM Documents on File Type Date Recorded Patient Digital Measurement Advisor Expl anation Advance Directives and Livin g Will 11/23/2019 12:51 PM Latest Code Status on File Code Status Date Activated Date Inactivated Comments Full Code 11/23/2019 10:31 AM 11/24/2019 4:17 PM Full Code 11/15/2019 9:03 AM 11/23/2019 6:01 AM Full Code - Unverified 11/11/2019 4:51 PM 11/13/2019 6:5 6 PM Documents on File Type Date Recorded Patient Digital Measurement Advisor Expl anation Advance Directives and Living Will 09/10/2020 9:13 AM NO COPY IN SOARIAN Documents on File Type Date Recorded Patient Digital Measurement Advisor Expl anation Advance Directives and Living Will 12/25/2020 9:53 AM NO COPY IN SOARIAN Name Dates Details Immunization Registry [place] - Effective on 07/29/2021. Expiration date unspecified Effective:29-Jul-2021 Name Dates Details Immunization Registry [place] - Effective on 07/29/2021. Expiration date unspecified Effective:29-Jul-2021 Name Dates Details Immunization Registry [place] - Effective on 07/29/2021. Expiration date unspecified Effective:29-Jul-2021 Name Dates Details Immunization Registry [place] - Effective on 07/29/2021. Expiration date unspecified Effective:29-Jul-2021 Name Dates Details Immunization Registry [place] - Effective on 07/29/2021. Expiration date unspecified Effective:29-Jul-2021 Name Dates Details Immunization Registry [place] - Effective on 07/29/2021. Expiration date unspecified Effective:29-Jul-2021 Name Dates Details Immunization Registry [place] - Effective on 07/29/2021. Expiration date unspecified Effective:29-Jul-2021 Name Dates Details Immunization Registry [place] - Effective on 07/29/2021. Expiration date unspecified Effective:29-Jul-2021 Name Dates Details Immunization Registry [place] - Effective on 07/29/2021. Expiration date unspecified Effective:29-Jul-2021 Name Dates Details Immunization Registry [place] - Effective on 07/29/2021. Expiration date unspecified Effective:29-Jul-2021 Name Dates Details Immunization Registry [place] - Effective on 07/29/2021. Expiration date unspecified Effective:29-Jul-2021 Latest Code Status on File Code Status Date Activated Date Inactivated Comments Full Code 11/23/2019 10:31 AM 11/24/2019 4:17 PM Code Status History Code Status Date Activated Date Inactivated Comments Full Code 11/15/2019 9:03 AM 11/23/2019 6:01 AM Full Code - Unverified 11/11/2019 4:51 PM 11/13/2019 6:5 6 PM Name Dates Details Immunization Registry [place] - Effective on 07/29/2021. Expiration date unspecified Effective:29-Jul-2021 Date Activated Date Inactivated Comments 11/23/2019 10:31 AM 11/24/2019 4:17 PM Date Activated Date Inactivated Comments 11/15/2019 9:03 AM 11/23/2019 6:01 AM Date Activated Date Inactivated Comments 11/11/2019 4:51 PM 11/13/2019 6:56 PM Date Activated Date Inactivated Comments 11/23/2019 10:31 AM 11/24/2019 4:17 PM Date Activated Date Inactivated Comments 11/15/2019 9:03 AM 11/23/2019 6:01 AM Date Activated Date Inactivated Comments 11/11/2019 4:51 PM 11/13/2019 6:56 PM History of Present Illness * Denisse Patterson APRN-CNP - 06/06/2019 2:30 PM EDT Patient: Christopher Bagley Patient : 1950 Patient Age: 68 y.o. Today's Date: 06/06/2019 Provider: BIRD Ramsey History of Present Illness: Patient here today for evaluation of Chief Complaint Patient presents with CPAP Issues Patient is here for CPAP review. States that he has been on CPAP for a few years. States that he isin need of new equipment. Doing well. States that the last time he used the machine was over a yearago due to mask not fitting. States that he uses it intermittently. He denies smoking. He goes to [facility] for his supplies. He denies any CP or SOB. History: No Known Allergies Past Medical History: Diagnosis Date Sleep apnea Past Surgical History: Procedure Laterality Date HERNIA REPAIR RETINAL DETACHMENT REPAIR Social History Tobacco Use Smoking status: Never Smoker Smokeless tobacco: Never Used Substance Use Topics Alcohol use: Yes Frequency: 2-4 times a month Drug use: Not Currently History reviewed. No pertinent family history. Review of Systems: Review of Systems Constitutional: Negative for chills, diaphoresis, fatigue and fever. Respiratory: Negative for apnea, cough, choking and chest tightness. Cardiovascular: Negative for chest pain, palpitations and leg swelling. Hematological: Negative for adenopathy. Does not bruise/bleed easily. Physical Exam: Vitals: 06/06/19 1440 BP: 141/78 Pulse: 76 Resp: 16 Temp: 97.4 degrees F (36.3 degrees C) SpO2: 96% Weight: 75.3 kg (166 lb) Physical Exam Vitals signs and nursing note reviewed. Constitutional: Appearance: Normal appearance. HENT: Head: Normocephalic. Right Ear: Tympanic membrane, ear canal and external ear normal. Left Ear: Tympanic membrane, ear canal and external ear normal. Nose: Nose normal. Mouth/Throat: Mouth: Mucous membranes are moist. Neck: Musculoskeletal: Normal range of motion and neck supple. Cardiovascular: Rate and Rhythm: Normal rate and regular rhythm. Pulses: Normal pulses. Heart sounds: Normal heart sounds. Pulmonary: Effort: Pulmonary effort is normal. Breath sounds: Normal breath sounds. Abdominal: General: Bowel sounds are normal. Musculoskeletal: Normal range of motion. Skin: General: Skin is warm and dry. Capillary Refill: Capillary refill takes less than 2 seconds. Neurological: General: No focal deficit present. Mental Status: He is alert. Psychiatric: Mood and Affect: Mood normal. Thought Content: Thought content normal. Current Medications: Current Outpatient Medications: amLODIPine 10 MG tablet, , Disp: , Rfl: benazepril 40 MG tablet, , Disp: , Rfl: Health Maintenance List: Health Maintenance Topic Date Due HEPATITIS C VIRUS SCREENING 1950 TETANUS 1966 TDAP (ADULT) 06/25/1967 LIPID SCREENING 1988 COLORECTAL CANCER SCREENING DISCUSSION 1998 ZOSTER (SHINGLES) VACCINE (1 of 2) 1998 PROSTATE CANCER SCREENING DISCUSSION 1998 PNEUMOCOCCAL VACCINE SERIES (1 of 2 - PCV13) 2013 ABDOMINAL AORTIC ANEURYSM HIGH RISK SCREEN 2013 INFLUENZA VACCINE (1) 11/27/2018 Assessment & Plan: ICD-10-CM 1. CPAP (continuous positive airway pressure) dependence Z99.89 BIPAP MASK AND SUPPLIES Prescription was given to lead front end developer to fax to [facility]. HE voices no acute complaints on today's visit. No CP or SOB. No follow-ups on file. Patient was advised to call with any questions or concerns. If symptoms worsen patient was advised to follow up in our office or the Emergency Dept. Benefits, risks, contraindications, and complications of recommended treatments were explained the patient understands and agrees to proceed with plan. * Javier Jiménez LPN - 06/06/2019 2:30 PM EDT Pt is here today for cpap issues. documented in this encounter* Martha Banks MD - 11/07/2019 8:30 AM EDT Christopher Bagley presents to the office with Chief Complaint Patient presents with Hypertension He is in for routine f/u Review of Systems Constitutional: He has been dieting and losing weight but can't stop now HENT: Negative. Respiratory: Negative. Cardiovascular: Negative. Gastrointestinal: Negative. Genitourinary: Negative. Physical Exam Constitutional: Appearance: Normal appearance. Neck: Musculoskeletal: Normal range of motion and neck supple. Cardiovascular: Rate and Rhythm: Normal rate and regular rhythm. Pulses: Normal pulses. Heart sounds: Normal heart sounds. Pulmonary: Effort: Pulmonary effort is normal. Breath sounds: Normal breath sounds. Neurological: Mental Status: He is alert. Vitals: 11/07/19 0843 BP: 136/80 Pulse: 69 Temp: 98.4 F (36.9 C) Family History Problem Relation Age of Onset No known problems Mother Past Surgical History: Procedure Laterality Date HERNIA REPAIR RETINAL DETACHMENT REPAIR Social History Socioeconomic History Marital status: Spouse name: Not on file Number of children: Not on file Years of education: Not on file Highest education level: Not on file Occupational History Not on file Social Needs Financial resource strain: Not on file Food insecurity Worry: Not on file Inability: Not on file Transportation needs Medical: Not on file Non-medical: Not on file Tobacco Use Smoking status: Never Smoker Smokeless tobacco: Never Used Substance and Sexual Activity Alcohol use: Yes Frequency: 2-4 times a month Drug use: Not Currently Sexual activity: Not Currently Lifestyle Physical activity Days per week: Not on file Minutes per session: Not on file Stress: Not on file Relationships Social connections Talks on phone: Not on file Gets together: Not on file Attends mormon service: Not on file Active member of club or organization: Not on file Attends meetings of clubs or organizations: Not on file Relationship status: Not on file Intimate partner violence Fear of current or ex partner: Not on file Emotionally abused: Not on file Physically abused: Not on file Forced sexual activity: Not on file Other Topics Concern Service Not Asked Blood Transfusions Not Asked Caffeine Concern Not Asked Occupational Exposure Not Asked Hobby Hazards Not Asked Sleep Concern Not Asked Stress Concern Not Asked Weight Concern Not Asked Special Diet Not Asked Back Care Not Asked Exercise Not Asked Bike Helmet Not Asked Seat Belt Not Asked Domestic Violence No Social History Narrative Not on file Past Medical History: Diagnosis Date Sleep apnea Current Outpatient Medications: amLODIPine 10 MG tablet, , Disp: , Rfl: benazepril 40 MG tablet, , Disp: , Rfl: Assessment & Plan ICD-10-CM 1. Essential hypertension I10 2. Hyperlipidemia, unspecified hyperlipidemia type E78.5 3. Weight loss R63.4 No orders of the defined types were placed in this encounter. Martha Banks MD 11/07/2019 documented in this encounter* Altagracia Fraser MD - 11/13/2019 11:40 AM EDT [facility] Medicine Inpatient Follow-up 11/13/2019 Altagracia Fraser MD [facility] Patient: Christopher Bagley Date of : 1950 (69 y.o.) PCP: Martha Banks MD ASSESSMENT/PLAN: Christopher Bagley 69 y.o. male presented with complains of bradycardia. Active Problems: Bradycardia PLAN: Complete heart block: Patient not on any previous beta-blockers, amlodipine discontinued. Lisinopril increased to 40 mg daily for better blood pressure control. Lyme serologies pending. This morning seems to be in sinus rhythm with heart rate in 90s. Cardiology following. EP to see tomorrow morning. Hypertension: Currently acceptable on lisinopril 40 mg daily. 11/12 Patient feeling okay denies chest pain shortness of breath abdominal pain nausea or dizziness Vital signs stable Pending EP evaluation for pacemaker placement SUBJECTIVE: Currently has no complaints of chest pain palpitations or lightheadedness. All other systems reviewed and negative other than noted above. OBJECTIVE: Physical Examination: BP 117/72 (BP Location: Left arm, Patient Position: Lying) Pulse 65 Temp 98 F (36.7 C) (Oral) Resp 14 Ht 5' 10.5 Wt 64.8 kg (142 lb 13.7 oz) SpO2 97% BMI 20.21 kg/m General Appearance: Alert, well appearing, and in no acute distress. HEENT: Head - Normocephalic, atraumatic. Eyes - AMANDA bilaterally and EOMI. Ears - normal external appearance, hearing intact. Nose - normal, no erythema. Throat - mucous membranes moist, pharynx without lesions. Neck: Supple, trachea midline. Cardiovascular: S1, S2 normal. No murmurs, rubs, clicks or gallops appreciated. No pedal edema. Respiratory: Lungs clear to auscultation, no wheezes, rales or rhonchi heard. Abdomen: Soft, non-tender, normal bowel sounds, non-distended, no masses or organomegaly appreciated. Neurological: Grossly normal motor and sensory exam. No focal deficits. Musculoskeletal: No joint tenderness, deformity or swelling. Skin: Normal coloration and turgor. No rashes. Psych: Alert, oriented x 3. Normal mood and affect. CURRENT MEDICATIONS: heparin (porcine) 5,000 Units Subcutaneous Q8H SANDRA lisinopriL 40 mg Oral Daily with lunch Results/Medications Reviewed 11/13/19 11:40 AM: Results from last 7 days Lab Units 11/13/19 0420 11/12/19 0423 11/11/19 1248 SODIUM mmol/L 139 141 139 POTASSIUM mmol/L 4.8 4.5 4.0 CHLORIDE mmol/L 107 109* 103 BUN mg/dL 26* 18 19 CREATININE mg/dL 1.19 1.03 1.17 GLUCOSE mg/dL 103* 100* 110* CALCIUM mg/dL 8.7 8.8 9.7 Results from last 7 days Lab Units 11/13/19 0420 11/12/19 0423 11/11/19 1248 WBC K/mcL 6.99 7.40 8.82 HGB g/dL 16.6 16.2 18.0* HCT % 51.0 49.2 54.6* PLT K/mcL 151 161 165 Results from last 7 days Lab Units 11/11/19 2209 11/11/19 1919 11/11/19 1248 TROPONIN I ng/L <15 <15 <15 Results from last 7 days Lab Units 11/11/19 1248 INR 1.1 Results from last 7 days Lab Units 11/11/19 1248 ALK PHOS U/L 98 BILIRUBIN TOTAL mg/dL 0.6 TOTAL PROTEIN g/dL 8.3* ALTR U/L 25 AST U/L 20 CULTURES: Reviewed 11:40 AM IMAGING: Reviewed 11:40 AM * Nona Peguero - 11/12/2019 11:48 AM EDT Spiritual Health Care Quick note: Patient was asleep and did not readily awaken for this net trainer. I left spiritual support card. The Pastoral Care Team will remain available to support patient and family PRN. Electric Golf Cart Repairer Nona Peguero MDiv [facility] Pastoral Care Department [phone] office [phone] pager [phone] on-call pager (after 5pm and weekends) 11/12/19 1100 Clinical Encounter Type Visit Type Non Crisis Non Crisis Visit Attempt;Rounding Visited With Patient not available Visited By Other (comment) (Electric Golf Cart Repairer) Visit Length (minutes) 5 * Michele Martinez MD - 11/12/2019 9:57 AM EDT Hospital Medicine Inpatient Follow-up 11/12/2019 Michele Martinez MD [facility] Patient: Christopher Bagley Date of : 1950 (69 y.o.) PCP: Martha Banks MD ASSESSMENT/PLAN: Christopher Bagley 69 y.o. male presented with complains of bradycardia. Active Problems: Bradycardia PLAN: Complete heart block: Patient not on any previous beta-blockers, amlodipine discontinued. Lisinopril increased to 40 mg daily for better blood pressure control. Lyme serologies pending. This morning seems to be in sinus rhythm with heart rate in 90s. Cardiology following. EP to see tomorrow morning. Hypertension: Currently acceptable on lisinopril 40 mg daily. SUBJECTIVE: Currently has no complaints of chest pain palpitations or lightheadedness. All other systems reviewed and negative other than noted above. OBJECTIVE: Physical Examination: BP (!) 130/90 (BP Location: Left arm, Patient Position: Lying) Pulse 79 Temp 98 F (36.7 C) (Oral) Resp 14 Ht 5' 10.5 Wt 64.8 kg (142 lb 13.7 oz) SpO2 96% BMI 20.21 kg/m General Appearance: Alert, well appearing, and in no acute distress. HEENT: Head - Normocephalic, atraumatic. Eyes - AMANDA bilaterally and EOMI. Ears - normal external appearance, hearing intact. Nose - normal, no erythema. Throat - mucous membranes moist, pharynx without lesions. Neck: Supple, trachea midline. Cardiovascular: S1, S2 normal. No murmurs, rubs, clicks or gallops appreciated. No pedal edema. Respiratory: Lungs clear to auscultation, no wheezes, rales or rhonchi heard. Abdomen: Soft, non-tender, normal bowel sounds, non-distended, no masses or organomegaly appreciated. Neurological: Grossly normal motor and sensory exam. No focal deficits. Musculoskeletal: No joint tenderness, deformity or swelling. Skin: Normal coloration and turgor. No rashes. Psych: Alert, oriented x 3. Normal mood and affect. CURRENT MEDICATIONS: heparin (porcine) 5,000 Units Subcutaneous Q8H SANDRA lisinopriL 40 mg Oral Daily with lunch Results/Medications Reviewed 11/12/19 9:58 AM: Results from last 7 days Lab Units 11/12/19 0423 11/11/19 1248 SODIUM mmol/L 141 139 POTASSIUM mmol/L 4.5 4.0 CHLORIDE mmol/L 109* 103 BUN mg/dL 18 19 CREATININE mg/dL 1.03 1.17 GLUCOSE mg/dL 100* 110* CALCIUM mg/dL 8.8 9.7 Results from last 7 days Lab Units 11/12/19 0423 11/11/19 1248 WBC K/mcL 7.40 8.82 HGB g/dL 16.2 18.0* HCT % 49.2 54.6* PLT K/mcL 161 165 Results from last 7 days Lab Units 11/11/19 2209 11/11/19 1919 11/11/19 1248 TROPONIN I ng/L <15 <15 <15 Results from last 7 days Lab Units 11/11/19 1248 INR 1.1 Results from last 7 days Lab Units 11/11/19 1248 ALK PHOS U/L 98 BILIRUBIN TOTAL mg/dL 0.6 TOTAL PROTEIN g/dL 8.3* ALTR U/L 25 AST U/L 20 CULTURES: Reviewed 9:58 AM IMAGING: Reviewed 9:58 AM * Rama Velásquez CNP - 11/12/2019 9:07 AM EDT General Cardiology Inpatient Follow-up Heart & Vascular [facility] 11/12/2019 Rama Velásquez CNP [facility] Patient: Christopher Bagley Date of : 1950 (69 y.o.) Referring Provider: No ref. provider found PCP: Martha Banks MD Assessment/Plan: Bradycardia Assessment & Plan Pleasant 69-year-old male with past medical history notable for hypertension, on SHAY and amlodipine in the outpatient setting. Describes being very active with no previous cardiac work-up completed prior to this hospitalization. Patient has had transient past history of occasional dizziness but this is random and he always contributed to his blood pressure. There is no complaints presently or in the past of chest discomfort/heaviness/jaw or arm involvement. He was evaluated by our cardiac service yesterday in the emergency department as we were consulted for complete heart block. Patient presented to ER for evaluation at the advice of [facility] cardiology for low HR. It appears that patient goes in between complete heart block versus high degree AV block with narrow QRS. Initial labs obtained shows sodium 141; potassium 4.5; creatinine 1.03; magnesium 2.4; TSH 0.90 and unremarkable CBC. Troponins have been negative x3. We are pending Lyme's testing results at this time. We have removed his calcium channel adriana therapy and he is only on lisinoprilfor blood pressure management. Recommendations: Would continue lisinopril and subcu heparin therapy. Would avoid any AV bossman blocking agents as well as calcium channel adriana. We will have EP see him tomorrow for further evaluation and work-up. Patient is aware he will is going to be evaluated by our EP team Wednesday, November 13, 2019. Continue serial labs with recommendations on keeping K+ 4.0 - 4.8 and Mg >2.0. Subjective: Sitting up in bed. NO complaints presently. Pacer pads remain on patient. Past Medical History: Diagnosis Date Hypertension Past Surgical History: Procedure Laterality Date HERNIA REPAIR History reviewed. No pertinent family history. Social History Tobacco Use Smoking Status Never Smoker Smokeless Tobacco Never Used Allergies: Patient has no known allergies. Current Facility-Administered Medications Medication Dose Route Frequency Provider Last Rate Last Dose heparin (porcine) injection 5,000 Units 5,000 Units Subcutaneous Q8H ON LICENSE OF [facility] Sole Junior MD 5,000 Units at 11/12/19 0617 lisinopriL (PRINIVIL,ZESTRIL) tablet 40 mg 40 mg Oral Daily with lunch Sole Junior MD ondansetron (ZOFRAN) injection 4 mg 4 mg Intravenous Q6H PRN Sole Junior MD perflutren lipid microspheres (DEFINITY) 0.143 mg/mL solution 0-10 mL of mixture 0-10 mL of mixtureIntravenous Once in imaging Sole Junior MD pneumococcal conj. 13-valent (PREVNAR-13) vaccine 0.5 mL 0.5 mL Intramuscular Prior To Discharge Sole Junior MD Review of Systems: Review of Systems Constitution: Negative for chills, decreased appetite, diaphoresis, fever and malaise/fatigue. HENT: Negative for congestion, nosebleeds and sore throat. Eyes: Negative for visual disturbance. Cardiovascular: Negative for chest pain, claudication, cyanosis, dyspnea on exertion, irregular heartbeat, leg swelling, near-syncope, orthopnea, palpitations, paroxysmal nocturnal dyspnea and syncope. Respiratory: Negative for cough, hemoptysis, shortness of breath, sleep disturbances due to breathing and wheezing. Endocrine: Negative for cold intolerance and heat intolerance. Hematologic/Lymphatic: Does not bruise/bleed easily. Skin: Negative for itching and rash. Musculoskeletal: Negative for back pain and falls. Gastrointestinal: Negative for bloating, abdominal pain, melena, nausea and vomiting. Genitourinary: Negative for dysuria, flank pain, frequency and hematuria. Neurological: Negative for dizziness, focal weakness, headaches, light- headedness, loss of balance,numbness, paresthesias, tremors and weakness. Psychiatric/Behavioral: Negative for altered mental status. Objective: Vital Signs: BP 140/80 Pulse 61 Temp 98 F (36.7 C) (Infrared) Resp 16 Ht 5' 10.5 Wt 64.8 kg (142 lb 13.7 oz) SpO2 98% BMI 20.21 kg/m Physical Examination: Physical Exam Constitutional: He is oriented to person, place, and time. He appears well- developed and well-nourished. No distress. HENT: Head: Normocephalic and atraumatic. Eyes: Conjunctivae are normal. Neck: Neck supple. No JVD present. Cardiovascular: Normal rate, regular rhythm, normal heart sounds and intact distal pulses. Pulmonary/Chest: Effort normal and breath sounds normal. No respiratory distress. He has no wheezes. He has no rales. He exhibits no tenderness. Pectus excavatum Abdominal: Soft. There is no abdominal tenderness. Musculoskeletal: Normal range of motion. General: No tenderness or edema. Neurological: He is alert and oriented to person, place, and time. Skin: Skin is warm and dry. Psychiatric: He has a normal mood and affect. His behavior is normal. Judgment and thought content normal. Telemetry: Demonstrates what appears to be high degree AV block with narrow QRS. HR mid 70's to 90's currently. Noted to vary between CHB and high degree/ AV block. EKG Interpretation: Pending 11/12/19 EKG. Lab Results Component Value Date WBC 7.40 11/12/2019 HGB 16.2 11/12/2019 HCT 49.2 11/12/2019 MCV 91.3 11/12/2019 PLT 161 11/12/2019 RBC 5.39 11/12/2019 Lab Results Component Value Date CREATININE 1.03 11/12/2019 BUN 18 11/12/2019 NA 141 11/12/2019 K 4.5 11/12/2019 CL 109 (H) 11/12/2019 BICARB 25 11/12/2019 Lab Results Component Value Date NA 141 11/12/2019 K 4.5 11/12/2019 CL 109 (H) 11/12/2019 Lab Results Component Value Date TROPONINI <15 11/11/2019 ECG 12 Lead Final Result by Interface, Lab Results In Osei Valenzuela (11/11/2019 1715) Sinus rhythm with 2nd degree AV block with 2:1 AV conduction with Premature supraventricular complexes Abnormal ECG ECG Cart Interpretation see physician note for interpretation. Confirmed by Betzy Espinal ([id number]) on 11/11/2019 5:15:33 PM Rama Velásquez CNP documented in this encounter* Denisse Patterson APRN-CNP - 11/10/2019 1:00 PM EDT Patient: Christopher Bagley Patient : 1950 Patient Age: 69 y.o. Today's Date: 11/26/2019 Provider: BIRD Ramsey History of Present Illness: Patient here today for evaluation of Chief Complaint Patient presents with Slow Heart Rate Dizziness Has had ongoing dizziness for months and maybe over a year. Currently taking Amlodipine 10mg and Benzaprezil for long-standing chronic hypertension.. States that he is athletic in the past and has had ow HR of 50's. Has lost about 25 pounds due to concerns of diabetes In August of 2018. He states that he is having increased dizziness with no CP or SOB. He is a patient of Dr. Banks's who I am seeing today for the first time for this. States that he has mentioned this in the past and no changes have been made to his medication. His BP today on exam is 142/64. He walked back to the room with no problem. 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 HENT: Negative for congestion, dental problem, drooling, nosebleeds, postnasal drip, rhinorrhea, sinus pressure, sinus pain, sneezing, sore throat, tinnitus, trouble swallowing and voice change. Eyes: Negative for photophobia, pain and visual disturbance. Respiratory: Negative for cough, choking, chest tightness, shortness of breath, wheezing and stridor. Cardiovascular: Negative for chest pain, palpitations and leg swelling. Gastrointestinal: Negative for abdominal distention, abdominal pain, anal bleeding, blood in stool,constipation, diarrhea, nausea, rectal pain and vomiting. Endocrine: Negative for cold intolerance, heat intolerance, polydipsia and polyphagia. Genitourinary: Negative for decreased urine volume, difficulty urinating, discharge, dysuria, enuresis, flank pain, frequency, penile swelling, scrotal swelling, testicular pain and urgency. Musculoskeletal: Negative for arthralgias, back pain, gait problem and joint swelling. Skin: Negative for color change, pallor, rash and wound. Neurological: Positive for dizziness and weakness. Negative for tremors, seizures, syncope, facial asymmetry, speech difficulty, light-headedness, numbness and headaches. Psychiatric/Behavioral: Negative for dysphoric mood, hallucinations, self- injury, sleep disturbanceand suicidal ideas. The patient is not nervous/anxious and is not hyperactive. All other systems reviewed and are negative. Physical Exam: Vitals: 11/10/19 1304 BP: 142/64 Pulse: (!) 47 Resp: 16 Temp: 97.7 degrees F (36.5 degrees C) SpO2: 96% Weight: 67.6 kg (149 lb) Physical Exam Vitals signs and nursing note reviewed. Constitutional: General: He is not in acute distress. Appearance: He is not ill-appearing, toxic-appearing or diaphoretic. HENT: Head: Normocephalic. Right Ear: Tympanic membrane, ear canal and external ear normal. There is no impacted cerumen. Left Ear: Tympanic membrane, ear canal and external ear normal. There is no impacted cerumen. Nose: Nose normal. No congestion. Mouth/Throat: Lips: [place]. Mouth: Mucous membranes are moist. Pharynx: Oropharynx is clear. Eyes: Pupils: Pupils are equal, round, and reactive to light. Neck: Musculoskeletal: Normal range of motion and neck supple. No neck rigidity or muscular tenderness. Vascular: Normal carotid pulses. No carotid bruit, hepatojugular reflux or JVD. Cardiovascular: Rate and Rhythm: Bradycardia present. Pulses: Carotid pulses are 3+ on the right side and 3+ on the left side. Radial pulses are 3+ on the right side and 3+ on the left side. Heart sounds: Normal heart sounds. Pulmonary: Effort: Pulmonary effort is normal. No bradypnea or respiratory distress. Breath sounds: Normal breath sounds. No stridor. No decreased breath sounds, wheezing, rhonchi or rales. Chest: Chest wall: No tenderness. Abdominal: General: Bowel sounds are normal. There is no distension. Palpations: Abdomen is soft. Tenderness: There is no abdominal tenderness. There is no right CVA tenderness or guarding. Musculoskeletal: Normal range of motion. General: No swelling, tenderness, deformity or signs of injury. Right lower leg: No edema. Left lower leg: No edema. Lymphadenopathy: Cervical: No cervical adenopathy. Skin: General: Skin is warm and dry. Capillary Refill: Capillary refill takes less than 2 seconds. Coloration: Skin is not jaundiced or pale. Findings: No bruising, erythema, lesion or rash. Neurological: General: No focal deficit present. Mental Status: He is alert and oriented to person, place, and time. Mental status is at baseline. Cranial Nerves: No cranial nerve deficit. Sensory: No sensory deficit. Motor: No weakness. Coordination: Coordination is intact. Coordination normal. Gait: Gait is intact. Psychiatric: Mood and Affect: Mood normal. Speech: Speech normal. Behavior: Behavior normal. Behavior is cooperative. Thought Content: Thought content normal. Current Medications: Current Outpatient Medications: benazepril 40 MG tablet, Take 1 tablet by mouth daily., Disp: 90 tablet, Rfl: 2 Health Maintenance List: Health Maintenance Topic Date Due HEPATITIS C VIRUS SCREENING 1950 TETANUS 1966 TDAP (ADULT) 06/25/1967 LIPID SCREENING 1988 COLORECTAL CANCER SCREENING DISCUSSION 1998 ZOSTER (SHINGLES) VACCINE (1 of 2) 1998 PROSTATE CANCER SCREENING DISCUSSION 1998 PNEUMOCOCCAL VACCINE SERIES (1 of 2 - PCV13) 2013 INFLUENZA VACCINE (1) 11/28/2019 Assessment & Plan: ICD-10-CM 1. Heart block I45.9 ECG AMB REFERRAL TO CARDIOVASCULAR MEDICINE 2. Bradycardia on ECG R00.1 ECG AMB REFERRAL TO CARDIOVASCULAR MEDICINE I did consult with Dr. Fall with [facility] cardiology. It was Wednesday afternoon around 3 PM. Patientwas sent to Hospital to obtain a confirmation of EKG. I did recommend that he go to the emergency department and he refused at that time. I did also try calling [facility] cardiology. At that time on Wednesday afternoon all of the physicians were gone and I was told that the one nurse practitioner was rounding it would be hard to get a hold of. Patient no doubt needs a cardiology workup. Also takento the fact that he is not on any AV bossman blocking agents including any eyedrops. He is also on a calcium channel adriana which I think should be removed at this time. Later on while he was obtaining the EKG at the hospital, I did receive a call from the [facility] who states that his heart rate was at 40. I did suggest that he go to the ER then. I also reviewed the EKG in the office with my collaborating physician. Due to the significant amount of time spent on this visit over 60 minutes of time was spent. My concern for his heart rate and heart block was expressed with the patient. States that this is chronic for him to feel dizzy and he did not think it was anything emergent with the way thathe was feeling today. No follow-ups on file. Patient was advised to call with any questions or concerns. If symptoms worsen patient was advised to follow up in our office or the Emergency Dept. Benefits, risks, contraindications, and complications of recommended treatments were explained the patient understands and agrees to proceed with plan. * Javier Jiménez LPN - 11/10/2019 1:00 PM EDT Pt is here today for complaint so a low heart rate along with dizziness documented in this encounter* Dyllan Curry RN - 11/30/2019 1:38 PM EDT OV with RN for incision check s/p PPM implant on 11-23-[address] Cruz. Pt denies concerns or significant pain to implant site. Also denies dizziness/lightheadedness/near-syncope. Dermabond Intact. Wound edges are well approximated and healing. No redness, edema, drainage or ecchymosis observed. No pocket hematoma on palpation of area. Pt cleared to shower and drive. Instructed on wound care andto notify us if ever any s/s of infection. Also reinforced activity restrictions for remaining 5 weeks. Pt verbalizes understanding. Will follow-up in the device clinic in 3 months as scheduled. documented in this encounter* Kierra Hernandez CNP - 11/24/2019 11:21 AM EDT Electrophysiology Inpatient Follow-up Heart & Vascular [facility] 11/24/2019 Kierra Hernandez CNP [facility] Patient: Christopher Bagley Date of : 1950 (69 y.o.) PCP: Martha Banks MD Assessment/Plan: Crhistopher Bagley is a 69 year old male with: + Intermittent complete heart block with heart rates in the 30s and 40s alternating with heart rates in the 70s and first-degree AV block + Symptomatic in the 30s with dizziness but denies syncope or near syncope-began on 11/09/2019 + Normal EF 55% on echo 11/12/2019 + No significant cardiac valve disease noted on echo 11/12/2019 although poor images due to: + History of pectoris excavatum on echocardiogram 11/12/2019 + Unable to assess LA and RA although [facility] noted on echo 11/12/2019 + No known CAD patient has never had a stress test or heart catheterization 11/24/2019 (PLAN) -CXR after procedure 11/24/2019 showed no pneumothorax. - Vocab rep reported normal pacemaker function today: Rate limits 60-130 bpm RA 6.6 mV, 656 ohms, 0.7V at 0.4 ms RV 15.8 mV, 1188 ohms, 0.6V at 0.4 ms - will continue norvasc and stop benazepril for now -If HR too high (running 80-90 bpm Currently tracking the RA), may need beta adriana-can evaluate at 3 month follow up -Patient was given discharge instructions verbally and in writing on AVS regarding left pacemaker site care and lifting restrictions by the EP RN and myself. -Will recheck CXR today. If no pneumothorax, ok for DC Subjective History of Present Illness: Christopher Bagley is a 69 y.o. male reported as an outpatient for his planned dual chamber pacemaker on 11/24/[address] Cruz & Dr Engel for his high degree AV block/ sick sinus syndrome. Today 11/24/2019 Patient has some left pacemaker site soreness, but denies shortness of breath, chest pain or lower extremity edema. Imaging: I independently reviewed the EKG and pacemaker check and CXR and agree with the interpretation(s) with the following comments. ECG 12 Lead Final Result by Interface, Lab Results In [facility]w Pyramis (11/13/2019 0904) Echocardiogram complete Final Result by Jeannine Gee MD (11/13/2019 0733) Review of Systems: All system(s) were reviewed. Pertinent positive and negative findings are noted in the HPI. All system negative unless otherwise noted in the HPI Current Facility-Administered Medications: acetaminophen (TYLENOL) tablet 650 mg, 650 mg, Oral, Q4H PRN, Zeke Cruz MD, 650 mg at 11/24/19 0455 amLODIPine (NORVASC) tablet 10 mg, 10 mg, Oral, Daily, Zeke Cruz MD, 10 mg at 11/24/19 0910 ondansetron (ZOFRAN) injection 4 mg, 4 mg, Intravenous, Q6H PRN, Zeke Cruz MD Objective: Physical Examination: Blood pressure 108/66, pulse 60, temperature 97.6 F (36.4 C), temperature source Infrared, resp. rate 16, height 5' 10, weight 64.4 kg (142 lb), SpO2 96 %. Telemetry: intermittent A pacing and AV pacing and first degree block Constitutional Alert and oriented X3 in no acute distress. Head: normocephalic. Neck: No masses noted HEENT Anicteric Heart:. Normal Intensity S1 and S2. No murmurs. Lungs: Clear to auscultation. Good air movement. No crackles noted. Abdomen is soft and nontender. . Extremities: Extremities are warm. No peripheral edema. Adequate peripheral pulses. Skin: Warm, dry and intact , left side pacemaker incision well approx with no drainage, hematoma orerythema. Mild ecchymosis Neuro: nonfocal Psych pleasant and cooperative Lab Results Component Value Date GLUCOSE 103 (H) 11/13/2019 CALCIUM 8.7 11/13/2019 NA 139 11/13/2019 K 4.8 11/13/2019 CL 107 11/13/2019 BUN 26 (H) 11/13/2019 CREATININE 1.19 11/13/2019 Lab Results Component Value Date WBC 6.99 11/13/2019 HGB 16.6 11/13/2019 HCT 51.0 11/13/2019 MCV 91.9 11/13/2019 PLT 151 11/13/2019 RBC 5.55 11/13/2019 Lab Results Component Value Date ALT 25 11/11/2019 AST 20 11/11/2019 ALKPHOS 98 11/11/2019 BILITOT 0.6 11/11/2019 Serum creatinine: 1.19 mg/dL 11/13/19 0420 Estimated creatinine clearance: 51.9 mL/min * Dyllan Curry RN - 11/24/2019 8:48 AM EDT Left chest PPM dressing removed at this time, Incision well approximated with no redness noted. No pocket hematoma noted, post PPM instructions gone over with pt as well as put in chart. Appts also put in chart at this time. documented in this encounter Assessments Diagnosis CPAP (continuous positive airway pressure) dependence Dependence on other enabling machine Diagnosis Essential hypertension- Primary Unspecified essential hypertension Hyperlipidemia, unspecified hyperlipidemia type Weight loss Loss of weight Benign prostatic hyperplasia without lower urinary tract symptoms Diagnosis Bradycardia with 41-50 beats per minute- Primary Diagnosis Third degree AV block (HCC)- Primary Atrioventricular block, complete Bradycardia Other specified cardiac dysrhythmias Diagnosis Heart block- Primary Conduction disorder, unspecified Bradycardia on ECG Other specified cardiac dysrhythmias Diagnosis Bradycardia Other specified cardiac dysrhythmias Reason for Referral Status Reason Specialty Diagnoses / Procedures Referred By Contact Referred To Contact New Request Diagnoses Bradycardia with 41-50 beats per minute Procedures ECG Martha Banks MD [address] [address] Status Reason Specialty Diagnoses / Procedures Referred By Contact Referred To Contact Closed Cardiovascular Medicine Diagnoses Heart block Bradycardia on ECG Jadyn Pattersoncharles Trejo, [employer] [address] [place] [address], [address] [place] [address] [facility] Cardiology [facility] [address] [place] [address] Scheduling Instructions . Status Reason Specialty Diagnoses / Procedures Referred By Contact Referred To Contact New Request Diagnoses Bradycardia on ECG Heart block Procedures ECG Denisse Patterson, [employer] [address] [place] [address], [address] [place] [address] Status Reason Specialty Diagnoses / Procedures Referred By Contact Referred To Contact Pending Review Cardiology Diagnoses Bradycardia Procedures MCT-Cardiac Event Monitor Zeke Cruz MD [address] [place] [address] Specialty Diagnoses / Procedures Referred By Contac t Referred To Contact Cardiology Diagnoses Sick sinus syndrome (HCC) Procedures ECG 12 Lead Karri Engel MD [address] [place] [address] Referral ID Status Reason Start Date Expiration Date V isits Requested Visits Authorized [id number] Authorized 12/16/2020 12/16/2021 1 1 Specialty Diagnoses / Procedures Referred By Contac t Referred To Contact CT IMAGING Diagnoses Malignant neoplasm of prostate (HCC) Procedures CT ABD/PEL W IVCON CT ABD & PELVIS W/CONTRAST Devin Mariscal MD [address] [place] [id number] Ct Imaging Referral ID Status Reason Start Date Expiration Date V isits Requested Visits Authorized [id number] Closed Auto-Generate d Referral 09/10/2021 10/10/2022 1 1 Specialty Diagnoses / Procedures Referred By Contac t Referred To Contact MR IMAGING Diagnoses Malignant neoplasm of prostate (HCC) Procedures MRI PROSTATE WO/W IVCON MRI PELVIS W/O & W/CONTRAST MATERIAL Devin Mariscal MD [address] [place] [id number] Mr Imaging Referral ID Status Reason Start Date Expiration Date V isits Requested Visits Authorized [id number] Closed Auto-Generate d Referral 09/10/2021 10/10/2022 1 1 Specialty Diagnoses / Procedures Referred By Contac t Referred To Contact CT IMAGING Diagnoses Opacities of both lungs present on chest x-ray Procedures CT CHEST WO IVCON DIAGNOSTIC COMPUTED TOMOGRAPHY THORAX W/O Devin Quispe MD [address] [facility] [place] [address] Ct Imaging Referral ID Status Reason Start Date Expiration Date Visits Requested Visits Authorized [id number] Authorized Auto-Generat ed Referral 02/04/2023 1 1 Specialty Diagnoses / Procedures Referred By Contac t Referred To Contact CT IMAGING Diagnoses Lung nodules Procedures CT CHEST WO IVCON DIAGNOSTIC COMPUTED TOMOGRAPHY THORAX W/O Devin Quispe MD [address] [place] [address] Ct Imaging Referral ID Status Reason Start Date Expiration Date Visits Requested Visits Authorized [id number] Pending Review Auto-Generat ed Referral 07/26/2022 02/25/2023 1 1 Specialty Diagnoses / Procedures Referred By Contac t Referred To Contact CT IMAGING Diagnoses Lung nodules Procedures CT CHEST WO IVCON DIAGNOSTIC COMPUTED TOMOGRAPHY THORAX W/O Devin Quispe MD [address] [place] [address] [place] [address] Referral ID Status Reason Start Date Expiration Date V isits Requested Visits Authorized [id number] Closed Auto-Generate d Referral 07/26/2022 02/25/2023 1 1 Specialty Diagnoses / Procedures Referred By Contac t Referred To Contact CT IMAGING Diagnoses Opacities of both lungs present on chest x-ray Procedures CT CHEST WO IVCON DIAGNOSTIC COMPUTED TOMOGRAPHY THORAX W/O Devin Quispe MD [address] [place] [address] [place] [address] Referral ID Status Reason Start Date Expiration Date V isits Requested Visits Authorized [id number] Closed Auto-Generate d Referral 01/20/2022 02/04/2023 1 1 Hospital Course * Bria, Bahzat, MD - 11/13/2019 3:54 PM EDT HOSPITALIST DISCHARGE SUMMARY Patient: Christopher Bagley Account: [id number] Admitted: 11/11/2019 Discharge Date/Time: 11/13/2019 Clinical Summary FINAL DIAGNOSIS: Active Problems: Bradycardia REASON FOR HOSPITALIZATION AND ADMITTING DIAGNOSIS: Bradycardia Third degree AV block (HCC) [I44.2] Bradycardia [R00.1] HOSPITAL COURSE: Christopher Bagley 69 y.o. male presented with complains of bradycardia. Active Problems: Bradycardia Bronchiolitis findings on CT scan PLAN: Complete heart block: Patient not on any previous beta-blockers, amlodipine discontinued. Lisinopril increased to 40 mg daily for better blood pressure control. Lyme serologies pending. This morning seems to be in sinus rhythm with heart rate in 90s. Cardiology following. EP to see tomorrow morning. Hypertension: Currently acceptable on lisinopril 40 mg daily. 11/12 Patient feeling okay denies chest pain shortness of breath abdominal pain nausea or dizziness Vital signs stable Pending EP evaluation for pacemaker placement Addendum CT chest done per cardiology recommendation that did not show any PE or dissection but showed findings of bronchiolitis Discharge patient on Augmentin for 5 days Cardiology recommendations patient must not drive and to follow-up with EP office as outpatient CONDITION AT DISCHARGE: Stable Physical Examination: Blood pressure 117/72, pulse 65, temperature 98.5 F (36.9 C), temperature source Oral, resp. rate 14, height 5' 10.5, weight 64.8 kg (142 lb 13.7 oz), SpO2 96 %. General appearance: alert, cooperative, in no acute distress. Head/Neck: Head- normocephalic. Neck- supple, non-tender, without lymphadenopathy Eyes: No Scleral icterus or pallor; EOMI ENT: Trachea midline. Cardiovascular: regular rate and rhythm; normal S1, S2; no murmurs, rubs, clicks or gallops; No/+ peripheral edema. Respiratory: lungs clear to auscultation; without wheezes, rales or rhonchi. Abdomen: soft, non tender, non-distended; positive bowel sounds. Neurological: alert, oriented, normal speech; no focal findings or movement disorder noted. Musculoskeletal: no significant deformity noted. Skin: normal coloration, texture and turgor; no lesions or eruptions. Procedures: No orders of the defined types were placed in this encounter. Consults: Procedures Consult Cardiology Hospitalize Patient To : Inpatient consult to Cardiology Inpatient consult to Cardiology Other Tests: Procedures Echocardiogram complete LAST LABS: Results from last 7 days Lab Units 11/13/19 0420 SODIUM mmol/L 139 POTASSIUM mmol/L 4.8 CHLORIDE mmol/L 107 BUN mg/dL 26* CREATININE mg/dL 1.19 GLUCOSE mg/dL 103* CALCIUM mg/dL 8.7 Results from last 7 days Lab Units 11/11/19 1248 ALK PHOS U/L 98 BILIRUBIN TOTAL mg/dL 0.6 TOTAL PROTEIN g/dL 8.3* ALTR U/L 25 AST U/L 20 Results from last 7 days Lab Units 11/11/19 1248 INR 1.1 Results from last 7 days Lab Units 11/13/19 0420 WBC K/mcL 6.99 HGB g/dL 16.6 HCT % 51.0 PLT K/mcL 151 Results from last 7 days Lab Units 11/12/19 0423 TSH mcIU/mL 0.90 Allergies: Patient has no known allergies. Discharge Diet: Diet Special; Cardiac Disposition: Discharge Medications Medication List START taking these medications amoxicillin-clavulanate 875-125 mg per tablet Commonly known as: AUGMENTIN Take 1 (one) tablet by mouth 2 (two) times a day . CONTINUE taking these medications benazepriL 40 MG tablet Commonly known as: LOTENSIN multivitamin per tablet Commonly known as: THERAGRAN STOP taking these medications amLODIPine 10 MG tablet Commonly known as: NORVASC Where to Get Your Medications These medications were sent to [id number] - [place], [place] - [address] [facility] [address], [facility] [id number] amoxicillin-clavulanate 875-125 mg per tablet Physician(s) Family: Martha Banks MD, , Address: [address] [address] Follow Up: No follow-up provider specified. Patient instructions, including activity, were given to the patient/family at discharge. Please seethe After Visit Summary in the medical record for details. Time spent on discharge: > 30 minutes Completed by: Altagracia Fraser on 11/13/19, 3:54 PM documented in this encounter Discharge Instructions * Instructions* Stephanie Guthrie RN - 11/13/2019 30 Day Cardiac Event Monitor: A cardiac event monitor has been ordered. It is a device that is worn that will record your heart beat and rhythm. It will be mailed to your home and put on by yourself at home. On your After Visit Summary under What's Next will be what looks like an office visit labeled Cardiac Event Monitor and has our office address and a date/time listed. THIS IS NOT AN ACTUAL OFFICEVISIT THAT YOU NEED TO COME TO. It is our documentation that your monitor was ordered and is to make sure that the company knows to mail it to you. Prior to it being mailed you will receive a phone call from the [employer] that supplies the cardiac event monitor to confirm your address. Please be sure to answer the phone as they will not mail it toyou if address is not confirmed. It will be an out of state phone number. Instructions will accompany the monitor to assist you in putting on the monitor, charging the battery and answering any questions you may have. If after reading the instructions you have any questions please do not hesitate to call the company at the number they have provided in the instruction manual. They will send two batteries and a guide dog mobility instructor. While you are wearing one of the batteries please have the other battery charging in the guide dog mobility instructor device. Please do not get the device wet. Patches that you will wear will be provided. Please rotate the site that you put the patches on to prevent skin breakdown. When completed please mail back to the company in the box originally provided and send back via [employer]. Instructions will accompany the device on how to do this. It can take three weeks or more to get a report back after you have finished wearing the monitor. You will be notified when results have been interpreted by a community health navigator. If you have any questions please call [phone]. documented in this encounter Additional Source Comments (unrecognized sect ion and content) No Status Records FoundNo Status Records FoundNo Status Records FoundNo Status Records FoundNo Status Records FoundNo Status Records FoundNo Status Records FoundNo Status Records Found INFORMATION SOURCE (unrecogn ized section and content) DATE CREATED AUTHOR 02/12/2018 [facility] DATE CREATED AUTHOR AUTHOR'S ORGANIZ ATION 11/21/2019 [facility] DATE CREATED AUTHOR AUTHOR'S ORGANIZ ATION 10/28/2021 [facility] DATE CREATED AUTHOR AUTHOR'S ORGANIZ ATION 12/09/2021 [facility] DATE CREATED AUTHOR AUTHOR'S ORGANIZ ATION 05/18/2022 [facility] DATE CREATED AUTHOR AUTHOR'S ORGANIZ ATION 09/23/2023 [facility] DATE CREATED AUTHOR AUTHOR'S ORGANIZ ATION 07/08/2024 [facility] DATE CREATED AUTHOR AUTHOR'S ORGANIZ ATION 09/04/2024 [facility] Reason for Visit (unrecogniz ed section and content) Reason Comments CPAP Issues Reason Comments Hypertension Reason Comments Bradycardia Status Reason Specialty Diagnoses / Procedures Referre d By Contact Referred To Contact Diagnoses Third degree AV block (HCC) Bradycardia Reason Comments Slow Heart Rate Dizziness Reason Comments Post-op Status Reason Specialty Diagnoses / Procedures Referred By Contact Referred To Contact Pending Review Cardiology Diagnoses Bradycardia Procedures MCT-Cardiac Event Monitor Zeke Cruz MD [address] [place] [address] Status Reason Specialty Diagnoses / Procedures Referre d By Contact Referred To Contact Procedures Pacemaker Implant - MDT Dual Chamber Reason Comments Hypertension Hyperlipidemia Benign Prostatic Hyperplasia Reason Comments Follow-up Patient is here for a follow up appt, he denies any concerns for todays OV. Reason Comments Patient Education Prostate Lab Orders Reason Comments Future Appointment called to schedule [facility]. patient has a pace maker so a message was sent to the team and they will review his information and call patient to set up appt Reason Comments Consult Prostate Specialty Diagnoses / Procedures [facility] Diagnoses Malignant neoplasm of prostate (HCC) Procedures CT ABD/PEL W IVCON CT ABD & PELVIS W/CONTRAST Devin Mariscal MD [address] [place] [address] Ct Imaging Referral ID Status Reason Start Date Expiration Date V isits Requested Visits Authorized [id number] Closed Auto-Generate d Referral 09/10/2021 10/10/2022 1 1 Reason Comments Radiology MRI Specialty Diagnoses / Procedures [facility] Referred To Contact MR IMAGING Diagnoses Malignant neoplasm of prostate (HCC) Procedures MRI PROSTATE WO/W IVCON MRI PELVIS W/O & W/CONTRAST MATERIAL Devin Mariscal MD [address] [place] [address] Mr Imaging Referral ID Status Reason Start Date Expiration Date V isits Requested Visits Authorized [id number] Closed Auto-Generate d Referral 09/10/2021 10/10/2022 1 1 Reason Comments Medication Authorization [employer] Prior A [facility] Reason Comments Consult spoke with Dr Cool 's office. Patient is scheduled for Spacer OAR -Prisca 11/19/21 Reason Comments Patient Update Reason Comments Orders Labs needed Specialty Diagnoses / Procedures Referred By [facility] Referred To Contact Radiation Oncology / RADIATION ONCOLOGY Diagnoses Malignant neoplasm of prostate sim - prostate Procedures [facility] [place] [facility] IM[facility] 30 fractions Stuart Durand MD [address] [address] Devin Mariscal MD [address] [place] [address] Referral ID Status Reason Start Date Expiration Date V isits Requested Visits Authorized [id number] Authorized 12/17/2021 03/28/2022 99 99 Reason Comments Radiotherapy On-treatment Visit prostate Reason Comments Radiotherapy On-treatment Visit Prostate Reason Comments Radiotherapy On-treatment Visit Prostate Reason Comments Recheck Reason Comments Recheck Prostate Reason Comments Results Reason Comments Follow-up No cardiac symptoms Reason Comments Flashes Left Eye Reason Comments Horseshoe Tear Evaluation Reason Comments . Hemorrhagic Acute PVD consult Reason Comments Vitreous Hemorrhage Follow Up Left eye Lattice Degeneration Follow Up Left eye Horseshoe Tear Follow Up Left eye Reason Comments Cataract Evaluation Reason Comments Message for patient Specialty Diagnoses / Procedures Referred By Contac t Referred To Contact CT IMAGING Diagnoses Lung nodules Procedures CT CHEST WO IVCON DIAGNOSTIC COMPUTED TOMOGRAPHY THORAX W/O Devin Quispe MD [address] [place] [address] [place] [address] Referral ID Status Reason Start Date Expiration Date V isits Requested Visits Authorized [id number] Closed Auto-Generate d Referral 07/26/2022 02/25/2023 1 1 Specialty Diagnoses / Procedures Referred By Contac t Referred To Contact CT IMAGING Diagnoses Opacities of both lungs present on chest x-ray Procedures CT CHEST WO IVCON DIAGNOSTIC COMPUTED TOMOGRAPHY THORAX W/O Devin Quispe MD [address] [place] [address] Ct Imaging [id number] Referral ID Status Reason Start Date Expiration Date V isits Requested Visits Authorized [id number] Closed Auto-Generate d Referral 01/20/2022 02/04/2023 1 1 Reason Comments Horseshoe retinal tear, left eye Combine d forms of age-related cataract of left eye3 Month F/U Reason Comments Recheck Malignant neoplasm o f prostate (HCC) Reason Comments Horseshoe Tear Follow Up Left eye 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 male with hypertension presented to emergency department due to dizziness and was found to have bradycardia Complete heart block alternating with Mobitz type II second-degree AV block Minimally symptomatic and stable blood pressure is admitted to the cardiac ICU cardiology following can plan for pacemaker placement, will hold amlodipine and increase lisinopril SUBJECTIVE: Chief Complaint: Dizziness History of Presenting Illness: Christopher Bagley is a 69 y.o. male with hypertension presented to emergency department due to dizziness and was found to have bradycardia. He takes 10 mg of amlodipine and 40 mg of benazepril with well-controlled blood pressure. Apparently, he reports dizziness and his benazepril was reduced by half in PCP at which time his heart rate was also noted to be in the 40s. This morning, his dizziness is better but he continues to have a heart rate in the 30s which brought him to the ED. He does not take any AV bossman blocking agents and has no history of thyroid disease. He has been on amlodipine for several years now. He does a mountain biking but has not done that this summer. 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 He does not recall tick bite or bull's-eye rash. Review of Systems: 10 systems reviewed and negative other than noted in HPI History: Past Medical History: Diagnosis Date Hypertension Past Surgical History: Procedure Laterality Date HERNIA REPAIR History reviewed. No pertinent family history. Social History Tobacco Use Smoking Status Never Smoker Smokeless Tobacco Never Used Social History Substance and Sexual Activity Alcohol Use Never Frequency: Never Family and Social History reviewed and non-pertinent to this visit Allergies: Patient has no known allergies. Home Medications: Outpatient Medications as of 11/11/2019 Medication Sig amLODIPine (NORVASC) 10 MG tablet Take 5 mg by mouth daily . benazepriL (LOTENSIN) 40 MG tablet Take 20 mg by mouth daily . multivitamin (THERAGRAN) per tablet Take 1 tablet by mouth daily . OBJECTIVE: Physical Examination: BP 121/78 (BP Location: Left arm, Patient Position: Lying) Pulse 84 Temp 98.1 F (36.7 C) (Infrared) Resp 16 Ht 5' 10.5 Wt 68 kg (150 lb) SpO2 98% BMI 21.22 kg/m General Appearance: Alert, well appearing, and in no acute distress. HEENT: Head - Normocephalic, atraumatic. Eyes - AMANDA bilaterally and EOMI. Ears - normal external appearance, hearing intact. Nose - normal, no erythema. Throat - mucous membranes moist, pharynx without lesions. Neck: Supple, trachea midline. Cardiovascular: Bradycardia S1, S2 normal. No murmurs, rubs, clicks or gallops appreciated. No pedal edema. Respiratory: Lungs clear to auscultation, no wheezes, rales or rhonchi heard. Abdomen: Soft, non-tender, normal bowel sounds, non-distended, no masses or organomegaly appreciated. Neurological: Grossly normal motor and sensory exam. No focal deficits. Musculoskeletal: No joint tenderness, deformity or swelling. Skin: Normal coloration and turgor. No rashes. Psych: Alert, oriented x 3. Normal mood and affect. Laboratory and Additional Data Reviewed: Results/Medications Reviewed 11/11/19 9:45 PM: Results from last 7 days Lab Units 11/11/19 1248 SODIUM mmol/L 139 POTASSIUM mmol/L 4.0 CHLORIDE mmol/L 103 BUN mg/dL 19 CREATININE mg/dL 1.17 GLUCOSE mg/dL 110* CALCIUM mg/dL 9.7 Results from last 7 days Lab Units 11/11/19 1248 WBC K/mcL 8.82 HGB g/dL 18.0* HCT % 54.6* PLT K/mcL 165 Results from last 7 days Lab Units 11/11/19 1919 11/11/19 1248 TROPONIN I ng/L <15 <15 Results from last 7 days Lab Units 11/11/19 1248 INR 1.1 Results from last 7 days Lab Units 11/11/19 1248 ALK PHOS U/L 98 BILIRUBIN TOTAL mg/dL 0.6 TOTAL PROTEIN g/dL 8.3* ALTR U/L 25 AST U/L 20 CULTURES: Reviewed 9:45 PM IMAGING: Reviewed 9:45 PM documented in this encounter INTERVAL HISTORY AND PHYSICAL Patient Name: Christopher Bagley Admit Date: MR #: [id number] : 1950 The H&P has been reviewed and the patient has been examined. I concur with the findings of the H&P. There are no significant changes. It is appropriate to proceed with the planned procedure. Zeke Cruz MD 11/23/2019 10:27 AM Patient Name: Christopher Bagley Admit Date: MR #: [id number] : 1950 Assessment: Christopher Bagley is a 69 year old male with: + Intermittent complete heart block with heart rates in the 30s and 40s alternating with heart rates in the 70s and first-degree AV block + Symptomatic in the 30s with dizziness but denies syncope or near syncope-began on 11/09/2019 + Normal EF 55% on echo 11/12/2019 + No significant cardiac valve disease noted on echo 11/12/2019 although poor images due to: + History of pectoris excavatum on echocardiogram 11/12/2019 + Unable to assess LA and RA although chiari network noted on echo 11/12/2019 + No known CAD patient has never had a stress test or heart catheterization Plan: (11/13/[address] Cruz) -Patient will need a dual-chamber pacemaker for his intermittent complete heart block -Patient has a narrow QRS between 98 and 110 ms -CT Angiogram chest to rule out dissection due to back pain radiating to left axilla over past several months and hx of pectus excavatum -IF CT chest is normal, pt can have his pacemaker as an outpatient with a 14 day event recorder to watch for bradycardia. If he goes home, he has been directed to NOT DRIVE prior to pacemaker being inserted. -Resume CPAP for sleep apnea-pt can D/W Dr Banks as outpt to get properly fitted mask Reviewed old records Discussed in detail with patient Dr Hernandez will Independently review workup Subjective Reason for Consultation: Intermittent third-degree block alternating with first-degree and second-degree heart block Chief Complaint: Dizziness History of Present Illness: Christopher Bagley is a 69 y.o. male presented to the emergency room on 11/11/2019 with dizziness related to bradycardia. He notices heart rate in the 30s and 40s on a blood pressure cuff at work and was feeling slightly dizzy. On 11/10/2019 he saw his primary care physician and his blood pressure medication, Benzapril, had been decreased. His heart rate was in the 40s at his primary care physician's office and he was instructed to go to the ER if his heart rate went into the 30s. He was not taking any heart rate limiting medications. He denies any palpitations or syncope. He only has a history of lightheadedness when he is bending down and picking up something heavy. He has a history of sleep apnea and has not worn his CPAP in at least a year as he has lost weight over the past year, up to 24 pounds, with his diet. His mask was not fitting properly. He lost weight purposefully as he was concerned with becoming diabetic with his strong family history of diabetes. He is active and is employeed at the [employer]. 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 He has a history of mountain bike riding. He has had a heart rate in the 50s with his active lifestyle. Recently he has noticed a thoracic back discomfort that radiates to his left axilla, that is typically positional, while standing, and not related to rest or activity. Massage & rest typically helps this discomfort. He denies dyspnea, cough, diarrhea, nausea, vomiting , lower extremity edema fever or chills. Current Facility-Administered Medications Medication Dose Route Frequency Provider Last Rate Last Dose heparin (porcine) injection 5,000 Units 5,000 Units Subcutaneous Q8H SANDRA Junior MD 5,000 Units at 11/13/19 0609 lisinopriL (PRINIVIL,ZESTRIL) tablet 40 mg 40 mg Oral Daily with lunch Sole Junior MD 40 mg at 11/12/19 1302 ondansetron (ZOFRAN) injection 4 mg 4 mg Intravenous Q6H PRN Sole Junior MD perflutren lipid microspheres (DEFINITY) 0.143 mg/mL solution 0-10 mL of mixture 0-10 mL of mixture Intravenous Once in imaging Sole Junior MD pneumococcal conj. 13-valent (PREVNAR-13) vaccine 0.5 mL 0.5 mL Intramuscular Prior To Discharge Sole Junior MD Current Facility-Administered Medications Medication Dose Route Frequency Provider Last Rate Last Dose heparin (porcine) injection 5,000 Units 5,000 Units Subcutaneous Q8H SANDRA Junior MD 5,000 Units at 11/13/19 0609 lisinopriL (PRINIVIL,ZESTRIL) tablet 40 mg 40 mg Oral Daily with lunch Sole Junior MD 40 mg at 11/12/19 1302 ondansetron (ZOFRAN) injection 4 mg 4 mg Intravenous Q6H PRN Sole Junior MD perflutren lipid microspheres (DEFINITY) 0.143 mg/mL solution 0-10 mL of mixture 0-10 mL of mixture Intravenous Once in imaging Sole Junior MD pneumococcal conj. 13-valent (PREVNAR-13) vaccine 0.5 mL 0.5 mL Intramuscular Prior To Discharge Sole Junior MD Past History: Past Medical History: Diagnosis Date Hypertension Past Surgical History: Procedure Laterality Date HERNIA REPAIR History reviewed. No pertinent family history. Social History Socioeconomic History Marital status: Spouse name: Not on file Number of children: Not on file Years of education: Not on file Highest education level: Not on file Occupational History Not on file Social Needs Financial resource strain: Not on file Food insecurity Worry: Not on file Inability: Not on file Transportation needs Medical: Not on file Non-medical: Not on file Tobacco Use Smoking status: Never Smoker Smokeless tobacco: Never Used Substance and Sexual Activity Alcohol use: Never Frequency: Never Drug use: Never Sexual activity: Yes Partners: Female control/protection: None Lifestyle Physical activity Days per week: Not on file Minutes per session: Not on file Stress: Not on file Relationships Social connections Talks on phone: Not on file Gets together: Not on file Attends mormon service: Not on file Active member of club or organization: Not on file Attends meetings of clubs or organizations: Not on file Relationship status: Not on file Other Topics Concern Not on file Social History Narrative Not on file Allergy Information: I have reviewed the patient's allergies. Patient has no known allergies. Home Medications: No current outpatient medications on file as of 11/13/2019. Review of Systems: All system(s) were reviewed. Pertinent positive and negative findings are noted in the HPI. All system negative unless otherwise noted in the HPI Physical Examination: BP 117/72 (BP Location: Left arm, Patient Position: Lying) Pulse 65 Temp 98 F (36.7 C) (Oral) Resp 14 Ht 5' 10.5 Wt 64.8 kg (142 lb 13.7 oz) SpO2 97% BMI 20.21 kg/m Constitutional Alert and oriented X3 in no acute distress. Talkative Head: normocephalic. Neck: No masses noted HEENT Anicteric Heart:. Reg, Normal Intensity S1 and S2. No murmurs. Lungs: Clear to auscultation with diminished bases. Good air movement. No crackles noted. Abdomen is soft and nontender. Extremities: Extremities are warm. No peripheral edema. Adequate peripheral pulses. Skin: warm, dry , intact Neuro: nonfocal Psych not suicidal or homicidal , pleasant and cooperative Intake/Output last 3 shifts: I/O last 3 completed shifts: In: - Out: 500 [Urine:500] Laboratory and Additional Data Reviewed: Results from last 7 days Lab Units 11/11/19 2209 11/11/19 1919 11/11/19 1248 TROPONIN I ng/L <15 <15 <15 Results from last 7 days Lab Units 11/13/19 0420 SODIUM mmol/L 139 POTASSIUM mmol/L 4.8 CHLORIDE mmol/L 107 BUN mg/dL 26* CREATININE mg/dL 1.19 GLUCOSE mg/dL 103* CALCIUM mg/dL 8.7 Results from last 7 days Lab Units 11/13/19 0420 WBC K/mcL 6.99 HGB g/dL 16.6 HCT % 51.0 PLT K/mcL 151 Results from last 7 days Lab Units 11/12/19 0423 TSH mcIU/mL 0.90 Radiographics: Pertinent studies reviewed and noted. Cardiac Studies: Reviewed and noted. Echocardiogram 11/12/2019: Apical views off axis and nondiagnostic due to pectus excavating. No obvious wall motion abnormality identified. EF 55%. No obvious valvular heart disease identified. Normal LV size. RV, RA and LA not well visualized. ECG's: reviewed EKG 11/11/2019 at 12:34 complete heart block with left axis deviation and incomplete right bundle branch block. 37 bpm, QRS 102 EKG 11/11/2019 at 16:01 complete heart block 41 bpm, QRS 98 EKG 11/12/2019 at 9:25 AM: first-degree AV block 92 bpm MO 288, QRS 84 Telemetry: Reviewed NSR first degree block HR 70's [facility] for Dr Cruz [phone] (mobile) Associated attestation - Zeke Cruz MD - 11/13/2019 4:21 PM EDT I saw and personally examined the patient on the same day as AMELIA. I have personally performed a face to face history and examination, reviewed the labs, most recent ECG, telemetry, and data, and discussed the DDx and treatment plan with the patient and family. documented in this encounter David Kierraelisha Stearns CNP - 11/13/2019 11:14 AM Rama Bansal CNP - 11/12/2019 7:10 AM Yaniv Small MD - 11/11/2019 3:22 PM EDT Consult Notes (unrecognized section and content) Associated Order(s): IP CONSULT TO CARDIOLOGY Patient Name: Christopher Bagley Admit Date: MR #: [id number] : 1950 Assessment: Christopher Bagley is a 69 year old male with: + Intermittent complete heart block with heart rates in the 30s and 40s alternating with heart rates in the 70s and first-degree AV block + Symptomatic in the 30s with dizziness but denies syncope or near syncope-began on 11/09/2019 + Normal EF 55% on echo 11/12/2019 + No significant cardiac valve disease noted on echo 11/12/2019 although poor images due to: + History of pectoris excavatum on echocardiogram 11/12/2019 + Unable to assess LA and RA although [facility] network noted on echo 11/12/2019 + No known CAD patient has never had a stress test or heart catheterization Plan: (11/13/[address] Cruz) -Patient will need a dual-chamber pacemaker for his intermittent complete heart block -Patient has a narrow QRS between 98 and 110 ms -CT Angiogram chest to rule out dissection due to back pain radiating to left axilla over past several months and hx of pectus excavatum -IF CT chest is normal, pt can have his pacemaker as an outpatient with a 14 day event recorder to watch for bradycardia. If he goes home, he has been directed to NOT DRIVE prior to pacemaker being inserted. -Resume CPAP for sleep apnea-pt can D/W Dr Banks as outpt to get properly fitted mask Reviewed old records Discussed in detail with patient Dr Hernandez will Independently review workup Subjective Reason for Consultation: Intermittent third-degree block alternating with first-degree and second-degree heart block Chief Complaint: Dizziness History of Present Illness: Christopher Bagley is a 69 y.o. male presented to the emergency room on 11/11/2019 with dizziness related to bradycardia. He notices heart rate in the 30s and 40s on a blood pressure cuff at work and was feeling slightly dizzy. On 11/10/2019 he saw his primary care physician and his blood pressure medication, Benzapril, had been decreased. His heart rate was in the 40s at his primary care physician's office and he was instructed to go to the ER if his heart rate went into the 30s. He was not taking any heart rate limiting medications. He denies any palpitations or syncope. He only has a history of lightheadedness when he is bending down and picking up something heavy. He has a history of sleep apnea and has not worn his CPAP in at least a year as he has lost weight over the past year, up to 24 pounds, with his diet. His mask was not fitting properly. He lost weight purposefully as he was concerned with becoming diabetic with his strong family history of diabetes. He is active and is employeed at the [employer]. 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 He has a history of mountain bike riding. He has had a heart rate in the 50s with his active lifestyle. Recently he has noticed a thoracic back discomfort that radiates to his left axilla, that is typically positional, while standing, and not related to rest or activity. Massage & rest typically helps this discomfort. He denies dyspnea, cough, diarrhea, nausea, vomiting , lower extremity edema fever or chills. Current Facility-Administered Medications Medication Dose Route Frequency Provider Last Rate Last Dose heparin (porcine) injection 5,000 Units 5,000 Units Subcutaneous Q8H ON LICENSE OF [facility] Sole Junior MD 5,000 Units at 11/13/19 0609 lisinopriL (PRINIVIL,ZESTRIL) tablet 40 mg 40 mg Oral Daily with lunch Sole Junior MD 40 mg at 11/12/19 1302 ondansetron (ZOFRAN) injection 4 mg 4 mg Intravenous Q6H PRN Sole Junior MD perflutren lipid microspheres (DEFINITY) 0.143 mg/mL solution 0-10 mL of mixture 0-10 mL of mixture Intravenous Once in imaging Sole Junior MD pneumococcal conj. 13-valent (PREVNAR-13) vaccine 0.5 mL 0.5 mL Intramuscular Prior To Discharge Sole Junior MD Current Facility-Administered Medications Medication Dose Route Frequency Provider Last Rate Last Dose heparin (porcine) injection 5,000 Units 5,000 Units Subcutaneous Q8H SANDRA Sole Junior MD 5,000 Units at 11/13/19 0609 lisinopriL (PRINIVIL,ZESTRIL) tablet 40 mg 40 mg Oral Daily with lunch Sole Junior MD 40 mg at 11/12/19 1302 ondansetron (ZOFRAN) injection 4 mg 4 mg Intravenous Q6H PRN Sole Junior MD perflutren lipid microspheres (DEFINITY) 0.143 mg/mL solution 0-10 mL of mixture 0-10 mL of mixture Intravenous Once in imaging Sole Junior MD pneumococcal conj. 13-valent (PREVNAR-13) vaccine 0.5 mL 0.5 mL Intramuscular Prior To Discharge Sole Junior MD Past History: Past Medical History: Diagnosis Date Hypertension Past Surgical History: Procedure Laterality Date HERNIA REPAIR History reviewed. No pertinent family history. Social History Socioeconomic History Marital status: Spouse name: Not on file Number of children: Not on file Years of education: Not on file Highest education level: Not on file Occupational History Not on file Social Needs Financial resource strain: Not on file Food insecurity Worry: Not on file Inability: Not on file Transportation needs Medical: Not on file Non-medical: Not on file Tobacco Use Smoking status: Never Smoker Smokeless tobacco: Never Used Substance and Sexual Activity Alcohol use: Never Frequency: Never Drug use: Never Sexual activity: Yes Partners: Female control/protection: None Lifestyle Physical activity Days per week: Not on file Minutes per session: Not on file Stress: Not on file Relationships Social connections Talks on phone: Not on file Gets together: Not on file Attends mormon service: Not on file Active member of club or organization: Not on file Attends meetings of clubs or organizations: Not on file Relationship status: Not on file Other Topics Concern Not on file Social History Narrative Not on file Allergy Information: I have reviewed the patient's allergies. Patient has no known allergies. Home Medications: No current outpatient medications on file as of 11/13/2019. Review of Systems: All system(s) were reviewed. Pertinent positive and negative findings are noted in the HPI. All system negative unless otherwise noted in the HPI Physical Examination: BP 117/72 (BP Location: Left arm, Patient Position: Lying) Pulse 65 Temp 98 F (36.7 C) (Oral) Resp 14 Ht 5' 10.5 Wt 64.8 kg (142 lb 13.7 oz) SpO2 97% BMI 20.21 kg/m Constitutional Alert and oriented X3 in no acute distress. Talkative Head: normocephalic. Neck: No masses noted HEENT Anicteric Heart:. Reg, Normal Intensity S1 and S2. No murmurs. Lungs: Clear to auscultation with diminished bases. Good air movement. No crackles noted. Abdomen is soft and nontender. Extremities: Extremities are warm. No peripheral edema. Adequate peripheral pulses. Skin: warm, dry , intact Neuro: nonfocal Psych not suicidal or homicidal , pleasant and cooperative Intake/Output last 3 shifts: I/O last 3 completed shifts: In: - Out: 500 [Urine:500] Laboratory and Additional Data Reviewed: Results from last 7 days Lab Units 11/11/19 2209 11/11/19 1919 11/11/19 1248 TROPONIN I ng/L <15 <15 <15 Results from last 7 days Lab Units 11/13/19 0420 SODIUM mmol/L 139 POTASSIUM mmol/L 4.8 CHLORIDE mmol/L 107 BUN mg/dL 26* CREATININE mg/dL 1.19 GLUCOSE mg/dL 103* CALCIUM mg/dL 8.7 Results from last 7 days Lab Units 11/13/19 0420 WBC K/mcL 6.99 HGB g/dL 16.6 HCT % 51.0 PLT K/mcL 151 Results from last 7 days Lab Units 11/12/19 0423 TSH mcIU/mL 0.90 Radiographics: Pertinent studies reviewed and noted. Cardiac Studies: Reviewed and noted. Echocardiogram 11/12/2019: Apical views off axis and nondiagnostic due to pectus excavating. No obvious wall motion abnormality identified. EF 55%. No obvious valvular heart disease identified. Normal LV size. RV, RA and LA not well visualized. ECG's: reviewed EKG 11/11/2019 at 12:34 complete heart block with left axis deviation and incomplete right bundle branch block. 37 bpm, QRS 102 EKG 11/11/2019 at 16:01 complete heart block 41 bpm, QRS 98 EKG 11/12/2019 at 9:25 AM: first-degree AV block 92 bpm MO 288, QRS 84 Telemetry: Reviewed NSR first degree block HR 70's [facility] for Dr Cruz [phone] (mobile) Associated attestation - Zeke Cruz MD - 11/13/2019 4:21 PM EDT I saw and personally examined the patient on the same day as AMELIA. I have personally performed a face to face history and examination, reviewed the labs, most recent ECG, telemetry, and data, and discussed the DDx and treatment plan with the patient and family. Associated Order(s): IP CONSULT TO CARDIOLOGY Please see consult by Dr. Gallagher 11/11/2019. Associated Order(s): IP CONSULT TO CARDIOLOGY [facility] Interventional Cardiology Consult Note ID: Christopher Bagley is a 69 y.o. male : 1950 LOS: 0 days Martha Banks MD History of Present Illness I was consulted to evaluate Mr. Christopher Bagley for complete heart block. He is a 69 y.o. pleasant male with no prior history of cardiovascular disease except hypertension. He takes 10 mg of amlodipine and 40 mg of benazepril with well-controlled blood pressure. Apparently, he reports dizziness and his benazepril was reduced by half in PCP at which time his heart rate was also noted to be in the 40s. This morning, his dizziness is better but he continues to have a heart rate in the 30s which brought him to the ED. He does not take any AV bossman blocking agents and has no history of thyroid disease. He has been on amlodipine for several years now. He does a mountain biking but has not done that this summer. However, he continues to work in the yard [employer]. He does not recall tick bite or bull's-eye rash. In the ED, his initial EKG revealed third-degree AV block with junctional escape rhythm. He subsequent EKG showed Mobitz type II second-degree AV block. His potassium, magnesium, and TSH are all normal. His hemoglobin is 18 with hematocrit of 54%. He does not report blurred vision. ASSESSMENT: ? Complete heart block ? Hypertension ? Pectus excavatum CHB: Third-degree AV block with junctional escape rhythm at a rate of 37. Subsequent EKG with second-degree AV block, Mobitz type II. No AV bossman blocking agent. The only medication with potential for bradycardia is amlodipine. His electrolytes and TSH are normal. He has a potential to Lyme exposure due to his outdoor activity and with the fluctuating AV block, it is prudent to rule out Lyme carditis. HTN: At goal on benazepril and amlodipine. Will discontinue amlodipine due to the above. PLAN: 1. Discontinue amlodipine. Increase benazepril to 40 mg daily. If additional blood pressure medicine needed, HCTZ or spironolactone can be added 2. Check Lyme serology 3. Obtain echocardiogram tomorrow 4. Admit him to telemetry bed 5. Will be evaluated by EP on Wednesday for possible PPM Yaniv Gallagher MD, [facility] Interventional Cardiology/Structural Heart Disease [facility] Cardiac Diagnostics: ECG (I independently reviewed EKG and the reveals, 08/11/2019): Third-degree AV block with junctional escape rhythm at a rate of 37. Echo (hand-held bedside, limited, 11/11/2019): Grossly normal LV systolic function Review of Systems: Constitutional: No fever, headache, or lethargy HEENT: No sore throat Respiratory: No cough, wheeze, or Raynaud's Cardiovascular: No fatigue GI: No nausea, vomiting, diarrhea, constipation : No dysuria, urgency, frequency Integumentary: No rash, urticaria Musculoskeletal: No arthralgia, joint swelling Endocrinology: No heat or cold intolerance Neurologic: No confusion OBJECTIVE BP 132/74 Pulse (!) 52 Temp 98.2 F (36.8 C) (Skin) Resp 14 SpO2 95% General Appearance: healthy-looking gentleman. Not in acute distress HEENT: pink conjuctivae. Anicteric sclera. Moist oral mucosa. Respiratory: Pectus deformity. Good air entry bilaterally. No wheeze or crackles. Cardiovascular: good peripheral pulses. JVP is flat. Regular rate and rhythm. Normal S1-S2. No murmur/gallop/rub. Abdomen: soft. Non-tender. Non-distended. Normal BS. ALEXANDER: no CVAT KEIRA: no peripheral edema. No joint deformity. Skin: no rash. No cyanosis. No clubbing. Neurology: No gross motor or sensory deficit. Psych: alert and oriented X3 . Good mood and affect. Past medical history Hypertension Pectus excavatum Past surgical history No current facility-administered medications on file prior to encounter. Current Outpatient Medications on File Prior to Encounter Medication Sig Dispense Refill amLODIPine (NORVASC) 10 MG tablet Take 5 mg by mouth daily . benazepriL (LOTENSIN) 40 MG tablet Take 20 mg by mouth daily . multivitamin (THERAGRAN) per tablet Take 1 tablet by mouth daily . No Known Allergies Social History Tobacco Use Smoking status: Not on file Substance Use Topics Alcohol use: Not on file Family Hx: no family hx of premature CAD Labs: Lab Results Component Value Date NA 139 11/11/2019 K 4.0 11/11/2019 CL 103 11/11/2019 BUN 19 11/11/2019 Lab Results Component Value Date WBC 8.82 11/11/2019 HGB 18.0 (H) 11/11/2019 PLT 165 11/11/2019 Lab Results Component Value Date ALT 25 11/11/2019 documented in this encounter Wilder Metzger LPN - 11/11/2019 6:12 PM Jeremy Grace RN - 11/11/2019 4:43 PM EDTLetitia Cerna RN - 11/11/2019 2:00 PM Jeremy Grace RN - 11/11/2019 12:58 PM EDT ED Notes (unrecognized secti on and content) 800ML of yellow urine collected. Tube Filler Letitia terry ordered labs Pt updated . Urinated 500 ml of clear, yellow urine. Denies further needs. Sr upx2. Call light in reach. DR REYNOLDS MADE AWARE THAT PT HEART RATE DROPPED TO 28 AT THIS TIME, PT STILL ASYMPTOMATIC ED PROVIDER NOTE [facility] EMERGENCY DEPARTMENT NAME: Christopher Bagley AGE: 69 y.o. : 1950 VISIT DATE: 11/11/2019 CSN: [id number] PCP: Martha Banks MD Chief Complaint Patient presents with Bradycardia This is a 69-year-old with history of hypertension who denies any significant past medical history who is on benazepril and amlodipine for his blood pressure coming to emergency room with 3 days of having persistent bradycardia initially in the low 40s and deteriorated into the 30s like 36. He states when he exerts himself like walking upstairs the rate may go into the low 40s. He denies any exertional fatigue, shortness of breath, lightheadedness, dizziness or chest pain. He denies history of arrhythmia or having had similar bradycardia in the past. No past medical history on file. No past surgical history on file. No family history on file. Social History Socioeconomic History Marital status: Spouse name: Not on file Number of children: Not on file Years of education: Not on file Highest education level: Not on file Occupational History Not on file Social Needs Financial resource strain: Not on file Food insecurity Worry: Not on file Inability: Not on file Transportation needs Medical: Not on file Non-medical: Not on file Tobacco Use Smoking status: Not on file Substance and Sexual Activity Alcohol use: Not on file Drug use: Not on file Sexual activity: Not on file Lifestyle Physical activity Days per week: Not on file Minutes per session: Not on file Stress: Not on file Relationships Social connections Talks on phone: Not on file Gets together: Not on file Attends mormon service: Not on file Active member of club or organization: Not on file Attends meetings of clubs or organizations: Not on file Relationship status: Not on file Other Topics Concern Not on file Social History Narrative Not on file Previous Medications Medication Sig amLODIPine (NORVASC) 10 MG tablet Take 5 mg by mouth daily . benazepriL (LOTENSIN) 40 MG tablet Take 20 mg by mouth daily . multivitamin (THERAGRAN) per tablet Take 1 tablet by mouth daily . No Known Allergies Review of Systems Cardiovascular: Bradycardia All other systems reviewed and are negative. Patient Vitals for the past 24 hrs: BP Temp Temp src Pulse Resp SpO2 11/11/19 1602 (!) 158/73 85 18 97 % 11/11/19 1601 (!) 43 11/11/19 1600 (!) 158/73 (!) 40 97 % 11/11/19 1531 139/64 (!) 37 11/11/19 1513 (!) 52 95 % 11/11/19 1512 82 96 % 11/11/19 1508 60 97 % 11/11/19 1501 69 96 % 11/11/19 1500 132/74 (!) 57 95 % 11/11/19 1432 (!) 144/53 (!) 47 97 % 11/11/19 1401 (!) 137/95 (!) 38 11/11/19 1400 (!) 153/92 (!) 35 14 98 % 11/11/19 1356 (!) 34 97 % 11/11/19 1352 (!) 162/73 (!) 34 97 % 11/11/19 1348 (!) 178/108 (!) 35 97 % 11/11/19 1345 (!) 161/130 (!) 34 16 98 % 11/11/19 1341 (!) 34 98 % 11/11/19 1337 (!) 154/70 (!) 35 98 % 11/11/19 1332 148/74 (!) 34 97 % 11/11/19 1321 (!) 169/75 (!) 35 99 % 11/11/19 1317 (!) 166/69 (!) 36 98 % 11/11/19 1312 (!) 168/67 (!) 37 99 % 11/11/19 1306 (!) 170/83 (!) 36 98 % 11/11/19 1302 (!) 183/69 64 11/11/19 1256 (!) 162/92 (!) 32 99 % 11/11/19 1253 98.2 F (36.8 C) Skin 11/11/19 1252 (!) 163/65 (!) 36 99 % 11/11/19 1248 (!) 172/76 (!) 36 18 98 % 11/11/19 1235 (!) 190/81 (!) 52 99 % Physical Exam Vitals signs and nursing note reviewed. Constitutional: General: He is not in acute distress. Appearance: He is not ill-appearing, toxic-appearing or diaphoretic. Neck: Musculoskeletal: Normal range of motion and neck supple. No neck rigidity or muscular tenderness. Cardiovascular: Rate and Rhythm: Normal rate and regular rhythm. Pulses: Normal pulses. Heart sounds: Normal heart sounds. No murmur. No gallop. Pulmonary: Effort: Pulmonary effort is normal. No respiratory distress. Breath sounds: Normal breath sounds. No stridor. No wheezing, rhonchi or rales. Chest: Chest wall: No tenderness. Abdominal: General: Abdomen is flat. Bowel sounds are normal. There is no distension. Palpations: Abdomen is soft. Tenderness: There is no abdominal tenderness. There is no right CVA tenderness, left CVA tenderness, guarding or rebound. Hernia: No hernia is present. Musculoskeletal: Normal range of motion. General: No swelling, tenderness, deformity or signs of injury. Right lower leg: No edema. Left lower leg: No edema. Skin: General: Skin is warm and dry. Neurological: General: No focal deficit present. Mental Status: He is oriented to person, place, and time. Laboratory & Radiographic Imaging (if done): Results for orders placed or performed during the hospital encounter of 11/11/19 COVID-19, Molecular Result Value Ref Range SARS-CoV-2 Not Detected Not Detected CMP Result Value Ref Range Sodium 139 135 - 145 mmol/L Potassium 4.0 3.5 - 5.1 mmol/L Chloride 103 98 - 108 mmol/L Bicarbonate 27 21 - 32 mmol/L Anion Gap 13 10 - 20 mmol/L Glucose 110 (H) 65 - 99 mg/dL BUN 19 8 - 25 mg/dL Creatinine 1.17 0.80 - 1.30 mg/dL eGFR 62 >=60 mL/min/1.73 m2 BUN/Creatinine Ratio 16.2 10.0 - 20.0 Total Protein 8.3 (H) 6.0 - 8.0 g/dL Albumin 4.5 3.2 - 5.2 g/dL Calcium 9.7 8.4 - 10.2 mg/dL Alkaline Phosphatase 98 40 - 150 U/L AST 20 0 - 45 U/L Total Bilirubin 0.6 0.0 - 1.3 mg/dL ALT 25 14 - 65 U/L PT/INR Result Value Ref Range Protime (PT) 13.7 11.8 - 14.3 seconds INR 1.1 0.8 - 1.1 Troponin Result Value Ref Range Troponin I <15 <=45 ng/L Troponin I Interpretation Normal CBC Auto Differential Result Value Ref Range WBC 8.82 4.50 - 11.00 K/mcL RBC 5.98 (H) 4.50 - 5.90 M/mcL Hemoglobin 18.0 (H) 13.5 - 17.5 g/dL Hematocrit 54.6 (H) 41.0 - 53.0 % MCV 91.3 80.0 - 100.0 fL MCH 30.1 26.0 - 34.0 pg MCHC 33.0 31.0 - 37.0 g/dL Platelets 165 150 - 400 K/mcL RDW - CV 12.8 11.6 - 14.8 % MPV 11.2 9.4 - 12.4 fL Neutrophils 74.5 % Lymphocytes 14.7 % Monocytes 7.0 % Eosinophils 2.3 % Basophils 1.2 % IG Percent 0.30 % Neutrophils Abs 6.56 1.70 - 7.00 K/mcL Lymphocytes Abs 1.30 0.90 - 4.00 K/mcL Monocytes Abs 0.62 0.30 - 0.90 K/mcL Eosinophils Abs 0.20 0.00 - 0.50 K/mcL Basophils Abs 0.11 0.00 - 0.30 K/mcL IG Absolute 0.03 0.00 - 0.30 K/mcL Nucleated RBC 0.0 % Nucleated RBC Abs 0.00 0.00 - 0.00 K/mcL XR Chest 1 View Final Result Findings are concerning for right lower lung zone pneumonia. SA/trw Workstation ID: [id number] Procedures MDM Number of Diagnoses or Management Options Third degree AV block (HCC): Diagnosis management comments: 69-year-old gentleman with history of hypertension not on beta-adriana coming to emergency room with persistent bradycardia in the past 3 days with ventricular rate mostly in the 30s but improved to low 40s upon exertion with no other complaints such as shortness of breath or fatigue/lightheadedness/dizziness. Patient denies having had history of arrhythmia in the past. On arrival he does not appear to be in significant distress. EKG obtained here confirms sinus bradycardia with ventricular rate of 37 bpm. EKG pattern is consistent with 3rd degree AV block. There is large T wave somewhat reminiscent hyperkalemia as well. Basic labs along with chest x-ray obtained and community health navigator on-call, Dr. Gallagher consulted. Complete metabolic profile lab results is unremarkable. BC reveals normal WBC over 8 with elevated hemoglobin and hematocrit of 18 and 54.6 and platelets within normal limits at 165. Patient states he was told that he has polycythemia of unclear patient on history patient is related to me. I do not see a previous labs for comparison. Dr. Gallagher recommended patient be admitted by the hospitalist service with cardiology on board. Patient discussed with plan of care and he is all right with it. The patient has been informed that they may have pre-hypertension or hypertension based on a blood pressure reading in the Emergency Department. I recommend that the patient call the primary care provider listed on their discharge instructions or a physician of their choice as soon as possible to arrange follow-up in the next 4 weeks for further evaluation of possible pre-hypertension or hypertension. . Clinical Impression: 1. Third degree AV block (HCC) ED Disposition ED Disposition Condition Comment Hospitalize Phone call required?: No Follow-up Information Follow-up information has not been specified. Contact information for after-discharge care Follow-up information has not been specified. Delbert Reynolds MD 11/11/19 3550 THREE DAYS OF INTERMITTENT SLOW HEART RATE WITH SOME INTERMITTENT DIZZINESS. SAW PCP AND HAD EKGS. Bed: 15 Expected date: Expected time: Means of arrival: Comments: Next Patient documented in this encounter Quick Note - Lupe Spencer RN - 11/13/2019 4:45 PM EDTPlan of Yael Hills RN - 11/13/2019 4:43 PM EDTPlan of Yael Hills RN - 11/13/2019 3:07 PM EDT Miscellaneous Notes (unrecog nized section and content) Seen by [place] to Home post discharge and reviewed AVS. Verbalized understanding and denies further needs. Problem: Actual or potential alteration in health Goal: Absence of healthcare acquired conditions 11/13/20191642 by Yael Cottrell RN Outcome: Met 11/13/2019 164 by Yael Cottrell RN Outcome: Met 11/13/2019 1507 by Yael Cottrell RN Outcome: Partially Met Goal: Knowledge of Interdisciplinary Plan of Care 11/13/20191642 by Yael Cottrell RN Outcome: Met 11/13/2019 164 by Yael Cottrell RN Outcome: Met 11/13/2019 1507 by Yael Cottrell RN Outcome: Partially Met Goal: Knowledge of Enviroment 11/13/2019 164 by Yael Cottrell RN Outcome: Met 11/13/2019 1643 by Yael Cottrell RN Outcome: Met 11/13/2019 1507 by Yael Cottrell RN Outcome: Partially Met Problem: Cardiac Output - Decreased Goal: Cardiac output within specified parameters 11/13/20191642 by Yael Cottrell RN Outcome: Met 11/13/2019 164 by Yael Cottrell RN Outcome: Met 11/13/2019 1507 by Yael Cottrell RN Outcome: Partially Met Pt discharged to home. Discharge info gone over with pt and copy given. Problem: Actual or potential alteration in health Goal: Absence of healthcare acquired conditions Outcome: Partially Met Goal: Knowledge of Interdisciplinary Plan of Care Outcome: Partially Met Goal: Knowledge of Enviroment Outcome: Partially Met Problem: Cardiac Output - Decreased Goal: Cardiac output within specified parameters Outcome: Partially Met Problem: Actual or potential alteration in health Goal: Absence of healthcare acquired conditions Outcome: Partially Met Goal: Knowledge of Interdisciplinary Plan of Care Outcome: Partially Met Goal: Knowledge of Enviroment Outcome: Partially Met Problem: Cardiac Output - Decreased Goal: Cardiac output within specified parameters Outcome: Partially Met Problem: Actual or potential alteration in health Goal: Absence of healthcare acquired conditions Outcome: Partially Met Goal: Knowledge of Interdisciplinary Plan of Care Outcome: Partially Met Goal: Knowledge of Enviroment Outcome: Partially Met Problem: Cardiac Output - Decreased Goal: Cardiac output within specified parameters Outcome: Partially Met Associated Problem(s): Bradycardia Pleasant 69-year-old male with past medical history notable for hypertension, on SHAY and amlodipine in the outpatient setting. Describes being very active with no previous cardiac work-up completed prior to this hospitalization. Patient has had transient past history of occasional dizziness but this is random and he always contributed to his blood pressure. There is no complaints presently or in the past of chest discomfort/heaviness/jaw or arm involvement. He was evaluated by our cardiac service yesterday in the emergency department as we were consulted for complete heart block. Patient presented to ER for evaluation at the advice of [facility] cardiology for low HR. It appears that patient goes in between complete heart block versus high degree AV block with narrow QRS. Initial labs obtained shows sodium 141; potassium 4.5; creatinine 1.03; magnesium 2.4; TSH 0.90 and unremarkable CBC. Troponins have been negative x3. We are pending Lyme's testing results at this time. We have removed his calcium channel adriana therapy and he is only on lisinopril for blood pressure management. Recommendations: Would continue lisinopril and subcu heparin therapy. Would avoid any AV bossman blocking agents as well as calcium channel adriana. We will have EP see him tomorrow for further evaluation and work-up. Patient is aware he will is going to be evaluated by our EP team Wednesday, November 13, 2019. Continue serial labs with recommendations on keeping K+ 4.0 - 4.8 and Mg >2.0. Problem: Actual or potential alteration in health Goal: Absence of healthcare acquired conditions Outcome: Partially Met Goal: Knowledge of Interdisciplinary Plan of Care Outcome: Partially Met Goal: Knowledge of Enviroment Outcome: Partially Met Problem: Cardiac Output - Decreased Goal: Cardiac output within specified parameters Outcome: Partially Met Problem: Actual or potential alteration in health Goal: Absence of healthcare acquired conditions Outcome: Partially Met Goal: Knowledge of Interdisciplinary Plan of Care Outcome: Partially Met Goal: Knowledge of Enviroment Outcome: Partially Met documented in this encounter Seen by [place] to Home post discharge and reviewed AVS. Verbalized understanding and denies further needs. No PCP F/U appt made and pt will call to make. Problem: Actual or potential alteration in health Goal: Absence of healthcare acquired conditions Outcome: Completed Goal: Knowledge of Interdisciplinary Plan of Care Outcome: Completed Goal: Knowledge of Enviroment Outcome: Completed Problem: Pain Goal: Manage acute pain Outcome: Completed Goal: Manage chronic pain Outcome: Completed Goal: Reduced pain sensation Outcome: Completed Goal: Achievement of comfort function goal Outcome: Completed Problem: Tissue Perfusion - Cardiopulmonary, Altered Goal: Circulatory function within specified parameters Outcome: Completed Problem: Tissue Perfusion - Peripheral, Altered Goal: Circulatory function, peripheral, within specified parameters Outcome: Completed Problem: Plan for Discharge Goal: Knowledge of discharge plan and instructions Outcome: Completed Problem: Pressure Ulcer - Risk of Goal: Absence of pressure ulcer Outcome: Completed Problem: Pain Goal: Manage acute pain Outcome: Completed Goal: Manage chronic pain Outcome: Completed Goal: Reduced pain sensation Outcome: Completed Goal: Achievement of comfort function goal Outcome: Completed Problem: Actual or potential alteration in health Goal: Absence of healthcare acquired conditions Outcome: Partially Met Goal: Knowledge of Interdisciplinary Plan of Care Outcome: Partially Met Goal: Knowledge of Enviroment Outcome: Partially Met Problem: Pain Goal: Manage acute pain Outcome: Partially Met Goal: Manage chronic pain Outcome: Partially Met Goal: Reduced pain sensation Outcome: Partially Met Goal: Achievement of comfort function goal Outcome: Partially Met Problem: Tissue Perfusion - Cardiopulmonary, Altered Goal: Circulatory function within specified parameters Outcome: Partially Met Problem: Tissue Perfusion - Peripheral, Altered Goal: Circulatory function, peripheral, within specified parameters Outcome: Partially Met Problem: Plan for Discharge Goal: Knowledge of discharge plan and instructions Outcome: Partially Met Problem: Pressure Ulcer - Risk of Goal: Absence of pressure ulcer Outcome: Partially Met Problem: Pain Goal: Manage acute pain Outcome: Partially Met Goal: Manage chronic pain Outcome: Partially Met Goal: Reduced pain sensation Outcome: Partially Met Goal: Achievement of comfort function goal Outcome: Partially Met Problem: Actual or potential alteration in health Goal: Absence of healthcare acquired conditions Outcome: Partially Met Goal: Knowledge of Interdisciplinary Plan of Care Outcome: Partially Met Goal: Knowledge of Enviroment Outcome: Partially Met Problem: Pain Goal: Manage acute pain Outcome: Partially Met Goal: Manage chronic pain Outcome: Partially Met Goal: Reduced pain sensation Outcome: Partially Met Goal: Achievement of comfort function goal Outcome: Partially Met Problem: Tissue Perfusion - Cardiopulmonary, Altered Goal: Circulatory function within specified parameters Outcome: Partially Met Problem: Tissue Perfusion - Peripheral, Altered Goal: Circulatory function, peripheral, within specified parameters Outcome: Partially Met Problem: Plan for Discharge Goal: Knowledge of discharge plan and instructions Outcome: Partially Met documented in this encounter Care Teams (unrecognized sec tion and content) Friction Paint Machine Tender Relationship Specialty Start Date End Date Martha Banks MD [address] [place] [address] PCP - General Internal Medicine 11/11/19 Friction Paint Machine Tender Relationship Specialty Start Date End Date Martha Banks MD [address] [place] [address] PCP - General Internal Medicine 11/11/19 Friction Paint Machine Tender Relationship Specialty Start Date End Date Martha Banks MD [address] [place] [address] PCP - General Internal Medicine 11/11/19 Friction Paint Machine Tender Relationship Specialty Start Date End Date Stuart Durand MD [address] [facility] 2 [place] [address] PCP - General Internal Medicine 09/01/21 BeverleyChi [address] [address] [place] [address] Referring Urology 09/01/21 Friction Paint Machine Tender Relationship Specialty Start Date End Date Stuart Durand MD [facility] 2 [place] [address] PCP - General Internal Medicine 09/01/21 BeverleyChi [address] [address] [place] [address] Referring Urology 09/01/21 Friction Paint Machine Tender Relationship Specialty Start Date End Date Stuart Durand MD [address] [facility] 2 [place] [address] PCP - General Internal Medicine 09/01/21 BeverleyChi [address] [address] [place] [address] Referring Urology 09/01/21 Friction Paint Machine Tender Relationship Specialty Start Date End Date Stuart Durand MD [facility] 2 [place] [address] PCP - General Internal Medicine 09/01/21 BeverleyChi [address] [address] [place] [address] Referring Urology 09/01/21 Friction Paint Machine Tender Relationship Specialty Start Date End Date Stuart Durand MD [address] [facility] 2 [place] [address] PCP - General Internal Medicine 09/01/21 [facility] [address] [address] [place] [address] Referring Urology 09/01/21 Friction Paint Machine Tender Relationship Specialty Start Date End Date Stuart Durand MD [address] [place] [address] 2 [place] [address] PCP - General Internal Medicine 09/01/21 [facility] [address] [address] [place] [address] Referring Urology 09/01/21 Friction Paint Machine Tender Relationship Specialty Start Date End Date Stuart Durand MD [address] [place] [address] 2 [place] [address] PCP - General Internal Medicine 09/01/21 [address] [address] [place] [address] Referring Urology 09/01/21 Friction Paint Machine Tender Relationship Specialty Start Date End Date Stuart Durand MD [facility] 2 [place] [address] PCP - General Internal Medicine 09/01/21 [facility] [address] [address] [place] [address] Referring Urology 09/01/21 Friction Paint Machine Tender Relationship Specialty Start Date End Date Stuart Durand MD [facility] 2 [place] [address] PCP - General Internal Medicine 09/01/21 BeevrleyChiMichael [address] [address] [place] [address] Referring Urology 09/01/21 Friction Paint Machine Tender Relationship Specialty Start Date End Date Stuart Durand MD [address] [facility] 2 [place] [address] PCP - General Internal Medicine 09/01/21 [address] [address] [place] [address] Referring Urology 09/01/21 Friction Paint Machine Tender Relationship Specialty Start Date End Date Stuart Durand MD [facility] 2 [place] [address] PCP - General Internal Medicine 09/01/21 BeverleyChiMichael [address] [address] [place] [address] Referring Urology 09/01/21 Friction Paint Machine Tender Relationship Specialty Start Date End Date Stuart Durand MD [facility] 2 [place] [address] PCP - General Internal Medicine 09/01/21 BeverleyChiMichael [address] [address] [place] [address] Referring Urology 09/01/21 Friction Paint Machine Tender Relationship Specialty Start Date End Date Stuart Durand MD [facility] 2 [place] [address] PCP - General Internal Medicine 09/01/21 BeverleyChiMichael [address] [address] [place] [address] Referring Urology 09/01/21 Lupe Jones, INSTRUCTIONAL DESIGN SPECIALIST [address] [facility] [facility] [place] [address] Director Of Market Intelligence Oncology 12/31/21 Friction Paint Machine Tender Relationship Specialty Start Date End Date Stuart Durand MD [address] [facility] 2 [place] [address] PCP - General Internal Medicine 09/01/21 Chi Cool Miguel [address] [place] [address] Referring Urology 09/01/21 Lupe Jones LISW [address] [place] [address] Director Of Market Intelligence Oncology 12/31/21 Friction Paint Machine Tender Relationship Specialty Start Date End Date Stuart Durand MD [address] [facility] 2 [place] [address] PCP - General Internal Medicine 09/01/21 Chi Cool Miguel [address] [place] [address] Referring Urology 09/01/21 Lupe Jones LISW [address] [place] [address] Director Of Market Intelligence Oncology 12/31/21 Friction Paint Machine Tender Relationship Specialty Start Date End Date Stuart Durand MD [address] [facility] 2 [place] [address] PCP - General Internal Medicine 09/01/21 Chi Cool [address] [place] [address] Referring Urology 09/01/21 Lupe Jones LISW [address] [facility] [place] [address] Director Of Market Intelligence Oncology 12/31/21 Friction Paint Machine Tender Relationship Specialty Start Date End Date Stuart Durand MD [address] [facility] 2 [place] [address] PCP - General Internal Medicine 09/01/21 BeverleyChiMichael [address] [address] [place] [address] Referring Urology 09/01/21 Lupe Jones LISW [address] [place] [address] Director Of Market Intelligence Oncology 12/31/21 Friction Paint Machine Tender Relationship Specialty Start Date End Date Stuart Durand MD [address] [facility] 2 [place] [address] PCP - General Internal Medicine 09/01/21 [facility] [address] [address] [place] [address] Referring Urology 09/01/21 Lupe Jones LISW [address] [place] [address] Director Of Market Intelligence Oncology 12/31/21 Friction Paint Machine Tender Relationship Specialty Start Date End Date Stuart Durand MD [address] [facility] 2 [place] [address] PCP - General Internal Medicine 09/01/21 [facility] Michael [address] [address] [place] [address] Referring Urology 09/01/21 Lupe Jones LISW [address] [place] [address] Director Of Market Intelligence Oncology 12/31/21 Friction Paint Machine Tender Relationship Specialty Start Date End Date Stuart Durand MD [address] [facility] 2 [place] [address] PCP - General Internal Medicine 09/01/21 Chi Cool MD [address] [address] [place] [address] Referring Urology 09/01/21 Lupe Jones, INSTRUCTIONAL DESIGN SPECIALIST [address] [place] [address] Director Of Market Intelligence Oncology 12/31/21 Friction Paint Machine Tender Relationship Specialty Start Date End Date Stuart Durand MD [address] [facility] 2 [place] [address] PCP - General Internal Medicine 09/01/21 Chi Cool MD [address] [address] [place] [address] Referring Urology 09/01/21 Lupe Jones, INSTRUCTIONAL DESIGN SPECIALIST [address] [place] [address] Director Of Market Intelligence Oncology 12/31/21 Friction Paint Machine Tender Relationship Specialty Start Date End Date Stuart Durand MD [address] [facility] 2 [place] [address] PCP - General Internal Medicine 09/01/21 Chi Cool MD [address] [address] [place] [address] Referring Urology 09/01/21 Lupe Jones, INSTRUCTIONAL DESIGN SPECIALIST [address] [place] [address] Director Of Market Intelligence Oncology 12/31/21 Friction Paint Machine Tender Relationship Specialty Start Date End Date Stuart Durand MD [address] [facility] 2 [place] [address] PCP - General Internal Medicine 09/01/21 Chi Cool MD [address] [address] [place] [address] Referring Urology 09/01/21 Lupe Jones, CAROLE [address] [place] [address] Director Of Market Intelligence Oncology 12/31/21 Friction Paint Machine Tender Relationship Specialty Start Date End Date Stuart Durand MD [address] [place] [address] 2 [place] [address] PCP - General Internal Medicine 12/11/22 Friction Paint Machine Tender Relationship Specialty Start Date End Date Stuart Durand MD [address] [place] [address] 2 [place] [address] PCP - General Internal Medicine 12/11/22 Friction Paint Machine Tender Relationship Specialty Start Date End Date Stuart Durand MD [address] [place] [address] 2 [place] [address] PCP - General Internal Medicine 09/01/21 Chi Cool MD [address] [place] [address] [place], [place] [address] Referring Urology 09/01/21 Lupe Jones LISW [address] [place] [address] Director Of Market Intelligence Oncology 12/31/21 Friction Paint Machine Tender Relationship Specialty Start Date End Date Stuart Durand MD [address] [place] [address] 2 [place] [address] PCP - General Internal Medicine 09/01/21 Chi Cool MD [address] [facility] [address] [place] [address] Referring Urology 09/01/21 Lupe Jones LISW [address] [place] [address] Director Of Market Intelligence Oncology 12/31/21 Friction Paint Machine Tender Relationship Specialty Start Date End Date Stuart Durand MD [address] [facility] 2 [place] [address] PCP - General Internal Medicine 09/01/21 Chi Cool MD [address] [facility] [address] [place] [address] Referring Urology 09/01/21 Lupe Jones, INSTRUCTIONAL DESIGN SPECIALIST [address] [facility] [place] [address] Director Of Market Intelligence Oncology 12/31/21 Friction Paint Machine Tender Relationship Specialty Start Date End Date Stuart Durand MD [address] [facility] 2 [place] [address] PCP - General Internal Medicine 09/01/21 Chi Cool MD [address] [address] [place] [address] Referring Urology 09/01/21 Lupe Jones, INSTRUCTIONAL DESIGN SPECIALIST [address] [facility] [place] [address] Director Of Market Intelligence Oncology 12/31/21 Friction Paint Machine Tender Relationship Specialty Start Date End Date Stuart Durand MD [address] [facility] 2 [place] [address] PCP - General Internal Medicine 09/01/21 Chi Cool MD [address] [facility] [address] [place] [address] Referring Urology 09/01/21 Lupe Jones, INSTRUCTIONAL DESIGN SPECIALIST [address] [facility] [place] [address] Director Of Market Intelligence Oncology 12/31/21 Friction Paint Machine Tender Relationship Specialty Start Date End Date Stuart Durand MD [address] [facility] 2 [place] [address] PCP - General Internal Medicine 09/01/21 Chi Cool MD [address] [address] [place] [address] Referring Urology 09/01/21 Lupe Jones, INSTRUCTIONAL DESIGN SPECIALIST [address] [facility] [place] [address] Director Of Market Intelligence Oncology 12/31/21 Friction Paint Machine Tender Relationship Specialty Start Date End Date Stuart Durand MD [address] [facility] 2 [place] [address] PCP - General Internal Medicine 09/01/21 Chi Cool MD [address] [place] [address] [place] [address] Referring Urology 09/01/21 Lupe Jones, INSTRUCTIONAL DESIGN SPECIALIST [address] [facility] [place] [address] Director Of Market Intelligence Oncology 12/31/21 Friction Paint Machine Tender Relationship Specialty Start Date End Date Stuart Durand MD [facility]7 [facility] 2 [place] [address] PCP - General Internal Medicine 09/01/21 Chi Cool MD [address] [address] [place] [address] Referring Urology 09/01/21 Lupe Jones, INSTRUCTIONAL DESIGN SPECIALIST [address] [facility] [place] [address] Director Of Market Intelligence Oncology 12/31/21 Friction Paint Machine Tender Relationship Specialty Start Date End Date Stuart Durand MD [address] [place], [place] [address] 2 [place] [address] PCP - General Internal Medicine 09/01/21 Chi Cool MD [address] [address] [place] [address] Referring Urology 09/01/21 Lupe Jones, [facility] [address] [place] [address] Director Of Market Intelligence Oncology 12/31/21 Friction Paint Machine Tender Relationship Specialty Start Date End Date Stuart Durand MD [address] [place] [address] 2 [place] [address] PCP - General Internal Medicine 12/11/22 Friction Paint Machine Tender Relationship Specialty Start Date End Date Stuart Durand MD [address] [place] [address] 2 [place] [address] PCP - General Internal Medicine 09/01/21 Chi Cool MD [address] [place] [address] [place] [address] Referring Urology 09/01/21 Lupe Jones, INSTRUCTIONAL DESIGN SPECIALIST [address] [place] [address] Director Of Market Intelligence Oncology 12/31/21 Friction Paint Machine Tender Relationship Specialty Start Date End Date Stuart Durand MD [address] [place] [address] 2 [place] [address] PCP - General Internal Medicine 09/01/21 Chi Cool MD [address] [address] [place] [address] Referring Urology 09/01/21 Lupe Jones LISW [address] [place] [address] Director Of Market Intelligence Oncology 12/31/21 Friction Paint Machine Tender Relationship Specialty Start Date End Date Stuart Durand MD [address] [place] [address] 2 [place] [address] PCP - General Internal Medicine 12/11/22 Friction Paint Machine Tender Relationship Specialty Start Date End Date Stuart Durand MD [address] [place] [address] 2 [place] [address] PCP - General Internal Medicine 12/11/22 Friction Paint Machine Tender Relationship Specialty Start Date End Date Stuart Durand MD [address] [place] [address] 2 [place] [address] PCP - General Internal Medicine 12/11/22 Friction Paint Machine Tender Relationship Specialty Start Date End Date Stuart Durand MD [address] [place] [address] 2 [place] [address] PCP - General Internal Medicine 12/11/22 Friction Paint Machine Tender Relationship Specialty Start Date End Date Stuart Durand MD [address] [place] [address] 2 [place] [address] PCP - General Internal Medicine 09/01/21 Chi Cool MD [address] [place] [address] [address] [place], [place] [address] Referring Urology 09/01/21 Lupe Jones LISW [address] [place] [address] Director Of Market Intelligence Oncology 12/31/21 Source Comments (unrecognize d section and content) In the event this informatio n is protected by the Federal Confidentiality of Alcohol and Drug Abuse Patient Records regulations: The Federal rules restrict any use of the information to criminally investigate or prosecute any alcohol or drug abuse patient.[facility] the event this information is protected by the Federal Confidentiality of Alcohol and Drug Abuse Patient Records regulations: The Federal rules restrict any use of the information to criminally investigate or prosecute any alcohol or drug abuse patient.[facility] the event this information is protected by the Federal Confidentiality of Alcohol and Drug Abuse Patient Records regulations: The Federal rules restrict any use of the information to criminally investigate or prosecute any alcohol or drug abuse patient.[facility] the event this information is protected by the Federal Confidentiality of Alcohol and Drug Abuse Patient Records regulations: The Federal rules restrict any use of the information to criminally investigate or prosecute any alcohol or drug abuse patient.[facility] the event this information is protected by the Federal Confidentiality of Alcohol and Drug Abuse Patient Records regulations: The Federal rules restrict any use of the information to criminally investigate or prosecute any alcohol or drug abuse patient.[facility] the event this information is protected by the Federal Confidentiality of Alcohol and Drug Abuse Patient Records regulations: The Federal rules restrict any use of the information to criminally investigate or prosecute any alcohol or drug abuse patient.[facility] the event this information is protected by the Federal Confidentiality of Alcohol and Drug Abuse Patient Records regulations: The Federal rules restrict any use of the information to criminally investigate or prosecute any alcohol or drug abuse patient.[facility] Hospital[facility] the event this information is protected by the Federal Confidentiality of Alcohol and Drug Abuse Patient Records regulations: The Federal rules restrict any use of the information to criminally investigate or prosecute any alcohol or drug abuse patient.[facility] the event this information is protected by the Federal Confidentiality of Alcohol and Drug Abuse Patient Records regulations: The Federal rules restrict any use of the information to criminally investigate or prosecute any alcohol or drug abuse patient.[facility] the event this information is protected by the Federal Confidentiality of Alcohol and Drug Abuse Patient Records regulations: The Federal rules restrict any use of the information to criminally investigate or prosecute any alcohol or drug abuse patient.[facility] the event this information is protected by the Federal Confidentiality of Alcohol and Drug Abuse Patient Records regulations: The Federal rules restrict any use of the information to criminally investigate or prosecute any alcohol or drug abuse patient.[facility] HospitalIn the event this information is protected by the Federal Confidentiality of Alcohol and Drug Abuse Patient Records regulations: The Federal rules restrict any use of the information to criminally investigate or prosecute any alcohol or drug abuse patient.[facility] HospitalIn the event this information is protected by the Federal Confidentiality of Alcohol and Drug Abuse Patient Records regulations: The Federal rules restrict any use of the information to criminally investigate or prosecute any alcohol or drug abuse patient.[facility] HospitalIn the event this information is protected by the Federal Confidentiality of Alcohol and Drug Abuse Patient Records regulations: The Federal rules restrict any use of the information to criminally investigate or prosecute any alcohol or drug abuse patient.[facility] HospitalIn the event this information is protected by the Federal Confidentiality of Alcohol and Drug Abuse Patient Records regulations: The Federal rules restrict any use of the information to criminally investigate or prosecute any alcohol or drug abuse patient.[facility] HospitalIn the event this information is protected by the Federal Confidentiality of Alcohol and Drug Abuse Patient Records regulations: The Federal rules restrict any use of the information to criminally investigate or prosecute any alcohol or drug abuse patient.[facility] HospitalIn the event this information is protected by the Federal Confidentiality of Alcohol and Drug Abuse Patient Records regulations: The Federal rules restrict any use of the information to criminally investigate or prosecute any alcohol or drug abuse patient.[facility] HospitalIn the event this information is protected by the Federal Confidentiality of Alcohol and Drug Abuse Patient Records regulations: The Federal rules restrict any use of the information to criminally investigate or prosecute any alcohol or drug abuse patient.[facility] HospitalIn the event this information is protected by the Federal Confidentiality of Alcohol and Drug Abuse Patient Records regulations: The Federal rules restrict any use of the information to criminally investigate or prosecute any alcohol or drug abuse patient.[facility] HospitalIn the event this information is protected by the Federal Confidentiality of Alcohol and Drug Abuse Patient Records regulations: The Federal rules restrict any use of the information to criminally investigate or prosecute any alcohol or drug abuse patient.[facility] the event this information is protected by the Federal Confidentiality of Alcohol and Drug Abuse Patient Records regulations: The Federal rules restrict any use of the information to criminally investigate or prosecute any alcohol or drug abuse patient.[facility] HospitalIn the event this information is protected by the Federal Confidentiality of Alcohol and Drug Abuse Patient Records regulations: The Federal rules restrict any use of the information to criminally investigate or prosecute any alcohol or drug abuse patient.[facility] HospitalIn the event this information is protected by the Federal Confidentiality of Alcohol and Drug Abuse Patient Records regulations: The Federal rules restrict any use of the information to criminally investigate or prosecute any alcohol or drug abuse patient.[facility] HospitalIn the event this information is protected by the Federal Confidentiality of Alcohol and Drug Abuse Patient Records regulations: The Federal rules restrict any use of the information to criminally investigate or prosecute any alcohol or drug abuse patient.[facility] HospitalIn the event this information is protected by the Federal Confidentiality of Alcohol and Drug Abuse Patient Records regulations: The Federal rules restrict any use of the information to criminally investigate or prosecute any alcohol or drug abuse patient.[facility] HospitalIn the event this information is protected by the Federal Confidentiality of Alcohol and Drug Abuse Patient Records regulations: The Federal rules restrict any use of the information to criminally investigate or prosecute any alcohol or drug abuse patient.[facility] HospitalIn the event this information is protected by the Federal Confidentiality of Alcohol and Drug Abuse Patient Records regulations: The Federal rules restrict any use of the information to criminally investigate or prosecute any alcohol or drug abuse patient.[facility] HospitalIn the event this information is protected by the Federal Confidentiality of Alcohol and Drug Abuse Patient Records regulations: The Federal rules restrict any use of the information to criminally investigate or prosecute any alcohol or drug abuse patient.[facility] HospitalIn the event this information is protected by the Federal Confidentiality of Alcohol and Drug Abuse Patient Records regulations: The Federal rules restrict any use of the information to criminally investigate or prosecute any alcohol or drug abuse patient.[facility] HospitalIn the event this information is protected by the Federal Confidentiality of Alcohol and Drug Abuse Patient Records regulations: The Federal rules restrict any use of the information to criminally investigate or prosecute any alcohol or drug abuse patient.[facility] HospitalIn the event this information is protected by the Federal Confidentiality of Alcohol and Drug Abuse Patient Records regulations: The Federal rules restrict any use of the information to criminally investigate or prosecute any alcohol or drug abuse patient.[facility] HospitalIn the event this information is protected by the Federal Confidentiality of Alcohol and Drug Abuse Patient Records regulations: The Federal rules restrict any use of the information to criminally investigate or prosecute any alcohol or drug abuse patient.[facility] HospitalIn the event this information is protected by the Federal Confidentiality of Alcohol and Drug Abuse Patient Records regulations: The Federal rules restrict any use of the information to criminally investigate or prosecute any alcohol or drug abuse patient.[facility] HospitalIn the event this information is protected by the Federal Confidentiality of Alcohol and Drug Abuse Patient Records regulations: The Federal rules restrict any use of the information to criminally investigate or prosecute any alcohol or drug abuse patient.[facility] HospitalIn the event this information is protected by the Federal Confidentiality of Alcohol and Drug Abuse Patient Records regulations: The Federal rules restrict any use of the information to criminally investigate or prosecute any alcohol or drug abuse patient.[facility] HospitalIn the event this information is protected by the Federal Confidentiality of Alcohol and Drug Abuse Patient Records regulations: The Federal rules restrict any use of the information to criminally investigate or prosecute any alcohol or drug abuse patient.[facility] HospitalIn the event this information is protected by the Federal Confidentiality of Alcohol and Drug Abuse Patient Records regulations: The Federal rules restrict any use of the information to criminally investigate or prosecute any alcohol or drug abuse patient.[facility] HospitalIn the event this information is protected by the Federal Confidentiality of Alcohol and Drug Abuse Patient Records regulations: The Federal rules restrict any use of the information to criminally investigate or prosecute any alcohol or drug abuse patient.[facility] HospitalIn the event this information is protected by the Federal Confidentiality of Alcohol and Drug Abuse Patient Records regulations: The Federal rules restrict any use of the information to criminally investigate or prosecute any alcohol or drug abuse patient.[facility] HospitalIn the event this information is protected by the Federal Confidentiality of Alcohol and Drug Abuse Patient Records regulations: The Federal rules restrict any use of the information to criminally investigate or prosecute any alcohol or drug abuse patient.[facility] HospitalIn the event this information is protected by the Federal Confidentiality of Alcohol and Drug Abuse Patient Records regulations: The Federal rules restrict any use of the information to criminally investigate or prosecute any alcohol or drug abuse patient.[facility] FOR RECORDS PERTAINING TO PATIENTS WHO ARE OR HAVE BEEN ENROLLED IN A CHEMICAL DEPENDENCY/SUBSTANCEABUSE PROGRAM, SOME INFORMATION MAY BE OMITTED. This clinical summary was aggregated from multiple sources. Caution should be exercised in using it in the provision of clinical care. This summary normalizes information from multiple sources, and as a consequence, information in this document may materially change the coding, format and clinical context of patient data. In addition, data may be omitted in some cases. CLINICAL DECISIONS SHOULD BE BASED ON THE PRIMARY CLINICAL RECORDS. [facility] [employer] [facility]. provides no warranty or guarantee of the accuracy or completeness of information in this document.
--- NOTE | 2024-09-15 07:51 | RDU_ITS ---
Reason For Study Reason For Study: Renal Insufficiency Right Renal Artery Left Renal Artery Right renal artery ostium 96.6/12.6 Left renal artery ostium 99.0/22.3 RSV/EDV. PSV/EDV. Right renal artery proximal 71.0/8.9 Left renal artery proximal PSV/EDV PSV/EDV. 104.5/16.8 . Right renal artery mid 94.8/18.1 PSV/EDV. Left renal artery mid 97.2/25.9 PSV/EDV . Right renal artery distal 87.5/7.1 Left renal artery distal 122.2/27.2 PSV/EDV. PSV/EDV. Right RAR 1.27. Left RAR 1.61. Right Renal Parenchyma Left Renal Parenchyma Upper Pole Medula 35.2/10.5 PSV/EDV. Left upper pole medulla 42.5/11.4 Right upper pole medulla EDR 0.30 . PSV/EDV . Right upper pole medulla R.I. 0.70 . Left upper pole medulla EDR 0.30 . Upper Dario Cortx 15.1/4.1 PSV/EDV. Left upper pole medulla R.I. 0.73 . Right upper pole cortex EDR 0.30 . UP Cortex 13.2/5.0 PSV/EDV. Right upper pole cortex R.I. 0.73 . Left upper pole cortex EDR 0.40 . Right lower Pole medulla 26.0/10.5 Left upper pole cortex R.I. 0.62 . PSV/EDV . Left lower Pole medulla 31.5/9.6 Right lower pole medulla EDR 0.40 . PSV/EDV . Right lower pole medulla R.I. 0.60 . Left lower pole medulla EDR 0.30 . Lower Pole Cortex 16.9/5.9 PSV/EDV. Left lower pole medulla R.I. 0.70 . Right lower pole cortex EDR 0.40 . Lower Pole Cortx 19.6/6.8 PSV/EDV. Right lower pole cortex R.I. 0.65 . Left lower pole cortex EDR 0.30 . Right Renal Hilar Left lower pole cortex R.I. 0.65 . Right Hilar avg 36.0/11.0 PSV/EDV. Left Renal Hilar Right hilar acceleration time 30 m/sec. LT Hilar avg 36.2/10.1 PSV/EDV . Right Renal Dimensions Left hilar acceleration time 30 m/sec. Right kidney size 12.44 cm . Left Renal Dimensions Right cortical dimension 1.14 cm . Left kidney size 12.43 cm . Left cortical dimension 1.05 cm . Aorta Proximal abdominal aorta 2.24 x 2.05 cm . Proximal abdominal aorta peak systolic velocity is 76.8 cm/sec . Distal abdominal aorta 1.67 x 1.56 cm . Distal abdominal aorta peak systolic velocity is 99.4 cm/sec . VL/Renal Artery Duplex Ultrasound Interpretation Summary Dimensions of the intra-abdominal aorta appear normal, without evidence of aneu rysmal dilatation. Renal artery velocities are bilaterally normal. Acceleration times are normal bilaterally. R enal-aortic ratios are also bilaterally normal. There is no evidence of hemodynamically significant renal artery stenos is on either side. Renovascular resistance appears to be bilaterally normal . Cortical dimensions are bilateral ly normal. Kidneys appear normal in size bilaterally. Ordering Physician: Corina Li Referring Physician: Corina Li Performed By: Jaquan Laws, RVT
--- NOTE | 2024-09-15 07:54 | US_ITS ---
PROCEDURE: KIDNEY AND BLADDER 09/15/2024 REASON FOR EXAM: DISORDER OF KIDNEY AND URETER, WITH POST VOID TECHNIQUE: KIDNEY AND BLADDER COMPARISON: None FINDINGS: Kidneys: 5 mm cyst in the midpole. Nonobstructive intrarenal calculus. [place]: No evidence of hydronephrosis. RIGHT Kidney Size: 12.0 cm x 5.5 cm x 6 cm Volume: 210.63 mL Cortical Thickness (if discernible): 13 mm (>6mm is normal) LEFT Kidney Size: 12.3 cm x 4.9 cm x 5.8 cm Volume: 182.23 mL Cortical Thickness (if discernible): 12 mm (>6mm is normal) Urinary bladder: Prevoid: 431 mL. Postvoid: 126.6 mL. There is evidence of trabeculation of the bladder wall most likely secondary to bladder outlet obstruction. US/Kidney and Bladder IMPRESSION: Small cyst in the right kidney as well as a nonobstructive intrarenal calculus. Postvoid residual. Trabeculation of the urinary bladder. Reading Location: [address] [address]
--- NOTE | 2024-09-15 08:55 | CT_ITS ---
PROCEDURE: CHEST WITHOUT CONTRAST 09/15/2024 REASON FOR EXAM: CT OF CHEST WITHOUT CONTRAST: LUNG NODULE 6-8MM TECHNIQUE: Chest CT without contrast. Coronal and Sagittal reconstruction series were provided. One or more dose reduction techniques were used (e.g., Automated exposure control, adjustment of the mA and/or kV according to patient size, use of iterative reconstruction technique RADIATION DOSE SUMMARY: CTDlvol: 9.05 MGy DLP: 348 mGycm COMPARISON: None. FINDINGS: AICD is in good position. Moderate coronary artery calcifications. Multiple bilateral chronic calcified pulmonary nodules/granulomas with the largest in the left upper lobe measuring 8 mm. Multifocal chronic interstitial linear pulmonary thickening is noted, more prominent in the right upper lobe and bilateral lower lobes. Normal unenhanced main pulmonary artery and right and left pulmonary arteries. Normal bilateral peripheral pulmonary arteries. Normal thoracic aorta and visualized great vessels. There is no demonstrated aortic aneurysm. Normal heart and pericardium. Normal mediastinum. Normal hilar regions. Normal visualized trachea and bronchi. The remaining lungs are well expanded. Normal remaining pulmonary parenchyma. Normal pleura. Diffuse spondylosis. CT/Chest without Contrast IMPRESSION: Coronary artery calcification (CAC) is is present AICD is in good position. Moderate coronary artery calcifications. Multiple bilateral chronic calcified pulmonary nodules/granulomas with the larg est in the left upper lobe measuring 8 mm. Multifocal chronic interstitial linear pulmonary thickening is noted, more prom inent in the right upper lobe and bilateral lower lobes. Reading [facility]
== END 2024-09-15 23:59 | disposition home or self-care (01) ==
LOC: CT 07:33
PROVIDERS: PCP Internal Medicine; Referring Provider Internal Medicine; Visit Provider Internal Medicine
DX: N28.9 Disorder of kidney and ureter, unspecified (principal); R91.8 Other nonspecific abnormal finding of lung field
CPT/HCPCS: 71250; 76770; 93975